=== PATIENT | male | born 1955 | race Caucasian/White ===

== ENCOUNTER 2016-11-22 14:22 | Inpatient (IN) | payer OTHER ==
[~2016-11-22] VITALS: Ht 172.7 cm; Wt 77.3 kg
[~2016-11-22 14:22] MED LIST: ACET325T33 PO; ALBU2.5V3 NEB; AMLO5TAB4 PO; ASC500 PO; BEN25 PO; BISA10SU58 PR; CRAN3875 PO; CRAN425C2 PO; DOCU-144 PO; GLUC1VIA7 IM; GUAI-637 PO; HYDR-3670 PO; LACTINEX PO; LEVE-5 PO; LEVEM SC; LEVO500T72 PO; LISI-525 PO; MAGN400O4 PO; MULTI PO; NA P118E PR; ONDA4TAB8 PO; RTATR IH; SENN-8 PO; TYL500 PO; ZINC220T PO
[2016-11-22 15:01] VITALS: Ht 172.7 cm; Wt 77.3 kg
[2016-11-22] MEDS ORDERED: SODIUM CHLORIDE 0.9% 1L BAG IV* STA (15:25)
[2016-11-22] MEDS ORDERED: VANCOMYCIN 1 GM (PMX) 250 ML IVPB ONE (15:30)
[2016-11-22] MEDS ORDERED: ONDANSETRON 4 MG INJ ONE ×2 (15:45→15:46)
[2016-11-22] MEDS ORDERED: GABA300C16 PO (15:45)
[2016-11-22] MEDS ORDERED: HYDR-3010 PO (15:46)
[2016-11-22] MEDS ORDERED: SIME80TA53 PO (15:46)
[2016-11-22] MEDS ORDERED: morphine 10 MG INJ ONE ×2 (15:46→15:48)
[2016-11-22] MEDS ORDERED: ATOR20TA38 PO (15:47)
[2016-11-22] MEDS ORDERED: HYDR-3672 PO (15:48)
[2016-11-22] MEDS ORDERED: LEVE500T8 PO (15:48)
[2016-11-22] MEDS ORDERED: SILV20CR13 TOP (15:50)
[2016-11-22] MEDS ORDERED: morphine 10 MG INJ IV ONE (16:00)
--- NOTE | 2016-11-22 16:07 | RADRPT ---
PROCEDURE: XR Chest. CLINICAL INDICATION: chest pain TECHNIQUE: Single frontal view of the chest was obtained COMPARISON: 05/11/2014 FINDINGS: The heart and mediastinum are within normal limits. The lungs are clear. There is no pleural effusion or pneumothorax. RPTAT: AA IMPRESSION: No acute disease. .Henrique Velazquez MD, MD Date Time Electronically viewed and signed by .Henrique Velazquez MD, on 11/22/2016 16:06 .S/
[2016-11-22 16:31] LABS: BASOPHIL # 0.1 10^3/ul (0.0-0.1); BASOPHILS % 0.5 % (0.0-2.0); EOSINOPHILS # 0.1 10^3/ul (0.0-0.5); EOSINOPHILS % 0.7 % (0.0-7.0); HEMATOCRIT 32.5 % (42.0-52.0); HEMOGLOBIN 10.2 g/dl (14.0-18.0); LYMPHOCYTES # 1.9 10^3/ul (0.8-2.9); MEAN CORPUSCULAR HEMOGLOBIN 19.6 pg (29.0-33.0); MEAN CORPUSCULAR HGB CONC 31.4 g/dl (32.0-37.0); MEAN CORPUSCULAR VOLUME 62.5 fl (82.0-101.0); MEAN PLATELET VOLUME 9.2 fl (7.4-10.4); MONOCYTE # 0.8 10^3/ul (0.3-0.9); MONOCYTES % 5.9 % (0.0-11.0); NEUTROPHIL # 9.8 10^3/ul (1.6-7.5); NEUTROPHILS % 77.5 % (39.0-77.0); PLATELET COUNT 206 10^3/UL (140-415); RED CELL DISTRIBUTION WIDTH 17.4 % (11.5-14.5); WHITE BLOOD COUNT 12.7 10^3/ul (4.8-10.8)
[2016-11-22 16:47] LABS: INR 1.22; PROTIME 15.5 Sec (12.2-14.2); PT RATIO 1.2
[2016-11-22 16:48] LABS: PARTIAL THROMBOPLASTIN TIME 41.1 Sec (25.0-35.0)
[2016-11-22 16:49] LABS: ALANINE AMINOTRANSFERASE 31 IU/L (13-69); ALBUMIN 3.3 g/dl (3.3-4.9); ALBUMIN/GLOBULIN RATIO 0.75; ALKALINE PHOSPHATASE 174 IU/L (42-121); ANION GAP 9 (8-16); ASPARTATE AMINO TRANSFERASE 22 IU/L (15-46); BILIRUBIN,INDIRECT 0.9 mg/dl (0-1.1); BILIRUBIN,TOTAL 0.9 mg/dl (0.2-1.3); BLOOD UREA NITROGEN 21 mg/dl (7-20); CALCIUM 8.7 mg/dl (8.4-10.2); CARBON DIOXIDE 31 mmol/L (21-31); CHLORIDE 105 mmol/L (97-110); CREATININE 0.97 mg/dl (0.61-1.24); GLUCOSE 95 mg/dl (70-220); POTASSIUM 3.7 mmol/L (3.5-5.1); SODIUM 141 mmol/L (135-144); TOTAL PROTEIN 7.7 g/dl (6.1-8.1)
[2016-11-22 17:01] LABS: TROPONIN-I < 0.012 ng/ml (0.00-0.12)
[2016-11-22] MEDS ORDERED: SOD CHLORIDE 0.9% 100 ML ONE (17:13)
[2016-11-22] MEDS ORDERED: IOHEXOL 300MG/ML 150 ML BTL ONE (17:13)
[2016-11-22 17:22] LABS: ADD UMIC YES; UR ASCORBIC ACID NEGATIVE (NEGATIVE); UR BACTERIA MANY /HPF (NONE SEEN); UR BILIRUBIN (Dip) NEGATIVE (NEGATIVE); UR BLOOD (Dip) 1+ mg/dL (NEGATIVE); UR CLARITY TURBID (CLEAR); UR COLOR AMBER (YELLOW); UR GLUCOSE (Dip) NEGATIVE (NEGATIVE); UR KETONES (Dip) NEGATIVE (NEGATIVE); UR LEUKOCYTE ESTERASE (Dip) 3+ Leu/ul (NEGATIVE); UR NITRITE (Dip) POSITIVE (NEGATIVE); UR NONSQUAMOUS EPITHELIAL CELL 1 /HPF (NONE SEEN); UR RBC 61 /HPF (0-5); UR SPECIFIC GRAVITY (Dip) 1.015 (1.003-1.030); UR TOTAL PROTEIN (Dip) 2+ mg/dl (NEGATIVE); UR UROBILINOGEN (Dip) NEGATIVE (NEGATIVE)
--- NOTE | 2016-11-22 17:54 | RADRPT ---
PROCEDURE: CT of the abdomen and pelvis CLINICAL INDICATION: Abdominal pain. Scrotal swelling. TECHNIQUE: The study was performed utilizing a GE lightspeed 64-slice multidetector CT scanner. Dir ect spiral axial sections were obtained through the abdomen and pelvis with intravenous contrast. Af ter administration of 100cc of Omnipaque-300, postcontrast images were obtained. Coronal and sagitt al reformatted images were performed. The CTDI vol is 14.75 mGy and the DLP is 951.65 mGy-cm. The i mages were reviewed on a PACS workstation. One or more of the following dose reduction techniques were used: Automated exposure control. Adjustment of the mA and/or kV according to patient size. Use of iterative reconstruction technique. COMPARISON: 05/27/2013 FINDINGS: CT abdomen: Dependent atelectatic changes in the lung bases is seen. The remaining lung bases are c lear. The heart is not enlarged. No pericardial effusion is seen. The liver morphology is again noted to be cirrhotic. No focal liver lesions or intrahepatic biliary dilatation is seen. The gallbladder is normal. No common bile duct dilatation is seen. The spleen is mildly enlarged measuring approximately 13.1 cm in size. The spleen, pancreas, and adrenal glands are otherwise unremarkable in appearance. The kidneys are normal in size and contour enhance normal ly. Non-obstructing bilateral renal calculi are seen which have increased in size and number. The la rgest stone is seen in the right renal pelvis measuring 1.2 cm in size. No evidence of hydronephrosi s or ureterolithiasis is seen. The bilateral ureters are thickened with soft tissue stranding. The stomach is unremarkable. The large bowel is stool-filled. The small and large bowel are otherwi se unremarkable in course and caliber. No inflammatory changes in the periappendiceal region is see n. No enlarged lymph nodes or fluid collections are seen. The aorta is normal in caliber. Aortic ridge cifications are seen. An infrarenal IVC filter is once again seen. CT pelvis: No pelvic mass, adenopathy, or focal fluid collection is seen. There is no free fluid. Increased soft tissue density in the presacral space is once again noted. Scrotal soft tissue swelli ng is also seen. The bilateral common iliac arteries are atherosclerotic in the cavity which is once again seen. The urinary bladder is decompressed by a suprapubic catheter. Diffuse urinary bladder w all thickening is seen. Degenerative spondylosis of the lumbar spine is seen. No osseous lesions are seen. IMPRESSION: 1. Findings which may represent pyelitis and cystitis as described above. 2. Bilateral non-obstructing renal calculi which have increased in size and number. 3. Suprapubic catheter again seen. 4. Cirrhotic liver morphology with mild splenomegaly again noted. 5. Nonspecific increased soft tissue density with scrotal wall thickening which may represent cellu litis. Consider further evaluation with scrotal ultrasound as well. RPTAT: HPNM Physician Karla Date Time Electronically viewed and signed by Physician Karla on 11/22/2016 17:54 /
[2016-11-22] MEDS ORDERED: PIPER-TAZO 3.375 GM IV (PMX) 100 ML IVPB ONE (19:00)
[2016-11-22] MEDS ORDERED: HYDROCODONE/APAP (5/325) TAB ONE (19:35)
[2016-11-22] MEDS ORDERED: IBUPROFEN 600 MG TAB ONE (19:35)
--- NOTE | 2016-11-22 19:48 | ERA ---
ER Documentation Chief Complaint Date/Time DATE: 11/22/16 TIME: 19:41 Chief Complaint from home called for red and swollen scrotum x 1 day, hx of infection HPI This 61-year-old male is brought in by family for painful and swollen scrotum for 1 day. 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 Slight weakness and some chills. Has a suprapubic catheter has been draining appropriately. Denies any bleeding. ROS All systems reviewed and are negative except as per history of present illness. Medications Home Meds Reported Medications Silver Sulfadiazine* (SSD*) 1% - 20 Gm Cream.gm., 1 APPLIC TOP BID, #1 TUB 11/22/16 Levetiracetam* (Levetiracetam*) 500 Mg Tablet, 1000 MG PO BID, TAB 11/22/16 Hydralazine Hcl* (Hydralazine Hcl*) 50 Mg Tab, 50 MG PO TID, #90 TAB 11/22/16 Atorvastatin Calcium* (Atorvastatin Calcium*) 20 Mg Tablet, 20 MG PO QHS, #30 TAB 11/22/16 Hydroxyzine Hcl* (Hydroxyzine Hcl*) 10 Mg Tablet, 10 MG PO QHS Y for ITCHING, # 30 TAB 11/22/16 Simethicone (GAS RELIEF) 80 Mg Tab.chew, 80 MG PO TID, TAB.CHEW 11/22/16 Gabapentin* (Gabapentin*) 300 Mg Capsule, 300 MG PO TID, #90 CAP 11/22/16 Discontinued Reported Medications Insulin Detemir* (Levemir*) 100 U/Ml Vial, 10 UNIT SC HS, VIAL 05/11/14 Hydralazine Hcl* (Hydralazine Hcl*) 10 Mg Tablet, 20 MG PO Q6 Y for ELEVATED BLOOD PRESSURE, TAB HOLD IF SBP ABOVE 160 05/11/14 Glucagon* (Glucagen*) 1 Mg Soln, 1 MG IM PRN, VIAL 05/11/14 Cranberry Extract (Cranberry) 425 Mg Capsule, 425 MG PO TID 05/11/14 Albuterol Sulfate* (Albuterol Sulfate* Neb) 0.083%-3 Ml Neb, 2.5 MG NEB Q4H Y for WHEEZING AND SOB, EA 05/11/14 Ondansetron Hcl* (Zofran*) 4 Mg Tablet, 4 MG PO Q4 Y for NAUSEA AND OR VOMITING , TAB 02/08/14 Zinc Sulfate* (Zinc Sulfate*) 220 Mg Tablet, 220 MG PO DAILY, TAB 02/08/14 Cran/Vitc/Mannose/Inulin/Brom (Uti-Stat Liquid) 3,875 Mg/30 Ml Liquid, 30 ML PO BID 02/08/14 Guaifenesin* (Robitussin*) 100 Mg/5 Ml Syrup, 100 MG PO Q4H Y for COUGH, ML 02/08/14 Magnesium Hydroxide* (Milk Of Magnesia*) 400 Mg/5 Ml Oral.susp, 30 ML PO QHS, ML 02/08/14 Na Phos,M-B/Na Phos,Di-Ba* (Fleet* Enema) 118 Ml Enema, 118 ML TX DAILY Y for CONSTIPATION, ENEMA 02/08/14 Lisinopril* (Zestril*) 20 Mg Tablet, 20 MG PO QHS, TAB HOLD IF SBP BELOW 110 OR HR BELOW 60 11/02/13 Ascorbic Acid (Vitamin C) 500 Mg Tab, 500 MG PO DAILY, TAB 11/02/13 Acetaminophen* (Tylenol*) 500 Mg Tab, 1000 MG PO Q4H for PAIN LEVEL 4-6, TAB 11/02/13 Acetaminophen* (Tylenol*) 325 Mg Tablet, 650 MG PO Q4H Y for PAIN LEVEL 1-3, TAB 11/02/13 Sennosides/Docusate Sodium* (Senna-S*) 1 Tab Tablet, 2 TAB PO QHS, TAB 11/02/13 Amlodipine Besylate* (Norvasc*) 5 Mg Tablet, 5 MG PO BID, TAB HOLD IF SBP BELOW 110, HR BELOW 60 11/02/13 Multivitamins* (Theragran*) 1 Tab Tab, 1 TAB PO DAILY, TAB WITH MINERAL 11/02/13 Lactobacillus Acidophilus* (Lactinex*) 1 Tab Chew, 1 TAB PO BID, TAB 11/02/13 Levetiracetam* (Keppra*) 500 Mg Tablet, 500 MG PO BID, TAB 11/02/13 Bisacodyl* (Dulcolax*) 10 Mg/Supp.rect Supp.rect, 10 MG TX Q48 HOURS Y for CONSTIPATION, SUPP.RECT 11/02/13 Docusate Sodium* (Colace*) 100 Mg Capsule, 200 MG PO HS, CAP HOOLD FOR LOOSE BM 11/02/13 Diphenhydramine Hcl* (Benadryl*) 25 Mg Cap, 25 MG PO Q6H Y for ITCHING, CAP 11/02/13 Ipratropium [place]* (Atrovent*) 2.5 Ml Nebu, 2.5 ML IH Q4 Y for WHEEZING AND SOB 05/28/13 Discontinued Scripts Levofloxacin* (Levaquin*) 500 Mg Tablet, 500 MG PO DAILY, #7 TAB Prov:KENIA BROOKS MD 05/12/14 Allergies Allergies: Coded Allergies: No Known Allergy (Unverified , 11/22/16) PMhx/Soc History of Surgery: Yes (suprapubic catheter , ventriculostomy 2013, trach, scrotum and penis surger) Anesthesia Reaction: No Hx Neurological Disorder: Yes (CVA) Hx Respiratory Disorders: Yes (COPD) Hx Cardiac Disorders: Yes (HTN) Hx Psychiatric Problems: No Hx Miscellaneous Medical Probl: Yes (HYPERLIPIDEMIA) Hx Alcohol Use: No Hx Substance Use: No (UNKNOWN) Hx Tobacco Use: No Smoking Status: Former smoker Physical Exam Vitals Vital Signs Date Time Temp Pulse Resp B/P Pulse Ox O2 Delivery O2 Flow Rate FiO2 11/22/16 17:58 68 16 182/89 96 Room Air 11/22/16 16:13 58 21 169/88 97 Room Air 11/22/16 15:01 98.0 67 25 170/89 97 Physical Exam Const: [] Distress Head: Atraumatic Eyes: Normal Conjunctiva ENT: Normal External Ears, Nose and Mouth. Neck: Full range of motion..~ No meningismus. Resp: Clear to auscultation bilaterally Cardio: Regular rate and rhythm, no murmurs Abd: Soft, suprapubic tenderness and fullness, penis within normal limits, scrotum has mild swelling and erythema and is somewhat tender to touch,, non distended. Normal bowel sounds Skin: No petechiae or rashes Back: No midline or flank tenderness Ext: No cyanosis, or edema Neur: Awake and alert and oriented 3, no focal deficits Psych: Normal Mood and Affect Result Diagram: 11/22/16 1605 11/22/16 1605 Results 24 hrs Laboratory Tests Test 11/22/16 16:05 11/22/16 18:50 White Blood Count 12.710^3/ul Red Blood Count 5.2010^6/ul Hemoglobin 10.2g/dl Hematocrit 32.5% Mean Corpuscular Volume 62.5fl Mean Corpuscular Hemoglobin 19.6pg Mean Corpuscular Hemoglobin Concent 31.4g/dl Red Cell Distribution Width 17.4% Platelet Count 99137^3/UL Mean Platelet Volume 9.2fl Neutrophils % 77.5% Lymphocytes % 15.0% Monocytes % 5.9% Eosinophils % 0.7% Basophils % 0.5% Nucleated Red Blood Cells % 0.0/100WBC Neutrophils # 9.810^3/ul Lymphocytes # 1.910^3/ul Monocytes # 0.810^3/ul Eosinophils # 0.110^3/ul Basophils # 0.110^3/ul Nucleated Red Blood Cells # 0.010^3/ul Prothrombin Time 15.5Sec Prothrombin Time Ratio 1.2 INR International Normalized Ratio 1.22 Activated Partial Thromboplast Time 41.1Sec Urine Color ANI Urine Clarity TURBID Urine pH 7.0 Urine Specific [place] 1.015 Urine Ketones NEGATIVEmg/dL Urine Nitrite POSITIVEmg/dL Urine Bilirubin NEGATIVEmg/dL Urine Urobilinogen NEGATIVEmg/dL Urine Leukocyte Esterase 3+Faisal/ul Urine Microscopic RBC 61/HPF Urine Microscopic WBC > 182/HPF Urine Bacteria MANY/HPF Urine Hemoglobin 1+mg/dL Urine Glucose NEGATIVEmg/dL Urine Total Protein 2+mg/dl Sodium Level 141mmol/L Potassium Level 3.7mmol/L Chloride Level 105mmol/L Carbon Dioxide Level 31mmol/L Anion Gap 9 Blood Urea Nitrogen 21mg/dl Creatinine 0.97mg/dl Glucose Level 95mg/dl Lactic Acid Level 1.4mmol/L 0.9mmol/L Calcium Level 8.7mg/dl Total Bilirubin 0.9mg/dl Direct Bilirubin 0.00mg/dl Indirect Bilirubin 0.9mg/dl Aspartate Amino Transf (AST/SGOT) 22IU/L Alanine Aminotransferase (ALT/SGPT) 31IU/L Alkaline Phosphatase 174IU/L Troponin I < 0.012ng/ml Total Protein 7.7g/dl Albumin 3.3g/dl Globulin 4.40g/dl Albumin/Globulin Ratio 0.75 Current Medications Medications (Trade) Dose Ordered Sig/Johnny Route PRN Reason Start Time Stop Time Status Last Admin Dose Admin Sodium Chloride 2400 ml 2,400 ml BOLUS OVER 2 HOURS STAT IV* 11/22/16 15:25 11/22/16 15:27 DC 11/22/16 16:00 Vancomycin HCl (Vancocin) 250 ml @ 125 mls/hr ONCE ONCE IVPB 11/22/16 15:30 11/22/16 17:29 DC 11/22/16 16:24 Ondansetron HCl (Zofran Inj) 4 mg STK-MED ONCE .ROUTE 11/22/16 15:45 11/22/16 15:46 DC Morphine Sulfate (morphine) 10 mg STK-MED ONCE .ROUTE 11/22/16 15:46 11/22/16 15:47 DC Ondansetron HCl (Zofran Inj) 4 mg STK-MED ONCE .ROUTE 11/22/16 15:46 11/22/16 15:47 DC Morphine Sulfate (morphine) 6 mg ONCE ONCE IV 11/22/16 16:00 11/22/16 16:01 DC 11/22/16 15:59 Morphine Sulfate (morphine) 10 mg STK-MED ONCE .ROUTE 11/22/16 15:48 11/22/16 15:49 DC IV Flush 10 ml 10 ml STK-MED ONCE .ROUTE 11/22/16 17:13 11/22/16 17:14 DC 11/22/16 17:34 Sodium Chloride (NS) 100 ml @ ud STK-MED ONCE .ROUTE 11/22/16 17:13 11/22/16 17:14 DC 11/22/16 17:35 Iohexol 150 ml 150 ml STK-MED ONCE .ROUTE 11/22/16 17:13 11/22/16 17:14 DC 11/22/16 17:35 Piperacillin Sod/ Tazobactam Sod (Zosyn 3.375gm/ 100 ml (Pmx)) 100 ml @ 200 mls/hr ONCE ONCE IVPB 11/22/16 19:00 11/22/16 19:29 DC 11/22/16 19:13 Procedures/MDM Scrotal cellulitis and cystitis with leukocytosis. No signs of sepsis. I do not believe the patient has Jami's gangrene at this point it seems to be early in the course of scrotal cellulitis. Because this is a genital threatening condition patient was started on vancomycin and Zosyn given IV fluid. Spoke with his urologist who will be able to see the patient in the morning which would be appropriate. Was treated with morphine and fentanyl for pain. Is being admitted to the panel hospitalist. CT abdomen pelvis interpretation: Mild scrotal edema, mild cystitis, no bowel obstruction, constipation, no perforation or free air, no fractures acutely. EKG interpretation: Normal sinus rhythm at 65, normal axis, normal intervals, no ST or T-wave changes concerning for acute ischemia, nonspecific ST and T- wave changes. Back monitor interpretation: Normal sinus rhythm without arrhythmia Chest x-ray interpretation: See no acute process, I see no widened mediastinum, pneumothorax, no infiltrates, no fracture Departure Diagnosis: Primary Impression: Cellulitis of scrotum Additional Impressions: Anemia Cystitis Condition: Serious RHONDA GONZALEZ DO Nov 22, 2016 19:48
[2016-11-22] MEDS ORDERED: ACETAMINOPHEN 325 MG TAB PO PRN ×2 (20:00→20:30)
[2016-11-22] MEDS ORDERED: ONDANSETRON 4 MG INJ IV PRN ×2 (20:00→20:30)
[2016-11-22] MEDS ORDERED: SENNA TAB PO ONE (20:00)
--- NOTE | 2016-11-22 20:07 | RADRPT ---
PROCEDURE: Scrotal ultrasound CLINICAL INDICATION: Scrotal swelling TECHNIQUE: Multiple stein scale, color Doppler, and spectral Doppler images of the scrotum were obt ained. Images were reviewed on a high-resolution PACS workstation. COMPARISON: None FINDINGS: The right testes measures 4.2 x 2.1 x 3.1 cm and the left testes measures 4.3 x 1.6 x 2.[address] stes are normal in size and echogenicity with increased color flow. The right epididymis measures a 0.9 x 5.2 mm and the left epididymis measures 12 x 3.2 mm. The epididymis bilaterally are normal i n size and echogenicity. No hydrocele or varicocele is identified. Diffuse scrotal wall swelling is seen. No focal fluid collection is seen. IMPRESSION: 1. Increased color flow in the bilateral testes which may represent orchitis. Consider a short inte rval follow-up as clinically warranted. 2. Diffuse scrotal wall thickening. RPTAT: HPNM Physician Karla Date Time Electronically viewed and signed by Physician Karla on 11/22/2016 19:42 /
[2016-11-22] MEDS ORDERED: NACL 0.9% 3 ML SYG IV SCH (20:30)
[2016-11-22] MEDS ORDERED: hydrOXYzine HCL 10 MG TAB PO PRN (20:30)
[2016-11-22] MEDS ORDERED: BISACODYL (EC) 5 MG TAB PO PRN (20:30)
[2016-11-22] MEDS ORDERED: morphine 2 MG INJ IV PRN (20:30)
[2016-11-22] MEDS ORDERED: DOCUSATE SODIUM 100 MG CAP PO PRN (20:30)
[2016-11-22 21:05] VITALS: BP 160/80; RESP 19
[2016-11-22] MEDS: LEVETIRACETAM 500 MG TAB PO SCH (22:01)
[2016-11-22] MEDS: ATORVASTATIN 20 MG TAB PO SCH (22:01)
[2016-11-22] MEDS: FAMOTIDINE 20 MG TAB PO SCH (22:01)
[2016-11-22] MEDS: GABAPENTIN 300 MG CAP PO SCH (22:01)
[2016-11-22] MEDS ORDERED: VANCOMYCIN IV PER PHARMACY XX SCH (22:30)
[2016-11-23 02:08] VITALS: BP 137/76; RESP 18
[2016-11-23] MEDS: VANCOMYCIN 1 GM in NS 250 ML IVPB SCH ×2 (03:45→16:45)
[2016-11-23] MEDS: PIPER-TAZO 3.375 GM IV (PMX) 100 ML IVPB SCH ×3 (06:01→21:18)
--- NOTE | 2016-11-23 06:16 | HP ---
Date/Time of Note Date/Time of Note DATE: 11/23/16 TIME: 06:10 Assessment/Plan VTE Prophylaxis VTE Prophylaxis Intervention: SCD's Lines/Catheters IV Catheter Type (from [facility]): Saline Lock Urinary Cath still in place: Yes Reason Cath still needed: other (indicate) (geniturinary infection) Assessment/Plan Chief Complaint/Hosp Course This is a 61-year-old male being admitted to the [facility] floor for: #1 scrotal cellulitis #2 suspected orchitis #3 Catheter related urinary tract infection #4 hypertension #5 history of hemorrhagic CVA #6 COPD, #7 history of liver cirrhosis and colitis. 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 #9 history of diabetes mellitus. Plan: Based on the imaging studies it appears that patient is dealing with scrotal cellulitis and possible underlying orchitis. There does not appear to be any signs of any Jami's gangrene at this time. At the current time he was started on vancomycin and Zosyn the ED will continue this for now though patient does have previous urine specimens from 2015 that were resistant to multiple organisms. Will again await urine culture results and sensitivities. Will consult ID if indicated. Urology was consulted, regarding cellulitis, and will defer further management regarding catheter management to them as well. Will await urine and blood cultures. Continue patient's home meds, insulin sliding scale. Hemoglobin A1c. Will attempt to contact family in the a.m. to obtain a better history and assess his baseline mentation. SCDs, acid jovanna Further treatment strategy will be implemented as per the clinical course Problems: HPI/ROS Admit Date/Time Admit Date/Time Nov 22, 2016 at 19:54 Hx of Present Illness Chief complaint scrotal swelling 1 day This is a 61-year-old male with a past medical history of cerebrovascular accident, hemorrhagic with left hemiparesis, hypertension, diabetes mellitus, history of previous scrotal swelling and has been having intermittent chronic indwelling Brown catheter who presents today with scrotal swelling 1. Patient was unable to provide a history information was obtained from the previous medical records. His daughter was called however was not able to reach her.. He also has a history of Jami gangrene of the scrotum. He has undergone surgery and insertion of a suprapubic catheter. Follows with Dr. Diaz. Today patient was noted to have scrotal swelling. Allergies: NKDA Medications: See MAR ROS Subjective hx not possible: other (Patient is somewhat confused I am unsure of his baseline) PMH/Family/Social Past Medical History 1. 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 Now the PEG tube is removed, gastroesophageal reflux disease. 2. History of liver cirrhosis and colitis. 3. History of Jami gangrene and suprapubic catheter placement. 4. History of diabetes mellitus. Past Surgical History History of heart surgery, history of scrotal surgery multiple times for the Jami gangrene. Family History Significant Family History: no pertinent family hx Social History Smoking Status: Former smoker Exam/Review of Systems Vital Signs Vitals Vital Signs Date Time Temp Pulse Resp B/P Pulse Ox O2 Delivery O2 Flow Rate FiO2 11/23/16 02:08 97.4 57 18 137/76 99 11/22/16 20:52 Room Air Intake and Output 11/22/16 11/22/16 11/23/16 15:00 23:00 07:00 Intake Total 250 ml 250 ml Balance 250 ml 250 ml Exam Exam General: Patient is awake and does not appear in any acute distress. He does appear somewhat confused I am unsure of his baseline HEENT: Atraumatic, normocephalic. The pupils are equal, round and reactive. Extraocular motor are intact Neck: Supple with full range of motion. No rigidity or meningismus Chest: Nontender Lungs: Clear to auscultation bilaterally no crackles rales or wheezing Heart: Normal S1-S2, Regular rhythm and rate. Abdomen: Soft , nontender, nondistended , bowel sounds are present. No guarding no rebound tenderness , No masses or organomegaly. No costovertebral temporal angle mass Genitourinary: Suprapubic catheter in place draining cloudy sediment in the urine, marked scrotal swelling and erythema noted Extremities: Normal to inspection, no edema no cyanosis Neurologic: Left-sided hemiparesis secondary to previous stroke: Patient does appear somewhat confused and unable able to give a proper history. Additional Comments EKG interpretation: Normal sinus rhythm at 65, normal axis, normal intervals, no ST or T-wave changes concerning for acute ischemia, nonspecific ST and T- wave changes. PROCEDURE: XR Chest. CLINICAL INDICATION: chest pain TECHNIQUE: Single frontal view of the chest was obtained COMPARISON: 05/11/2014 FINDINGS: The heart and mediastinum are within normal limits. The lungs are clear. There is no pleural effusion or pneumothorax. RPTAT: AA IMPRESSION: No acute disease. .Henrique Velazquez MD, MD Date Time Electronically viewed and signed by .Henrique Velazquez MD, MD on 11/22/2016 16: 06 .S/ CC: RHONDA GONZALEZ DO PROCEDURE: CT of the abdomen and pelvis CLINICAL INDICATION: Abdominal pain. Scrotal swelling. TECHNIQUE: The study was performed utilizing a [employer] 64-slice multidetector CT scanner. Direct spiral axial sections were obtained through the abdomen and pelvis with intravenous contrast. After administration of 100cc of Omnipaque-300, postcontrast images were obtained. Coronal and sagittal reformatted images were performed. The CTDI vol is 14.75 mGy and the DLP is 951.65 mGy-cm. The images were reviewed on a PACS workstation. One or more of the following dose reduction techniques were used: Automated exposure control. Adjustment of the mA and/or kV according to patient size. Use of iterative reconstruction technique. COMPARISON: 05/27/2013 FINDINGS: CT abdomen: Dependent atelectatic changes in the lung bases is seen. The remaining lung bases are clear. The heart is not enlarged. No pericardial effusion is seen. The liver morphology is again noted to be cirrhotic. No focal liver lesions or intrahepatic biliary dilatation is seen. The gallbladder is normal. No common bile duct dilatation is seen. The spleen is mildly enlarged measuring approximately 13.1 cm in size. The spleen, pancreas, and adrenal glands are otherwise unremarkable in appearance. The kidneys are normal in size and contour enhance normally. Non-obstructing bilateral renal calculi are seen which have increased in size and number. The largest stone is seen in the right renal pelvis measuring 1.2 cm in size. No evidence of hydronephrosis or ureterolithiasis is seen. The bilateral ureters are thickened with soft tissue stranding. The stomach is unremarkable. The large bowel is stool-filled. The small and large bowel are otherwise unremarkable in course and caliber. No inflammatory changes in the periappendiceal region is seen. No enlarged lymph nodes or fluid collections are seen. The aorta is normal in caliber. Aortic calcifications are seen. An infrarenal IVC filter is once again seen. CT pelvis: No pelvic mass, adenopathy, or focal fluid collection is seen. There is no free fluid. Increased soft tissue density in the presacral space is once again noted. Scrotal soft tissue swelling is also seen. The bilateral common iliac arteries are atherosclerotic in the cavity which is once again seen. The urinary bladder is decompressed by a suprapubic catheter. Diffuse urinary bladder wall thickening is seen. Degenerative spondylosis of the lumbar spine is seen. No osseous lesions are seen. IMPRESSION: 1. Findings which may represent pyelitis and cystitis as described above. 2. Bilateral non-obstructing renal calculi which have increased in size and number. 3. Suprapubic catheter again seen. 4. Cirrhotic liver morphology with mild splenomegaly again noted. 5. Nonspecific increased soft tissue density with scrotal wall thickening which may represent cellulitis. Consider further evaluation with scrotal ultrasound as well. RPTAT: HPNM Physician Karla Date Time Electronically viewed and signed by Physician Karla on 11/22/2016 17 :54 / CC: RHONDA GONZALEZ DO PROCEDURE: Scrotal ultrasound CLINICAL INDICATION: Scrotal swelling TECHNIQUE: Multiple stein scale, color Doppler, and spectral Doppler images of the scrotum were obtained. Images were reviewed on a high-resolution PACS workstation. COMPARISON: None FINDINGS: The right testes measures 4.2 x 2.1 x 3.1 cm and the left testes measures 4.3 x 1.6 x 2.7 cm. The testes are normal in size and echogenicity with increased color flow. The right epididymis measures a 0.9 x 5.2 mm and the left epididymis measures 12 x 3.2 mm. The epididymis bilaterally are normal in size and echogenicity. No hydrocele or varicocele is identified. Diffuse scrotal wall swelling is seen. No focal fluid collection is seen. IMPRESSION: 1. Increased color flow in the bilateral testes which may represent orchitis. Consider a short interval follow-up as clinically warranted. 2. Diffuse scrotal wall thickening. RPTAT: HPNM Physician Karla Date Time Electronically viewed and signed by Vinicio Reina Physician on 11/22/2016 19 :42 / CC: RHONDA GONZALEZ DO Labs Result Diagram: 11/22/16 1605 11/22/16 1605 Medications Medications Current Medications Atorvastatin Calcium (Lipitor) 20 mg QHS PO Last administered on 11/22/16 22: 01; Admin Dose 20 MG; Start 11/22/16 at 21:00 Gabapentin (Neurontin) 300 mg TID PO Last administered on 11/22/16 22:01; Admin Dose 300 MG; Start 11/22/16 at 21:00 Hydralazine HCl (Apresoline) 50 mg TID PO Last administered on 11/22/16 22:04 ; Admin Dose 50 MG; Start 11/22/16 at 21:00 Hydroxyzine HCl (Atarax) 10 mg QHS PRN PO ITCHING; Start 11/22/16 at 20:30 Levetiracetam (Keppra) 1,000 mg BID PO Last administered on 11/22/16 22:01; Admin Dose 1,000 MG; Start 11/22/16 at 21:00 Simethicone (Mylicon) 80 mg TID PO Last administered on 11/22/16 22:01; Admin Dose 80 MG; Start 11/22/16 at 21:00 Ondansetron HCl (Zofran Inj) 4 mg Q6H PRN IV NAUSEA AND/OR VOMITING; Start 11/22/16 at 20:30 Acetaminophen (Tylenol Tab) 650 mg Q6H PRN PO PAIN LEVEL 1-3 OR FEVER; Start 11/22/16 at 20:30 Morphine Sulfate (morphine) 2 mg Q4H PRN IV SEVERE PAIN LEVEL 7-10; Start 11/22 at 20:30 Docusate Sodium (Colace) 100 mg Q12H PRN PO CONSTIPATION; Start 11/22/16 at 20: 30 Bisacodyl (Dulcolax) 5 mg DAILY PRN PO CONSTIPATION; Start 11/22/16 at 20:30 Famotidine 20 mg 20 mg Q12 PO Last administered on 11/22/16 22:01; Admin Dose 20 MG; Start 11/22/16 at 21:00 Piperacillin Sod/ Tazobactam Sod 100 ml @ 200 mls/hr Q8 IVPB Last administered on 11/23/16 06:01; Admin Dose 200 MLS/HR; Start 11/23/16 at 06:00 Vancomycin HCl (Vancocin) 250 ml @ 125 mls/hr Q12H IVPB Last administered on 11/23/16 03:45; Admin Dose 125 MLS/HR; Start 11/23/16 at 04:00 GEORGES PTAEL Nov 23, 2016 06:16
[2016-11-23 07:23] LABS: ABNORMAL IP MESSAGE 1; BASOPHIL # 0.1 10^3/ul (0.0-0.1); BASOPHILS % 0.9 % (0.0-2.0); EOSINOPHILS # 0.2 10^3/ul (0.0-0.5); HEMATOCRIT 33.6 % (42.0-52.0); HEMOGLOBIN 9.9 g/dl (14.0-18.0); LYMPHOCYTES # 1.8 10^3/ul (0.8-2.9); LYMPHOCYTES % 20.8 % (15.0-51.0); MEAN CORPUSCULAR HEMOGLOBIN 18.4 pg (29.0-33.0); MEAN CORPUSCULAR HGB CONC 29.5 g/dl (32.0-37.0); MEAN CORPUSCULAR VOLUME 62.6 fl (82.0-101.0); MONOCYTE # 0.5 10^3/ul (0.3-0.9); MONOCYTES % 6.4 % (0.0-11.0); NEUTROPHIL # 5.9 10^3/ul (1.6-7.5); NEUTROPHILS % 69.5 % (39.0-77.0); PLATELET COUNT 190 10^3/UL (140-415); POSITIVE DIFF @See below; RED BLOOD COUNT 5.37 10^6/ul (4.70-6.10); RED CELL DISTRIBUTION WIDTH 19.1 % (11.5-14.5); WHITE BLOOD COUNT 8.5 10^3/ul (4.8-10.8)
[2016-11-23 07:45] VITALS: BP 145/79; RESP 20
[2016-11-23 07:52] LABS: ALBUMIN 3.3 g/dl (3.3-4.9); ALBUMIN/GLOBULIN RATIO 0.76; BILIRUBIN,INDIRECT 1.1 mg/dl (0-1.1); BILIRUBIN,TOTAL 1.1 mg/dl (0.2-1.3); CALCIUM 8.4 mg/dl (8.4-10.2); CHOL/HDL RATIO 3.5 RATIO; CREATININE 0.64 mg/dl (0.61-1.24); POTASSIUM 3.2 mmol/L (3.5-5.1); TOTAL PROTEIN 7.6 g/dl (6.1-8.1)
[2016-11-23 08:21] LABS: THYROID STIMULATING HORMONE 3.17 MIU/L (0.465-4.680)
[2016-11-23] MEDS: GABAPENTIN 300 MG CAP PO SCH ×3 (09:23→21:18)
[2016-11-23] MEDS: FAMOTIDINE 20 MG TAB PO SCH ×2 (09:24→21:18)
[2016-11-23] MEDS: LEVETIRACETAM 500 MG TAB PO SCH ×2 (09:24→21:18)
[2016-11-23] MEDS ORDERED: POTASSIUM CHLORIDE (SR) 20 MEQ TAB PO STA (11:11)
--- NOTE | 2016-11-23 13:25 | HP ---
DATE OF ADMISSION: 11/22/2016 REQUESTING PHYSICIAN: Dr. Hilario Santillan. 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 Now, he presented to the hospital yesterday with pain in t he scrotal area and therefore was admitted. The patient's other significant history includes a his tory of hypertension and cerebrovascular accident that resulted in a left hemiparesis and the patien t has COPD, history of dysphagia and the patient also has a history of liver cirrhosis and colitis a nd diabetes mellitus. PAST SURGICAL HISTORY: Includes a history of heart surgery and the Jami gangrene surgeries for which he underwent multiple procedures and insertion of suprapubic tube. At the present the patient used to be a smoker but certainly no longer since he has had stroke. No alcohol abuse and no drug abuse. PHYSICAL EXAMINATION: GENERAL: Reveals an elderly male who is not communicating. VITAL SIGNS: He weighs about 77 kg and he is 68 inches tall. His temperature is 97.4, pulse is 57, respirations 18, blood pressure 137/76. ABDOMEN: Soft. There is no abdominal mass palpable. He used to have a G-tube, but no longer. He does have the suprapubic tube and that is draining clear urine. It has a little sediment in it. SCROTUM: He does have and he has had that before, an area of small drainage from the penoscrotal ar ea. The scrotum itself is okay, does not show any abscess or fluid collection. LABORATORY DATA: CBC shows a white count of 8.5, hemoglobin 9.9, hematocrit 33.6. The BUN is 15, c reatinine 0.64. Sodium 140, potassium 3.2, chloride 106, CO2 27. Urine culture is pending and the urinalysis showed many bacteria in the urine. IMPRESSION: Urinary tract infection, I do not see any evidence of Jami gangrene at the present or cellulitis or even epididymitis. RECOMMENDATION: To continue his IV antibiotic. He is already on Zosyn and continue the antibiotic and exchange the suprapubic tube and he will get better. Dictated By: CHERYLE DE LA CRUZ/YAMILETH Conf#: [id number] DID#: [id number]
[2016-11-23 14:20] VITALS: BP 173/83; RESP 18
[2016-11-23 14:49] LABS: IRON 45 ug/dl (35-150)
[2016-11-23 15:35] LABS: TOTAL IRON BINDING CAPACITY 183 ug/dl (241-421)
[2016-11-23 19:55] VITALS: BP 173/78; RESP 20
[2016-11-23] MEDS: ATORVASTATIN 20 MG TAB PO SCH (21:18)
[2016-11-24] VITALS (7 sets, daily range): BP systolic 139–190; BP diastolic 74–88; PULSE 66–76; RESP 18–20
[2016-11-24] MEDS: VANCOMYCIN 1 GM in NS 250 ML IVPB SCH ×2 (04:18→16:00)
[2016-11-24] MEDS: hydrALAzine 20 MG INJ IV PRN ×2 (04:43→21:26)
[2016-11-24] MEDS: PIPER-TAZO 3.375 GM IV (PMX) 100 ML IVPB SCH ×3 (06:14→20:28)
[2016-11-24 07:16] LABS: BASOPHIL # 0.1 10^3/ul (0.0-0.1); BASOPHILS % 1.2 % (0.0-2.0); EOSINOPHILS # 0.2 10^3/ul (0.0-0.5); EOSINOPHILS % 3.5 % (0.0-7.0); HEMATOCRIT 33.5 % (42.0-52.0); HEMOGLOBIN 10.1 g/dl (14.0-18.0); LYMPHOCYTES # 1.9 10^3/ul (0.8-2.9); LYMPHOCYTES % 31.8 % (15.0-51.0); MEAN CORPUSCULAR HEMOGLOBIN 18.7 pg (29.0-33.0); MEAN CORPUSCULAR HGB CONC 30.1 g/dl (32.0-37.0); MEAN PLATELET VOLUME 9.4 fl (7.4-10.4); MONOCYTE # 0.5 10^3/ul (0.3-0.9); MONOCYTES % 7.6 % (0.0-11.0); NEUTROPHIL # 3.3 10^3/ul (1.6-7.5); NEUTROPHILS % 55.6 % (39.0-77.0); PLATELET COUNT 226 10^3/UL (140-415); RED CELL DISTRIBUTION WIDTH 17.5 % (11.5-14.5); WHITE BLOOD COUNT 5.9 10^3/ul (4.8-10.8)
[2016-11-24 07:40] LABS: CALCIUM 8.8 mg/dl (8.4-10.2); CREATININE 0.7 mg/dl (0.61-1.24); POTASSIUM 3.5 mmol/L (3.5-5.1)
[2016-11-24] MEDS: GABAPENTIN 300 MG CAP PO SCH ×3 (08:17→20:26)
[2016-11-24] MEDS: LEVETIRACETAM 500 MG TAB PO SCH ×2 (08:18→20:25)
[2016-11-24] MEDS: FAMOTIDINE 20 MG TAB PO SCH ×2 (08:18→20:26)
--- NOTE | 2016-11-24 08:44 | PN ---
Date/Time of Note Date/Time of Note DATE: 11/24/16 TIME: 08:38 Assessment/Plan VTE Prophylaxis VTE Prophylaxis Intervention: LMWH Lines/Catheters IV [facility] Type (from [facility] Saline Lock Urinary Cath still in place: Yes Reason Cath still needed: urinary retention Assessment/Plan Chief Complaint/Hosp Course 61-year-old male who is known to have a history of Peyronie's disease. Has undergone multiple surgeries on his scrotum and insertion of suprapubic tube about 3 years earlier. His urethra is closed. He was admitted because of possible epididymitis and urinary tract infection. Presently he is doing better the scrotum still a little hard and tender but no evidence of any abscess formation or collection of any fluid. Recommend continue the intravenous antibiotics and before his discharge we will change his suprapubic tube Problems: Subjective 24 Hr Interval Summary Subjective hx not possible: pt non-verbal, other (Patient is being fed for breakfast) Eyes: no complaints Respiratory: no complaints Cardiovascular: no complaints Gastrointestinal: no complaints Genitourinary: other (Patient has a suprapubic tube that is draining clear urine), No bleeding, No hematuria Musculoskeletal: no complaints, other (Left hemiparesis) Neurologic: other (Left hemiparesis) Exam/Review of Systems Vital Signs Vitals Vital Signs Date Time Temp Pulse Resp B/P Pulse Ox O2 Delivery O2 Flow Rate FiO2 11/24/16 08:27 98.6 59 18 158/74 97 11/24/16 04:32 Room Air Intake and Output 11/23/16 11/23/16 11/24/16 15:00 23:00 07:00 Intake Total 100 ml 650 ml 590 ml Output Total 900 ml 950 ml Balance 100 ml -250 ml -360 ml Exam Constitutional: alert Psych: no complaints Head: normocephalic Eyes: nl conjunctiva ENMT: nl external ears & nose Neck: supple Respiratory: normal air movement Cardiovascular: No edema Gastrointestinal: soft Genitourinary - Male: other (Suprapubic tube draining clear urine, scrotum shows no edema, no erythema and no collection of fluid. No sign of abscess. Possible epididymitis) Musculoskeletal: other (Left hemiparesis) Extremities: other (Left hemiparesis) Results Result Diagram: 11/24/16 0623 11/24/16 0623 Results 24 hrs Laboratory Tests Test 11/23/16 13:57 11/24/16 06:23 Iron Level 45 Total Iron Binding Capacity 183 L Percent Iron Saturation 21 L Ferritin 252.0 White Blood Count 5.9 # Red Blood Count 5.40 Hemoglobin 10.1 L Hematocrit 33.5 L Mean Corpuscular Volume 62.0 L Mean Corpuscular Hemoglobin 18.7 L Mean Corpuscular Hemoglobin Concent 30.1 L Red Cell Distribution Width 17.5 H Platelet Count 226 Mean Platelet Volume 9.4 Neutrophils % 55.6 Lymphocytes % 31.8 Monocytes % 7.6 Eosinophils % 3.5 Basophils % 1.2 Nucleated Red Blood Cells % 0.0 Neutrophils # 3.3 Lymphocytes # 1.9 Monocytes # 0.5 Eosinophils # 0.2 Basophils # 0.1 Nucleated Red Blood Cells # 0.0 Sodium Level 142 Potassium Level 3.5 Chloride Level 106 Carbon Dioxide Level 30 Anion Gap 10 Blood Urea Nitrogen 11 Creatinine 0.70 Glucose Level 73 Calcium Level 8.8 Medications Medications Current Medications Atorvastatin Calcium (Lipitor) 20 mg QHS PO Last administered on 11/23/16 21: 18; Admin Dose 20 MG; Start 11/22/16 at 21:00 Gabapentin (Neurontin) 300 mg TID PO Last administered on 11/24/16 08:17; Admin Dose 300 MG; Start 11/22/16 at 21:00 Hydralazine HCl (Apresoline) 50 mg TID PO Last administered on 11/24/16 08:18 ; Admin Dose 50 MG; Start 11/22/16 at 21:00 Hydroxyzine HCl (Atarax) 10 mg QHS PRN PO ITCHING; Start 11/22/16 at 20:30 Levetiracetam (Keppra) 1,000 mg BID PO Last administered on 11/24/16 08:18; Admin Dose 1,000 MG; Start 11/22/16 at 21:00 Simethicone (Mylicon) 80 mg TID PO Last administered on 11/24/16 08:18; Admin Dose 80 MG; Start 11/22/16 at 21:00 Ondansetron HCl (Zofran Inj) 4 mg Q6H PRN IV NAUSEA AND/OR VOMITING; Start 11/22/16 at 20:30 Acetaminophen (Tylenol Tab) 650 mg Q6H PRN PO PAIN LEVEL 1-3 OR FEVER; Start 11/22/16 at 20:30 Morphine Sulfate (morphine) 2 mg Q4H PRN IV SEVERE PAIN LEVEL 7-10; Start 11/22 at 20:30 Docusate Sodium (Colace) 100 mg Q12H PRN PO CONSTIPATION; Start 11/22/16 at 20: 30 Bisacodyl (Dulcolax) 5 mg DAILY PRN PO CONSTIPATION; Start 11/22/16 at 20:30 Famotidine 20 mg 20 mg Q12 PO Last administered on 11/24/16 08:18; Admin Dose 20 MG; Start 11/22/16 at 21:00 Piperacillin Sod/ Tazobactam Sod 100 ml @ 200 mls/hr Q8 IVPB Last administered on 11/24/16 06:14; Admin Dose 200 MLS/HR; Start 11/23/16 at 06:00 Vancomycin HCl (Vancocin) 250 ml @ 125 mls/hr Q12H IVPB Last administered on 11/24/16 04:18; Admin Dose 125 MLS/HR; Start 11/23/16 at 04:00 Influenza Virus Vaccine (Fluzone) 0.5 ml ONCE ONCE IM* ; Start 11/24/16 at 20:30 ; Stop 11/24/16 at 20:31 Hydralazine HCl (Apresoline) 10 mg Q4H PRN IV ELEVATED SYSTOLIC BP Last administered on 11/24/16 04:43; Admin Dose 10 MG; Start 11/24/16 at 05:00 CHERYEL BOYD MD Nov 24, 2016 08:44
[2016-11-24 09:03] LABS: MAGNESIUM 2.1 mg/dl (1.7-2.5); PHOSPHORUS 3.2 mg/dl (2.5-4.9)
--- NOTE | 2016-11-24 09:30 | PN ---
Date/Time of Note Date/Time of Note DATE: 11/24/16 TIME: 09:28 Assessment/Plan VTE Prophylaxis VTE Prophylaxis Intervention: SCD's Lines/Catheters IV [facility]ter Type (from [facility] Saline Lock Urinary Cath still in place: Yes Reason Cath still needed: other (indicate) Assessment/Plan Chief Complaint/Hosp Course 1. Complicated urinary tract infection. Urine culture positive for gram- negative rods. Final cultures pending. Continue antimicrobials. 2. History of Peyronie's disease. Status post multiple surgeries on his scrotum and insertion of a suprapubic catheter. The patient being followed by urology. 3. Essential hypertension. Continue antihypertensives. Adjust antihypertensives to obtain optimal blood pressure control. 4. 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 Continue supportive care. Continue prophylactic Keppra. 5. History of diabetes mellitus. Was previously on insulin at home. Currently off antidiabetic medications. Hemoglobin A1c within normal limits. 6. Microcytic, hypochromic anemia. Iron panel showing no significant iron deficiency. Continue to monitor H&H. 7. Fluids, electrolytes, and nutrition. Mechanical soft diet. 8. D VT prophylaxis. Bilateral sequential compression devices. 9. Plan. Continue antimicrobials. Await final cultures. Case discussed with Dr. Richardson. Problems: Subjective 24 Hr Interval Summary Free Text/Dictation Patient remains afebrile. Exam/Review of Systems Vital Signs Vitals Vital Signs Date Time Temp Pulse Resp B/P Pulse Ox O2 Delivery O2 Flow Rate FiO2 11/24/16 08:27 98.6 59 18 158/74 97 11/24/16 04:32 Room Air Intake and Output 11/23/16 11/23/16 11/24/16 15:00 23:00 07:00 Intake Total 100 ml 650 ml 590 ml Output Total 900 ml 950 ml Balance 100 ml -250 ml -360 ml Exam General: Adequately build 61 year-old male lying in bed in no apparent distress. HEENT: Normocephalic, atraumatic. Eyes: Anicteric sclerae, conjunctivae clear. ENT: Nasal septum midline, oral mucosa moist. Neck supple, no JVD noticed. Respiratory: Bilaterally diminished breath sounds. No use of accessory muscles of respiration. No adventitious breath sounds. Cardiovascular: S1, S2 heard. Regular rate and rhythm. Abdomen: Soft, nontender, and nondistended. Bowel sounds positive in all 4 quadrants. Genitourinary: Scrotal edema. Suprapubic catheter in place. Extremities: No cyanosis, no clubbing, no edema. Peripheral pulses palpable. Neurologic: The patient is awake and alert. Left sylvain-plegia. Results Result Diagram: 11/24/16 0623 11/24/16 0623 Results 24 hrs Laboratory Tests Test 11/23/16 13:57 11/24/16 06:23 Iron Level 45 Total Iron Binding Capacity 183 L Percent Iron Saturation 21 L Ferritin 252.0 White Blood Count 5.9 # Red Blood Count 5.40 Hemoglobin 10.1 L Hematocrit 33.5 L Mean Corpuscular Volume 62.0 L Mean Corpuscular Hemoglobin 18.7 L Mean Corpuscular Hemoglobin Concent 30.1 L Red Cell Distribution Width 17.5 H Platelet Count 226 Mean Platelet Volume 9.4 Neutrophils % 55.6 Lymphocytes % 31.8 Monocytes % 7.6 Eosinophils % 3.5 Basophils % 1.2 Nucleated Red Blood Cells % 0.0 Neutrophils # 3.3 Lymphocytes # 1.9 Monocytes # 0.5 Eosinophils # 0.2 Basophils # 0.1 Nucleated Red Blood Cells # 0.0 Sodium Level 142 Potassium Level 3.5 Chloride Level 106 Carbon Dioxide Level 30 Anion Gap 10 Blood Urea Nitrogen 11 Creatinine 0.70 Glucose Level 73 Calcium Level 8.8 Phosphorus Level 3.2 Magnesium Level 2.1 Medications Medications Current Medications Atorvastatin Calcium (Lipitor) 20 mg QHS PO Last administered on 11/23/16 21: 18; Admin Dose 20 MG; Start 11/22/16 at 21:00 Gabapentin (Neurontin) 300 mg TID PO Last administered on 11/24/16 08:17; Admin Dose 300 MG; Start 11/22/16 at 21:00 Hydralazine HCl (Apresoline) 50 mg TID PO Last administered on 11/24/16 08:18 ; Admin Dose 50 MG; Start 11/22/16 at 21:00 Hydroxyzine HCl (Atarax) 10 mg QHS PRN PO ITCHING; Start 11/22/16 at 20:30 Levetiracetam (Keppra) 1,000 mg BID PO Last administered on 11/24/16 08:18; Admin Dose 1,000 MG; Start 11/22/16 at 21:00 Simethicone (Mylicon) 80 mg TID PO Last administered on 11/24/16 08:18; Admin Dose 80 MG; Start 11/22/16 at 21:00 Ondansetron HCl (Zofran Inj) 4 mg Q6H PRN IV NAUSEA AND/OR VOMITING; Start 11/22/16 at 20:30 Acetaminophen (Tylenol Tab) 650 mg Q6H PRN PO PAIN LEVEL 1-3 OR FEVER; Start 11/22/16 at 20:30 Morphine Sulfate (morphine) 2 mg Q4H PRN IV SEVERE PAIN LEVEL 7-10; Start 11/22 at 20:30 Docusate Sodium (Colace) 100 mg Q12H PRN PO CONSTIPATION; Start 11/22/16 at 20: 30 Bisacodyl (Dulcolax) 5 mg DAILY PRN PO CONSTIPATION; Start 11/22/16 at 20:30 Famotidine 20 mg 20 mg Q12 PO Last administered on 11/24/16 08:18; Admin Dose 20 MG; Start 11/22/16 at 21:00 Piperacillin Sod/ Tazobactam Sod 100 ml @ 200 mls/hr Q8 IVPB Last administered on 11/24/16 06:14; Admin Dose 200 MLS/HR; Start 11/23/16 at 06:00 Vancomycin HCl (Vancocin) 250 ml @ 125 mls/hr Q12H IVPB Last administered on 11/24/16 04:18; Admin Dose 125 MLS/HR; Start 11/23/16 at 04:00 Influenza Virus Vaccine (Fluzone) 0.5 ml ONCE ONCE IM* ; Start 11/24/16 at 20:30 ; Stop 11/24/16 at 20:31 Hydralazine HCl (Apresoline) 10 mg Q4H PRN IV ELEVATED SYSTOLIC BP Last administered on 11/24/16 04:43; Admin Dose 10 MG; Start 11/24/16 at 05:00 ADELAIDA GRIMALDO NP Nov 24, 2016 09:30
[2016-11-24] MEDS: ATORVASTATIN 20 MG TAB PO SCH (20:25)
[2016-11-24] MEDS ORDERED: INFLUENZA VIRUS VACCINE 0.5 ML SYG IM* ONE (20:30)
[2016-11-25] MEDS: VANCOMYCIN 750 MG in SOD CHLORIDE 0.9% 150 ML IVPB SCH ×2 (01:30→13:57)
[2016-11-25 02:00] VITALS: BP 173/83; RESP 20
[2016-11-25] MEDS: PIPER-TAZO 3.375 GM IV (PMX) 100 ML IVPB SCH ×3 (05:15→22:57)
[2016-11-25] MEDS: hydrALAzine 20 MG INJ IV PRN (05:16)
[2016-11-25 06:31] LABS: BASOPHIL # 0.1 10^3/ul (0.0-0.1); BASOPHILS % 1.2 % (0.0-2.0); EOSINOPHILS # 0.2 10^3/ul (0.0-0.5); EOSINOPHILS % 2.9 % (0.0-7.0); HEMATOCRIT 32.7 % (42.0-52.0); HEMOGLOBIN 9.9 g/dl (14.0-18.0); LYMPHOCYTES # 2.2 10^3/ul (0.8-2.9); LYMPHOCYTES % 33.6 % (15.0-51.0); MEAN CORPUSCULAR HEMOGLOBIN 18.4 pg (29.0-33.0); MEAN CORPUSCULAR HGB CONC 30.3 g/dl (32.0-37.0); MEAN CORPUSCULAR VOLUME 60.9 fl (82.0-101.0); MEAN PLATELET VOLUME 9.2 fl (7.4-10.4); MONOCYTE # 0.6 10^3/ul (0.3-0.9); MONOCYTES % 9.2 % (0.0-11.0); NEUTROPHIL # 3.5 10^3/ul (1.6-7.5); NEUTROPHILS % 52.9 % (39.0-77.0); PLATELET COUNT 228 10^3/UL (140-415); RED BLOOD COUNT 5.37 10^6/ul (4.70-6.10); RED CELL DISTRIBUTION WIDTH 18.1 % (11.5-14.5); WHITE BLOOD COUNT 6.5 10^3/ul (4.8-10.8)
[2016-11-25 06:55] LABS: PHOSPHORUS 3.1 mg/dl (2.5-4.9)
[2016-11-25 07:16] LABS: CALCIUM 8.3 mg/dl (8.4-10.2); CREATININE 0.81 mg/dl (0.61-1.24); POTASSIUM 3.2 mmol/L (3.5-5.1)
[2016-11-25 08:00] VITALS: BP 130/81; RESP 17
[2016-11-25] MEDS: FAMOTIDINE 20 MG TAB PO SCH ×2 (09:16→20:24)
[2016-11-25] MEDS: GABAPENTIN 300 MG CAP PO SCH ×3 (09:16→20:23)
[2016-11-25] MEDS: LEVETIRACETAM 500 MG TAB PO SCH ×2 (09:16→20:21)
[2016-11-25] MEDS ORDERED: POTASSIUM CHLORIDE (SR) 20 MEQ TAB PO STA (13:10)
--- NOTE | 2016-11-25 13:13 | PN ---
Date/Time of Note Date/Time of Note DATE: 11/25/16 TIME: 13:09 Assessment/Plan VTE Prophylaxis VTE Prophylaxis Intervention: SCD's Lines/Catheters IV Catheter Type (from [facility]): Saline Lock Urinary Cath still in place: Yes Reason Cath still needed: other (indicate) Assessment/Plan Chief Complaint/Hosp Course 1. Complicated urinary tract infection. Urine culture positive for gram- negative rods. Final cultures pending. Continue antimicrobials. 2. History of Peyronie's disease. Status post multiple surgeries on his scrotum and insertion of a suprapubic catheter. The patient being followed by urology. 3. Essential hypertension. Continue antihypertensives. Adjust antihypertensives to obtain optimal blood pressure control. 4. 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 Continue supportive care. Continue prophylactic Keppra. 5. History of diabetes mellitus. Was previously on insulin at home. Currently off antidiabetic medications. Hemoglobin A1c within normal limits. 6. Microcytic, hypochromic anemia. Iron panel showing no significant iron deficiency. Continue to monitor H&H. 7. Fluids, electrolytes, and nutrition. Mechanical soft diet. 8. D VT prophylaxis. Bilateral sequential compression devices. 9. Plan. Continue antimicrobials. Await final cultures. Case discussed with Dr. Richardson. Problems: Subjective 24 Hr Interval Summary Free Text/Dictation Remains afebrile. Complains of scrotal pain. Exam/Review of Systems Vital Signs Vitals Vital Signs Date Time Temp Pulse Resp B/P Pulse Ox O2 Delivery O2 Flow Rate FiO2 11/25/16 08:00 98.0 59 17 130/81 97 11/24/16 04:32 Room Air Intake and Output 11/24/16 11/24/16 11/25/16 14:59 22:59 06:59 Intake Total 400 ml 510 ml Output Total 575 ml 1300 ml Balance -175 ml -790 ml Exam General: Adequately build 61 year-old male lying in bed in no apparent distress. HEENT: Normocephalic, atraumatic. Eyes: Anicteric sclerae, conjunctivae clear. ENT: Nasal septum midline, oral mucosa moist. Neck supple, no JVD noticed. Respiratory: Bilaterally diminished breath sounds. No use of accessory muscles of respiration. No adventitious breath sounds. Cardiovascular: S1, S2 heard. Regular rate and rhythm. Abdomen: Soft, nontender, and nondistended. Bowel sounds positive in all 4 quadrants. Genitourinary: Scrotal edema. Suprapubic catheter in place. Extremities: No cyanosis, no clubbing, no edema. Peripheral pulses palpable. Neurologic: The patient is awake and alert. Left sylvain-plegia. Results Result Diagram: 11/25/16 0443 11/25/16 0442 Results 24 hrs Laboratory Tests Test 11/24/16 15:01 11/25/16 04:42 11/25/16 04:43 Vancomycin Level Trough 19.8 Sodium Level 141 Potassium Level 3.2 L Chloride Level 106 Carbon Dioxide Level 28 Anion Gap 10 Blood Urea Nitrogen 12 Creatinine 0.81 Glucose Level 84 Calcium Level 8.3 L Phosphorus Level 3.1 Magnesium Level 2.0 White Blood Count 6.5 Red Blood Count 5.37 Hemoglobin 9.9 L Hematocrit 32.7 L Mean Corpuscular Volume 60.9 L Mean Corpuscular Hemoglobin 18.4 L Mean Corpuscular Hemoglobin Concent 30.3 L Red Cell Distribution Width 18.1 H Platelet Count 228 Mean Platelet Volume 9.2 Neutrophils % 52.9 Lymphocytes % 33.6 Monocytes % 9.2 Eosinophils % 2.9 Basophils % 1.2 Nucleated Red Blood Cells % 0.0 Neutrophils # 3.5 Lymphocytes # 2.2 Monocytes # 0.6 Eosinophils # 0.2 Basophils # 0.1 Nucleated Red Blood Cells # 0.0 Medications Medications Current Medications Atorvastatin Calcium (Lipitor) 20 mg QHS PO Last administered on 11/24/16 20: 25; Admin Dose 20 MG; Start 11/22/16 at 21:00 Gabapentin (Neurontin) 300 mg TID PO Last administered on 11/25/16 09:16; Admin Dose 300 MG; Start 11/22/16 at 21:00 Hydralazine HCl (Apresoline) 50 mg TID PO Last administered on 11/25/16 09:16 ; Admin Dose 50 MG; Start 11/22/16 at 21:00 Hydroxyzine HCl (Atarax) 10 mg QHS PRN PO ITCHING; Start 11/22/16 at 20:30 Levetiracetam (Keppra) 1,000 mg BID PO Last administered on 11/25/16 09:16; Admin Dose 1,000 MG; Start 11/22/16 at 21:00 Simethicone (Mylicon) 80 mg TID PO Last administered on 11/25/16 09:16; Admin Dose 80 MG; Start 11/22/16 at 21:00 Ondansetron HCl (Zofran Inj) 4 mg Q6H PRN IV NAUSEA AND/OR VOMITING; Start 11/22/16 at 20:30 Acetaminophen (Tylenol Tab) 650 mg Q6H PRN PO PAIN LEVEL 1-3 OR FEVER; Start 11/22/16 at 20:30 Morphine Sulfate (morphine) 2 mg Q4H PRN IV SEVERE PAIN LEVEL 7-10; Start 11/22 at 20:30 Docusate Sodium (Colace) 100 mg Q12H PRN PO CONSTIPATION; Start 11/22/16 at 20: 30 Bisacodyl (Dulcolax) 5 mg DAILY PRN PO CONSTIPATION; Start 11/22/16 at 20:30 Famotidine 20 mg 20 mg Q12 PO Last administered on 11/25/16 09:16; Admin Dose 20 MG; Start 11/22/16 at 21:00 Piperacillin Sod/ Tazobactam Sod (Zosyn 3.375gm/ 100 ml (Pmx)) 100 ml @ 200 mls /hr Q8 IVPB Last administered on 11/25/16 05:15; Admin Dose 200 MLS/HR; Start 11/23/16 at 06:00 Hydralazine HCl 10 mg 10 mg Q4H PRN IV ELEVATED SYSTOLIC BP Last administered on 11/25/16 05:16; Admin Dose 10 MG; Start 11/24/16 at 05:00 Vancomycin HCl/ Sodium Chloride (Vancocin/NS) 150 ml @ 75 mls/hr Q12H IVPB Last administered on 11/25/16 01:30; Admin Dose 75 MLS/HR; Start 11/25/16 at 01 :00 Miscellaneous Information (*Rx Drug Level Order Reminder*) VANCOMYCIN TROUGH AT 1200 ONCE ONCE XX ; Start 11/26/16 at 12:00; Stop 11/26/16 at 12:01 ADELAIDA GRIMALDO NP Nov 25, 2016 13:13
[2016-11-25 14:00] VITALS: BP 185/90; RESP 20
[2016-11-25 20:00] VITALS: BP 155/75; RESP 17
[2016-11-25] MEDS: ATORVASTATIN 20 MG TAB PO SCH (20:26)
[2016-11-26] MEDS: VANCOMYCIN 750 MG in SOD CHLORIDE 0.9% 150 ML IVPB SCH (01:36)
[2016-11-26 02:00] VITALS: BP 157/77; RESP 18
[2016-11-26] MEDS: PIPER-TAZO 3.375 GM IV (PMX) 100 ML IVPB SCH (05:15)
[2016-11-26 07:00] LABS: BASOPHIL # 0.1 10^3/ul (0.0-0.1); BASOPHILS % 0.8 % (0.0-2.0); EOSINOPHILS # 0.1 10^3/ul (0.0-0.5); HEMATOCRIT 31.7 % (42.0-52.0); HEMOGLOBIN 9.7 g/dl (14.0-18.0); LYMPHOCYTES # 1.6 10^3/ul (0.8-2.9); LYMPHOCYTES % 27.2 % (15.0-51.0); MEAN CORPUSCULAR HEMOGLOBIN 18.7 pg (29.0-33.0); MEAN CORPUSCULAR HGB CONC 30.6 g/dl (32.0-37.0); MEAN CORPUSCULAR VOLUME 61.2 fl (82.0-101.0); MEAN PLATELET VOLUME 9.2 fl (7.4-10.4); MONOCYTE # 0.5 10^3/ul (0.3-0.9); NEUTROPHIL # 3.6 10^3/ul (1.6-7.5); NEUTROPHILS % 60.8 % (39.0-77.0); PLATELET COUNT 198 10^3/UL (140-415); RED BLOOD COUNT 5.18 10^6/ul (4.70-6.10); RED CELL DISTRIBUTION WIDTH 17.2 % (11.5-14.5); WHITE BLOOD COUNT 5.9 10^3/ul (4.8-10.8)
[2016-11-26 07:24] LABS: CALCIUM 8.2 mg/dl (8.4-10.2); CREATININE 0.71 mg/dl (0.61-1.24)
[2016-11-26 08:00] VITALS: BP 143/80; RESP 19
[2016-11-26] MEDS: FAMOTIDINE 20 MG TAB PO SCH ×2 (08:52→20:07)
[2016-11-26] MEDS: GABAPENTIN 300 MG CAP PO SCH ×3 (08:52→20:08)
[2016-11-26] MEDS: LEVETIRACETAM 500 MG TAB PO SCH ×2 (08:52→20:08)
--- NOTE | 2016-11-26 10:14 | PN ---
Date/Time of Note Date/Time of Note DATE: 11/26/16 TIME: 10:10 Assessment/Plan VTE Prophylaxis VTE Prophylaxis Intervention: SCD's Lines/Catheters IV [facility]from [facility] Saline Lock Urinary Cath still in place: Yes Reason Cath still needed: other (indicate) Assessment/Plan Chief Complaint/Hosp Course 1. Complicated urinary tract infection. Urine culture positive for Morganella morganii and Pseudomonas aeruginosa. Continue antimicrobials. Will involve infectious diseases on the case for antibiotic management. 2. History of Peyronie's disease. Status post multiple surgeries on his scrotum and insertion of a suprapubic catheter. The patient being followed by urology. 3. Essential hypertension. Continue antihypertensives. Adjust antihypertensives to obtain optimal blood pressure control. 4. 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 Continue supportive care. Continue prophylactic Keppra. 5. History of diabetes mellitus. Was previously on insulin at home. Currently off antidiabetic medications. Hemoglobin A1c within normal limits. 6. Microcytic, hypochromic anemia. Iron panel showing no significant iron deficiency. Continue to monitor H&H. 7. Fluids, electrolytes, and nutrition. Mechanical soft diet. 8. DVT prophylaxis. Bilateral sequential compression devices. 9. Plan. Continue antimicrobials. Antibiotics to be finalized by infectious diseases. Replete potassium. Case discussed with Dr. Richardson. Problems: Subjective 24 Hr Interval Summary Free Text/Dictation The patient remains afebrile. Exam/Review of Systems Vital Signs Vitals Vital Signs Date Time Temp Pulse Resp B/P Pulse Ox O2 Delivery O2 Flow Rate FiO2 11/26/16 08:00 97.3 55 19 143/80 98 11/24/16 04:32 Room Air Intake and Output 11/25/16 11/25/16 11/26/16 15:00 23:00 07:00 Intake Total 100 ml 510 ml 670 ml Output Total 400 ml 1400 ml Balance 100 ml 110 ml -730 ml Exam General: Adequately build 61 year-old male lying in bed in no apparent distress. HEENT: Normocephalic, atraumatic. Eyes: Anicteric sclerae, conjunctivae clear. ENT: Nasal septum midline, oral mucosa moist. Neck supple, no JVD noticed. Respiratory: Bilaterally diminished breath sounds. No use of accessory muscles of respiration. No adventitious breath sounds. Cardiovascular: S1, S2 heard. Regular rate and rhythm. Abdomen: Soft, nontender, and nondistended. Bowel sounds positive in all 4 quadrants. Genitourinary: Scrotal edema. Suprapubic catheter in place. Extremities: No cyanosis, no clubbing, no edema. Peripheral pulses palpable. Neurologic: The patient is awake and alert. Left sylvain-plegia. Results Result Diagram: 11/26/16 0540 11/26/16 0539 Results 24 hrs Laboratory Tests Test 11/26/16 05:39 11/26/16 05:40 Sodium Level 141 Potassium Level 3.0 L Chloride Level 107 Carbon Dioxide Level 28 Anion Gap 9 Blood Urea Nitrogen 11 Creatinine 0.71 Glucose Level 93 Calcium Level 8.2 L White Blood Count 5.9 Red Blood Count 5.18 Hemoglobin 9.7 L Hematocrit 31.7 L Mean Corpuscular Volume 61.2 L Mean Corpuscular Hemoglobin 18.7 L Mean Corpuscular Hemoglobin Concent 30.6 L Red Cell Distribution Width 17.2 H Platelet Count 198 Mean Platelet Volume 9.2 Neutrophils % 60.8 Lymphocytes % 27.2 Monocytes % 9.0 Eosinophils % 2.0 Basophils % 0.8 Nucleated Red Blood Cells % 0.0 Neutrophils # 3.6 Lymphocytes # 1.6 Monocytes # 0.5 Eosinophils # 0.1 Basophils # 0.1 Nucleated Red Blood Cells # 0.0 Magnesium Level 1.9 Medications Medications Current Medications Atorvastatin Calcium (Lipitor) 20 mg QHS PO Last administered on 11/25/16 20: 26; Admin Dose 20 MG; Start 11/22/16 at 21:00 Gabapentin (Neurontin) 300 mg TID PO Last administered on 11/26/16 08:52; Admin Dose 300 MG; Start 11/22/16 at 21:00 Hydroxyzine HCl (Atarax) 10 mg QHS PRN PO ITCHING; Start 11/22/16 at 20:30 Levetiracetam (Keppra) 1,000 mg BID PO Last administered on 11/26/16 08:52; Admin Dose 1,000 MG; Start 11/22/16 at 21:00 Simethicone (Mylicon) 80 mg TID PO Last administered on 11/26/16 08:52; Admin Dose 80 MG; Start 11/22/16 at 21:00 Ondansetron HCl (Zofran Inj) 4 mg Q6H PRN IV NAUSEA AND/OR VOMITING; Start 11/22/16 at 20:30 Acetaminophen (Tylenol Tab) 650 mg Q6H PRN PO PAIN LEVEL 1-3 OR FEVER Last administered on 11/25/16 20:24; Admin Dose 650 MG; Start 11/22/16 at 20:30 Morphine Sulfate (morphine) 2 mg Q4H PRN IV SEVERE PAIN LEVEL 7-10; Start 11/22 at 20:30 Docusate Sodium (Colace) 100 mg Q12H PRN PO CONSTIPATION; Start 11/22/16 at 20: 30 Bisacodyl (Dulcolax) 5 mg DAILY PRN PO CONSTIPATION; Start 11/22/16 at 20:30 Famotidine 20 mg 20 mg Q12 PO Last administered on 11/26/16 08:52; Admin Dose 20 MG; Start 11/22/16 at 21:00 Piperacillin Sod/ Tazobactam Sod (Zosyn 3.375gm/ 100 ml (Pmx)) 100 ml @ 200 mls /hr Q8 IVPB Last administered on 11/26/16 05:15; Admin Dose 200 MLS/HR; Start 11/23/16 at 06:00 Hydralazine HCl 10 mg 10 mg Q4H PRN IV ELEVATED SYSTOLIC BP Last administered on 11/25/16 05:16; Admin Dose 10 MG; Start 11/24/16 at 05:00 Vancomycin HCl/ Sodium Chloride (Vancocin/NS) 150 ml @ 75 mls/hr Q12H IVPB Last administered on 11/26/16 01:36; Admin Dose 75 MLS/HR; Start 11/25/16 at 01 :00 Miscellaneous Information (*Rx Drug Level Order Reminder*) VANCOMYCIN TROUGH AT 1200 ONCE ONCE XX ; Start 11/26/16 at 12:00; Stop 11/26/16 at 12:01 Hydralazine HCl (Apresoline) 75 mg TID PO Last administered on 11/26/16 08:52 ; Admin Dose 75 MG; Start 11/25/16 at 21:00 Procedures Procedures Name: LOGAN CARO Age/Sex: 61/M Attend Dr: ALTA POTTS MD Acct: [id number] MR# : [id number] : [id number] Location: [facility] Admit: 11/22/16 Specimen: [id number] Status: Resulted Brett: 11/22/16 Rcvd: 11/22 Source: CATHETER U Sp Descrip: Procedure Result Microbiology URINE CULTURE Preliminary Organism 1 MORGANELLA MORGANII SSP MORG. COLONY COUNT >100,000 CFU/ml Organism 2 PSEUDOMONAS AERUGINOSA COLONY COUNT >100,000 CFU/ml P.AERUG M.I.C. RX --------- --- AMIKACIN <=2 S AZTREONAM I CEFEPIME 8 S CEFTAZIDIME 4 S CIPROFLOXACIN >=4 R GENTAMICIN <=1 S IMIPENEM 1 S LEVOFLOXACIN >=8 R TOBRAMYCIN <=1 S PIPERACILLIN/TAZOBACTAM 32 S MORMOSP Zone Size RX --------- --- * CEFOTAXIME R * CEFTAZIDIME R * CIPROFLOXACIN R * GENTAMICIN R * TOBRAMYCIN S * TRIMETHOPRIM/SULFAMETHOXAZOLE R ................................................................................ ............ Flags: Critical Hi = *H Critical Lo = *L Microbiology Abnormal = * Abnormal Hi = H Abnormal Lo = L Blood Bank Abnormal = * Susceptability Flags: S = Sensitive R = Resistant I = Intermediate END OF REPORT ADELAIDA GRIMALDO NP Nov 26, 2016 10:14
[2016-11-26] MEDS ORDERED: POTASSIUM CHLORIDE (SR) 20 MEQ TAB PO STA (10:15)
--- NOTE | 2016-11-26 12:43 | PN ---
Date/Time of Note Date/Time of Note DATE: 11/26/16 TIME: 12:39 Assessment/Plan VTE Prophylaxis VTE Prophylaxis Intervention: SCD's Lines/Catheters Urinary Cath still in place: Yes Reason Cath still needed: urinary retention Assessment/Plan Chief Complaint/Hosp Course 61-year-old male who is known to have a history of Jami disease. Has undergone multiple surgeries on his scrotum and insertion of suprapubic tube about 3 years earlier. His urethra is closed. He was admitted because of possible epididymitis and urinary tract infection. Presently he is doing better the scrotum is not hard and tender and no evidence of any abscess formation or collection of any fluid. Recommend continue the intravenous antibiotics and before his discharge we will change his suprapubic tube Problems: Subjective 24 Hr Interval Summary Subjective hx not possible: pt non-verbal Constitutional: no complaints Eyes: no complaints Respiratory: no complaints Gastrointestinal: no complaints Genitourinary: other (Suprapubic tube, no scrotal swelling) Skin: no complaints Exam/Review of Systems Vital Signs Vitals Vital Signs Date Time Temp Pulse Resp B/P Pulse Ox O2 Delivery O2 Flow Rate FiO2 11/26/16 08:00 97.3 55 19 143/80 98 11/24/16 04:32 Room Air Intake and Output 11/25/16 11/25/16 11/26/16 15:00 23:00 07:00 Intake Total 100 ml 510 ml 670 ml Output Total 400 ml 1400 ml Balance 100 ml 110 ml -730 ml Exam Psych: no complaints Head: normocephalic Neck: supple Respiratory: normal air movement Gastrointestinal: soft Extremities: other (Left hemiparesis) Results Result Diagram: 11/26/16 0540 11/26/16 0539 Results 24 hrs Laboratory Tests Test 11/26/16 05:39 11/26/16 05:40 Sodium Level 141 Potassium Level 3.0 L Chloride Level 107 Carbon Dioxide Level 28 Anion Gap 9 Blood Urea Nitrogen 11 Creatinine 0.71 Glucose Level 93 Calcium Level 8.2 L White Blood Count 5.9 Red Blood Count 5.18 Hemoglobin 9.7 L Hematocrit 31.7 L Mean Corpuscular Volume 61.2 L Mean Corpuscular Hemoglobin 18.7 L Mean Corpuscular Hemoglobin Concent 30.6 L Red Cell Distribution Width 17.2 H Platelet Count 198 Mean Platelet Volume 9.2 Neutrophils % 60.8 Lymphocytes % 27.2 Monocytes % 9.0 Eosinophils % 2.0 Basophils % 0.8 Nucleated Red Blood Cells % 0.0 Neutrophils # 3.6 Lymphocytes # 1.6 Monocytes # 0.5 Eosinophils # 0.1 Basophils # 0.1 Nucleated Red Blood Cells # 0.0 Magnesium Level 1.9 Medications Medications Current Medications Atorvastatin Calcium (Lipitor) 20 mg QHS PO Last administered on 11/25/16 20: 26; Admin Dose 20 MG; Start 11/22/16 at 21:00 Gabapentin (Neurontin) 300 mg TID PO Last administered on 11/26/16 08:52; Admin Dose 300 MG; Start 11/22/16 at 21:00 Hydroxyzine HCl (Atarax) 10 mg QHS PRN PO ITCHING; Start 11/22/16 at 20:30 Levetiracetam (Keppra) 1,000 mg BID PO Last administered on 11/26/16 08:52; Admin Dose 1,000 MG; Start 11/22/16 at 21:00 Simethicone (Mylicon) 80 mg TID PO Last administered on 11/26/16 08:52; Admin Dose 80 MG; Start 11/22/16 at 21:00 Ondansetron HCl (Zofran Inj) 4 mg Q6H PRN IV NAUSEA AND/OR VOMITING; Start 11/22/16 at 20:30 Acetaminophen (Tylenol Tab) 650 mg Q6H PRN PO PAIN LEVEL 1-3 OR FEVER Last administered on 11/25/16 20:24; Admin Dose 650 MG; Start 11/22/16 at 20:30 Morphine Sulfate (morphine) 2 mg Q4H PRN IV SEVERE PAIN LEVEL 7-10; Start 11/22 at 20:30 Docusate Sodium (Colace) 100 mg Q12H PRN PO CONSTIPATION; Start 11/22/16 at 20: 30 Bisacodyl (Dulcolax) 5 mg DAILY PRN PO CONSTIPATION; Start 11/22/16 at 20:30 Famotidine 20 mg 20 mg Q12 PO Last administered on 11/26/16 08:52; Admin Dose 20 MG; Start 11/22/16 at 21:00 Piperacillin Sod/ Tazobactam Sod (Zosyn 3.375gm/ 100 ml (Pmx)) 100 ml @ 200 mls /hr Q8 IVPB Last administered on 11/26/16 05:15; Admin Dose 200 MLS/HR; Start 11/23/16 at 06:00 Hydralazine HCl 10 mg 10 mg Q4H PRN IV ELEVATED SYSTOLIC BP Last administered on 11/25/16 05:16; Admin Dose 10 MG; Start 11/24/16 at 05:00 Vancomycin HCl/ Sodium Chloride (Vancocin/NS) 150 ml @ 75 mls/hr Q12H IVPB Last administered on 11/26/16 01:36; Admin Dose 75 MLS/HR; Start 11/25/16 at 01 :00 Hydralazine HCl (Apresoline) 75 mg TID PO Last administered on 11/26/16 08:52 ; Admin Dose 75 MG; Start 11/25/16 at 21:00 CHERYLE BOYD MD Nov 26, 2016 12:43
[2016-11-26] MEDS ORDERED: TOBRAMYCIN IV PER PHARMACY XX SCH (13:30)
[2016-11-26 14:00] VITALS: BP 184/97; RESP 21
[2016-11-26] MEDS ORDERED: TOBRAMYCIN IVPB SCH (15:00)
[2016-11-26] MEDS ORDERED: SOD CHLORIDE 0.9% IVPB SCH (15:00)
[2016-11-26] MEDS: hydrALAzine 20 MG INJ IV PRN ×2 (15:58→21:47)
[2016-11-26 16:51] VITALS: BP 146/87; PULSE 80
[2016-11-26 20:00] VITALS: BP 180/87; RESP 18
[2016-11-26] MEDS: ATORVASTATIN 20 MG TAB PO SCH (20:08)
[2016-11-26 22:56] VITALS: BP 158/77; PULSE 79
[2016-11-27] VITALS (7 sets, daily range): BP systolic 142–186; BP diastolic 77–95; PULSE 60–77; RESP 17–19
[2016-11-27] MEDS: hydrALAzine 20 MG INJ IV PRN ×2 (02:29→13:52)
[2016-11-27 06:00] LABS: BASOPHIL # 0.1 10^3/ul (0.0-0.1); BASOPHILS % 0.9 % (0.0-2.0); EOSINOPHILS # 0.2 10^3/ul (0.0-0.5); EOSINOPHILS % 2.8 % (0.0-7.0); HEMATOCRIT 32.4 % (42.0-52.0); LYMPHOCYTES # 1.6 10^3/ul (0.8-2.9); LYMPHOCYTES % 28.4 % (15.0-51.0); MEAN CORPUSCULAR HEMOGLOBIN 18.7 pg (29.0-33.0); MEAN CORPUSCULAR HGB CONC 30.9 g/dl (32.0-37.0); MEAN CORPUSCULAR VOLUME 60.6 fl (82.0-101.0); MEAN PLATELET VOLUME 8.9 fl (7.4-10.4); MONOCYTE # 0.6 10^3/ul (0.3-0.9); MONOCYTES % 9.9 % (0.0-11.0); NEUTROPHIL # 3.3 10^3/ul (1.6-7.5); NEUTROPHILS % 57.7 % (39.0-77.0); PLATELET COUNT 218 10^3/UL (140-415); RED BLOOD COUNT 5.35 10^6/ul (4.70-6.10); RED CELL DISTRIBUTION WIDTH 18.5 % (11.5-14.5); WHITE BLOOD COUNT 5.8 10^3/ul (4.8-10.8)
[2016-11-27 06:28] LABS: CALCIUM 8.4 mg/dl (8.4-10.2); CREATININE 0.66 mg/dl (0.61-1.24)
[2016-11-27] MEDS: LEVETIRACETAM 500 MG TAB PO SCH ×2 (08:53→21:17)
[2016-11-27] MEDS: FAMOTIDINE 20 MG TAB PO SCH ×2 (08:54→21:18)
[2016-11-27] MEDS: GABAPENTIN 300 MG CAP PO SCH ×4 (08:54→21:17)
--- NOTE | 2016-11-27 09:43 | CONS ---
DATE OF ADMISSION: 11/22/2016 DATE OF CONSULTATION: 11/26/2016 TYPE OF CONSULTATION: Infectious consult. REASON FOR CONSULTATION: Antibiotic management. HISTORY OF PRESENT ILLNESS: Ulisses Celeste is a 61-year-old male who is admitted with scrotal cellulitis and orchitis and is being seen for antibiotic management. His past problems include 1. History of cerebrovascular accident. 2. The stroke was hemorrhagic with left hemiparesis. 3. Hypertension. 4. Diabetes mellitus. 5. Previous scrotal swelling, with intermittent Brown catheter placement. 6. 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 Diaz. HOSPITAL COURSE: The patient was admitted with scrotal swelling. He had imaging studies that showe d scrotal cellulitis and possible underlying orchitis. He was started on vancomycin and Zosyn. Uro logy was consulted. His other problems include COPD, history of liver cirrhosis and colitis, and hi story of diabetes mellitus. In addition, he had a PEG placed, which was removed. He has gastroesop hageal reflux disease. 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 On admission, his white count was 12.7, H and H of 10.2 and 32.5, platelet count 205,000. On 2016, his white count was 5.9. BUN and creatinine were 11/0.71. Urine was positive for nitrites, 3 + leukocyte esterase, and greater than 182 white cells per high-power field, 61 RBCs per high-power field, consistent with a urinary tract infection. The patient is growing Morganella morganii and Pseudomonas aeruginosa from the urine. The Morganell a is sensitive to tobramycin, resistant to ceftazidime, and resistant to trimethoprim sulfa. The ps eudomonas is relatively sensitive to imipenem and to others. The patient is currently on vancomycin and Zosyn. Blood cultures are negative. A testicular ultrasound showed diffuse scrotal wall thick ening, a suprapubic catheter, cirrhotic liver, nonspecific increased soft tissue density, and a ches t x-ray shows no acute disease. The patient was seen by Dr. Diaz. Urinary tract infection. He did not see any evidence of Fourn ier's gangrene or cellulitis or even epididymitis. Dr. Diaz notes that he has possible epididymi tis, as well as urinary tract infection. He plans to change the suprapubic tube prior to discharge. Today, the white count is 5.9. PAST MEDICAL HISTORY: Operations, as outlined. FAMILY HISTORY: Noncontributory. SOCIAL HISTORY: He does not smoke, drink, or abuse drugs. ALLERGIES: NONE TO PENICILLIN, SULFA, OR FOODS. MEDICATIONS: Per chart. REVIEW OF SYSTEMS: As per HPI. PHYSICAL EXAMINATION GENERAL: The patient is awake, responsive, in no acute distress. VITAL SIGNS: Stable. He is afebrile. SKIN: Without generalized rash. HEAD, EARS, EYES, NOSE, AND THROAT: Within normal limits. NECK: Supple. LYMPH NODES: None palpable. CHEST: Decreased breath sounds at the bases. HEART: Without murmur or gallop. ABDOMEN: Soft, nontender, without organosplenomegaly or masses. EXTREMITIES: Without cyanosis, clubbing, or edema. RECTAL/GENITAL: He has a suprapubic catheter. He has cellulitis with marked scrotal swelling and e rythema, which now has improved markedly. NEUROLOGICAL: The patient has left-sided hemiparesis, secondary to previous stroke. IMPRESSION AND PLAN: In view of the organisms that were growing, Morganella morganii and Pseudomona s aeruginosa, we should start him on tobramycin, which I will do. I am going to discontinue the van comycin and consider stopping the Zosyn as well. Will dictate my findings to the hospitalists and Nereida Diaz. Dictated By: CSASANDRA SPAULDING MD, JD/YAMILETH Conf#: [id number] DID#: [id number] CC: ALTA POTTS MD;*EndCC*
[2016-11-27] MEDS ORDERED: POTASSIUM CHLORIDE 20 MEQ POWDER FOR ORAL SOLN PO ONE (10:00)
[2016-11-27] MEDS ORDERED: POTASSIUM CHLORIDE 250 ML IVPB ONE (11:00)
--- NOTE | 2016-11-27 14:04 | PN ---
DATE: 11/27/2016 INFECTIOUS DISEASE PROGRESS NOTE SUBJECTIVE: No acute changes. The patient is awake, looks comfortable, no fevers. WBC today 5.8. No shift, no bands. BUN 8, creatinine 0.66. MICROBIOLOGY: Urine culture on admission grew multidrug resistant Pseudomonas aeruginosa and Evans mitch morganii. ANTIMICROBIALS: The patient is on IV tobramycin, status post vanco and Zosyn. INDWELLINGS: He has Brown catheter. PHYSICAL EXAMINATION: GENERAL: This is a fragile, elderly man who is awake, in no distress. HEENT: Head atraumatic, normocephalic. Sclerae anicteric. Buccal mucosa dry. NECK: Supple. CHEST: Rise symmetrical. Breath sounds diminished to bases. HEART: S1, S2. ABDOMEN: Soft, bowel tones present. EXTREMITIES: Without cyanosis. ASSESSMENT: 1. Multidrug resistant urinary tract infection. 2. Possible epididymitis, no evidence of any abscess per Urology. 3. Chronic suprapubic catheter. 4. History of Peyronie's disease. 5. History of cerebrovascular accident 6. Diabetes. PLAN: The patient remains stable. Urology on case. Continue present care, antibiotics. Dictated By: RAMA THAYER COMMISSIONER [employer] for CASSANDRA MORALES/YAMILETH Conf#: [id number] DID#: [id number]
--- NOTE | 2016-11-27 14:49 | PN ---
Date/Time of Note Date/Time of Note DATE: 11/27/16 TIME: 14:45 Assessment/Plan VTE Prophylaxis VTE Prophylaxis Intervention: SCD's Lines/Catheters IV Catheter Type (from [facility]): Saline Lock Urinary Cath still in place: Yes Reason Cath still needed: other (indicate) (monitor I&O) Assessment/Plan Chief Complaint/Hosp Course Assessment and plan 1. Polymicrobial UTI. ID consult is following. Continue antibiotic regimen. Monitor for clinical improvement. 2. History of Peyronie's disease. Patient does have history of multiple surgeries for his scrotal area as well as insertion of suprapubic catheter. Urology is following this time. Continue the conditions. 3. Essential hypertension. Will continue antihypertensives and adjust any 4. 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 Continue with skin care. On prophylactic Keppra. 5. History of diabetes. A1c noted to be normal. Monitor blood glucose. Stable at present. 6. Anemia likely of chronic disease. H&H remained stable at present. Monitor for now. Disposition plan: Continue with antibiotics. Follow-up with urologist. DC when cleared by consultants Discussed plan of care with Dr. Costello Problems: Subjective 24 Hr Interval Summary Free Text/Dictation responds to noxious stimulus. nonverbal during visit Exam/Review of Systems Vital Signs Vitals Vital Signs Date Time Temp Pulse Resp B/P Pulse Ox O2 Delivery O2 Flow Rate FiO2 11/27/16 14:20 98.2 74 19 150/77 97 11/26/16 22:56 Room Air Intake and Output 11/26/16 11/26/16 11/27/16 15:00 23:00 07:00 Intake Total 384 ml 120 ml Output Total 625 ml 1400 ml Balance -241 ml -1280 ml Exam Constitutional: non-verbal (during visit ) Head: normocephalic Neck: No jvd Respiratory: clear to auscultation, normal air movement Cardiovascular: other (regular rate ) Gastrointestinal: non-tender, soft Genitourinary - Male: other (suprapubic catheter in place ), No nl scrotum ( little swellng ) Neurological: No RE DYE HAND II-XII intact, No nl mental status Results Result Diagram: 11/27/16 0524 11/27/1624 Results 24 hrs Laboratory Tests Test 11/27/16 00:57 11/27/16 05:24 Random Tobramycin Level 8.3 White Blood Count 5.8 Red Blood Count 5.35 Hemoglobin 10.0 L Hematocrit 32.4 L Mean Corpuscular Volume 60.6 L Mean Corpuscular Hemoglobin 18.7 L Mean Corpuscular Hemoglobin Concent 30.9 L Red Cell Distribution Width 18.5 H Platelet Count 218 Mean Platelet Volume 8.9 Neutrophils % 57.7 Lymphocytes % 28.4 Monocytes % 9.9 Eosinophils % 2.8 Basophils % 0.9 Nucleated Red Blood Cells % 0.0 Neutrophils # 3.3 Lymphocytes # 1.6 Monocytes # 0.6 Eosinophils # 0.2 Basophils # 0.1 Nucleated Red Blood Cells # 0.0 Sodium Level 140 Potassium Level 3.0 L Chloride Level 105 Carbon Dioxide Level 30 Anion Gap 8 Blood Urea Nitrogen 8 Creatinine 0.66 Glucose Level 83 Calcium Level 8.4 Magnesium Level 1.9 Medications Medications Current Medications Atorvastatin Calcium (Lipitor) 20 mg QHS PO Last administered on 11/26/16 20: 08; Admin Dose 20 MG; Start 11/22/16 at 21:00 Gabapentin (Neurontin) 300 mg TID PO Last administered on 11/27/16 08:54; Admin Dose 300 MG; Start 11/22/16 at 21:00 Hydroxyzine HCl (Atarax) 10 mg QHS PRN PO ITCHING; Start 11/22/16 at 20:30 Levetiracetam (Keppra) 1,000 mg BID PO Last administered on 11/27/16 08:53; Admin Dose 1,000 MG; Start 11/22/16 at 21:00 Simethicone (Mylicon) 80 mg TID PO Last administered on 11/27/16 08:54; Admin Dose 80 MG; Start 11/22/16 at 21:00 Ondansetron HCl (Zofran Inj) 4 mg Q6H PRN IV NAUSEA AND/OR VOMITING; Start 11/22/16 at 20:30 Acetaminophen (Tylenol Tab) 650 mg Q6H PRN PO PAIN LEVEL 1-3 OR FEVER Last administered on 11/25/16 20:24; Admin Dose 650 MG; Start 11/22/16 at 20:30 Morphine Sulfate (morphine) 2 mg Q4H PRN IV SEVERE PAIN LEVEL 7-10; Start 11/22 at 20:30 Docusate Sodium (Colace) 100 mg Q12H PRN PO CONSTIPATION; Start 11/22/16 at 20: 30 Bisacodyl (Dulcolax) 5 mg DAILY PRN PO CONSTIPATION; Start 11/22/16 at 20:30 Famotidine (Pepcid) 20 mg Q12 PO Last administered on 11/27/16 08:54; Admin Dose 20 MG; Start 11/22/16 at 21:00 Hydralazine HCl (Apresoline) 10 mg Q4H PRN IV ELEVATED SYSTOLIC BP Last administered on 11/27/16 13:52; Admin Dose 10 MG; Start 11/24/16 at 05:00 Hydralazine HCl (Apresoline) 75 mg TID PO Last administered on 11/27/16 08:54 ; Admin Dose 75 MG; Start 11/25/16 at 21:00 Tobramycin TOBRAMYCIN PER PHARMACY NOTE XX ; Start 11/26/16 at 13:30 Potassium Chloride 250 ml @ 62.5 mls/hr ONCE ONCE IVPB Last administered on 11/27/16 12:28; Admin Dose 62.5 MLS/HR; Start 11/27/16 at 11:00; Stop 11/27/16 at 14:59 Tobramycin/Sodium Chloride (Tobramycin/NS) 108.75 ml @ 108.75 mls/hr Q48H IVPB ; Start 11/28/16 at 16:00 GLORIA LESTER Nov 27, 2016 14:49
--- NOTE | 2016-11-27 19:47 | PN ---
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 Has undergone multiple surgeries on his scrotum and insertion of suprapubic tube about 3 years earlier. His urethra is closed. He was admitted because of possible epididymitis and urinary tract infection. Presently he is doing better the scrotum is not hard and tender and no evidence of any abscess formation or collection of any fluid. Recommend continue the intravenous antibiotics as per infectious disease and before his discharge change his suprapubic tube Problems: Subjective 24 Hr Interval Summary Subjective hx not possible: pt non-verbal Constitutional: no complaints Eyes: no complaints ENT: no complaints Respiratory: no complaints Cardiovascular: No edema Gastrointestinal: no complaints Genitourinary: other (Suprapubic tube), No bleeding, No hematuria Skin: no complaints Neurologic: other (Left hemiparesis) Exam/Review of Systems Vital Signs Vitals Vital Signs Date Time Temp Pulse Resp B/P Pulse Ox O2 Delivery O2 Flow Rate FiO2 11/27/16 14:20 98.2 74 19 150/77 97 11/26/16 22:56 Room Air Intake and Output 11/26/16 11/26/16 11/27/16 15:00 23:00 07:00 Intake Total 384 ml 120 ml Output Total 625 ml 1400 ml Balance -241 ml -1280 ml Exam Constitutional: alert Psych: no complaints Head: normocephalic Eyes: nl conjunctiva Neck: supple Respiratory: normal air movement Cardiovascular: No edema, No jugular venous distention (JVD) Gastrointestinal: non-tender, soft Genitourinary - Male: other (Suprapubic tube in place, scrotum and penis show no sign of infection presently) Results Result Diagram: 11/27/1652311/27/16 0524 Results 24 hrs Laboratory Tests Test 11/27/16 00:57 11/27/16 05:24 Random Tobramycin Level 8.3 White Blood Count 5.8 Red Blood Count 5.35 Hemoglobin 10.0 L Hematocrit 32.4 L Mean Corpuscular Volume 60.6 L Mean Corpuscular Hemoglobin 18.7 L Mean Corpuscular Hemoglobin Concent 30.9 L Red Cell Distribution Width 18.5 H Platelet Count 218 Mean Platelet Volume 8.9 Neutrophils % 57.7 Lymphocytes % 28.4 Monocytes % 9.9 Eosinophils % 2.8 Basophils % 0.9 Nucleated Red Blood Cells % 0.0 Neutrophils # 3.3 Lymphocytes # 1.6 Monocytes # 0.6 Eosinophils # 0.2 Basophils # 0.1 Nucleated Red Blood Cells # 0.0 Sodium Level 140 Potassium Level 3.0 L Chloride Level 105 Carbon Dioxide Level 30 Anion Gap 8 Blood Urea Nitrogen 8 Creatinine 0.66 Glucose Level 83 Calcium Level 8.4 Magnesium Level 1.9 Medications Medications Current Medications Atorvastatin Calcium (Lipitor) 20 mg QHS PO Last administered on 11/26/16 20: 08; Admin Dose 20 MG; Start 11/22/16 at 21:00 Gabapentin (Neurontin) 300 mg TID PO Last administered on 11/27/16 08:54; Admin Dose 300 MG; Start 11/22/16 at 21:00 Hydroxyzine HCl (Atarax) 10 mg QHS PRN PO ITCHING; Start 11/22/16 at 20:30 Levetiracetam (Keppra) 1,000 mg BID PO Last administered on 11/27/16 08:53; Admin Dose 1,000 MG; Start 11/22/16 at 21:00 Simethicone (Mylicon) 80 mg TID PO Last administered on 11/27/16 08:54; Admin Dose 80 MG; Start 11/22/16 at 21:00 Ondansetron HCl (Zofran Inj) 4 mg Q6H PRN IV NAUSEA AND/OR VOMITING; Start 11/22/16 at 20:30 Acetaminophen (Tylenol Tab) 650 mg Q6H PRN PO PAIN LEVEL 1-3 OR FEVER Last administered on 11/25/16 20:24; Admin Dose 650 MG; Start 11/22/16 at 20:30 Morphine Sulfate (morphine) 2 mg Q4H PRN IV SEVERE PAIN LEVEL 7-10; Start 11/22 at 20:30 Docusate Sodium (Colace) 100 mg Q12H PRN PO CONSTIPATION; Start 11/22/16 at 20: 30 Bisacodyl (Dulcolax) 5 mg DAILY PRN PO CONSTIPATION; Start 11/22/16 at 20:30 Famotidine (Pepcid) 20 mg Q12 PO Last administered on 11/27/16 08:54; Admin Dose 20 MG; Start 11/22/16 at 21:00 Hydralazine HCl (Apresoline) 10 mg Q4H PRN IV ELEVATED SYSTOLIC BP Last administered on 11/27/16 13:52; Admin Dose 10 MG; Start 11/24/16 at 05:00 Hydralazine HCl (Apresoline) 75 mg TID PO Last administered on 11/27/16 08:54 ; Admin Dose 75 MG; Start 11/25/16 at 21:00 Tobramycin TOBRAMYCIN PER PHARMACY NOTE XX ; Start 11/26/16 at 13:30 Tobramycin/Sodium Chloride (Tobramycin/NS) 108.75 ml @ 108.75 mls/hr Q48H IVPB ; Start 11/28/16 at 16:00 CHERYLE BOYD MD Nov 27, 2016 19:47
[2016-11-27] MEDS: ATORVASTATIN 20 MG TAB PO SCH (21:17)
[2016-11-28 03:01] VITALS: BP 154/78; RESP 18
[2016-11-28 06:29] LABS: BASOPHIL # 0.1 10^3/ul (0.0-0.1); BASOPHILS % 0.6 % (0.0-2.0); EOSINOPHILS # 0.2 10^3/ul (0.0-0.5); EOSINOPHILS % 1.7 % (0.0-7.0); HEMATOCRIT 31.3 % (42.0-52.0); HEMOGLOBIN 9.7 g/dl (14.0-18.0); LYMPHOCYTES # 2.4 10^3/ul (0.8-2.9); LYMPHOCYTES % 27.5 % (15.0-51.0); MEAN CORPUSCULAR HEMOGLOBIN 19.1 pg (29.0-33.0); MEAN CORPUSCULAR VOLUME 61.6 fl (82.0-101.0); MEAN PLATELET VOLUME 9.4 fl (7.4-10.4); MONOCYTE # 1.1 10^3/ul (0.3-0.9); MONOCYTES % 12.7 % (0.0-11.0); PLATELET COUNT 200 10^3/UL (140-415); RED BLOOD COUNT 5.08 10^6/ul (4.70-6.10); RED CELL DISTRIBUTION WIDTH 17.5 % (11.5-14.5); WHITE BLOOD COUNT 8.8 10^3/ul (4.8-10.8)
[2016-11-28 06:51] LABS: CALCIUM 8.4 mg/dl (8.4-10.2); CREATININE 0.85 mg/dl (0.61-1.24); POTASSIUM 3.8 mmol/L (3.5-5.1)
[2016-11-28 08:00] VITALS: BP 158/82; RESP 20
[2016-11-28] MEDS: LEVETIRACETAM 500 MG TAB PO SCH ×2 (09:31→20:59)
[2016-11-28] MEDS: GABAPENTIN 300 MG CAP PO SCH ×3 (09:32→20:58)
[2016-11-28] MEDS: FAMOTIDINE 20 MG TAB PO SCH ×2 (09:33→20:59)
--- NOTE | 2016-11-28 11:50 | PN ---
Date/Time of Note Date/Time of Note DATE: 11/28/16 TIME: 11:46 Assessment/Plan VTE Prophylaxis VTE Prophylaxis Intervention: SCD's Lines/Catheters IV Catheter Type (from [facility]): Saline Lock Urinary Cath still in place: Yes Reason Cath still needed: other (indicate) (monitor I&O) Assessment/Plan Chief Complaint/Hosp Course Assessment and plan 1. Polymicrobial UTI. ID consult is following. Continue antibiotic regimen. Monitor for clinical improvement. 2. History of Peyronie's disease. Patient does have history of multiple surgeries for his scrotal area as well as insertion of suprapubic catheter. Urology is following this time. Continue recommendations 3. Essential hypertension. Will continue antihypertensives and adjust any 4. 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 Continue with skin care. On prophylactic Keppra. 5. History of diabetes. A1c noted to be normal. Monitor blood glucose. Stable at present. 6. Anemia likely of chronic disease. H&H remained stable at present. Monitor for now. Disposition plan: Continue with antibiotics.continue with urologist recs. 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 d/c planning Discussed plan of care with Dr. Costello Problems: Subjective 24 Hr Interval Summary Free Text/Dictation Appears present. Less swelling around scrotal area Exam/Review of Systems Vital Signs Vitals Vital Signs Date Time Temp Pulse Resp B/P Pulse Ox O2 Delivery O2 Flow Rate FiO2 11/28/16 08:00 98.2 80 20 158/82 96 11/26/16 22:56 Room Air Intake and Output 11/27/16 11/27/16 11/28/16 15:00 23:00 07:00 Intake Total 930 ml 260 ml Output Total 550 ml 600 ml Balance 380 ml -340 ml Exam Constitutional: resting. no s/s of distress Head: normocephalic Neck: No jvd Respiratory: clear to auscultation, normal air movement Cardiovascular: other (regular rate ) Gastrointestinal: non-tender, soft Genitourinary - Male: other (suprapubic catheter in place ), less swelling scrotal area Neurological: No [employer]AM MEMBER II-XII intact, No nl mental status Results Result Diagram: 11/28/1659 11/28/1659 Results 24 hrs Laboratory Tests Test 11/28/16 05:59 White Blood Count 8.8 # Red Blood Count 5.08 Hemoglobin 9.7 L Hematocrit 31.3 L Mean Corpuscular Volume 61.6 L Mean Corpuscular Hemoglobin 19.1 L Mean Corpuscular Hemoglobin Concent 31.0 L Red Cell Distribution Width 17.5 H Platelet Count 200 Mean Platelet Volume 9.4 Neutrophils % 57.0 Lymphocytes % 27.5 Monocytes % 12.7 H Eosinophils % 1.7 Basophils % 0.6 Nucleated Red Blood Cells % 0.0 Neutrophils # 5.0 Lymphocytes # 2.4 Monocytes # 1.1 H Eosinophils # 0.2 Basophils # 0.1 Nucleated Red Blood Cells # 0.0 Sodium Level 138 Potassium Level 3.8 Chloride Level 104 Carbon Dioxide Level 29 Anion Gap 9 Blood Urea Nitrogen 12 Creatinine 0.85 Glucose Level 97 Calcium Level 8.4 Medications Medications Current Medications Atorvastatin Calcium (Lipitor) 20 mg QHS PO Last administered on 11/27/16 21: 17; Admin Dose 20 MG; Start 11/22/16 at 21:00 Gabapentin (Neurontin) 300 mg TID PO Last administered on 11/28/16 09:32; Admin Dose 300 MG; Start 11/22/16 at 21:00 Hydroxyzine HCl (Atarax) 10 mg QHS PRN PO ITCHING; Start 11/22/16 at 20:30 Levetiracetam (Keppra) 1,000 mg BID PO Last administered on 11/28/16 09:31; Admin Dose 1,000 MG; Start 11/22/16 at 21:00 Simethicone (Mylicon) 80 mg TID PO Last administered on 11/28/16 09:32; Admin Dose 80 MG; Start 11/22/16 at 21:00 Ondansetron HCl (Zofran Inj) 4 mg Q6H PRN IV NAUSEA AND/OR VOMITING; Start 11/22/16 at 20:30 Acetaminophen (Tylenol Tab) 650 mg Q6H PRN PO PAIN LEVEL 1-3 OR FEVER Last administered on 11/25/16 20:24; Admin Dose 650 MG; Start 11/22/16 at 20:30 Morphine Sulfate (morphine) 2 mg Q4H PRN IV SEVERE PAIN LEVEL 7-10; Start 11/22 at 20:30 Docusate Sodium (Colace) 100 mg Q12H PRN PO CONSTIPATION; Start 11/22/16 at 20: 30 Bisacodyl (Dulcolax) 5 mg DAILY PRN PO CONSTIPATION; Start 11/22/16 at 20:30 Famotidine (Pepcid) 20 mg Q12 PO Last administered on 11/28/16 09:33; Admin Dose 20 MG; Start 11/22/16 at 21:00 Hydralazine HCl (Apresoline) 10 mg Q4H PRN IV ELEVATED SYSTOLIC BP Last administered on 11/27/16 13:52; Admin Dose 10 MG; Start 11/24/16 at 05:00 Hydralazine HCl (Apresoline) 75 mg TID PO Last administered on 11/28/16 09:31 ; Admin Dose 75 MG; Start 11/25/16 at 21:00 Tobramycin TOBRAMYCIN PER PHARMACY NOTE XX ; Start 11/26/16 at 13:30 Tobramycin/Sodium Chloride (Tobramycin/NS) 108.75 ml @ 108.75 mls/hr Q48H IVPB ; Start 11/28/16 at 16:00 GLORIA LESTER Nov 28, 2016 11:50
[2016-11-28 14:00] VITALS: BP 146/80; RESP 18
--- NOTE | 2016-11-28 14:52 | CONS ---
Date/Time of Note Date/Time of Note DATE: 11/28/16 TIME: 14:51 Assessment/Plan Assessment/Plan Chief Complaint/Hosp Course SUBJECTIVE: No acute changes. The patient is awake, looks comfortable, no fevers. MICROBIOLOGY: Urine culture on admission grew multidrug resistant Pseudomonas aeruginosa and Morganella morganii. ANTIMICROBIALS: The patient is on IV tobramycin, status post vanco and Zosyn. INDWELLINGS: He has Brown catheter. PHYSICAL EXAMINATION: GENERAL: This is a fragile, elderly man who is awake, in no distress. HEENT: Head atraumatic, normocephalic. Sclerae anicteric. Buccal mucosa dry. NECK: Supple. CHEST: Rise symmetrical. Breath sounds diminished to bases. HEART: S1, S2. ABDOMEN: Soft, bowel tones present. EXTREMITIES: Without cyanosis. ASSESSMENT: 1. Multidrug resistant urinary tract infection. 2. Possible epididymitis, no evidence of any abscess per Urology. 3. Chronic suprapubic catheter. 4. History of Peyronie's disease. 5. History of cerebrovascular accident 6. Diabetes. PLAN: The patient remains stable. Continue present care, complete antibiotics for 7 more days, f/u urology rec-s Problems: Consultation Date/Type/Reason Admit Date/Time Nov 22, 2016 at 19:54 Initial Consult Date Type of Consultation: ID Exam/Review of Systems Vital Signs Vitals Vital Signs Date Time Temp Pulse Resp B/P Pulse Ox O2 Delivery O2 Flow Rate FiO2 11/28/16 08:00 98.2 80 20 158/82 96 11/26/16 22:56 Room Air Intake and Output 11/27/16 11/27/16 11/28/16 15:00 23:00 07:00 Intake Total 930 ml 260 ml Output Total 550 ml 600 ml Balance 380 ml -340 ml Results Result Diagram: 11/28/16 0559 11/28/16 0559 Results 24 hrs Laboratory Tests Test 11/28/16 05:59 White Blood Count 8.8 # Red Blood Count 5.08 Hemoglobin 9.7 L Hematocrit 31.3 L Mean Corpuscular Volume 61.6 L Mean Corpuscular Hemoglobin 19.1 L Mean Corpuscular Hemoglobin Concent 31.0 L Red Cell Distribution Width 17.5 H Platelet Count 200 Mean Platelet Volume 9.4 Neutrophils % 57.0 Lymphocytes % 27.5 Monocytes % 12.7 H Eosinophils % 1.7 Basophils % 0.6 Nucleated Red Blood Cells % 0.0 Neutrophils # 5.0 Lymphocytes # 2.4 Monocytes # 1.1 H Eosinophils # 0.2 Basophils # 0.1 Nucleated Red Blood Cells # 0.0 Sodium Level 138 Potassium Level 3.8 Chloride Level 104 Carbon Dioxide Level 29 Anion Gap 9 Blood Urea Nitrogen 12 Creatinine 0.85 Glucose Level 97 Calcium Level 8.4 Medications Medications Current Medications Atorvastatin Calcium (Lipitor) 20 mg QHS PO Last administered on 11/27/16 21: 17; Admin Dose 20 MG; Start 11/22/16 at 21:00 Gabapentin (Neurontin) 300 mg TID PO Last administered on 11/28/16 09:32; Admin Dose 300 MG; Start 11/22/16 at 21:00 Hydroxyzine HCl (Atarax) 10 mg QHS PRN PO ITCHING; Start 11/22/16 at 20:30 Levetiracetam (Keppra) 1,000 mg BID PO Last administered on 11/28/16 09:31; Admin Dose 1,000 MG; Start 11/22/16 at 21:00 Simethicone (Mylicon) 80 mg TID PO Last administered on 11/28/16 09:32; Admin Dose 80 MG; Start 11/22/16 at 21:00 Ondansetron HCl (Zofran Inj) 4 mg Q6H PRN IV NAUSEA AND/OR VOMITING; Start 11/22/16 at 20:30 Acetaminophen (Tylenol Tab) 650 mg Q6H PRN PO PAIN LEVEL 1-3 OR FEVER Last administered on 11/25/16 20:24; Admin Dose 650 MG; Start 11/22/16 at 20:30 Morphine Sulfate (morphine) 2 mg Q4H PRN IV SEVERE PAIN LEVEL 7-10; Start 11/22 at 20:30 Docusate Sodium (Colace) 100 mg Q12H PRN PO CONSTIPATION; Start 11/22/16 at 20: 30 Bisacodyl (Dulcolax) 5 mg DAILY PRN PO CONSTIPATION; Start 11/22/16 at 20:30 Famotidine (Pepcid) 20 mg Q12 PO Last administered on 11/28/16 09:33; Admin Dose 20 MG; Start 11/22/16 at 21:00 Hydralazine HCl (Apresoline) 10 mg Q4H PRN IV ELEVATED SYSTOLIC BP Last administered on 11/27/16 13:52; Admin Dose 10 MG; Start 11/24/16 at 05:00 Hydralazine HCl (Apresoline) 75 mg TID PO Last administered on 11/28/16 09:31 ; Admin Dose 75 MG; Start 11/25/16 at 21:00 Tobramycin TOBRAMYCIN PER PHARMACY NOTE XX ; Start 11/26/16 at 13:30 Tobramycin/Sodium Chloride (Tobramycin/NS) 108.75 ml @ 108.75 mls/hr Q48H IVPB ; Start 11/28/16 at 16:00 RAMA THAYER NP Nov 28, 2016 14:52
[2016-11-28] MEDS: SOD CHLORIDE 0.9% IVPB SCH (16:16)
[2016-11-28] MEDS: TOBRAMYCIN IVPB SCH (16:16)
--- NOTE | 2016-11-28 19:13 | PN ---
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 Has undergone multiple surgeries on his scrotum and insertion of suprapubic tube about 3 years earlier. His urethra is closed. He was admitted because of possible epididymitis and urinary tract infection. Presently he is doing better the scrotum is not hard and tender and no evidence of any abscess formation or collection of any fluid. Recommend continue the intravenous antibiotics as per infectious disease and before his discharge change his suprapubic tube Problems: Subjective 24 Hr Interval Summary Subjective hx not possible: pt non-verbal Eyes: no complaints ENT: no complaints Respiratory: no complaints Cardiovascular: no complaints Gastrointestinal: passing stool Genitourinary: other (Suprapubic tube) Exam/Review of Systems Vital Signs Vitals Vital Signs Date Time Temp Pulse Resp B/P Pulse Ox O2 Delivery O2 Flow Rate FiO2 11/28/16 14:00 98.8 86 18 146/80 96 11/26/16 22:56 Room Air Intake and Output 11/27/16 11/27/16 11/28/16 15:00 23:00 07:00 Intake Total 930 ml 260 ml Output Total 550 ml 600 ml Balance 380 ml -340 ml Exam Constitutional: non-verbal Psych: no complaints Head: normocephalic Eyes: nl conjunctiva ENMT: nl external ears & nose Neck: supple Respiratory: normal air movement Gastrointestinal: soft Genitourinary - Male: other (No sign of orchitis or epididymitis) Results Result Diagram: 11/28/16 0559 11/28/16 0559 Results 24 hrs Laboratory Tests Test 11/28/16 05:59 White Blood Count 8.8 # Red Blood Count 5.08 Hemoglobin 9.7 L Hematocrit 31.3 L Mean Corpuscular Volume 61.6 L Mean Corpuscular Hemoglobin 19.1 L Mean Corpuscular Hemoglobin Concent 31.0 L Red Cell Distribution Width 17.5 H Platelet Count 200 Mean Platelet Volume 9.4 Neutrophils % 57.0 Lymphocytes % 27.5 Monocytes % 12.7 H Eosinophils % 1.7 Basophils % 0.6 Nucleated Red Blood Cells % 0.0 Neutrophils # 5.0 Lymphocytes # 2.4 Monocytes # 1.1 H Eosinophils # 0.2 Basophils # 0.1 Nucleated Red Blood Cells # 0.0 Sodium Level 138 Potassium Level 3.8 Chloride Level 104 Carbon Dioxide Level 29 Anion Gap 9 Blood Urea Nitrogen 12 Creatinine 0.85 Glucose Level 97 Calcium Level 8.4 Medications Medications Current Medications Atorvastatin Calcium (Lipitor) 20 mg QHS PO Last administered on 11/27/16 21: 17; Admin Dose 20 MG; Start 11/22/16 at 21:00 Gabapentin (Neurontin) 300 mg TID PO Last administered on 11/28/16 09:32; Admin Dose 300 MG; Start 11/22/16 at 21:00 Hydroxyzine HCl (Atarax) 10 mg QHS PRN PO ITCHING; Start 11/22/16 at 20:30 Levetiracetam (Keppra) 1,000 mg BID PO Last administered on 11/28/16 09:31; Admin Dose 1,000 MG; Start 11/22/16 at 21:00 Simethicone (Mylicon) 80 mg TID PO Last administered on 11/28/16 09:32; Admin Dose 80 MG; Start 11/22/16 at 21:00 Ondansetron HCl (Zofran Inj) 4 mg Q6H PRN IV NAUSEA AND/OR VOMITING; Start 11/22/16 at 20:30 Acetaminophen (Tylenol Tab) 650 mg Q6H PRN PO PAIN LEVEL 1-3 OR FEVER Last administered on 11/25/16 20:24; Admin Dose 650 MG; Start 11/22/16 at 20:30 Morphine Sulfate (morphine) 2 mg Q4H PRN IV SEVERE PAIN LEVEL 7-10; Start 11/22 at 20:30 Docusate Sodium (Colace) 100 mg Q12H PRN PO CONSTIPATION; Start 11/22/16 at 20: 30 Bisacodyl (Dulcolax) 5 mg DAILY PRN PO CONSTIPATION; Start 11/22/16 at 20:30 Famotidine (Pepcid) 20 mg Q12 PO Last administered on 11/28/16 09:33; Admin Dose 20 MG; Start 11/22/16 at 21:00 Hydralazine HCl (Apresoline) 10 mg Q4H PRN IV ELEVATED SYSTOLIC BP Last administered on 11/27/16 13:52; Admin Dose 10 MG; Start 11/24/16 at 05:00 Hydralazine HCl (Apresoline) 75 mg TID PO Last administered on 11/28/16 09:31 ; Admin Dose 75 MG; Start 11/25/16 at 21:00 Tobramycin TOBRAMYCIN PER PHARMACY NOTE XX ; Start 11/26/16 at 13:30 Tobramycin/Sodium Chloride (Tobramycin/NS) 108.75 ml @ 108.75 mls/hr Q48H IVPB Last administered on 11/28/16 16:16; Admin Dose 108.75 MLS/HR; Start at 16:00 CHERYLE BOYD MD Nov 28, 2016 19:13
[2016-11-28 20:35] VITALS: BP 132/77; RESP 18
[2016-11-28] MEDS: ATORVASTATIN 20 MG TAB PO SCH (20:59)
[2016-11-29] VITALS (8 sets, daily range): BP systolic 133–180; BP diastolic 77–95; PULSE 57–83; RESP 16–20
[2016-11-29 06:24] LABS: BASOPHILS % 0.6 % (0.0-2.0); EOSINOPHILS # 0.3 10^3/ul (0.0-0.5); EOSINOPHILS % 3.7 % (0.0-7.0); HEMATOCRIT 31.3 % (42.0-52.0); HEMOGLOBIN 9.5 g/dl (14.0-18.0); LYMPHOCYTES # 2.7 10^3/ul (0.8-2.9); LYMPHOCYTES % 39.6 % (15.0-51.0); MEAN CORPUSCULAR HEMOGLOBIN 18.6 pg (29.0-33.0); MEAN CORPUSCULAR HGB CONC 30.4 g/dl (32.0-37.0); MEAN CORPUSCULAR VOLUME 61.4 fl (82.0-101.0); MEAN PLATELET VOLUME 9.1 fl (7.4-10.4); MONOCYTE # 0.7 10^3/ul (0.3-0.9); MONOCYTES % 10.8 % (0.0-11.0); NEUTROPHILS % 44.9 % (39.0-77.0); PLATELET COUNT 192 10^3/UL (140-415); RED CELL DISTRIBUTION WIDTH 18.4 % (11.5-14.5); WHITE BLOOD COUNT 6.8 10^3/ul (4.8-10.8)
[2016-11-29 07:11] LABS: CALCIUM 8.5 mg/dl (8.4-10.2); CREATININE 0.79 mg/dl (0.61-1.24); POTASSIUM 3.5 mmol/L (3.5-5.1)
[2016-11-29] MEDS: LEVETIRACETAM 500 MG TAB PO SCH ×3 (08:19→21:21)
[2016-11-29] MEDS: GABAPENTIN 300 MG CAP PO SCH ×4 (08:19→21:21)
[2016-11-29] MEDS: FAMOTIDINE 20 MG TAB PO SCH ×3 (08:19→21:21)
[2016-11-29] MEDS: hydrALAzine 20 MG INJ IV PRN ×2 (08:33→14:31)
--- NOTE | 2016-11-29 12:53 | PN ---
Date/Time of Note Date/Time of Note DATE: 11/29/16 TIME: 12:45 Assessment/Plan VTE Prophylaxis VTE Prophylaxis Intervention: SCD's Lines/Catheters IV [facility] Saline Lock Urinary Cath still in place: No Assessment/Plan Chief Complaint/Hosp Course Assessment and plan 1. Polymicrobial UTI. ID consult is following. Continue antibiotic regimen. appears to be improving 2. History of Peyronie's disease. Patient does have history of multiple surgeries for his scrotal area as well as insertion of suprapubic catheter. Urology is following this time. Continue recommendations 3. Essential hypertension. Will continue antihypertensives and adjust as needed 4. 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 Continue with skin care. On prophylactic Keppra. 5. History of diabetes. A1c noted to be normal. Monitor blood glucose. Stable at present. 6. Anemia likely of chronic disease. H&H remained stable at present. Monitor for now. Disposition plan: Continue with antibiotics. follow up with urologist for suprapubic catheter change. plan for outpatient abx . will d/c once set up. plan for snf d/c Discussed plan of care with Dr. Costello Problems: Subjective 24 Hr Interval Summary Free Text/Dictation no s/s of distress. Exam/Review of Systems Vital Signs Vitals Vital Signs Date Time Temp Pulse Resp B/P Pulse Ox O2 Delivery O2 Flow Rate FiO2 11/29/16 09:00 57 133/77 11/29/16 08:08 98.2 20 95 11/26/16 22:56 Room Air Intake and Output 11/28/16 11/28/16 11/29/16 15:00 23:00 07:00 Intake Total 608.75 ml 120 ml Output Total 700 ml 550 ml Balance -91.25 ml -430 ml Exam Constitutional: resting. no s/s of distress Head: normocephalic Neck: No jvd Respiratory: clear to auscultation, normal air movement Cardiovascular: other (regular rate ) Gastrointestinal: non-tender, soft Genitourinary - Male: other (suprapubic catheter in place ), less swelling scrotal area Neurological: No BUFFER INFLATED PAD II-XII intact, No nl mental status Results Result Diagram: 11/29/16 0547 11/29/16 0547 Results 24 hrs Laboratory Tests Test 11/29/16 05:47 White Blood Count 6.8 # Red Blood Count 5.10 Hemoglobin 9.5 L Hematocrit 31.3 L Mean Corpuscular Volume 61.4 L Mean Corpuscular Hemoglobin 18.6 L Mean Corpuscular Hemoglobin Concent 30.4 L Red Cell Distribution Width 18.4 H Platelet Count 192 Mean Platelet Volume 9.1 Neutrophils % 44.9 Lymphocytes % 39.6 Monocytes % 10.8 Eosinophils % 3.7 Basophils % 0.6 Nucleated Red Blood Cells % 0.0 Neutrophils # 3.0 Lymphocytes # 2.7 Monocytes # 0.7 Eosinophils # 0.3 Basophils # 0.0 Nucleated Red Blood Cells # 0.0 Sodium Level 141 Potassium Level 3.5 Chloride Level 105 Carbon Dioxide Level 30 Anion Gap 10 Blood Urea Nitrogen 13 Creatinine 0.79 Glucose Level 88 Calcium Level 8.5 Medications Medications Current Medications Atorvastatin Calcium (Lipitor) 20 mg QHS PO Last administered on 11/28/16 20: 59; Admin Dose 20 MG; Start 11/22/16 at 21:00 Gabapentin (Neurontin) 300 mg TID PO Last administered on 11/28/16 20:58; Admin Dose 300 MG; Start 11/22/16 at 21:00 Hydroxyzine HCl (Atarax) 10 mg QHS PRN PO ITCHING; Start 11/22/16 at 20:30 Levetiracetam (Keppra) 1,000 mg BID PO Last administered on 11/28/16 20:59; Admin Dose 1,000 MG; Start 11/22/16 at 21:00 Simethicone (Mylicon) 80 mg TID PO Last administered on 11/28/16 20:59; Admin Dose 80 MG; Start 11/22/16 at 21:00 Ondansetron HCl (Zofran Inj) 4 mg Q6H PRN IV NAUSEA AND/OR VOMITING; Start 11/22/16 at 20:30 Acetaminophen (Tylenol Tab) 650 mg Q6H PRN PO PAIN LEVEL 1-3 OR FEVER Last administered on 11/25/16 20:24; Admin Dose 650 MG; Start 11/22/16 at 20:30 Morphine Sulfate (morphine) 2 mg Q4H PRN IV SEVERE PAIN LEVEL 7-10; Start 11/22 at 20:30 Docusate Sodium (Colace) 100 mg Q12H PRN PO CONSTIPATION; Start 11/22/16 at 20: 30 Bisacodyl (Dulcolax) 5 mg DAILY PRN PO CONSTIPATION; Start 11/22/16 at 20:30 Famotidine (Pepcid) 20 mg Q12 PO Last administered on 11/28/16 20:59; Admin Dose 20 MG; Start 11/22/16 at 21:00 Hydralazine HCl (Apresoline) 10 mg Q4H PRN IV ELEVATED SYSTOLIC BP Last administered on 11/29/16 08:33; Admin Dose 10 MG; Start 11/24/16 at 05:00 Hydralazine HCl (Apresoline) 75 mg TID PO Last administered on 11/28/16 20:59 ; Admin Dose 75 MG; Start 11/25/16 at 21:00 Tobramycin TOBRAMYCIN PER PHARMACY NOTE XX ; Start 11/26/16 at 13:30 Tobramycin/Sodium Chloride (Tobramycin/NS) 108.75 ml @ 108.75 mls/hr Q48H IVPB Last administered on 11/28/16 16:16; Admin Dose 108.75 MLS/HR; Start at 16:00 GLORIA LESTER Nov 29, 2016 12:53
[2016-11-29] MEDS ORDERED: hydrALAzine 20 MG INJ IV STA (17:44)
[2016-11-29] MEDS: ATORVASTATIN 20 MG TAB PO SCH (21:21)
--- NOTE | 2016-11-29 22:41 | CONS ---
Date/Time of Note Date/Time of Note DATE: 11/29/16 TIME: 22:40 Consult Date/Type/Reason Admit Date/Time Nov 22, 2016 at 19:54 Type of Consultation: ID Objective Vital Signs Date Time Temp Pulse Resp B/P Pulse Ox O2 Delivery O2 Flow Rate FiO2 11/29/16 20:51 97.3 63 18 180/85 98 11/26/16 22:56 Room Air Intake and Output 11/28/16 11/28/16 11/29/16 15:00 23:00 07:00 Intake Total 608.75 ml 120 ml Output Total 700 ml 550 ml Balance -91.25 ml -430 ml Results/Medications Result Diagram: 11/29/16 0547 11/29/16 0547 Results 24 hrs Laboratory Tests Test 11/29/16 05:47 White Blood Count 6.8 # Red Blood Count 5.10 Hemoglobin 9.5 L Hematocrit 31.3 L Mean Corpuscular Volume 61.4 L Mean Corpuscular Hemoglobin 18.6 L Mean Corpuscular Hemoglobin Concent 30.4 L Red Cell Distribution Width 18.4 H Platelet Count 192 Mean Platelet Volume 9.1 Neutrophils % 44.9 Lymphocytes % 39.6 Monocytes % 10.8 Eosinophils % 3.7 Basophils % 0.6 Nucleated Red Blood Cells % 0.0 Neutrophils # 3.0 Lymphocytes # 2.7 Monocytes # 0.7 Eosinophils # 0.3 Basophils # 0.0 Nucleated Red Blood Cells # 0.0 Sodium Level 141 Potassium Level 3.5 Chloride Level 105 Carbon Dioxide Level 30 Anion Gap 10 Blood Urea Nitrogen 13 Creatinine 0.79 Glucose Level 88 Calcium Level 8.5 Medications Current Medications Atorvastatin Calcium (Lipitor) 20 mg QHS PO Last administered on 11/29/16 21: 21; Admin Dose 20 MG; Start 11/22/16 at 21:00 Gabapentin (Neurontin) 300 mg TID PO Last administered on 11/29/16 21:21; Admin Dose 300 MG; Start 11/22/16 at 21:00 Hydroxyzine HCl (Atarax) 10 mg QHS PRN PO ITCHING; Start 11/22/16 at 20:30 Levetiracetam (Keppra) 1,000 mg BID PO Last administered on 11/29/16 21:21; Admin Dose 1,000 MG; Start 11/22/16 at 21:00 Simethicone (Mylicon) 80 mg TID PO Last administered on 11/29/16 21:21; Admin Dose 80 MG; Start 11/22/16 at 21:00 Ondansetron HCl (Zofran Inj) 4 mg Q6H PRN IV NAUSEA AND/OR VOMITING; Start 11/22/16 at 20:30 Acetaminophen (Tylenol Tab) 650 mg Q6H PRN PO PAIN LEVEL 1-3 OR FEVER Last administered on 11/25/16 20:24; Admin Dose 650 MG; Start 11/22/16 at 20:30 Morphine Sulfate (morphine) 2 mg Q4H PRN IV SEVERE PAIN LEVEL 7-10; Start 11/22 at 20:30 Docusate Sodium (Colace) 100 mg Q12H PRN PO CONSTIPATION; Start 11/22/16 at 20: 30 Bisacodyl (Dulcolax) 5 mg DAILY PRN PO CONSTIPATION; Start 11/22/16 at 20:30 Famotidine (Pepcid) 20 mg Q12 PO Last administered on 11/29/16 21:21; Admin Dose 20 MG; Start 11/22/16 at 21:00 Hydralazine HCl (Apresoline) 10 mg Q4H PRN IV ELEVATED SYSTOLIC BP Last administered on 11/29/16 14:31; Admin Dose 10 MG; Start 11/24/16 at 05:00 Hydralazine HCl (Apresoline) 75 mg TID PO Last administered on 11/29/16 21:22 ; Admin Dose 75 MG; Start 11/25/16 at 21:00 Tobramycin TOBRAMYCIN PER PHARMACY NOTE XX ; Start 11/26/16 at 13:30 Tobramycin/Sodium Chloride (Tobramycin/NS) 108.75 ml @ 108.75 mls/hr Q48H IVPB Last administered on 11/28/16 16:16; Admin Dose 108.75 MLS/HR; Start at 16:00 Miscellaneous Information (*Rx Drug Level Order Reminder*) TOBRA TROUGH @ 1, 500 ON ... ONCE ONCE XX ; Start 11/30/16 at 15:00; Stop 11/30/16 at 15:01 Assessment/Plan Chief Complaint/Hosp Course SUBJECTIVE: No acute changes. Looks comfortable, no fevers. MICROBIOLOGY: Urine culture on admission grew multidrug resistant Pseudomonas aeruginosa and Morganella morganii. ANTIMICROBIALS: IV tobramycin, status post vanco and Zosyn. INDWELLINGS: He has Brown catheter. PHYSICAL EXAMINATION: GENERAL: This is a fragile, elderly man who is awake, in no distress. HEENT: Head atraumatic, normocephalic. Sclerae anicteric. Buccal mucosa dry. NECK: Supple. CHEST: Rise symmetrical. Breath sounds diminished to bases. HEART: S1, S2. ABDOMEN: Soft, bowel tones present. EXTREMITIES: Without cyanosis. ASSESSMENT: 1. Multidrug resistant urinary tract infection. 2. Possible epididymitis, no evidence of any abscess per Urology. 3. Chronic suprapubic catheter. 4. History of Peyronie's disease. 5. History of cerebrovascular accident 6. Diabetes. PLAN: The patient remains stable. Continue present care, complete antibiotics for 6 more days Problems: RAMA THAYER NP Nov 29, 2016 22:41
[2016-11-30] VITALS: BP 150/80
[2016-11-30 02:38] VITALS: BP 175/88; RESP 16
[2016-11-30] MEDS: hydrALAzine 20 MG INJ IV PRN (03:06)
[2016-11-30 04:00] VITALS: BP 135/75
[2016-11-30 05:18] LABS: ABNORMAL IP MESSAGE 1; BASOPHIL # 0.1 10^3/ul (0.0-0.1); BASOPHILS % 1.1 % (0.0-2.0); EOSINOPHILS # 0.3 10^3/ul (0.0-0.5); EOSINOPHILS % 4.9 % (0.0-7.0); HEMATOCRIT 31.9 % (42.0-52.0); HEMOGLOBIN 9.8 g/dl (14.0-18.0); LYMPHOCYTES # 2.1 10^3/ul (0.8-2.9); LYMPHOCYTES % 38.4 % (15.0-51.0); MEAN CORPUSCULAR HEMOGLOBIN 18.8 pg (29.0-33.0); MEAN CORPUSCULAR HGB CONC 30.7 g/dl (32.0-37.0); MEAN CORPUSCULAR VOLUME 61.1 fl (82.0-101.0); MONOCYTE # 0.5 10^3/ul (0.3-0.9); MONOCYTES % 9.8 % (0.0-11.0); NEUTROPHIL # 2.5 10^3/ul (1.6-7.5); NEUTROPHILS % 45.3 % (39.0-77.0); PLATELET COUNT 181 10^3/UL (140-415); POSITIVE DIFF @See below; RED BLOOD COUNT 5.22 10^6/ul (4.70-6.10); RED CELL DISTRIBUTION WIDTH 17.6 % (11.5-14.5); WHITE BLOOD COUNT 5.5 10^3/ul (4.8-10.8)
[2016-11-30 05:46] LABS: CALCIUM 8.4 mg/dl (8.4-10.2); CREATININE 0.65 mg/dl (0.61-1.24); POTASSIUM 4.3 mmol/L (3.5-5.1)
[2016-11-30 08:12] VITALS: BP 145/78; RESP 18
--- NOTE | 2016-11-30 08:31 | PN ---
DATE: 11/29/2016 IMPRESSION: The patient has a suprapubic tube that needs to be changed, and he has had a urinary tr act infection. He was admitted initially with possible cellulitis of the scrotum and epididymitis. He has been covered with antibiotic and his urine culture did show Morganella morganii and Pseudomon as aeruginosa. The patient has been on tobramycin. The plan [facility], but before he goes back to the jail we needed to change his suprapubic tube. OBJECTIVE FINDINGS: VITAL SIGNS: His temperature is 98.0, pulse is 60, respiration 18, blood pressure 165/84. ABDOMEN: Soft and the external genitalia are normal looking and the suprapubic tube that he had was removed. The area around the suprapubic tract was prepped and draped in the usual sterile manner. The tract was lubricated with lubricant and then #18 Portuguese catheter was inserted into the bladder. The balloon inflated was 10 mL of sterile water and the catheter connected to a drainage bag. Dictated By: CHERYLE DE LA CRUZ/YAMILETH Conf#: [id number] DID#: [id number]
[2016-11-30] MEDS: LEVETIRACETAM 500 MG TAB PO SCH ×2 (09:46→21:07)
[2016-11-30] MEDS: FAMOTIDINE 20 MG TAB PO SCH ×2 (09:46→21:07)
[2016-11-30] MEDS: GABAPENTIN 300 MG CAP PO SCH ×3 (09:46→21:07)
--- NOTE | 2016-11-30 10:05 | PDOCDIS ---
Discharge Instructions DIAGNOSIS Discharge Diagnosis 1. Polymicrobial UTI. 2. History of Peyronie's disease. 3. Essential hypertension. 4. 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 5. History of diabetes. 6. Anemia likely of chronic disease. CONDITION Patient Condition: Stable HOME CARE INSTRUCTIONS: Special Diet: MECHANICAL SOFT FOLLOW UP/APPOINTMENTS Follow-up Plan 1. Follow up with Dr. Héctor Diaz in one week OTHER ORDERS: Other Orders: Further care and management per [facility] GLORIA LESTER Nov 30, 2016 10:05
[2016-11-30] MEDS ORDERED: HYDR-3671 PO (10:07)
[2016-11-30 14:29] VITALS: BP 156/86; PULSE 63; RESP 18
[2016-11-30] MEDS: TOBRAMYCIN IVPB SCH (17:52)
[2016-11-30] MEDS: SOD CHLORIDE 0.9% IVPB SCH (17:52)
[2016-11-30 20:00] VITALS: BP 119/63; RESP 20
[2016-11-30] MEDS: ATORVASTATIN 20 MG TAB PO SCH (21:07)
--- NOTE | 2016-11-30 21:17 | PN ---
DATE: 11/30/2016 SUBJECTIVE: Patient is not verbal or communicative, he does have left hemiparesis. 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 The patient also does have a urinary tract inf ection that is being treated. OBJECTIVE: VITAL SIGNS: His temperature is 98.1, pulse is 63, respiration 18, blood pressure 156/86. ABDOMEN: The suprapubic tube is in place and draining clear urine. The scrotum is normal. There i s no cellulitis or epididymitis at the present. LABORATORY DATA: His CBC shows a white count of 5.5, hemoglobin 9.8, hematocrit 31.9. BUN 13, crea tinine 0.65. Electrolytes are normal. The urine culture as reported earlier showed Morganella morg anii and Pseudomonas aeruginosa. Arrangements being made for the patient to go home and receive intravenous antibiotic at home. From a urological standpoint, I just changed his suprapubic tube yesterday and it is draining well. Con tinue the antibiotic as recommended by infectious disease. Dictated By: CHERYLE DE LA CRUZ/YAMILETH Conf#: [id number] DID#: [id number]
[2016-12-01 02:00] VITALS: BP 145/83; RESP 19
[2016-12-01 06:11] LABS: BASOPHIL # 0.1 10^3/ul (0.0-0.1); BASOPHILS % 1.2 % (0.0-2.0); EOSINOPHILS # 0.2 10^3/ul (0.0-0.5); EOSINOPHILS % 3.9 % (0.0-7.0); HEMATOCRIT 30.5 % (42.0-52.0); HEMOGLOBIN 9.2 g/dl (14.0-18.0); LYMPHOCYTES # 2.4 10^3/ul (0.8-2.9); LYMPHOCYTES % 47.1 % (15.0-51.0); MEAN CORPUSCULAR HEMOGLOBIN 18.4 pg (29.0-33.0); MEAN CORPUSCULAR HGB CONC 30.2 g/dl (32.0-37.0); MEAN CORPUSCULAR VOLUME 61.1 fl (82.0-101.0); MEAN PLATELET VOLUME 9.1 fl (7.4-10.4); MONOCYTE # 0.4 10^3/ul (0.3-0.9); MONOCYTES % 8.1 % (0.0-11.0); NEUTROPHILS % 39.3 % (39.0-77.0); PLATELET COUNT 227 10^3/UL (140-415); RED BLOOD COUNT 4.99 10^6/ul (4.70-6.10); WHITE BLOOD COUNT 5.2 10^3/ul (4.8-10.8)
[2016-12-01 06:49] LABS: CALCIUM 8.5 mg/dl (8.4-10.2); CREATININE 0.8 mg/dl (0.61-1.24)
[2016-12-01 07:07] LABS: POTASSIUM 2.8 mmol/L (3.5-5.1)
[2016-12-01 07:15] VITALS: BP 146/74; RESP 18
[2016-12-01] MEDS: LEVETIRACETAM 500 MG TAB PO SCH ×2 (08:35→21:42)
[2016-12-01] MEDS: GABAPENTIN 300 MG CAP PO SCH ×3 (08:35→21:42)
[2016-12-01] MEDS: FAMOTIDINE 20 MG TAB PO SCH ×2 (08:35→21:42)
--- NOTE | 2016-12-01 09:15 | PN ---
DATE: 12/01/2016 SUBJECTIVE: Patient is stable and has had no overnight events. He does have a suprapubic tube and also he has eft hemiparesis and the patient also on admission had a question of orchitis and epididy mitis and he has a urinary tract infection and is being treated for that with IV antibiotic and that is tobramycin. The patient is waiting for the home health arrangements to continue the antibiotic at home. OBJECTIVE: VITAL SIGNS: Temperature is 98.6, pulse 59, respirations 19, blood pressure 145/83. The patient at the present is being fed by the staff. ABDOMEN: Soft. Suprapubic tube is draining clear urine. LABORATORY DATA: CBC shows a white count 5.2, hemoglobin 9.2, hematocrit 30.5. The BUN is 11, crea tinine 0.8. His potassium is low and he is getting potassium chloride. IMPRESSION: Urinary tract infection. PLAN: To continue the tobramycin and keep the suprapubic tube in place. Dictated By: CHERYLE DE LA CRUZ/YAMILETH Conf#: [id number] DID#: [id number]
[2016-12-01] MEDS ORDERED: POTASSIUM CHLORIDE 20 MEQ in SOD CHLORIDE 0.9% 100 ML IVPB ONE (11:30)
[2016-12-01 14:00] VITALS: BP 149/78; RESP 18
--- NOTE | 2016-12-01 16:14 | PN ---
Date/Time of Note Date/Time of Note DATE: 12/01/16 TIME: 16:10 Assessment/Plan VTE Prophylaxis VTE Prophylaxis Intervention: SCD's Lines/Catheters [facility] Saline Lock Urinary Cath still in place: Yes (Suprapubic catheter) Reason Cath still needed: urinary retention Assessment/Plan Assessment/Plan 1. Polymicrobial UTI. ID consult is following. Continue antibiotic regimen. appears to be improving 2. History of Peyronie's disease. Patient does have history of multiple surgeries for his scrotal area as well as insertion of suprapubic catheter. Urology is following this time. Continue recommendations 3. Essential hypertension. Will continue antihypertensives and adjust as needed 4. 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 Continue with skin care. On prophylactic Keppra. 5. History of diabetes. A1c noted to be normal. Monitor blood glucose. Stable at present. 6. Anemia likely of chronic disease. H&H remained stable at present. Monitor for now. Disposition plan: Continue IV abx for UTI, BP stable, S/p urology follow up , pt will need martin catheter on discharge- pt K dropped to 2.8- will give KCL 20mEQ IV x 1 dose now watch for Tobramycin toxicity Subjective 24 Hr Interval Summary Free Text/Dictation s/p wound care nurse evaluattion, BP stable, WBC normal Exam/Review of Systems Vital Signs Vitals Vital Signs Date Time Temp Pulse Resp B/P Pulse Ox O2 Delivery O2 Flow Rate FiO2 12/01/16 14:00 97.9 59 18 149/78 95 11/30/16 14:29 Room Air Intake and Output 11/30/16 11/30/16 12/01/16 15:00 23:00 07:00 Intake Total 1608.75 ml 140 ml Output Total 1000 ml 1500 ml Balance 608.75 ml -1360 ml Exam Constitutional: resting. no s/s of distress Head: normocephalic Neck: No jvd Respiratory: clear to auscultation, normal air movement Cardiovascular: other (regular rate ) Gastrointestinal: non-tender, soft Genitourinary - Male: other (suprapubic catheter in place ), less swelling scrotal area Neurological: No LOCKSTITCH FRONT EDGE TAPE SEWER II-XII intact, No nl mental status Results Result Diagram: 12/01/16 0513 12/01/16 0513 Results 24 hrs Laboratory Tests Test 11/30/16 16:18 12/01/16 05:13 Tobramycin Level Trough < 0.6 L White Blood Count 5.2 Red Blood Count 4.99 Hemoglobin 9.2 L Hematocrit 30.5 L Mean Corpuscular Volume 61.1 L Mean Corpuscular Hemoglobin 18.4 L Mean Corpuscular Hemoglobin Concent 30.2 L Red Cell Distribution Width 18.0 H Platelet Count 227 # Mean Platelet Volume 9.1 Neutrophils % 39.3 Lymphocytes % 47.1 Monocytes % 8.1 Eosinophils % 3.9 Basophils % 1.2 Nucleated Red Blood Cells % 0.0 Neutrophils # 2.0 Lymphocytes # 2.4 Monocytes # 0.4 Eosinophils # 0.2 Basophils # 0.1 Nucleated Red Blood Cells # 0.0 Sodium Level 142 Potassium Level 2.8 *L Chloride Level 105 Carbon Dioxide Level 29 Anion Gap 11 Blood Urea Nitrogen 11 Creatinine 0.80 Glucose Level 82 Calcium Level 8.5 Medications Medications Current Medications Atorvastatin Calcium (Lipitor) 20 mg QHS PO Last administered on 11/30/16 21: 07; Admin Dose 20 MG; Start 11/22/16 at 21:00 Gabapentin (Neurontin) 300 mg TID PO Last administered on 12/01/16 15:48; Admin Dose 300 MG; Start 11/22/16 at 21:00 Hydroxyzine HCl (Atarax) 10 mg QHS PRN PO ITCHING; Start 11/22/16 at 20:30 Levetiracetam (Keppra) 1,000 mg BID PO Last administered on 12/01/16 08:35; Admin Dose 1,000 MG; Start 11/22/16 at 21:00 Simethicone (Mylicon) 80 mg TID PO Last administered on 12/01/16 15:48; Admin Dose 80 MG; Start 11/22/16 at 21:00 Ondansetron HCl (Zofran Inj) 4 mg Q6H PRN IV NAUSEA AND/OR VOMITING; Start 11/22/16 at 20:30 Acetaminophen (Tylenol Tab) 650 mg Q6H PRN PO PAIN LEVEL 1-3 OR FEVER Last administered on 11/25/16 20:24; Admin Dose 650 MG; Start 11/22/16 at 20:30 Morphine Sulfate (morphine) 2 mg Q4H PRN IV SEVERE PAIN LEVEL 7-10; Start 11/22 at 20:30 Docusate Sodium (Colace) 100 mg Q12H PRN PO CONSTIPATION; Start 11/22/16 at 20: 30 Bisacodyl (Dulcolax) 5 mg DAILY PRN PO CONSTIPATION; Start 11/22/16 at 20:30 Famotidine (Pepcid) 20 mg Q12 PO Last administered on 12/01/16 08:35; Admin Dose 20 MG; Start 11/22/16 at 21:00 Hydralazine HCl (Apresoline) 10 mg Q4H PRN IV ELEVATED SYSTOLIC BP Last administered on 11/30/16 03:06; Admin Dose 10 MG; Start 11/24/16 at 05:00 Hydralazine HCl (Apresoline) 75 mg TID PO Last administered on 12/01/16 15:49 ; Admin Dose 75 MG; Start 11/25/16 at 21:00 Tobramycin TOBRAMYCIN PER PHARMACY NOTE XX ; Start 11/26/16 at 13:30 Tobramycin/Sodium Chloride (Tobramycin/NS) 108.75 ml @ 108.75 mls/hr Q48H IVPB Last administered on 11/30/16 17:52; Admin Dose 108.75 MLS/HR; Start at 16:00 CROW WARNER MD Dec 01, 2016 16:14
[2016-12-01 20:00] VITALS: BP 167/84; RESP 18
[2016-12-01] MEDS: ATORVASTATIN 20 MG TAB PO SCH (21:42)
[2016-12-02] VITALS (7 sets, daily range): BP systolic 138–179; BP diastolic 70–90; PULSE 77–88; RESP 18
[2016-12-02 06:28] LABS: BASOPHIL # 0.1 10^3/ul (0.0-0.1); EOSINOPHILS # 0.2 10^3/ul (0.0-0.5); EOSINOPHILS % 2.7 % (0.0-7.0); HEMATOCRIT 31.9 % (42.0-52.0); HEMOGLOBIN 9.8 g/dl (14.0-18.0); LYMPHOCYTES # 2.5 10^3/ul (0.8-2.9); LYMPHOCYTES % 41.6 % (15.0-51.0); MEAN CORPUSCULAR HEMOGLOBIN 18.8 pg (29.0-33.0); MEAN CORPUSCULAR HGB CONC 30.7 g/dl (32.0-37.0); MEAN CORPUSCULAR VOLUME 61.3 fl (82.0-101.0); MEAN PLATELET VOLUME 9.1 fl (7.4-10.4); MONOCYTE # 0.4 10^3/ul (0.3-0.9); MONOCYTES % 6.9 % (0.0-11.0); NEUTROPHIL # 2.8 10^3/ul (1.6-7.5); NEUTROPHILS % 47.5 % (39.0-77.0); PLATELET COUNT 230 10^3/UL (140-415); RED CELL DISTRIBUTION WIDTH 17.2 % (11.5-14.5); WHITE BLOOD COUNT 5.9 10^3/ul (4.8-10.8)
[2016-12-02 06:57] LABS: CALCIUM 8.8 mg/dl (8.4-10.2); CREATININE 0.8 mg/dl (0.61-1.24); POTASSIUM 3.1 mmol/L (3.5-5.1)
[2016-12-02] MEDS: LEVETIRACETAM 500 MG TAB PO SCH ×2 (08:35→21:32)
[2016-12-02] MEDS: FAMOTIDINE 20 MG TAB PO SCH ×2 (08:35→21:31)
[2016-12-02] MEDS: GABAPENTIN 300 MG CAP PO SCH ×3 (08:35→21:32)
[2016-12-02] MEDS ORDERED: POTASSIUM CHLORIDE 250 ML IVPB ONE (11:00)
--- NOTE | 2016-12-02 13:50 | PN ---
Date/Time of Note Date/Time of Note LATE ENTRY DATE: 11/30/16 Assessment/Plan VTE Prophylaxis VTE Prophylaxis Intervention: SCD's Lines/Catheters IV [facility]ter Type (from [facility]): Peripheral IV Urinary Cath still in place: No (suprapubic cath) Assessment/Plan Chief Complaint/Hosp Course Assessment and plan 1. Polymicrobial UTI. ID consult is following. Continue antibiotic regimen. Monitor for clinical improvement. 2. History of Peyronie's disease. Patient does have history of multiple surgeries for his scrotal area as well as insertion of suprapubic catheter. Urology is following this time. Continue recommendations 3. Essential hypertension. Will continue antihypertensives and adjust any 4. 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 Continue with skin care. On prophylactic Keppra. 5. History of diabetes. A1c noted to be normal. Monitor blood glucose. Stable at present. 6. Anemia likely of chronic disease. H&H remained stable at present. Monitor for now. Disposition plan: Continue with antibiotics.continue with urologist recs. continue abx. monitor electrolytes and replete as needed. d/c planning Discussed plan of care with Dr. Costello Problems: Subjective 24 Hr Interval Summary Free Text/Dictation no s/s of distress. Exam/Review of Systems Vital Signs Vitals Vital Signs Date Time Temp Pulse Resp B/P Pulse Ox O2 Delivery O2 Flow Rate FiO2 12/02/16 10:02 77 147/86 12/02/16 08:10 97.8 18 96 11/30/16 14:29 Room Air Intake and Output 12/01/16 12/01/16 12/02/16 15:00 23:00 07:00 Intake Total 110 ml 590 ml 220 ml Output Total 1000 ml 600 ml Balance 110 ml -410 ml -380 ml Exam Constitutional: resting. no s/s of distress Head: normocephalic Neck: No jvd Respiratory: clear to auscultation, normal air movement Cardiovascular: other (regular rate ) Gastrointestinal: non-tender, soft Genitourinary - Male: other (suprapubic catheter in place ), less swelling scrotal area Neurological: No PHYSICIAN SURGEON II-XII intact, No nl mental status Results Result Diagram: 12/02/16 0552 12/02/16 0552 Results 24 hrs Laboratory Tests Test 12/02/16 05:52 White Blood Count 5.9 Red Blood Count 5.20 Hemoglobin 9.8 L Hematocrit 31.9 L Mean Corpuscular Volume 61.3 L Mean Corpuscular Hemoglobin 18.8 L Mean Corpuscular Hemoglobin Concent 30.7 L Red Cell Distribution Width 17.2 H Platelet Count 230 Mean Platelet Volume 9.1 Neutrophils % 47.5 Lymphocytes % 41.6 Monocytes % 6.9 Eosinophils % 2.7 Basophils % 1.0 Nucleated Red Blood Cells % 0.0 Neutrophils # 2.8 Lymphocytes # 2.5 Monocytes # 0.4 Eosinophils # 0.2 Basophils # 0.1 Nucleated Red Blood Cells # 0.0 Sodium Level 134 L Potassium Level 3.1 L Chloride Level 104 Carbon Dioxide Level 31 Anion Gap 2 #L Blood Urea Nitrogen 13 Creatinine 0.80 Glucose Level 88 Calcium Level 8.8 Magnesium Level 2.0 Medications Medications Current Medications Atorvastatin Calcium (Lipitor) 20 mg QHS PO Last administered on 12/01/16 21: 42; Admin Dose 20 MG; Start 11/22/16 at 21:00 Gabapentin (Neurontin) 300 mg TID PO Last administered on 12/02/16 13:45; Admin Dose 300 MG; Start 11/22/16 at 21:00 Hydroxyzine HCl (Atarax) 10 mg QHS PRN PO ITCHING; Start 11/22/16 at 20:30 Levetiracetam (Keppra) 1,000 mg BID PO Last administered on 12/02/16 08:35; Admin Dose 1,000 MG; Start 11/22/16 at 21:00 Simethicone (Mylicon) 80 mg TID PO Last administered on 12/02/16 13:45; Admin Dose 80 MG; Start 11/22/16 at 21:00 Ondansetron HCl (Zofran Inj) 4 mg Q6H PRN IV NAUSEA AND/OR VOMITING; Start 11/22/16 at 20:30 Acetaminophen (Tylenol Tab) 650 mg Q6H PRN PO PAIN LEVEL 1-3 OR FEVER Last administered on 11/25/16 20:24; Admin Dose 650 MG; Start 11/22/16 at 20:30 Morphine Sulfate (morphine) 2 mg Q4H PRN IV SEVERE PAIN LEVEL 7-10; Start 11/22 at 20:30 Docusate Sodium (Colace) 100 mg Q12H PRN PO CONSTIPATION; Start 11/22/16 at 20: 30 Bisacodyl (Dulcolax) 5 mg DAILY PRN PO CONSTIPATION; Start 11/22/16 at 20:30 Famotidine (Pepcid) 20 mg Q12 PO Last administered on 12/02/16 08:35; Admin Dose 20 MG; Start 11/22/16 at 21:00 Hydralazine HCl (Apresoline) 10 mg Q4H PRN IV ELEVATED SYSTOLIC BP Last administered on 11/30/16 03:06; Admin Dose 10 MG; Start 11/24/16 at 05:00 Hydralazine HCl (Apresoline) 75 mg TID PO Last administered on 12/02/16 13:45 ; Admin Dose 75 MG; Start 11/25/16 at 21:00 Tobramycin TOBRAMYCIN PER PHARMACY NOTE XX ; Start 11/26/16 at 13:30 Tobramycin 350 mg/ Sodium Chloride 108.75 ml @ 108.75 mls/hr Q48H IVPB Last administered on 11/30/16 17:52; Admin Dose 108.75 MLS/HR; Start 11/28/16 at 16:00 Potassium Chloride (KCl 40 MEQ/250 ML NS) 250 ml @ 62.5 mls/hr ONCE ONCE IVPB Last administered on 12/02/16 11:41; Admin Dose 62.5 MLS/HR; Start at 11:00; Stop 12/02/16 at 14:59 GLORIA LESTER Dec 02, 2016 13:50
--- NOTE | 2016-12-02 13:55 | PN ---
Date/Time of Note Date/Time of Note DATE: 12/02/16 TIME: 13:51 Assessment/Plan VTE Prophylaxis VTE Prophylaxis Intervention: SCD's Lines/Catheters IV Catheter Type (from [facility]): Peripheral IV Urinary Cath still in place: No (suprapubic cath) Assessment/Plan Chief Complaint/Hosp Course Assessment and plan 1. Polymicrobial UTI. ID consult is following. Continue antibiotic regimen. Monitor for clinical improvement. 2. History of Peyronie's disease. Patient does have history of multiple surgeries for his scrotal area as well as insertion of suprapubic catheter. Urology is following this time. Continue recommendations 3. Essential hypertension. Will continue antihypertensives and adjust any 4. 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 Continue with skin care. On prophylactic Keppra. 5. History of diabetes. A1c noted to be normal. Monitor blood glucose. Stable at present. 6. Anemia likely of chronic disease. H&H remained stable at present. Monitor for now. Disposition plan: with low potassium. to be repleted. d/c planning Discussed plan of care with Dr. Costello Problems: Subjective 24 Hr Interval Summary Free Text/Dictation sleeping during visit. arousable but nonverbal Exam/Review of Systems Vital Signs Vitals Vital Signs Date Time Temp Pulse Resp B/P Pulse Ox O2 Delivery O2 Flow Rate FiO2 12/02/16 10:02 77 147/86 12/02/16 08:10 97.8 18 96 11/30/16 14:29 Room Air Intake and Output 12/01/16 12/01/16 12/02/16 15:00 23:00 07:00 Intake Total 110 ml 590 ml 220 ml Output Total 1000 ml 600 ml Balance 110 ml -410 ml -380 ml Exam Constitutional: resting. no s/s of distress. unchanged Head: normocephalic Neck: No jvd Respiratory: clear to auscultation, normal air movement Cardiovascular: other (regular rate ) Gastrointestinal: non-tender, soft Genitourinary - Male: other (suprapubic catheter in place ), Neurological: No MECHANICAL PLANNER II-XII intact, No nl mental status Results Result Diagram: 12/02/16 0552 12/02/16 0552 Results 24 hrs Laboratory Tests Test 12/02/16 05:52 White Blood Count 5.9 Red Blood Count 5.20 Hemoglobin 9.8 L Hematocrit 31.9 L Mean Corpuscular Volume 61.3 L Mean Corpuscular Hemoglobin 18.8 L Mean Corpuscular Hemoglobin Concent 30.7 L Red Cell Distribution Width 17.2 H Platelet Count 230 Mean Platelet Volume 9.1 Neutrophils % 47.5 Lymphocytes % 41.6 Monocytes % 6.9 Eosinophils % 2.7 Basophils % 1.0 Nucleated Red Blood Cells % 0.0 Neutrophils # 2.8 Lymphocytes # 2.5 Monocytes # 0.4 Eosinophils # 0.2 Basophils # 0.1 Nucleated Red Blood Cells # 0.0 Sodium Level 134 L Potassium Level 3.1 L Chloride Level 104 Carbon Dioxide Level 31 Anion Gap 2 #L Blood Urea Nitrogen 13 Creatinine 0.80 Glucose Level 88 Calcium Level 8.8 Magnesium Level 2.0 Medications Medications Current Medications Atorvastatin Calcium (Lipitor) 20 mg QHS PO Last administered on 12/01/16 21: 42; Admin Dose 20 MG; Start 11/22/16 at 21:00 Gabapentin (Neurontin) 300 mg TID PO Last administered on 12/02/16 13:45; Admin Dose 300 MG; Start 11/22/16 at 21:00 Hydroxyzine HCl (Atarax) 10 mg QHS PRN PO ITCHING; Start 11/22/16 at 20:30 Levetiracetam (Keppra) 1,000 mg BID PO Last administered on 12/02/16 08:35; Admin Dose 1,000 MG; Start 11/22/16 at 21:00 Simethicone (Mylicon) 80 mg TID PO Last administered on 12/02/16 13:45; Admin Dose 80 MG; Start 11/22/16 at 21:00 Ondansetron HCl (Zofran Inj) 4 mg Q6H PRN IV NAUSEA AND/OR VOMITING; Start 11/22/16 at 20:30 Acetaminophen (Tylenol Tab) 650 mg Q6H PRN PO PAIN LEVEL 1-3 OR FEVER Last administered on 11/25/16 20:24; Admin Dose 650 MG; Start 11/22/16 at 20:30 Morphine Sulfate (morphine) 2 mg Q4H PRN IV SEVERE PAIN LEVEL 7-10; Start 11/22 at 20:30 Docusate Sodium (Colace) 100 mg Q12H PRN PO CONSTIPATION; Start 11/22/16 at 20: 30 Bisacodyl (Dulcolax) 5 mg DAILY PRN PO CONSTIPATION; Start 11/22/16 at 20:30 Famotidine (Pepcid) 20 mg Q12 PO Last administered on 12/02/16 08:35; Admin Dose 20 MG; Start 11/22/16 at 21:00 Hydralazine HCl (Apresoline) 10 mg Q4H PRN IV ELEVATED SYSTOLIC BP Last administered on 11/30/16 03:06; Admin Dose 10 MG; Start 11/24/16 at 05:00 Hydralazine HCl (Apresoline) 75 mg TID PO Last administered on 12/02/16 13:45 ; Admin Dose 75 MG; Start 11/25/16 at 21:00 Tobramycin TOBRAMYCIN PER PHARMACY NOTE XX ; Start 11/26/16 at 13:30 Tobramycin 350 mg/ Sodium Chloride 108.75 ml @ 108.75 mls/hr Q48H IVPB Last administered on 11/30/16 17:52; Admin Dose 108.75 MLS/HR; Start 11/28/16 at 16:00 Potassium Chloride (KCl 40 MEQ/250 ML NS) 250 ml @ 62.5 mls/hr ONCE ONCE IVPB Last administered on 12/02/16 11:41; Admin Dose 62.5 MLS/HR; Start at 11:00; Stop 12/02/16 at 14:59 GLORIA LESTER Dec 02, 2016 13:55
--- NOTE | 2016-12-02 14:16 | PN ---
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 Has undergone multiple surgeries on his scrotum and insertion of suprapubic tube about 3 years earlier. His urethra is closed. He was admitted because of possible epididymitis and urinary tract infection. Presently he is doing better the scrotum is not hard and tender and no evidence of any abscess formation or collection of any fluid. Recommend continue the intravenous antibiotics as per infectious disease and before his discharge I changed the suprapubic tube Problems: Subjective 24 Hr Interval Summary Subjective hx not possible: pt non-verbal Eyes: no complaints ENT: no complaints Respiratory: no complaints Cardiovascular: no complaints Gastrointestinal: no complaints, No blood, No diarrhea, No nausea Genitourinary: No bleeding, No hematuria Musculoskeletal: no complaints Skin: no complaints Neurologic: other (Left hemiparesis) Endocrine: no complaints Lymphatic: no complaints Psychological: no complaints Exam/Review of Systems Vital Signs Vitals Vital Signs Date Time Temp Pulse Resp B/P Pulse Ox O2 Delivery O2 Flow Rate FiO2 12/02/16 10:02 77 147/86 12/02/16 08:10 97.8 18 96 11/30/16 14:29 Room Air Intake and Output 12/01/16 12/01/16 12/02/16 15:00 23:00 07:00 Intake Total 110 ml 590 ml 220 ml Output Total 1000 ml 600 ml Balance 110 ml -410 ml -380 ml Exam Constitutional: alert Psych: no complaints Head: normocephalic Eyes: nl conjunctiva ENMT: nl external ears & nose Neck: non-tender Respiratory: normal air movement Cardiovascular: No edema Gastrointestinal: soft, No mass Genitourinary - Male: other (Suprapubic tube draining clear urine) Musculoskeletal: nl extremities to inspection Extremities: No calf tenderness Neurological: other (Left w hemiparesis) Skin: nl turgor Results Result Diagram: 12/02/16 0552 12/02/16 0552 Results 24 hrs Laboratory Tests Test 12/02/16 05:52 White Blood Count 5.9 Red Blood Count 5.20 Hemoglobin 9.8 L Hematocrit 31.9 L Mean Corpuscular Volume 61.3 L Mean Corpuscular Hemoglobin 18.8 L Mean Corpuscular Hemoglobin Concent 30.7 L Red Cell Distribution Width 17.2 H Platelet Count 230 Mean Platelet Volume 9.1 Neutrophils % 47.5 Lymphocytes % 41.6 Monocytes % 6.9 Eosinophils % 2.7 Basophils % 1.0 Nucleated Red Blood Cells % 0.0 Neutrophils # 2.8 Lymphocytes # 2.5 Monocytes # 0.4 Eosinophils # 0.2 Basophils # 0.1 Nucleated Red Blood Cells # 0.0 Sodium Level 134 L Potassium Level 3.1 L Chloride Level 104 Carbon Dioxide Level 31 Anion Gap 2 #L Blood Urea Nitrogen 13 Creatinine 0.80 Glucose Level 88 Calcium Level 8.8 Magnesium Level 2.0 Medications Medications Current Medications Atorvastatin Calcium (Lipitor) 20 mg QHS PO Last administered on 12/01/16 21: 42; Admin Dose 20 MG; Start 11/22/16 at 21:00 Gabapentin (Neurontin) 300 mg TID PO Last administered on 12/02/16 13:45; Admin Dose 300 MG; Start 11/22/16 at 21:00 Hydroxyzine HCl (Atarax) 10 mg QHS PRN PO ITCHING; Start 11/22/16 at 20:30 Levetiracetam (Keppra) 1,000 mg BID PO Last administered on 12/02/16 08:35; Admin Dose 1,000 MG; Start 11/22/16 at 21:00 Simethicone (Mylicon) 80 mg TID PO Last administered on 12/02/16 13:45; Admin Dose 80 MG; Start 11/22/16 at 21:00 Ondansetron HCl (Zofran Inj) 4 mg Q6H PRN IV NAUSEA AND/OR VOMITING; Start 11/22/16 at 20:30 Acetaminophen (Tylenol Tab) 650 mg Q6H PRN PO PAIN LEVEL 1-3 OR FEVER Last administered on 11/25/16 20:24; Admin Dose 650 MG; Start 11/22/16 at 20:30 Morphine Sulfate (morphine) 2 mg Q4H PRN IV SEVERE PAIN LEVEL 7-10; Start 11/22 at 20:30 Docusate Sodium (Colace) 100 mg Q12H PRN PO CONSTIPATION; Start 11/22/16 at 20: 30 Bisacodyl (Dulcolax) 5 mg DAILY PRN PO CONSTIPATION; Start 11/22/16 at 20:30 Famotidine (Pepcid) 20 mg Q12 PO Last administered on 12/02/16 08:35; Admin Dose 20 MG; Start 11/22/16 at 21:00 Hydralazine HCl (Apresoline) 10 mg Q4H PRN IV ELEVATED SYSTOLIC BP Last administered on 11/30/16 03:06; Admin Dose 10 MG; Start 11/24/16 at 05:00 Hydralazine HCl (Apresoline) 75 mg TID PO Last administered on 12/02/16 13:45 ; Admin Dose 75 MG; Start 11/25/16 at 21:00 Tobramycin TOBRAMYCIN PER PHARMACY NOTE XX ; Start 11/26/16 at 13:30 Tobramycin 350 mg/ Sodium Chloride 108.75 ml @ 108.75 mls/hr Q48H IVPB Last administered on 11/30/16 17:52; Admin Dose 108.75 MLS/HR; Start 11/28/16 at 16:00 Potassium Chloride (KCl 40 MEQ/250 ML NS) 250 ml @ 62.5 mls/hr ONCE ONCE IVPB Last administered on 12/02/16 11:41; Admin Dose 62.5 MLS/HR; Start at 11:00; Stop 12/02/16 at 14:59 CHERYLE BOYD MD Dec 02, 2016 14:16
[2016-12-02] MEDS: SOD CHLORIDE 0.9% IVPB SCH (15:33)
[2016-12-02] MEDS: TOBRAMYCIN IVPB SCH (15:33)
[2016-12-02] MEDS: ATORVASTATIN 20 MG TAB PO SCH (21:32)
[2016-12-02] MEDS: hydrALAzine 20 MG INJ IV PRN (21:37)
[2016-12-03] VITALS (7 sets, daily range): BP systolic 110–162; BP diastolic 59–86; PULSE 68–80; RESP 18–20
[2016-12-03 06:43] LABS: BASOPHIL # 0.1 10^3/ul (0.0-0.1); BASOPHILS % 0.4 % (0.0-2.0); EOSINOPHILS % 0.1 % (0.0-7.0); HEMATOCRIT 34.4 % (42.0-52.0); HEMOGLOBIN 10.7 g/dl (14.0-18.0); LYMPHOCYTES # 1.6 10^3/ul (0.8-2.9); MEAN CORPUSCULAR HGB CONC 31.1 g/dl (32.0-37.0); MEAN CORPUSCULAR VOLUME 61.2 fl (82.0-101.0); MEAN PLATELET VOLUME 9.3 fl (7.4-10.4); MONOCYTE # 0.7 10^3/ul (0.3-0.9); MONOCYTES % 4.6 % (0.0-11.0); NEUTROPHIL # 11.8 10^3/ul (1.6-7.5); NEUTROPHILS % 83.3 % (39.0-77.0); PLATELET COUNT 232 10^3/UL (140-415); RED BLOOD COUNT 5.62 10^6/ul (4.70-6.10); RED CELL DISTRIBUTION WIDTH 17.3 % (11.5-14.5); WHITE BLOOD COUNT 14.1 10^3/ul (4.8-10.8)
--- NOTE | 2016-12-03 08:34 | PN ---
Date/Time of Note Date/Time of Note DATE: 12/03/16 TIME: 08:31 Assessment/Plan VTE Prophylaxis VTE Prophylaxis Intervention: SCD's Lines/Catheters IV [facility] Type (from [facility] [place] Urinary Cath still in place: Yes (supra pubis cath) Reason Cath still needed: other (indicate) (monitor I&O) Assessment/Plan Chief Complaint/Hosp Course Assessment and plan 1. Polymicrobial UTI. ID consult is following. Continue antibiotic regimen. Monitor for clinical improvement. 2. History of Peyronie's disease. Patient does have history of multiple surgeries for his scrotal area as well as insertion of suprapubic catheter (was replaced). Urology is following this time. Continue recommendations 3. Essential hypertension. Will continue antihypertensives and adjust any 4. 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 Continue with skin care. On prophylactic Keppra. 5. History of diabetes. A1c noted to be normal. Monitor blood glucose. Stable at present. 6. Anemia likely of chronic disease. H&H remained stable at present. Monitor for now. Disposition plan: Elevation in white count today. Etiology unknown. Follow-up on culture. Monitor for fevers. Continue the antibiotics. Follow-up with ID. Discharge when cleared by consultants. Discussed plan of care with Dr. Costello Problems: Subjective 24 Hr Interval Summary Free Text/Dictation Resting at this time. No specific complaints. Exam/Review of Systems Vital Signs Vitals Vital Signs Date Time Temp Pulse Resp B/P Pulse Ox O2 Delivery O2 Flow Rate FiO2 12/03/16 07:58 98.7 70 18 160/80 98 11/30/16 14:29 Room Air Intake and Output 12/02/16 12/02/16 12/03/16 15:00 23:00 07:00 Intake Total 250 ml 1068 ml 120 ml Output Total 425 ml 850 ml Balance 250 ml 643 ml -730 ml Exam Constitutional: resting. no s/s of distress. unchanged Head: normocephalic Neck: No jvd Respiratory: clear to auscultation, normal air movement Cardiovascular: other (regular rate ) Gastrointestinal: non-tender, soft Genitourinary - Male: other (suprapubic catheter in place ), Neurological: No NIGHT PATROL INSPECTOR II-XII intact, No nl mental status, able to say single words. no complete sentences Results Result Diagram: 12/03/16 0445 12/02/16 0552 Results 24 hrs Laboratory Tests Test 12/03/16 04:45 White Blood Count 14.1 #H Red Blood Count 5.62 Hemoglobin 10.7 L Hematocrit 34.4 L Mean Corpuscular Volume 61.2 L Mean Corpuscular Hemoglobin 19.0 L Mean Corpuscular Hemoglobin Concent 31.1 L Red Cell Distribution Width 17.3 H Platelet Count 232 Mean Platelet Volume 9.3 Neutrophils % 83.3 H Lymphocytes % 11.0 L Monocytes % 4.6 Eosinophils % 0.1 Basophils % 0.4 Nucleated Red Blood Cells % 0.0 Neutrophils # 11.8 H Lymphocytes # 1.6 Monocytes # 0.7 Eosinophils # 0.0 Basophils # 0.1 Nucleated Red Blood Cells # 0.0 Medications Medications Current Medications Atorvastatin Calcium (Lipitor) 20 mg QHS PO Last administered on 12/02/16 21: 32; Admin Dose 20 MG; Start 11/22/16 at 21:00 Gabapentin (Neurontin) 300 mg TID PO Last administered on 12/02/16 21:32; Admin Dose 300 MG; Start 11/22/16 at 21:00 Hydroxyzine HCl (Atarax) 10 mg QHS PRN PO ITCHING; Start 11/22/16 at 20:30 Levetiracetam (Keppra) 1,000 mg BID PO Last administered on 12/02/16 21:32; Admin Dose 1,000 MG; Start 11/22/16 at 21:00 Simethicone (Mylicon) 80 mg TID PO Last administered on 12/02/16 21:32; Admin Dose 80 MG; Start 11/22/16 at 21:00 Ondansetron HCl (Zofran Inj) 4 mg Q6H PRN IV NAUSEA AND/OR VOMITING; Start 11/22/16 at 20:30 Acetaminophen (Tylenol Tab) 650 mg Q6H PRN PO PAIN LEVEL 1-3 OR FEVER Last administered on 11/25/16 20:24; Admin Dose 650 MG; Start 11/22/16 at 20:30 Morphine Sulfate (morphine) 2 mg Q4H PRN IV SEVERE PAIN LEVEL 7-10; Start 11/22 at 20:30 Docusate Sodium (Colace) 100 mg Q12H PRN PO CONSTIPATION; Start 11/22/16 at 20: 30 Bisacodyl (Dulcolax) 5 mg DAILY PRN PO CONSTIPATION; Start 11/22/16 at 20:30 Famotidine (Pepcid) 20 mg Q12 PO Last administered on 12/02/16 21:31; Admin Dose 20 MG; Start 11/22/16 at 21:00 Hydralazine HCl (Apresoline) 10 mg Q4H PRN IV ELEVATED SYSTOLIC BP Last administered on 12/02/16 21:37; Admin Dose 10 MG; Start 11/24/16 at 05:00 Hydralazine HCl (Apresoline) 75 mg TID PO Last administered on 12/02/16 21:32 ; Admin Dose 75 MG; Start 11/25/16 at 21:00 Tobramycin TOBRAMYCIN PER PHARMACY NOTE XX ; Start 11/26/16 at 13:30 Tobramycin/Sodium Chloride (Tobramycin/NS) 108.75 ml @ 108.75 mls/hr Q48H IVPB Last administered on 12/02/16 15:33; Admin Dose 108.75 MLS/HR; Start at 16:00 GLORIA LESTER Dec 03, 2016 08:34
[2016-12-03 08:41] LABS: CALCIUM 8.7 mg/dl (8.4-10.2); CREATININE 0.73 mg/dl (0.61-1.24); MAGNESIUM 1.9 mg/dl (1.7-2.5); POTASSIUM 3.7 mmol/L (3.5-5.1)
[2016-12-03] MEDS: GABAPENTIN 300 MG CAP PO SCH ×3 (08:53→20:04)
[2016-12-03] MEDS: FAMOTIDINE 20 MG TAB PO SCH ×2 (08:53→20:05)
[2016-12-03] MEDS: LEVETIRACETAM 500 MG TAB PO SCH ×2 (08:54→20:08)
--- NOTE | 2016-12-03 15:15 | CONS ---
Date/Time of Note Date/Time of Note DATE: 12/03/16 TIME: 15:00 Assessment/Plan Assessment/Plan Chief Complaint/Hosp Course ID PROGRESS NOTE CURRENT ABX: DAY # 11=> Tobra IV #8 11/26 -> 12/03 s/p Vanco IV + Zosyn 11/22 - 11/26 24H INTERVAL SUMMARY * Chart reviewed: Admitted for complicated polymicrobial UTI, possible epididymitis with hx of prior surgeries for closed urethra + history of Jami gangrene. Has undergone multiple surgeries on his scrotum and insertion of suprapubic tube about 3 years earlier. His urethra is closed. He has suprapubic catheter changed by this admission. * WBC had normalized on ABX -- today is elevated to 14.1 w/low grade temps @ 99.4+ * Wound photos reviewed w/RN -- scrotal wound is small/clean, LLEST skin tear, ingrown toenail == wound do not look infected * 11/22/16 Urine Cx: URINE CULTURE Final Organism 1 MORGANELLA MORGANII SSP MORG. COLONY COUNT >100,000 CFU/ml Organism 2 PSEUDOMONAS AERUGINOSA COLONY COUNT >100,000 CFU/ml Physical Exam Physical Exam Constitutional: VSS, NAD HEENT: Unremarkable Neck: Supple, full ROM Respiratory: Equal chest rise bilaterally, without dyspnea on observation Cardiovascular: nl pulse Gastrointestinal: Soft, NT, DSG in place Extremities: Warm, left hemiparesis SKIN: No rash, no diaphoresis, see photos perineal wound ID ASSESSMENT 61 yo M PMHx of CVA w/chronic left sided hemeparesis, seizure disorder, bed- bound admit with: 1. Recurrent SIRS w/low grade temps + leukocytosis 12/02/16 elevated to 14.1 * Had several BMs listed in I/Os, cannot confirm diarrhea w/nursing staff * Will repeat UA C&S ?Opportunistic yeast ? 2. s/p Multidrug resistant urinary tract infection, Possible epididymitis, no evidence of any abscess per Urology. 3. Chronic suprapubic catheter. 4. History of Peyronie's disease, hx of surgery w/closed urethra 5. History of Jami's gangrene, hx of surgical debridement remote 6. Diabetes. 7. Ingrown toenail ?infected? 8. Bilateral toes deep tissue injury; LLEXT skin tear wound ABX ALLERGIES: NKDA CURRENT ABX: DAY # 11=> Tobra IV #8 11/26 -> 12/03 s/p Vanco IV + Zosyn 11/22 - 11/26 ID RECOMMENDATIONS 1. Repeat UA C&S 2. Wound photos reviewed w/RN -- scrotal wound is small/clean, LLEST skin tear, do not look infected -- ingrown toenail ??? infected??? . . Problems: Consultation Date/Type/Reason Admit Date/Time Nov 22, 2016 at 19:54 Initial Consult Date Type of Consultation: ID Exam/Review of Systems Vital Signs Vitals Vital Signs Date Time Temp Pulse Resp B/P Pulse Ox O2 Delivery O2 Flow Rate FiO2 12/03/16 14:00 99.4 67 19 160/85 98 11/30/16 14:29 Room Air Intake and Output 12/02/16 12/02/16 12/03/16 15:00 23:00 07:00 Intake Total 250 ml 1068 ml 120 ml Output Total 425 ml 850 ml Balance 250 ml 643 ml -730 ml Results Result Diagram: 12/03/16 0445 12/03/16 0445 Results 24 hrs Laboratory Tests Test 12/03/16 04:45 White Blood Count 14.1 #H Red Blood Count 5.62 Hemoglobin 10.7 L Hematocrit 34.4 L Mean Corpuscular Volume 61.2 L Mean Corpuscular Hemoglobin 19.0 L Mean Corpuscular Hemoglobin Concent 31.1 L Red Cell Distribution Width 17.3 H Platelet Count 232 Mean Platelet Volume 9.3 Neutrophils % 83.3 H Lymphocytes % 11.0 L Monocytes % 4.6 Eosinophils % 0.1 Basophils % 0.4 Nucleated Red Blood Cells % 0.0 Neutrophils # 11.8 H Lymphocytes # 1.6 Monocytes # 0.7 Eosinophils # 0.0 Basophils # 0.1 Nucleated Red Blood Cells # 0.0 Sodium Level 141 Potassium Level 3.7 Chloride Level 104 Carbon Dioxide Level 28 Anion Gap 13 Blood Urea Nitrogen 18 Creatinine 0.73 Glucose Level 100 Calcium Level 8.7 Magnesium Level 1.9 Medications Medications Current Medications Atorvastatin Calcium (Lipitor) 20 mg QHS PO Last administered on 12/02/16t 21: 32; Admin Dose 20 MG; Start 11/22/16 at 21:00 Gabapentin (Neurontin) 300 mg TID PO Last administered on 12/03/16 12:28; Admin Dose 300 MG; Start 11/22/16 at 21:00 Hydroxyzine HCl (Atarax) 10 mg QHS PRN PO ITCHING; Start 11/22/16 at 20:30 Levetiracetam (Keppra) 1,000 mg BID PO Last administered on 12/03/16 08:54; Admin Dose 1,000 MG; Start 11/22/16 at 21:00 Simethicone (Mylicon) 80 mg TID PO Last administered on 12/03/16 12:28; Admin Dose 80 MG; Start 11/22/16 at 21:00 Ondansetron HCl (Zofran Inj) 4 mg Q6H PRN IV NAUSEA AND/OR VOMITING; Start 11/22/16 at 20:30 Acetaminophen (Tylenol Tab) 650 mg Q6H PRN PO PAIN LEVEL 1-3 OR FEVER Last administered on 11/25/16 20:24; Admin Dose 650 MG; Start 11/22/16 at 20:30 Morphine Sulfate (morphine) 2 mg Q4H PRN IV SEVERE PAIN LEVEL 7-10; Start 11/22 at 20:30 Docusate Sodium (Colace) 100 mg Q12H PRN PO CONSTIPATION; Start 11/22/16 at 20: 30 Bisacodyl (Dulcolax) 5 mg DAILY PRN PO CONSTIPATION; Start 11/22/16 at 20:30 Famotidine (Pepcid) 20 mg Q12 PO Last administered on 12/03/16 08:53; Admin Dose 20 MG; Start 11/22/16 at 21:00 Hydralazine HCl (Apresoline) 10 mg Q4H PRN IV ELEVATED SYSTOLIC BP Last administered on 12/02/16 21:37; Admin Dose 10 MG; Start 11/24/16 at 05:00 Hydralazine HCl (Apresoline) 75 mg TID PO Last administered on 12/03/16 12:28 ; Admin Dose 75 MG; Start 11/25/16 at 21:00 Tobramycin TOBRAMYCIN PER PHARMACY NOTE XX ; Start 11/26/16 at 13:30 Tobramycin/Sodium Chloride (Tobramycin/NS) 108.75 ml @ 108.75 mls/hr Q48H IVPB Last administered on 12/02/16t 15:33; Admin Dose 108.75 MLS/HR; Start at 16:00 NEIL GRIFFITH NP Dec 03, 2016 15:10
[2016-12-03 17:02] LABS: ADD UMIC YES; UR ASCORBIC ACID NEGATIVE (NEGATIVE); UR BACTERIA FEW /HPF (NONE SEEN); UR BILIRUBIN (Dip) NEGATIVE (NEGATIVE); UR BLOOD (Dip) 1+ mg/dL (NEGATIVE); UR CLARITY CLOUDY (CLEAR); UR COLOR YELLOW (YELLOW); UR GLUCOSE (Dip) NEGATIVE (NEGATIVE); UR KETONES (Dip) NEGATIVE (NEGATIVE); UR LEUKOCYTE ESTERASE (Dip) 3+ Leu/ul (NEGATIVE); UR MUCUS FEW /HPF (NONE SEEN); UR NITRITE (Dip) NEGATIVE (NEGATIVE); UR RBC 139 /HPF (0-5); UR SPECIFIC GRAVITY (Dip) 1.016 (1.003-1.030); UR TOTAL PROTEIN (Dip) 2+ mg/dl (NEGATIVE); UR UROBILINOGEN (Dip) NEGATIVE (NEGATIVE)
[2016-12-03] MEDS: ATORVASTATIN 20 MG TAB PO SCH (20:04)
[2016-12-04 02:00] VITALS: BP 141/78; RESP 19
[2016-12-04 05:39] LABS: BASOPHIL # 0.1 10^3/ul (0.0-0.1); BASOPHILS % 0.9 % (0.0-2.0); EOSINOPHILS # 0.2 10^3/ul (0.0-0.5); EOSINOPHILS % 2.7 % (0.0-7.0); HEMATOCRIT 31.4 % (42.0-52.0); HEMOGLOBIN 9.4 g/dl (14.0-18.0); LYMPHOCYTES # 3.1 10^3/ul (0.8-2.9); LYMPHOCYTES % 48.6 % (15.0-51.0); MEAN CORPUSCULAR HEMOGLOBIN 18.6 pg (29.0-33.0); MEAN CORPUSCULAR HGB CONC 29.9 g/dl (32.0-37.0); MEAN CORPUSCULAR VOLUME 62.1 fl (82.0-101.0); MEAN PLATELET VOLUME 8.9 fl (7.4-10.4); MONOCYTE # 0.5 10^3/ul (0.3-0.9); NEUTROPHIL # 2.5 10^3/ul (1.6-7.5); NEUTROPHILS % 39.5 % (39.0-77.0); PLATELET COUNT 200 10^3/UL (140-415); RED BLOOD COUNT 5.06 10^6/ul (4.70-6.10); RED CELL DISTRIBUTION WIDTH 18.3 % (11.5-14.5); WHITE BLOOD COUNT 6.3 10^3/ul (4.8-10.8)
[2016-12-04 06:02] LABS: CALCIUM 8.9 mg/dl (8.4-10.2); CREATININE 0.83 mg/dl (0.61-1.24); POTASSIUM 3.9 mmol/L (3.5-5.1)
[2016-12-04 08:20] VITALS: BP 148/75; RESP 18
[2016-12-04] MEDS: FAMOTIDINE 20 MG TAB PO SCH ×2 (09:00→09:39)
[2016-12-04] MEDS: LEVETIRACETAM 500 MG TAB PO SCH ×2 (09:00→20:29)
[2016-12-04] MEDS: GABAPENTIN 300 MG CAP PO SCH ×3 (09:00→20:29)
[2016-12-04 12:39] VITALS: BP 136/73; PULSE 57; RESP 18
--- NOTE | 2016-12-04 14:04 | PN ---
Date/Time of Note Date/Time of Note DATE: 12/04/16 TIME: 14:02 Assessment/Plan VTE Prophylaxis VTE Prophylaxis Intervention: SCD's Lines/Catheters IV Catheter Type (from [facility] Saline Lock Urinary Cath still in place: Yes (suprapubic catheter) Reason Cath still needed: other (indicate) Assessment/Plan Chief Complaint/Hosp Course 1. Complicated urinary tract infection. Urine culture positive for Morganella morganii and Pseudomonas aeruginosa. Continue antimicrobials. Repeat urine culture showing gram-negative rods. 2. History of Peyronie's disease. Status post multiple surgeries on his scrotum and insertion of a suprapubic catheter. The patient being followed by urology. 3. Essential hypertension. Continue antihypertensives. Adjust antihypertensives to obtain optimal blood pressure control. 4. 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 Continue supportive care. Continue prophylactic Keppra. 5. History of diabetes mellitus. Was previously on insulin at home. Currently off antidiabetic medications. Hemoglobin A1c within normal limits. 6. Microcytic, hypochromic anemia. Iron panel showing no significant iron deficiency. Continue to monitor H&H. 7. Fluids, electrolytes, and nutrition. Mechanical soft diet. 8. DVT prophylaxis. Bilateral sequential compression devices. 9. Plan. Continue antimicrobials. Antibiotics to be finalized by infectious diseases. Case discussed with Dr. Richardson. Problems: Subjective 24 Hr Interval Summary Free Text/Dictation Patient remains afebrile. Exam/Review of Systems Vital Signs Vitals Vital Signs Date Time Temp Pulse Resp B/P Pulse Ox O2 Delivery O2 Flow Rate FiO2 12/04/16 12:39 57 18 136/73 97 Room Air 12/04/16 08:20 98.1 Intake and Output 12/03/16 12/03/16 12/04/16 15:00 23:00 07:00 Intake Total 1200 ml 120 ml Output Total 400 ml 400 ml Balance 800 ml -280 ml Exam General: Adequately build 61 year-old male lying in bed in no apparent distress. HEENT: Normocephalic, atraumatic. Eyes: Anicteric sclerae, conjunctivae clear. ENT: Nasal septum midline, oral mucosa moist. Neck supple, no JVD noticed. Respiratory: Bilaterally diminished breath sounds. No use of accessory muscles of respiration. No adventitious breath sounds. Cardiovascular: S1, S2 heard. Regular rate and rhythm. Abdomen: Soft, nontender, and nondistended. Bowel sounds positive in all 4 quadrants. Genitourinary: Scrotal edema. Suprapubic catheter in place. Extremities: No cyanosis, no clubbing, no edema. Peripheral pulses palpable. Neurologic: The patient is awake and alert. Left sylvain-plegia. Results Result Diagram: 12/04/16 0456 12/04/16 0456 Results 24 hrs Laboratory Tests Test 12/03/16 16:26 12/04/16 04:56 Urine Color YELLOW Urine Clarity CLOUDY A Urine pH 5.0 Urine Specific [place] 1.016 Urine Ketones NEGATIVE Urine Nitrite NEGATIVE Urine Bilirubin NEGATIVE Urine Urobilinogen NEGATIVE Urine Leukocyte Esterase 3+ H Urine Microscopic RBC 139 H Urine Microscopic WBC > 182 H Urine Bacteria FEW A Urine Mucus FEW A Urine Hemoglobin 1+ H Urine Glucose NEGATIVE Urine Total Protein 2+ H White Blood Count 6.3 # Red Blood Count 5.06 Hemoglobin 9.4 L Hematocrit 31.4 L Mean Corpuscular Volume 62.1 L Mean Corpuscular Hemoglobin 18.6 L Mean Corpuscular Hemoglobin Concent 29.9 L Red Cell Distribution Width 18.3 H Platelet Count 200 Mean Platelet Volume 8.9 Neutrophils % 39.5 Lymphocytes % 48.6 Monocytes % 8.0 Eosinophils % 2.7 Basophils % 0.9 Nucleated Red Blood Cells % 0.0 Neutrophils # 2.5 Lymphocytes # 3.1 H Monocytes # 0.5 Eosinophils # 0.2 Basophils # 0.1 Nucleated Red Blood Cells # 0.0 Sodium Level 142 Potassium Level 3.9 Chloride Level 103 Carbon Dioxide Level 33 H Anion Gap 10 Blood Urea Nitrogen 16 Creatinine 0.83 Glucose Level 80 Calcium Level 8.9 Medications Medications Current Medications Atorvastatin Calcium (Lipitor) 20 mg QHS PO Last administered on 12/03/16 20: 04; Admin Dose 20 MG; Start 11/22/16 at 21:00 Gabapentin (Neurontin) 300 mg TID PO Last administered on 12/04/16 12:48; Admin Dose 300 MG; Start 11/22/16 at 21:00 Hydroxyzine HCl (Atarax) 10 mg QHS PRN PO ITCHING; Start 11/22/16 at 20:30 Levetiracetam (Keppra) 1,000 mg BID PO Last administered on 10/15/17at 20:08; Admin Dose 1,000 MG; Start 11/22/16 at 21:00 Simethicone (Mylicon) 80 mg TID PO Last administered on 12/04/16 12:47; Admin Dose 80 MG; Start 11/22/16 at 21:00 Ondansetron HCl (Zofran Inj) 4 mg Q6H PRN IV NAUSEA AND/OR VOMITING; Start 11/22/16 at 20:30 Acetaminophen (Tylenol Tab) 650 mg Q6H PRN PO PAIN LEVEL 1-3 OR FEVER Last administered on 11/25/16 20:24; Admin Dose 650 MG; Start 11/22/16 at 20:30 Morphine Sulfate (morphine) 2 mg Q4H PRN IV SEVERE PAIN LEVEL 7-10; Start 11/22 at 20:30 Docusate Sodium (Colace) 100 mg Q12H PRN PO CONSTIPATION; Start 11/22/16 at 20: 30 Bisacodyl (Dulcolax) 5 mg DAILY PRN PO CONSTIPATION; Start 11/22/16 at 20:30 Famotidine (Pepcid) 20 mg Q12 PO Last administered on 12/04/16 09:39; Admin Dose 20 MG; Start 11/22/16 at 21:00 Hydralazine HCl (Apresoline) 10 mg Q4H PRN IV ELEVATED SYSTOLIC BP Last administered on 12/02/16 21:37; Admin Dose 10 MG; Start 11/24/16 at 05:00 Hydralazine HCl (Apresoline) 75 mg TID PO Last administered on 12/04/16 12:48 ; Admin Dose 75 MG; Start 11/25/16 at 21:00 Tobramycin TOBRAMYCIN PER PHARMACY NOTE XX ; Start 11/26/16 at 13:30 Tobramycin/Sodium Chloride (Tobramycin/NS) 108.75 ml @ 108.75 mls/hr Q48H IVPB Last administered on 12/02/16 15:33; Admin Dose 108.75 MLS/HR; Start at 16:00 ADELAIDA GRIMALDO NP Dec 04, 2016 14:04
[2016-12-04 14:10] VITALS: BP 148/80; RESP 18
--- NOTE | 2016-12-04 15:22 | PN ---
DATE: 12/04/2016 SUBJECTIVE: Patient has a neurogenic bladder and urinary retention that he has a suprapubic tube. The patient did have orchitis and UTI when he came in. OBJECTIVE: VITAL SIGNS: His temperature now is 98.1, the pulse is 57, respiration 18, blood pressure 136/73. ABDOMEN: Soft. The suprapubic tube is draining well. LABORATORY DATA: Urine culture from yesterday is showing 100,000 gram-negative rods. The CBC shows a white count of 6.3, hemoglobin 9.4, hematocrit 31.4. BUN is 16, creatinine 0.83. Electrolytes: Sodium 142, potassium 3.9, chloride 103, CO2 33. The patient is already on tobramycin. RECOMMENDATION: To continue the antibiotic, await the result of the urine culture from yesterday an d that still need a sensitivity and keep the suprapubic tube in place. Dictated By: CHERYLE DE LA CRUZ/YAMILETH Conf#: [id number] DID#: [id number]
--- NOTE | 2016-12-04 16:18 | CONS ---
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 Has undergone multiple surgeries on his scrotum and insertion of suprapubic tube about 3 years earlier. His urethra is closed. He has suprapubic catheter changed by this admission. * WBC had normalized on ABX -- today is 6.3 H&H stable. * Wound photos reviewed -- scrotal wound is small/clean, LLEST skin tear, ingrown toenail == wound do not look infected * 11/22/16 Urine Cx: URINE CULTURE Final Organism 1 MORGANELLA MORGANII SSP MORG. COLONY COUNT >100,000 CFU/ml Organism 2 PSEUDOMONAS AERUGINOSA COLONY COUNT >100,000 CFU/ml Repeat Us Culture 12/03/16 URINE CULTURE Preliminary Organism 1 GRAM NEGATIVE ALEJANDRINA COLONY COUNT >100,000 CFU/ml Physical Exam Physical Exam Constitutional: VSS, NAD HEENT: Unremarkable Neck: Supple, full ROM Respiratory: Equal chest rise bilaterally, without dyspnea on observation Cardiovascular: nl pulse Gastrointestinal: Soft, NT, DSG in place Extremities: Warm, left hemiparesis SKIN: No rash, no diaphoresis, see photos perineal wound. Scrotal wound is small/clean, LLEST skin tear. ID ASSESSMENT 61 yo M PMHx of CVA w/chronic left sided hemeparesis, seizure disorder, bed- bound admit with: 1. Recurrent SIRS w/low grade temps + leukocytosis improving with IV antbx. * Had several BMs listed in I/Os, cannot confirm diarrhea w/nursing staff 2. s/p Multidrug resistant urinary tract infection, Possible epididymitis, no evidence of any abscess per Urology. 3. Chronic suprapubic catheter. 4. History of Peyronie's disease, hx of surgery w/closed urethra 5. History of Jami's gangrene, hx of surgical debridement remote 6. Diabetes. 7. Ingrown toenail ?infected? 8. Bilateral toes deep tissue injury; LLEXT skin tear wound ABX ALLERGIES: NKDA CURRENT ABX: Tobra IV #8 s/p Vanco IV + Zosyn 11/22 - 11/26 ID RECOMMENDATIONS 1. Pt is stable.Continue with Current antbx. Pain management. Awaiting UA Sensitivity. Podiatry eval. Type of Consultation: ID Exam/Review of Systems Vital Signs Vitals Vital Signs Date Time Temp Pulse Resp B/P Pulse Ox O2 Delivery O2 Flow Rate FiO2 12/04/16 14:10 98.1 54 18 148/80 98 12/04/16 12:39 Room Air Intake and Output 12/03/16 12/03/16 12/04/16 15:00 23:00 07:00 Intake Total 1200 ml 120 ml Output Total 400 ml 400 ml Balance 800 ml -280 ml Results Result Diagram: 12/04/16 0456 12/04/16 0456 Results 24 hrs Laboratory Tests Test 12/03/16 16:26 12/04/16 04:56 Urine Color YELLOW Urine Clarity CLOUDY A Urine pH 5.0 Urine Specific [place] 1.016 Urine Ketones NEGATIVE Urine Nitrite NEGATIVE Urine Bilirubin NEGATIVE Urine Urobilinogen NEGATIVE Urine Leukocyte Esterase 3+ H Urine Microscopic RBC 139 H Urine Microscopic WBC > 182 H Urine Bacteria FEW A Urine Mucus FEW A Urine Hemoglobin 1+ H Urine Glucose NEGATIVE Urine Total Protein 2+ H White Blood Count 6.3 # Red Blood Count 5.06 Hemoglobin 9.4 L Hematocrit 31.4 L Mean Corpuscular Volume 62.1 L Mean Corpuscular Hemoglobin 18.6 L Mean Corpuscular Hemoglobin Concent 29.9 L Red Cell Distribution Width 18.3 H Platelet Count 200 Mean Platelet Volume 8.9 Neutrophils % 39.5 Lymphocytes % 48.6 Monocytes % 8.0 Eosinophils % 2.7 Basophils % 0.9 Nucleated Red Blood Cells % 0.0 Neutrophils # 2.5 Lymphocytes # 3.1 H Monocytes # 0.5 Eosinophils # 0.2 Basophils # 0.1 Nucleated Red Blood Cells # 0.0 Sodium Level 142 Potassium Level 3.9 Chloride Level 103 Carbon Dioxide Level 33 H Anion Gap 10 Blood Urea Nitrogen 16 Creatinine 0.83 Glucose Level 80 Calcium Level 8.9 Medications Medications Current Medications Atorvastatin Calcium (Lipitor) 20 mg QHS PO Last administered on 12/03/16 20: 04; Admin Dose 20 MG; Start 11/22/16 at 21:00 Gabapentin (Neurontin) 300 mg TID PO Last administered on 12/04/16 12:48; Admin Dose 300 MG; Start 11/22/16 at 21:00 Hydroxyzine HCl (Atarax) 10 mg QHS PRN PO ITCHING; Start 11/22/16 at 20:30 Levetiracetam (Keppra) 1,000 mg BID PO Last administered on 12/03/16 20:08; Admin Dose 1,000 MG; Start 11/22/16 at 21:00 Simethicone (Mylicon) 80 mg TID PO Last administered on 12/04/16 12:47; Admin Dose 80 MG; Start 11/22/16 at 21:00 Ondansetron HCl (Zofran Inj) 4 mg Q6H PRN IV NAUSEA AND/OR VOMITING; Start 11/22/16 at 20:30 Acetaminophen (Tylenol Tab) 650 mg Q6H PRN PO PAIN LEVEL 1-3 OR FEVER Last administered on 11/25/16 20:24; Admin Dose 650 MG; Start 11/22/16 at 20:30 Morphine Sulfate (morphine) 2 mg Q4H PRN IV SEVERE PAIN LEVEL 7-10; Start 11/22 at 20:30 Docusate Sodium (Colace) 100 mg Q12H PRN PO CONSTIPATION; Start 11/22/16 at 20: 30 Bisacodyl (Dulcolax) 5 mg DAILY PRN PO CONSTIPATION; Start 11/22/16 at 20:30 Famotidine (Pepcid) 20 mg Q12 PO Last administered on 12/04/16 09:39; Admin Dose 20 MG; Start 11/22/16 at 21:00 Hydralazine HCl (Apresoline) 10 mg Q4H PRN IV ELEVATED SYSTOLIC BP Last administered on 12/02/16 21:37; Admin Dose 10 MG; Start 11/24/16 at 05:00 Hydralazine HCl (Apresoline) 75 mg TID PO Last administered on 12/04/16 12:48 ; Admin Dose 75 MG; Start 11/25/16 at 21:00 Tobramycin TOBRAMYCIN PER PHARMACY NOTE XX ; Start 11/26/16 at 13:30 Tobramycin/Sodium Chloride (Tobramycin/NS) 108.75 ml @ 108.75 mls/hr Q48H IVPB Last administered on 12/02/16t 15:33; Admin Dose 108.75 MLS/HR; Start at 16:00 SANYA NEWTON Dec 04, 2016 16:16
[2016-12-04] MEDS: TOBRAMYCIN IVPB SCH (16:22)
[2016-12-04] MEDS: SOD CHLORIDE 0.9% IVPB SCH (16:22)
[2016-12-04 19:57] VITALS: BP 137/72; RESP 18
[2016-12-04] MEDS: ATORVASTATIN 20 MG TAB PO SCH (20:29)
[2016-12-05 02:15] VITALS: BP 137/68; RESP 20
[2016-12-05 06:39] LABS: BASOPHIL # 0.1 10^3/ul (0.0-0.1); BASOPHILS % 1.1 % (0.0-2.0); EOSINOPHILS # 0.2 10^3/ul (0.0-0.5); EOSINOPHILS % 2.9 % (0.0-7.0); HEMATOCRIT 30.8 % (42.0-52.0); HEMOGLOBIN 9.2 g/dl (14.0-18.0); LYMPHOCYTES # 2.6 10^3/ul (0.8-2.9); LYMPHOCYTES % 39.7 % (15.0-51.0); MEAN CORPUSCULAR HEMOGLOBIN 18.6 pg (29.0-33.0); MEAN CORPUSCULAR HGB CONC 29.9 g/dl (32.0-37.0); MEAN CORPUSCULAR VOLUME 62.2 fl (82.0-101.0); MEAN PLATELET VOLUME 9.2 fl (7.4-10.4); MONOCYTE # 0.6 10^3/ul (0.3-0.9); MONOCYTES % 8.5 % (0.0-11.0); NEUTROPHIL # 3.1 10^3/ul (1.6-7.5); NEUTROPHILS % 47.5 % (39.0-77.0); PLATELET COUNT 195 10^3/UL (140-415); RED BLOOD COUNT 4.95 10^6/ul (4.70-6.10); RED CELL DISTRIBUTION WIDTH 17.8 % (11.5-14.5); WHITE BLOOD COUNT 6.5 10^3/ul (4.8-10.8)
[2016-12-05 07:00] LABS: MAGNESIUM 2.1 mg/dl (1.7-2.5)
[2016-12-05 07:15] LABS: CALCIUM 8.7 mg/dl (8.4-10.2); CREATININE 0.79 mg/dl (0.61-1.24); POTASSIUM 3.5 mmol/L (3.5-5.1)
--- NOTE | 2016-12-05 07:28 | PN ---
Date/Time of Note Date/Time of Note DATE: 12/05/16 TIME: 07:28 Assessment/Plan VTE Prophylaxis VTE Prophylaxis Intervention: SCD's Lines/Catheters IV C[facility]ter Type (from [facility] Saline Lock Urinary Cath still in place: Yes (SUPRAPUBIC CATHETER) Reason Cath still needed: other (indicate) Assessment/Plan Chief Complaint/Hosp Course 1. Complicated urinary tract infection. Urine culture positive for Morganella morganii and Pseudomonas aeruginosa. Continue antimicrobials. Repeat urine culture showing gram-negative rods. 2. History of Peyronie's disease. Status post multiple surgeries on his scrotum and insertion of a suprapubic catheter. The patient being followed by urology. 3. Essential hypertension. Continue antihypertensives. Adjust antihypertensives to obtain optimal blood pressure control. 4. 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 Continue supportive care. Continue prophylactic Keppra. 5. History of diabetes mellitus. Was previously on insulin at home. Currently off antidiabetic medications. Hemoglobin A1c within normal limits. 6. Microcytic, hypochromic anemia. Iron panel showing no significant iron deficiency. Continue to monitor H&H. 7. Fluids, electrolytes, and nutrition. Mechanical soft diet. 8. DVT prophylaxis. Bilateral sequential compression devices. 9. Plan. Continue antimicrobials. Antibiotics to be finalized by infectious diseases. Case discussed with Dr. Richardson. Problems: Subjective 24 Hr Interval Summary Free Text/Dictation The patient remains afebrile. Exam/Review of Systems Vital Signs Vitals Vital Signs Date Time Temp Pulse Resp B/P Pulse Ox O2 Delivery O2 Flow Rate FiO2 12/05/16 02:15 97.7 52 20 137/68 96 12/04/16 12:39 Room Air Intake and Output 12/04/16 12/04/16 12/05/16 15:00 23:00 07:00 Intake Total 108.75 ml 370 ml Output Total 200 ml Balance 108.75 ml 170 ml Exam General: Adequately build 61 year-old male lying in bed in no apparent distress. HEENT: Normocephalic, atraumatic. Eyes: Anicteric sclerae, conjunctivae clear. ENT: Nasal septum midline, oral mucosa moist. Neck supple, no JVD noticed. Respiratory: Bilaterally diminished breath sounds. No use of accessory muscles of respiration. No adventitious breath sounds. Cardiovascular: S1, S2 heard. Regular rate and rhythm. Abdomen: Soft, nontender, and nondistended. Bowel sounds positive in all 4 quadrants. Genitourinary: Scrotal edema. Suprapubic catheter in place. Extremities: No cyanosis, no clubbing, no edema. Peripheral pulses palpable. Neurologic: The patient is awake and alert. Left sylvain-plegia. Results Result Diagram: 12/05/16 0544 12/05/16 0544 Results 24 hrs Laboratory Tests Test 12/05/16 05:44 White Blood Count 6.5 Red Blood Count 4.95 Hemoglobin 9.2 L Hematocrit 30.8 L Mean Corpuscular Volume 62.2 L Mean Corpuscular Hemoglobin 18.6 L Mean Corpuscular Hemoglobin Concent 29.9 L Red Cell Distribution Width 17.8 H Platelet Count 195 Mean Platelet Volume 9.2 Neutrophils % 47.5 Lymphocytes % 39.7 Monocytes % 8.5 Eosinophils % 2.9 Basophils % 1.1 Nucleated Red Blood Cells % 0.0 Neutrophils # 3.1 Lymphocytes # 2.6 Monocytes # 0.6 Eosinophils # 0.2 Basophils # 0.1 Nucleated Red Blood Cells # 0.0 Sodium Level 143 Potassium Level 3.5 Chloride Level 101 Carbon Dioxide Level 33 H Anion Gap 13 Blood Urea Nitrogen 17 Creatinine 0.79 Glucose Level 81 Calcium Level 8.7 Medications Medications Current Medications Atorvastatin Calcium (Lipitor) 20 mg QHS PO Last administered on 12/04/16 20: 29; Admin Dose 20 MG; Start 11/22/16 at 21:00 Gabapentin (Neurontin) 300 mg TID PO Last administered on 12/04/16 20:29; Admin Dose 300 MG; Start 11/22/16 at 21:00 Hydroxyzine HCl (Atarax) 10 mg QHS PRN PO ITCHING; Start 11/22/16 at 20:30 Levetiracetam (Keppra) 1,000 mg BID PO Last administered on 12/04/16 20:29; Admin Dose 1,000 MG; Start 11/22/16 at 21:00 Simethicone (Mylicon) 80 mg TID PO Last administered on 12/04/16 12:47; Admin Dose 80 MG; Start 11/22/16 at 21:00 Ondansetron HCl (Zofran Inj) 4 mg Q6H PRN IV NAUSEA AND/OR VOMITING; Start 11/22/16 at 20:30 Acetaminophen (Tylenol Tab) 650 mg Q6H PRN PO PAIN LEVEL 1-3 OR FEVER Last administered on 11/25/16 20:24; Admin Dose 650 MG; Start 11/22/16 at 20:30 Morphine Sulfate (morphine) 2 mg Q4H PRN IV SEVERE PAIN LEVEL 7-10; Start 11/22 at 20:30 Docusate Sodium (Colace) 100 mg Q12H PRN PO CONSTIPATION; Start 11/22/16 at 20: 30 Bisacodyl (Dulcolax) 5 mg DAILY PRN PO CONSTIPATION; Start 11/22/16 at 20:30 Famotidine (Pepcid) 20 mg Q12 PO Last administered on 12/04/16 09:39; Admin Dose 20 MG; Start 11/22/16 at 21:00 Hydralazine HCl (Apresoline) 10 mg Q4H PRN IV ELEVATED SYSTOLIC BP Last administered on 12/02/16 21:37; Admin Dose 10 MG; Start 11/24/16 at 05:00 Hydralazine HCl (Apresoline) 75 mg TID PO Last administered on 12/04/16 12:48 ; Admin Dose 75 MG; Start 11/25/16 at 21:00 Tobramycin TOBRAMYCIN PER PHARMACY NOTE XX ; Start 11/26/16 at 13:30 Tobramycin/Sodium Chloride (Tobramycin/NS) 108.75 ml @ 108.75 mls/hr Q48H IVPB Last administered on 12/04/16 16:22; Admin Dose 108.75 MLS/HR; Start at 16:00 ADELAIDA GRIMALDO NP Dec 05, 2016 07:28
[2016-12-05 07:56] VITALS: BP 151/75; RESP 18
[2016-12-05 09:00] VITALS: PULSE 55
[2016-12-05] MEDS: GABAPENTIN 300 MG CAP PO SCH ×3 (09:18→21:12)
[2016-12-05] MEDS: FAMOTIDINE 20 MG TAB PO SCH ×2 (09:18→21:13)
[2016-12-05] MEDS: LEVETIRACETAM 500 MG TAB PO SCH ×2 (09:19→21:13)
[2016-12-05 13:43] VITALS: BP 148/76; RESP 18
--- NOTE | 2016-12-05 15:09 | PN ---
DATE: 12/05/2016 SUBJECTIVE: No acute changes overnight, no fevers. The patient is lying comfortably in bed. LABORATORY DATA: WBC 6.5, platelets 195, no shift, no bands. BUN 17, creatinine 0.79. INDWELLINGS: Suprapubic catheter. ANTIMICROBIALS: The patient is completing, taking on tobramycin. MICROBIOLOGY: Repeat urine culture grew Providencia stuartii. PHYSICAL EXAMINATION: GENERAL: Chronically ill-appearing, elderly man in no distress. HEENT: Head atraumatic, normocephalic. Sclerae anicteric. Buccal mucosa dry. NECK: Supple. CHEST: Rise symmetrical. Breath sounds diminished at the bases. HEART: S1, S2. ABDOMEN: Soft, bowel tones present. EXTREMITIES: Without cyanosis. Patient has right great toe and left great toe ingrown toenails. ASSESSMENT: 1. Status post sepsis. 2. Urinary tract infection with epididymitis. 3. Bacteriuria likely secondary to chronic suprapubic catheter. 4. History of Peyronie's disease. 5. Diabetes. 6. Ingrown toenails. PLAN: The patient remains stable. We are going to discontinue antibiotics in a.m. and observe him. Again, he grew Providencia stuartii from his urine culture, but he is clinically stable and does n ot appear to be septic or toxic. We will observe him off antibiotics. We will follow urology recom mendations. Dictated By: RAMA THAYER [employer]PORATE STRATEGY ANALYST for CASSANDRA MORALES/YAMILETH Conf#: [id number] DID#: [id number]
[2016-12-05 20:38] VITALS: BP 140/74; RESP 18
[2016-12-05] MEDS: ATORVASTATIN 20 MG TAB PO SCH (21:13)
[2016-12-06] VITALS (8 sets, daily range): BP systolic 135–181; BP diastolic 72–93; PULSE 65–70; RESP 18–20
--- NOTE | 2016-12-06 03:12 | PN ---
DATE: 12/05/2016 SUBJECTIVE: Patient appears to be comfortable and he is having his dinner now, and the nurse is hel ping him to eat. The patient does have a suprapubic tube because of urinary retention, neurogenic b ladder and a history of Jami gangrene of the scrotum. OBJECTIVE: VITAL SIGNS: His temperature is 97.3, pulse 62, respirations 18, blood pressure 148/76. GENITOURINARY: The suprapubic tube is draining clear urine. LABORATORY DATA: His CBC shows a white count of 6.5, hemoglobin 9.2, hematocrit 30.8. BUN is 17, c reatinine 0.79, sodium 143, potassium 3.5, chloride 101, CO2 33. The urine culture showed Providenc ia stuartii, sensitive to Zosyn, cefepime and amikacin. RECOMMENDATIONS: The patient just finished a course of antibiotic treatment with tobramycin. Since he is afebrile and the urine is clear, most likely this bacteria is colonizing bacteria, therefore, I would recommend just to observe him and hydrate him well; however, to keep flushing the bladder. Dictated By: CHERYLE BOYD MD BB/YAMILETH Conf#: [id number] DID#: [id number] CC: ALTA POTTS MD;*End*
[2016-12-06 06:00] LABS: BASOPHIL # 0.1 10^3/ul (0.0-0.1); EOSINOPHILS # 0.1 10^3/ul (0.0-0.5); EOSINOPHILS % 2.3 % (0.0-7.0); HEMOGLOBIN 9.3 g/dl (14.0-18.0); LYMPHOCYTES # 2.2 10^3/ul (0.8-2.9); LYMPHOCYTES % 36.1 % (15.0-51.0); MEAN CORPUSCULAR HEMOGLOBIN 18.7 pg (29.0-33.0); MEAN CORPUSCULAR VOLUME 62.4 fl (82.0-101.0); MEAN PLATELET VOLUME 9.6 fl (7.4-10.4); MONOCYTE # 0.6 10^3/ul (0.3-0.9); MONOCYTES % 9.2 % (0.0-11.0); NEUTROPHIL # 3.1 10^3/ul (1.6-7.5); NEUTROPHILS % 51.2 % (39.0-77.0); PLATELET COUNT 193 10^3/UL (140-415); RED BLOOD COUNT 4.97 10^6/ul (4.70-6.10)
[2016-12-06 06:24] LABS: CALCIUM 8.6 mg/dl (8.4-10.2); CREATININE 0.9 mg/dl (0.61-1.24); POTASSIUM 3.5 mmol/L (3.5-5.1)
[2016-12-06] MEDS: GABAPENTIN 300 MG CAP PO SCH ×4 (08:49→21:09)
[2016-12-06] MEDS: LEVETIRACETAM 500 MG TAB PO SCH ×2 (08:49→21:09)
[2016-12-06] MEDS: FAMOTIDINE 20 MG TAB PO SCH ×2 (08:49→21:09)
[2016-12-06] MEDS: hydrALAzine 20 MG INJ IV PRN ×2 (08:56→16:04)
--- NOTE | 2016-12-06 16:14 | PN ---
Date/Time of Note Date/Time of Note DATE: 12/06/16 TIME: 16:12 Assessment/Plan VTE Prophylaxis VTE Prophylaxis Intervention: SCD's Lines/Catheters IV [facility]ter Type (from [facility] Saline Lock Urinary Cath still in place: Yes (SUPRAPUBIC CATHETER) Reason Cath still needed: urinary retention, skin wounds contaminated by urine Assessment/Plan Assessment/Plan 1. Complicated urinary tract infection. Urine culture positive for Morganella morganii and Pseudomonas aeruginosa. Continue antimicrobials. Repeat urine culture grew Providencia Stuarti 2. History of Peyronie's disease. Status post multiple surgeries on his scrotum and insertion of a suprapubic catheter. The patient being followed by urology. 3. Essential hypertension. Continue antihypertensives. Adjust antihypertensives to obtain optimal blood pressure control. 4. 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 Continue supportive care. Continue prophylactic Keppra. 5. History of diabetes mellitus. Was previously on insulin at home. Currently off antidiabetic medications. Hemoglobin A1c within normal limits. 6. Microcytic, hypochromic anemia. Iron panel showing no significant iron deficiency. Continue to monitor H&H. 7. Fluids, electrolytes, and nutrition. Mechanical soft diet. 8. DVT prophylaxis. Bilateral sequential compression devices. 9. Plan. Continue antimicrobials. ID to decide for plan for Abx or not SCD for DVT prophylaxis SNF placement requested ,since family said they can no ttake care of pt Subjective 24 Hr Interval Summary Free Text/Dictation stable, pt is non verbal, BP stable Exam/Review of Systems Vital Signs Vitals Vital Signs Date Time Temp Pulse Resp B/P Pulse Ox O2 Delivery O2 Flow Rate FiO2 12/06/16 15:23 98.0 64 18 181/93 96 12/04/16 12:39 Room Air Intake and Output 12/05/16 12/05/16 12/06/16 15:00 23:00 07:00 Intake Total 1100 ml 750 ml Output Total 350 ml 650 ml Balance 750 ml 100 ml Exam Constitutional: VSS, NAD HEENT: Unremarkable Neck: Supple, full ROM Respiratory: Equal chest rise bilaterally, without dyspnea on observation Cardiovascular: nl pulse Gastrointestinal: Soft, NT, DSG in place Extremities: Warm, left hemiparesis SKIN: No rash, no diaphoresis, see photos perineal wound Results Result Diagram: 10/18/17 0524 10/18/17 0524 Results 24 hrs Laboratory Tests Test 12/06/16 05:24 White Blood Count 6.0 Red Blood Count 4.97 Hemoglobin 9.3 L Hematocrit 31.0 L Mean Corpuscular Volume 62.4 L Mean Corpuscular Hemoglobin 18.7 L Mean Corpuscular Hemoglobin Concent 30.0 L Red Cell Distribution Width 18.0 H Platelet Count 193 Mean Platelet Volume 9.6 Neutrophils % 51.2 Lymphocytes % 36.1 Monocytes % 9.2 Eosinophils % 2.3 Basophils % 1.0 Nucleated Red Blood Cells % 0.0 Neutrophils # 3.1 Lymphocytes # 2.2 Monocytes # 0.6 Eosinophils # 0.1 Basophils # 0.1 Nucleated Red Blood Cells # 0.0 Sodium Level 141 Potassium Level 3.5 Chloride Level 102 Carbon Dioxide Level 33 H Anion Gap 10 Blood Urea Nitrogen 17 Creatinine 0.90 Glucose Level 93 Calcium Level 8.6 Magnesium Level 2.0 Medications Medications Current Medications Atorvastatin Calcium (Lipitor) 20 mg QHS PO Last administered on 12/05/16 21: 13; Admin Dose 20 MG; Start 11/22/16 at 21:00 Gabapentin (Neurontin) 300 mg TID PO Last administered on 12/05/16 21:12; Admin Dose 300 MG; Start 11/22/16 at 21:00 Hydroxyzine HCl (Atarax) 10 mg QHS PRN PO ITCHING; Start 11/22/16 at 20:30 Levetiracetam (Keppra) 1,000 mg BID PO Last administered on 12/05/16 21:13; Admin Dose 1,000 MG; Start 11/22/16 at 21:00 Simethicone (Mylicon) 80 mg TID PO Last administered on 12/05/16 21:12; Admin Dose 80 MG; Start 11/22/16 at 21:00 Ondansetron HCl (Zofran Inj) 4 mg Q6H PRN IV NAUSEA AND/OR VOMITING; Start 11/22/16 at 20:30 Acetaminophen (Tylenol Tab) 650 mg Q6H PRN PO PAIN LEVEL 1-3 OR FEVER Last administered on 11/25/16 20:24; Admin Dose 650 MG; Start 11/22/16 at 20:30 Morphine Sulfate (morphine) 2 mg Q4H PRN IV SEVERE PAIN LEVEL 7-10; Start 11/22 at 20:30 Docusate Sodium (Colace) 100 mg Q12H PRN PO CONSTIPATION; Start 11/22/16 at 20: 30 Bisacodyl (Dulcolax) 5 mg DAILY PRN PO CONSTIPATION; Start 11/22/16 at 20:30 Famotidine (Pepcid) 20 mg Q12 PO Last administered on 12/05/16 21:13; Admin Dose 20 MG; Start 11/22/16 at 21:00 Hydralazine HCl (Apresoline) 10 mg Q4H PRN IV ELEVATED SYSTOLIC BP Last administered on 12/06/16 16:04; Admin Dose 10 MG; Start 11/24/16 at 05:00 Hydralazine HCl (Apresoline) 75 mg TID PO Last administered on 12/05/16 21:13 ; Admin Dose 75 MG; Start 11/25/16 at 21:00 CROW WARNER MD Dec 06, 2016 16:13
[2016-12-06] MEDS: ATORVASTATIN 20 MG TAB PO SCH (21:09)
--- NOTE | 2016-12-06 21:39 | CONS ---
Date/Time of Note Date/Time of Note DATE: 12/06/16 TIME: 21:37 Consult Date/Type/Reason Admit Date/Time Nov 22, 2016 at 19:54 Type of Consultation: ID Objective Vital Signs Date Time Temp Pulse Resp B/P Pulse Ox O2 Delivery O2 Flow Rate FiO2 12/06/16 21:12 65 168/87 12/06/16 20:00 98.2 18 95 12/04/16 12:39 Room Air Intake and Output 12/05/16 12/05/16 12/06/16 15:00 23:00 07:00 Intake Total 1100 ml 750 ml Output Total 350 ml 650 ml Balance 750 ml 100 ml Results/Medications Result Diagram: 12/06/1624 12/06/1624 Results 24 hrs Laboratory Tests Test 12/06/16 05:24 White Blood Count 6.0 Red Blood Count 4.97 Hemoglobin 9.3 L Hematocrit 31.0 L Mean Corpuscular Volume 62.4 L Mean Corpuscular Hemoglobin 18.7 L Mean Corpuscular Hemoglobin Concent 30.0 L Red Cell Distribution Width 18.0 H Platelet Count 193 Mean Platelet Volume 9.6 Neutrophils % 51.2 Lymphocytes % 36.1 Monocytes % 9.2 Eosinophils % 2.3 Basophils % 1.0 Nucleated Red Blood Cells % 0.0 Neutrophils # 3.1 Lymphocytes # 2.2 Monocytes # 0.6 Eosinophils # 0.1 Basophils # 0.1 Nucleated Red Blood Cells # 0.0 Sodium Level 141 Potassium Level 3.5 Chloride Level 102 Carbon Dioxide Level 33 H Anion Gap 10 Blood Urea Nitrogen 17 Creatinine 0.90 Glucose Level 93 Calcium Level 8.6 Magnesium Level 2.0 Medications Current Medications Atorvastatin Calcium (Lipitor) 20 mg QHS PO Last administered on 12/06/16 21: 09; Admin Dose 20 MG; Start 11/22/16 at 21:00 Gabapentin (Neurontin) 300 mg TID PO Last administered on 12/06/16 21:09; Admin Dose 300 MG; Start 11/22/16 at 21:00 Hydroxyzine HCl (Atarax) 10 mg QHS PRN PO ITCHING; Start 11/22/16 at 20:30 Levetiracetam (Keppra) 1,000 mg BID PO Last administered on 12/06/16 21:09; Admin Dose 1,000 MG; Start 11/22/16 at 21:00 Simethicone (Mylicon) 80 mg TID PO Last administered on 12/06/16 21:09; Admin Dose 80 MG; Start 11/22/16 at 21:00 Ondansetron HCl (Zofran Inj) 4 mg Q6H PRN IV NAUSEA AND/OR VOMITING; Start 11/22/16 at 20:30 Acetaminophen (Tylenol Tab) 650 mg Q6H PRN PO PAIN LEVEL 1-3 OR FEVER Last administered on 11/25/16 20:24; Admin Dose 650 MG; Start 11/22/16 at 20:30 Morphine Sulfate (morphine) 2 mg Q4H PRN IV SEVERE PAIN LEVEL 7-10; Start 11/22 at 20:30 Docusate Sodium (Colace) 100 mg Q12H PRN PO CONSTIPATION; Start 11/22/16 at 20: 30 Bisacodyl (Dulcolax) 5 mg DAILY PRN PO CONSTIPATION; Start 11/22/16 at 20:30 Famotidine (Pepcid) 20 mg Q12 PO Last administered on 12/06/16 21:09; Admin Dose 20 MG; Start 11/22/16 at 21:00 Hydralazine HCl (Apresoline) 10 mg Q4H PRN IV ELEVATED SYSTOLIC BP Last administered on 12/06/16 16:04; Admin Dose 10 MG; Start 11/24/16 at 05:00 Hydralazine HCl (Apresoline) 75 mg TID PO Last administered on 12/06/16 21:12 ; Admin Dose 75 MG; Start 11/25/16 at 21:00 Assessment/Plan Chief Complaint/Hosp Course SUBJECTIVE: No acute changes overnight, no fevers. The patient is lying comfortably in bed. INDWELLINGS: Suprapubic catheter. ANTIMICROBIALS: none MICROBIOLOGY: Repeat urine culture grew Providencia stuartii. PHYSICAL EXAMINATION: GENERAL: Chronically ill-appearing, elderly man in no distress. HEENT: Head atraumatic, normocephalic. Sclerae anicteric. Buccal mucosa dry. NECK: Supple. CHEST: Rise symmetrical. Breath sounds diminished at the bases. HEART: S1, S2. ABDOMEN: Soft, bowel tones present. EXTREMITIES: Without cyanosis. Patient has right great toe and left great toe ingrown toenails. ASSESSMENT: 1. Status post sepsis. 2. S/p urinary tract infection with epididymitis. 3. Bacteriuria ==> secondary to chronic suprapubic catheter. 4. History of Peyronie's disease. 5. Diabetes. 6. Ingrown toenails. PLAN: The patient remains stable. Completed abx for UTI, urology follows him, he does not appear to be septic or toxic. We will observe him off antibiotics. We will follow urology recommendations. Problems: RAMA THAYER NP Dec 06, 2016 21:39
[2016-12-07 02:00] VITALS: BP 164/83; RESP 18
[2016-12-07 02:30] VITALS: BP 156/75; PULSE 69
--- NOTE | 2016-12-07 02:39 | PN ---
DATE: 12/06/2016 SUBJCTIVE: Patient does have a neurogenic bladder and a suprapubic tube and urinary tract infection . The patient himself is not able to express any symptoms or concerns. OBJECTIVE: VITAL SIGNS: His temperature is 98.0, pulse is 64, respiration 18, blood pressure 181/93. ABDOMEN: The suprapubic tube is draining clear urine. GENTOURINARY: The scrotum shows no erythema, no collection of fluid and no drainage. LABORATORY DATA: His CBC shows a white count of 6.0, hemoglobin 9.3, hematocrit 31.0. BUN is 17, creatinine 0.9, sodium 141, potassium 3.5, chloride 102, CO2 33. Patient does have a urinary tract infection with Providencia stuartii and that presently most likely is a colonization, especially that his white count is normal and that he is afebrile. RECOMMENDATIONS: Keep the suprapubic tube in place. Dictated By: CHERYLE DE LA CRUZ/YAMILETH Conf#: [id number] DID#: [id number]
[2016-12-07 07:04] LABS: BASOPHIL # 0.1 10^3/ul (0.0-0.1); BASOPHILS % 1.1 % (0.0-2.0); EOSINOPHILS # 0.2 10^3/ul (0.0-0.5); EOSINOPHILS % 2.5 % (0.0-7.0); HEMATOCRIT 31.6 % (42.0-52.0); HEMOGLOBIN 9.6 g/dl (14.0-18.0); LYMPHOCYTES # 2.3 10^3/ul (0.8-2.9); LYMPHOCYTES % 35.8 % (15.0-51.0); MEAN CORPUSCULAR HEMOGLOBIN 18.8 pg (29.0-33.0); MEAN CORPUSCULAR HGB CONC 30.4 g/dl (32.0-37.0); MEAN CORPUSCULAR VOLUME 61.8 fl (82.0-101.0); MEAN PLATELET VOLUME 9.6 fl (7.4-10.4); MONOCYTE # 0.6 10^3/ul (0.3-0.9); NEUTROPHIL # 3.3 10^3/ul (1.6-7.5); NEUTROPHILS % 51.3 % (39.0-77.0); PLATELET COUNT 210 10^3/UL (140-415); RED BLOOD COUNT 5.11 10^6/ul (4.70-6.10); RED CELL DISTRIBUTION WIDTH 18.5 % (11.5-14.5); WHITE BLOOD COUNT 6.4 10^3/ul (4.8-10.8)
[2016-12-07 07:27] LABS: CALCIUM 8.5 mg/dl (8.4-10.2); CREATININE 0.74 mg/dl (0.61-1.24); POTASSIUM 3.5 mmol/L (3.5-5.1)
[2016-12-07 07:50] VITALS: BP 167/94; RESP 18
[2016-12-07 08:45] VITALS: BP 125/68; PULSE 55
[2016-12-07] MEDS: GABAPENTIN 300 MG CAP PO SCH ×3 (09:00→21:02)
[2016-12-07] MEDS: FAMOTIDINE 20 MG TAB PO SCH ×2 (09:00→21:02)
[2016-12-07] MEDS: LEVETIRACETAM 500 MG TAB PO SCH ×2 (09:00→21:03)
[2016-12-07 14:00] VITALS: BP 151/80; RESP 16
--- NOTE | 2016-12-07 17:58 | PN ---
Date/Time of Note Date/Time of Note DATE: 12/07/16 TIME: 17:57 Assessment/Plan VTE Prophylaxis VTE Prophylaxis Intervention: SCD's Lines/Catheters IV Catheter Type (from [facility]): Saline Lock Urinary Cath still in place: Yes (SUPRAPUBIC CATH) Reason Cath still needed: skin wounds contaminated by urine Assessment/Plan Assessment/Plan 1. Complicated urinary tract infection. Urine culture positive for Morganella morganii and Pseudomonas aeruginosa. Continue antimicrobials. Repeat urine culture grew Providencia Stuarti 2. History of Peyronie's disease. Status post multiple surgeries on his scrotum and insertion of a suprapubic catheter. The patient being followed by urology. 3. Essential hypertension. Continue antihypertensives. Adjust antihypertensives to obtain optimal blood pressure control. 4. 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 Continue supportive care. Continue prophylactic Keppra. 5. History of diabetes mellitus. Was previously on insulin at home. Currently off antidiabetic medications. Hemoglobin A1c within normal limits. 6. Microcytic, hypochromic anemia. Iron panel showing no significant iron deficiency. Continue to monitor H&H. 7. Fluids, electrolytes, and nutrition. Mechanical soft diet. 8. DVT prophylaxis. Bilateral sequential compression devices. 9. Plan. Continue antimicrobials. ID to decide for plan for Abx or not SCD for DVT prophylaxis SNF placement requested ,since family said they can no ttake care of pt Subjective 24 Hr Interval Summary Free Text/Dictation pt non verbal, scroal cellulitis improving Exam/Review of Systems Vital Signs Vitals Vital Signs Date Time Temp Pulse Resp B/P Pulse Ox O2 Delivery O2 Flow Rate FiO2 12/07/16 14:00 97.5 63 16 151/80 98 12/04/16 12:39 Room Air Intake and Output 12/06/16 12/06/16 12/07/16 15:00 23:00 07:00 Intake Total 200 ml 850 ml Output Total 550 ml 750 ml Balance -350 ml 100 ml Exam Constitutional: VSS, NAD HEENT: Unremarkable Neck: Supple, full ROM Respiratory: Equal chest rise bilaterally, without dyspnea on observation Cardiovascular: nl pulse Gastrointestinal: Soft, NT, DSG in place Extremities: Warm, left hemiparesis SKIN: No rash, no diaphoresis, see photos perineal wound Results Result Diagram: 10/19/17 0639 10/19/17 0639 Results 24 hrs Laboratory Tests Test 12/07/16 06:39 White Blood Count 6.4 Red Blood Count 5.11 Hemoglobin 9.6 L Hematocrit 31.6 L Mean Corpuscular Volume 61.8 L Mean Corpuscular Hemoglobin 18.8 L Mean Corpuscular Hemoglobin Concent 30.4 L Red Cell Distribution Width 18.5 H Platelet Count 210 Mean Platelet Volume 9.6 Neutrophils % 51.3 Lymphocytes % 35.8 Monocytes % 9.0 Eosinophils % 2.5 Basophils % 1.1 Nucleated Red Blood Cells % 0.0 Neutrophils # 3.3 Lymphocytes # 2.3 Monocytes # 0.6 Eosinophils # 0.2 Basophils # 0.1 Nucleated Red Blood Cells # 0.0 Sodium Level 142 Potassium Level 3.5 Chloride Level 102 Carbon Dioxide Level 33 H Anion Gap 11 Blood Urea Nitrogen 15 Creatinine 0.74 Glucose Level 79 Calcium Level 8.5 Medications Medications Current Medications Atorvastatin Calcium (Lipitor) 20 mg QHS PO Last administered on 12/06/16 21: 09; Admin Dose 20 MG; Start 11/22/16 at 21:00 Gabapentin (Neurontin) 300 mg TID PO Last administered on 12/06/16 21:09; Admin Dose 300 MG; Start 11/22/16 at 21:00 Hydroxyzine HCl (Atarax) 10 mg QHS PRN PO ITCHING; Start 11/22/16 at 20:30 Levetiracetam (Keppra) 1,000 mg BID PO Last administered on 12/06/16 21:09; Admin Dose 1,000 MG; Start 11/22/16 at 21:00 Simethicone (Mylicon) 80 mg TID PO Last administered on 12/06/16 21:09; Admin Dose 80 MG; Start 11/22/16 at 21:00 Ondansetron HCl (Zofran Inj) 4 mg Q6H PRN IV NAUSEA AND/OR VOMITING; Start 11/22/16 at 20:30 Acetaminophen (Tylenol Tab) 650 mg Q6H PRN PO PAIN LEVEL 1-3 OR FEVER Last administered on 11/25/16 20:24; Admin Dose 650 MG; Start 11/22/16 at 20:30 Morphine Sulfate (morphine) 2 mg Q4H PRN IV SEVERE PAIN LEVEL 7-10; Start 11/22 at 20:30 Docusate Sodium (Colace) 100 mg Q12H PRN PO CONSTIPATION; Start 11/22/16 at 20: 30 Bisacodyl (Dulcolax) 5 mg DAILY PRN PO CONSTIPATION; Start 11/22/16 at 20:30 Famotidine (Pepcid) 20 mg Q12 PO Last administered on 12/06/16 21:09; Admin Dose 20 MG; Start 11/22/16 at 21:00 Hydralazine HCl (Apresoline) 10 mg Q4H PRN IV ELEVATED SYSTOLIC BP Last administered on 12/06/16 16:04; Admin Dose 10 MG; Start 11/24/16 at 05:00 Hydralazine HCl (Apresoline) 75 mg TID PO Last administered on 12/06/16 21:12 ; Admin Dose 75 MG; Start 11/25/16 at 21:00 CROW WARNER MD Dec 07, 2016 17:58
[2016-12-07 20:02] VITALS: BP 146/73; RESP 18
[2016-12-07] MEDS: ATORVASTATIN 20 MG TAB PO SCH (21:02)
--- NOTE | 2016-12-07 21:53 | CONS ---
Date/Time of Note Date/Time of Note DATE: 12/07/16 TIME: 21:52 Consult Date/Type/Reason Admit Date/Time Nov 22, 2016 at 19:54 Type of Consultation: ID Objective Vital Signs Date Time Temp Pulse Resp B/P Pulse Ox O2 Delivery O2 Flow Rate FiO2 12/07/16 20:02 97.6 52 18 146/73 99 12/04/16 12:39 Room Air Intake and Output 12/06/16 12/06/16 12/07/16 15:00 23:00 07:00 Intake Total 200 ml 850 ml Output Total 550 ml 750 ml Balance -350 ml 100 ml Results/Medications Result Diagram: 12/07/16 0639 12/07/16 0639 Results 24 hrs Laboratory Tests Test 12/07/16 06:39 White Blood Count 6.4 Red Blood Count 5.11 Hemoglobin 9.6 L Hematocrit 31.6 L Mean Corpuscular Volume 61.8 L Mean Corpuscular Hemoglobin 18.8 L Mean Corpuscular Hemoglobin Concent 30.4 L Red Cell Distribution Width 18.5 H Platelet Count 210 Mean Platelet Volume 9.6 Neutrophils % 51.3 Lymphocytes % 35.8 Monocytes % 9.0 Eosinophils % 2.5 Basophils % 1.1 Nucleated Red Blood Cells % 0.0 Neutrophils # 3.3 Lymphocytes # 2.3 Monocytes # 0.6 Eosinophils # 0.2 Basophils # 0.1 Nucleated Red Blood Cells # 0.0 Sodium Level 142 Potassium Level 3.5 Chloride Level 102 Carbon Dioxide Level 33 H Anion Gap 11 Blood Urea Nitrogen 15 Creatinine 0.74 Glucose Level 79 Calcium Level 8.5 Medications Current Medications Atorvastatin Calcium (Lipitor) 20 mg QHS PO Last administered on 12/07/16 21: 02; Admin Dose 20 MG; Start 11/22/16 at 21:00 Gabapentin (Neurontin) 300 mg TID PO Last administered on 12/07/16 21:02; Admin Dose 300 MG; Start 11/22/16 at 21:00 Hydroxyzine HCl (Atarax) 10 mg QHS PRN PO ITCHING; Start 11/22/16 at 20:30 Levetiracetam (Keppra) 1,000 mg BID PO Last administered on 12/07/16 21:03; Admin Dose 1,000 MG; Start 11/22/16 at 21:00 Simethicone (Mylicon) 80 mg TID PO Last administered on 12/07/16 21:03; Admin Dose 80 MG; Start 11/22/16 at 21:00 Ondansetron HCl (Zofran Inj) 4 mg Q6H PRN IV NAUSEA AND/OR VOMITING; Start 11/22/16 at 20:30 Acetaminophen (Tylenol Tab) 650 mg Q6H PRN PO PAIN LEVEL 1-3 OR FEVER Last administered on 11/25/16 20:24; Admin Dose 650 MG; Start 11/22/16 at 20:30 Morphine Sulfate (morphine) 2 mg Q4H PRN IV SEVERE PAIN LEVEL 7-10; Start 11/22 at 20:30 Docusate Sodium (Colace) 100 mg Q12H PRN PO CONSTIPATION; Start 11/22/16 at 20: 30 Bisacodyl (Dulcolax) 5 mg DAILY PRN PO CONSTIPATION; Start 11/22/16 at 20:30 Famotidine (Pepcid) 20 mg Q12 PO Last administered on 12/07/16 21:02; Admin Dose 20 MG; Start 11/22/16 at 21:00 Hydralazine HCl (Apresoline) 10 mg Q4H PRN IV ELEVATED SYSTOLIC BP Last administered on 12/06/16 16:04; Admin Dose 10 MG; Start 11/24/16 at 05:00 Hydralazine HCl (Apresoline) 75 mg TID PO Last administered on 12/07/16 21:03 ; Admin Dose 75 MG; Start 11/25/16 at 21:00 Assessment/Plan Chief Complaint/Hosp Course SUBJECTIVE: No acute changes overnight, no fevers. The patient is lying comfortably in bed. INDWELLINGS: Suprapubic catheter. ANTIMICROBIALS: none MICROBIOLOGY: Repeat urine culture grew Providencia stuartii. PHYSICAL EXAMINATION: GENERAL: Chronically ill-appearing, elderly man in no distress. HEENT: Head atraumatic, normocephalic. Sclerae anicteric. Buccal mucosa dry. NECK: Supple. CHEST: Rise symmetrical. Breath sounds diminished at the bases. HEART: S1, S2. ABDOMEN: Soft, bowel tones present. EXTREMITIES: Without cyanosis. Patient has right great toe and left great toe ingrown toenails. ASSESSMENT: 1. Status post sepsis. 2. S/p urinary tract infection with epididymitis. 3. Bacteriuria ==> secondary to chronic suprapubic catheter. 4. History of Peyronie's disease. 5. Diabetes. 6. Ingrown toenails. PLAN: The patient remains stable. Completed abx for UTI, repeat urine cx with colonized bacteria, urology follows him, he does not appear to be septic or toxic. We will observe him off antibiotics. We will follow urology recommendations. Problems: RAMA THAYER NP Dec 07, 2016 21:53
[2016-12-08 02:20] VITALS: BP 184/89; RESP 20
[2016-12-08 02:30] VITALS: BP 155/80; PULSE 58
[2016-12-08 07:33] VITALS: BP 156/91; RESP 18
[2016-12-08] MEDS: GABAPENTIN 300 MG CAP PO SCH ×3 (09:22→20:32)
[2016-12-08] MEDS: LEVETIRACETAM 500 MG TAB PO SCH ×2 (09:22→20:30)
[2016-12-08] MEDS: FAMOTIDINE 20 MG TAB PO SCH ×2 (09:23→20:30)
--- NOTE | 2016-12-08 13:05 | CONS ---
Date/Time of Note Date/Time of Note DATE: 12/08/16 TIME: 13:05 Consult Date/Type/Reason Admit Date/Time Nov 22, 2016 at 19:54 Type of Consultation: ID Objective Vital Signs Date Time Temp Pulse Resp B/P Pulse Ox O2 Delivery O2 Flow Rate FiO2 12/08/16 07:33 98.1 60 18 156/91 98 12/04/16 12:39 Room Air Intake and Output 12/07/16 12/07/16 12/08/16 15:00 23:00 07:00 Intake Total 620 ml 1000 ml Output Total 500 ml 1250 ml Balance 120 ml -250 ml Results/Medications Result Diagram: 12/07/16 0639 12/07/16 0639 Medications Current Medications Atorvastatin Calcium (Lipitor) 20 mg QHS PO Last administered on 12/07/16 21: 02; Admin Dose 20 MG; Start 11/22/16 at 21:00 Gabapentin (Neurontin) 300 mg TID PO Last administered on 12/08/16 12:45; Admin Dose 300 MG; Start 11/22/16 at 21:00 Hydroxyzine HCl (Atarax) 10 mg QHS PRN PO ITCHING; Start 11/22/16 at 20:30 Levetiracetam (Keppra) 1,000 mg BID PO Last administered on 12/08/16 09:22; Admin Dose 1,000 MG; Start 11/22/16 at 21:00 Simethicone (Mylicon) 80 mg TID PO Last administered on 12/08/16 12:45; Admin Dose 80 MG; Start 11/22/16 at 21:00 Ondansetron HCl (Zofran Inj) 4 mg Q6H PRN IV NAUSEA AND/OR VOMITING; Start 11/22/16 at 20:30 Acetaminophen (Tylenol Tab) 650 mg Q6H PRN PO PAIN LEVEL 1-3 OR FEVER Last administered on 11/25/16 20:24; Admin Dose 650 MG; Start 11/22/16 at 20:30 Morphine Sulfate (morphine) 2 mg Q4H PRN IV SEVERE PAIN LEVEL 7-10; Start 11/22 at 20:30 Docusate Sodium (Colace) 100 mg Q12H PRN PO CONSTIPATION; Start 11/22/16 at 20: 30 Bisacodyl (Dulcolax) 5 mg DAILY PRN PO CONSTIPATION; Start 11/22/16 at 20:30 Famotidine (Pepcid) 20 mg Q12 PO Last administered on 12/08/16 09:23; Admin Dose 20 MG; Start 11/22/16 at 21:00 Hydralazine HCl (Apresoline) 10 mg Q4H PRN IV ELEVATED SYSTOLIC BP Last administered on 12/06/16 16:04; Admin Dose 10 MG; Start 11/24/16 at 05:00 Hydralazine HCl (Apresoline) 75 mg TID PO Last administered on 12/08/16 12:46 ; Admin Dose 75 MG; Start 11/25/16 at 21:00 Assessment/Plan Chief Complaint/Hosp Course SUBJECTIVE: No acute changes overnight, no fevers. The patient is awake, denies pain, looks comfortable, no fevers. INDWELLINGS: Suprapubic catheter. ANTIMICROBIALS: none MICROBIOLOGY: Repeat urine culture grew Providencia stuartii. PHYSICAL EXAMINATION: GENERAL: Chronically ill-appearing, elderly man in no distress. HEENT: Head atraumatic, normocephalic. Sclerae anicteric. Buccal mucosa dry. NECK: Supple. CHEST: Rise symmetrical. Breath sounds diminished at the bases. HEART: S1, S2. ABDOMEN: Soft, bowel tones present. EXTREMITIES: Without cyanosis. Patient has right great toe and left great toe ingrown toenails. ASSESSMENT: 1. Status post sepsis. 2. S/p urinary tract infection with epididymitis. 3. Bacteriuria ==> secondary to chronic suprapubic catheter. 4. History of Peyronie's disease. 5. Diabetes. 6. Ingrown toenails. PLAN: The patient remains stable. Completed abx for UTI, repeat urine cx with colonized bacteria, urology follows him, he does not appear to be septic or toxic. We will observe him off antibiotics. [facility] staff Problems: RAMA THAYER NP Dec 08, 2016 13:05
[2016-12-08 14:08] VITALS: BP 151/80; RESP 17
--- NOTE | 2016-12-08 18:36 | PN ---
Date/Time of Note Date/Time of Note DATE: 12/08/16 TIME: 18:35 Assessment/Plan VTE Prophylaxis VTE Prophylaxis Intervention: SCD's Lines/Catheters IV Catheter Type (from [facility]): Saline Lock Urinary Cath still in place: Yes (suprapubic catheter) Reason Cath still needed: skin wounds contaminated by urine Assessment/Plan Assessment/Plan 1. Complicated urinary tract infection. Urine culture positive for Morganella morganii and Pseudomonas aeruginosa. Continue antimicrobials. Repeat urine culture grew Providencia Stuarti 2. History of Peyronie's disease. Status post multiple surgeries on his scrotum and insertion of a suprapubic catheter. The patient being followed by urology. 3. Essential hypertension. Continue antihypertensives. Adjust antihypertensives to obtain optimal blood pressure control. 4. 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 Continue supportive care. Continue prophylactic Keppra. 5. History of diabetes mellitus. Was previously on insulin at home. Currently off antidiabetic medications. Hemoglobin A1c within normal limits. 6. Microcytic, hypochromic anemia. Iron panel showing no significant iron deficiency. Continue to monitor H&H. 7. Fluids, electrolytes, and nutrition. Mechanical soft diet. 8. DVT prophylaxis. Bilateral sequential compression devices. 9. Plan. Continue antimicrobials. ID to decide for plan for Abx or not SCD for DVT prophylaxis SNF placement requested ,since family said they can no ttake care of pt Subjective 24 Hr Interval Summary Free Text/Dictation pt non verbal Bp stable Exam/Review of Systems Vital Signs Vitals Vital Signs Date Time Temp Pulse Resp B/P Pulse Ox O2 Delivery O2 Flow Rate FiO2 12/08/16 14:08 97.5 60 17 151/80 98 12/04/16 12:39 Room Air Intake and Output 12/07/16 12/07/16 12/08/16 15:00 23:00 07:00 Intake Total 620 ml 1000 ml Output Total 500 ml 1250 ml Balance 120 ml -250 ml Exam Constitutional: VSS, NAD HEENT: Unremarkable Neck: Supple, full ROM Respiratory: Equal chest rise bilaterally, without dyspnea on observation Cardiovascular: nl pulse Gastrointestinal: Soft, NT, DSG in place Extremities: Warm, left hemiparesis SKIN: No rash, no diaphoresis, see photos perineal wound Results Result Diagram: 12/07/1639 12/07/16638 Medications Medications Current Medications Atorvastatin Calcium (Lipitor) 20 mg QHS PO Last administered on 12/07/16 21: 02; Admin Dose 20 MG; Start 11/22/16 at 21:00 Gabapentin (Neurontin) 300 mg TID PO Last administered on 12/08/16 12:45; Admin Dose 300 MG; Start 11/22/16 at 21:00 Hydroxyzine HCl (Atarax) 10 mg QHS PRN PO ITCHING; Start 11/22/16 at 20:30 Levetiracetam (Keppra) 1,000 mg BID PO Last administered on 12/08/16 09:22; Admin Dose 1,000 MG; Start 11/22/16 at 21:00 Simethicone (Mylicon) 80 mg TID PO Last administered on 12/08/16 12:45; Admin Dose 80 MG; Start 11/22/16 at 21:00 Ondansetron HCl (Zofran Inj) 4 mg Q6H PRN IV NAUSEA AND/OR VOMITING; Start 11/22/16 at 20:30 Acetaminophen (Tylenol Tab) 650 mg Q6H PRN PO PAIN LEVEL 1-3 OR FEVER Last administered on 11/25/16 20:24; Admin Dose 650 MG; Start 11/22/16 at 20:30 Morphine Sulfate (morphine) 2 mg Q4H PRN IV SEVERE PAIN LEVEL 7-10; Start 11/22 at 20:30 Docusate Sodium (Colace) 100 mg Q12H PRN PO CONSTIPATION; Start 11/22/16 at 20: 30 Bisacodyl (Dulcolax) 5 mg DAILY PRN PO CONSTIPATION; Start 11/22/16 at 20:30 Famotidine (Pepcid) 20 mg Q12 PO Last administered on 12/08/16 09:23; Admin Dose 20 MG; Start 11/22/16 at 21:00 Hydralazine HCl (Apresoline) 10 mg Q4H PRN IV ELEVATED SYSTOLIC BP Last administered on 12/06/16 16:04; Admin Dose 10 MG; Start 11/24/16 at 05:00 Hydralazine HCl (Apresoline) 75 mg TID PO Last administered on 12/08/16 12:46 ; Admin Dose 75 MG; Start 11/25/16 at 21:00 CROW WARNER MD Dec 08, 2016 18:36
[2016-12-08 20:05] VITALS: BP 138/76; RESP 18
[2016-12-08] MEDS: ATORVASTATIN 20 MG TAB PO SCH (20:31)
[2016-12-09 08:00] VITALS: BP 150/77; RESP 18
[2016-12-09] MEDS: FAMOTIDINE 20 MG TAB PO SCH ×2 (09:05→20:17)
[2016-12-09] MEDS: LEVETIRACETAM 500 MG TAB PO SCH ×2 (09:05→20:17)
[2016-12-09] MEDS: GABAPENTIN 300 MG CAP PO SCH ×3 (09:05→20:17)
[2016-12-09 14:00] VITALS: BP 146/73; RESP 17
--- NOTE | 2016-12-09 17:26 | PN ---
Date/Time of Note Date/Time of Note DATE: 12/09/16 TIME: 17:25 Assessment/Plan VTE Prophylaxis VTE Prophylaxis Intervention: SCD's Lines/Catheters IV Catheter Type (from [facility]): Saline Lock Urinary Cath still in place: Yes (suprapubic catheter) Reason Cath still needed: other (indicate) Assessment/Plan Chief Complaint/Hosp Course 1. Complicated urinary tract infection. Urine culture positive for Morganella morganii and Pseudomonas aeruginosa. S/P antibiotics. 2. History of Peyronie's disease. Status post multiple surgeries on his scrotum and insertion of a suprapubic catheter. The patient being followed by urology. 3. Essential hypertension. Continue antihypertensives. Adjust antihypertensives to obtain optimal blood pressure control. 4. 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 Continue supportive care. Continue prophylactic Keppra. 5. History of diabetes mellitus. Was previously on insulin at home. Currently off antidiabetic medications. Hemoglobin A1c within normal limits. 6. Microcytic, hypochromic anemia. Iron panel showing no significant iron deficiency. Continue to monitor H&H. 7. Fluids, electrolytes, and nutrition. Mechanical soft diet. 8. DVT prophylaxis. Bilateral sequential compression devices. 9. Plan. Continue antimicrobials. Needs placement. Problems: Subjective 24 Hr Interval Summary Free Text/Dictation No changes in status. Exam/Review of Systems Vital Signs Vitals Vital Signs Date Time Temp Pulse Resp B/P Pulse Ox O2 Delivery O2 Flow Rate FiO2 12/09/16 14:00 97.7 60 17 146/73 94 Intake and Output 12/08/16 12/08/16 12/09/16 15:00 23:00 07:00 Intake Total 1400 ml 380 ml Output Total 300 ml 450 ml Balance 1100 ml -70 ml Exam General: Adequately build 61 year-old male lying in bed in no apparent distress. HEENT: Normocephalic, atraumatic. Eyes: Anicteric sclerae, conjunctivae clear. ENT: Nasal septum midline, oral mucosa moist. Neck supple, no JVD noticed. Respiratory: Bilaterally diminished breath sounds. No use of accessory muscles of respiration. No adventitious breath sounds. Cardiovascular: S1, S2 heard. Regular rate and rhythm. Abdomen: Soft, nontender, and nondistended. Bowel sounds positive in all 4 quadrants. Genitourinary: Scrotal edema. Suprapubic catheter in place. Extremities: No cyanosis, no clubbing, no edema. Peripheral pulses palpable. Neurologic: The patient is awake and alert. Left sylvain-plegia. Results Result Diagram: 12/07/1663812/07/16638 Medications Medications Current Medications Atorvastatin Calcium (Lipitor) 20 mg QHS PO Last administered on 12/08/16 20: 31; Admin Dose 20 MG; Start 11/22/16 at 21:00 Gabapentin (Neurontin) 300 mg TID PO Last administered on 12/09/16 13:27; Admin Dose 300 MG; Start 11/22/16 at 21:00 Hydroxyzine HCl (Atarax) 10 mg QHS PRN PO ITCHING; Start 11/22/16 at 20:30 Levetiracetam (Keppra) 1,000 mg BID PO Last administered on 12/09/16 09:05; Admin Dose 1,000 MG; Start 11/22/16 at 21:00 Simethicone (Mylicon) 80 mg TID PO Last administered on 12/09/16 13:27; Admin Dose 80 MG; Start 11/22/16 at 21:00 Ondansetron HCl (Zofran Inj) 4 mg Q6H PRN IV NAUSEA AND/OR VOMITING; Start 11/22/16 at 20:30 Acetaminophen (Tylenol Tab) 650 mg Q6H PRN PO PAIN LEVEL 1-3 OR FEVER Last administered on 11/25/16 20:24; Admin Dose 650 MG; Start 11/22/16 at 20:30 Morphine Sulfate (morphine) 2 mg Q4H PRN IV SEVERE PAIN LEVEL 7-10; Start 11/22 at 20:30 Docusate Sodium (Colace) 100 mg Q12H PRN PO CONSTIPATION; Start 11/22/16 at 20: 30 Bisacodyl (Dulcolax) 5 mg DAILY PRN PO CONSTIPATION; Start 11/22/16 at 20:30 Famotidine (Pepcid) 20 mg Q12 PO Last administered on 12/09/16 09:05; Admin Dose 20 MG; Start 11/22/16 at 21:00 Hydralazine HCl (Apresoline) 10 mg Q4H PRN IV ELEVATED SYSTOLIC BP Last administered on 10/18/17at 16:04; Admin Dose 10 MG; Start 11/24/16 at 05:00 Hydralazine HCl (Apresoline) 75 mg TID PO Last administered on 12/09/16t 13:27 ; Admin Dose 75 MG; Start 11/25/16 at 21:00 ADELAIDA GRIMALDO NP Dec 09, 2016 17:26
[2016-12-09] MEDS: ATORVASTATIN 20 MG TAB PO SCH (20:17)
[2016-12-09 20:29] VITALS: BP 114/64; RESP 18
--- NOTE | 2016-12-09 21:40 | CONS ---
Date/Time of Note Date/Time of Note DATE: 12/09/16 TIME: 21:39 Consult Date/Type/Reason Admit Date/Time Nov 22, 2016 at 19:54 Type of Consultation: ID Objective Vital Signs Date Time Temp Pulse Resp B/P Pulse Ox O2 Delivery O2 Flow Rate FiO2 12/09/16 20:29 98.6 61 18 114/64 98 Intake and Output 12/08/16 12/08/16 12/09/16 15:00 23:00 07:00 Intake Total 1400 ml 380 ml Output Total 300 ml 450 ml Balance 1100 ml -70 ml Results/Medications Result Diagram: 12/07/16 0639 12/07/16 0639 Medications Current Medications Atorvastatin Calcium (Lipitor) 20 mg QHS PO Last administered on 12/09/16 20: 17; Admin Dose 20 MG; Start 11/22/16 at 21:00 Gabapentin (Neurontin) 300 mg TID PO Last administered on 12/09/16 20:17; Admin Dose 300 MG; Start 11/22/16 at 21:00 Hydroxyzine HCl (Atarax) 10 mg QHS PRN PO ITCHING; Start 11/22/16 at 20:30 Levetiracetam (Keppra) 1,000 mg BID PO Last administered on 12/09/16 20:17; Admin Dose 1,000 MG; Start 11/22/16 at 21:00 Simethicone (Mylicon) 80 mg TID PO Last administered on 12/09/16 20:17; Admin Dose 80 MG; Start 11/22/16 at 21:00 Ondansetron HCl (Zofran Inj) 4 mg Q6H PRN IV NAUSEA AND/OR VOMITING; Start 11/22/16 at 20:30 Acetaminophen (Tylenol Tab) 650 mg Q6H PRN PO PAIN LEVEL 1-3 OR FEVER Last administered on 11/25/16 20:24; Admin Dose 650 MG; Start 11/22/16 at 20:30 Morphine Sulfate (morphine) 2 mg Q4H PRN IV SEVERE PAIN LEVEL 7-10; Start 11/22 at 20:30 Docusate Sodium (Colace) 100 mg Q12H PRN PO CONSTIPATION; Start 11/22/16 at 20: 30 Bisacodyl (Dulcolax) 5 mg DAILY PRN PO CONSTIPATION; Start 11/22/16 at 20:30 Famotidine (Pepcid) 20 mg Q12 PO Last administered on 12/09/16 20:17; Admin Dose 20 MG; Start 11/22/16 at 21:00 Hydralazine HCl (Apresoline) 10 mg Q4H PRN IV ELEVATED SYSTOLIC BP Last administered on 12/06/16 16:04; Admin Dose 10 MG; Start 11/24/16 at 05:00 Hydralazine HCl (Apresoline) 75 mg TID PO Last administered on 12/09/16 20:17 ; Admin Dose 75 MG; Start 11/25/16 at 21:00 Assessment/Plan Chief Complaint/Hosp Course SUBJECTIVE: No acute changes overnight, no fevers INDWELLINGS: Suprapubic catheter. ANTIMICROBIALS: none MICROBIOLOGY: Repeat urine culture grew Providencia stuartii. PHYSICAL EXAMINATION: GENERAL: Chronically ill-appearing, elderly man in no distress. HEENT: Head atraumatic, normocephalic. Sclerae anicteric. Buccal mucosa dry. NECK: Supple. CHEST: Rise symmetrical. Breath sounds diminished at the bases. HEART: S1, S2. ABDOMEN: Soft, bowel tones present. EXTREMITIES: Without cyanosis. Patient has right great toe and left great toe ingrown toenails. ASSESSMENT: 1. Status post sepsis. 2. S/p urinary tract infection with epididymitis. 3. Bacteriuria ==> secondary to chronic suprapubic catheter. 4. History of Peyronie's disease. 5. Diabetes. 6. Ingrown toenails. PLAN: The patient remains stable, no fevers, completed abx for UTI, repeat urine cx with colonized bacteria, continue observing off antibiotics. DW staff Problems: RAMA THAYER NP Dec 09, 2016 21:40
[2016-12-10 02:10] VITALS: BP 101/63; RESP 18
[2016-12-10 07:49] VITALS: BP 148/81; RESP 17
[2016-12-10] MEDS: GABAPENTIN 300 MG CAP PO SCH ×3 (09:04→21:19)
[2016-12-10] MEDS: FAMOTIDINE 20 MG TAB PO SCH ×2 (09:04→21:20)
[2016-12-10] MEDS: LEVETIRACETAM 500 MG TAB PO SCH ×2 (09:04→21:20)
--- NOTE | 2016-12-10 11:09 | PN ---
Date/Time of Note Date/Time of Note DATE: 12/10/16 TIME: 11:07 Assessment/Plan VTE Prophylaxis VTE Prophylaxis Intervention: SCD's Lines/Catheters IV Catheter Type (from [facility]): Saline Lock Urinary Cath still in place: Yes (Suprapubic cath) Reason Cath still needed: other (indicate) Assessment/Plan Chief Complaint/Hosp Course 1. Complicated urinary tract infection. Urine culture positive for Morganella morganii and Pseudomonas aeruginosa. S/P antibiotics. 2. History of Peyronie's disease. Status post multiple surgeries on his scrotum and insertion of a suprapubic catheter. The patient being followed by urology. 3. Essential hypertension. Continue antihypertensives. Adjust antihypertensives to obtain optimal blood pressure control. 4. 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 Continue supportive care. Continue prophylactic Keppra. 5. History of diabetes mellitus. Was previously on insulin at home. Currently off antidiabetic medications. Hemoglobin A1c within normal limits. 6. Microcytic, hypochromic anemia. Iron panel showing low iron saturation and low TIBC. Iron supplements. 7. Fluids, electrolytes, and nutrition. Mechanical soft diet. 8. DVT prophylaxis. Bilateral sequential compression devices. 9. Plan. Continue antimicrobials. Needs placement. Problems: Subjective 24 Hr Interval Summary Free Text/Dictation The patient remains afebrile. Exam/Review of Systems Vital Signs Vitals Vital Signs Date Time Temp Pulse Resp B/P Pulse Ox O2 Delivery O2 Flow Rate FiO2 12/10/16 07:49 97.4 60 17 148/81 97 Intake and Output 12/09/16 12/09/16 12/10/16 15:00 23:00 07:00 Intake Total 1000 ml 800 ml Output Total 500 ml 700 ml Balance 500 ml 100 ml Exam General: Adequately build 61 year-old male lying in bed in no apparent distress. HEENT: Normocephalic, atraumatic. Eyes: Anicteric sclerae, conjunctivae clear. ENT: Nasal septum midline, oral mucosa moist. Neck supple, no JVD noticed. Respiratory: Bilaterally diminished breath sounds. No use of accessory muscles of respiration. No adventitious breath sounds. Cardiovascular: S1, S2 heard. Regular rate and rhythm. Abdomen: Soft, nontender, and nondistended. Bowel sounds positive in all 4 quadrants. Genitourinary: Scrotal edema. Suprapubic catheter in place. Extremities: No cyanosis, no clubbing, no edema. Peripheral pulses palpable. Neurologic: The patient is awake and alert. Left sylvain-plegia. Results Result Diagram: 12/07/1663812/07/16638 Medications Medications Current Medications Atorvastatin Calcium (Lipitor) 20 mg QHS PO Last administered on 12/09/16 20: 17; Admin Dose 20 MG; Start 11/22/16 at 21:00 Gabapentin (Neurontin) 300 mg TID PO Last administered on 12/10/16 09:04; Admin Dose 300 MG; Start 11/22/16 at 21:00 Hydroxyzine HCl (Atarax) 10 mg QHS PRN PO ITCHING; Start 11/22/16 at 20:30 Levetiracetam (Keppra) 1,000 mg BID PO Last administered on 12/10/16 09:04; Admin Dose 1,000 MG; Start 11/22/16 at 21:00 Simethicone (Mylicon) 80 mg TID PO Last administered on 12/10/16 09:04; Admin Dose 80 MG; Start 11/22/16 at 21:00 Ondansetron HCl (Zofran Inj) 4 mg Q6H PRN IV NAUSEA AND/OR VOMITING; Start 11/22/16 at 20:30 Acetaminophen (Tylenol Tab) 650 mg Q6H PRN PO PAIN LEVEL 1-3 OR FEVER Last administered on 11/25/16 20:24; Admin Dose 650 MG; Start 11/22/16 at 20:30 Morphine Sulfate (morphine) 2 mg Q4H PRN IV SEVERE PAIN LEVEL 7-10; Start 11/22 at 20:30 Docusate Sodium (Colace) 100 mg Q12H PRN PO CONSTIPATION; Start 11/22/16 at 20: 30 Bisacodyl (Dulcolax) 5 mg DAILY PRN PO CONSTIPATION; Start 11/22/16 at 20:30 Famotidine (Pepcid) 20 mg Q12 PO Last administered on 12/10/16 09:04; Admin Dose 20 MG; Start 11/22/16 at 21:00 Hydralazine HCl (Apresoline) 10 mg Q4H PRN IV ELEVATED SYSTOLIC BP Last administered on 12/06/16 16:04; Admin Dose 10 MG; Start 11/24/16 at 05:00 Hydralazine HCl (Apresoline) 75 mg TID PO Last administered on 12/10/16 09:03 ; Admin Dose 75 MG; Start 11/25/16 at 21:00 ADELAIDA GRIMALDO NP Dec 10, 2016 11:09
[2016-12-10 13:14] VITALS: BP 130/73; PULSE 63
[2016-12-10 14:22] VITALS: BP 107/61; RESP 18
--- NOTE | 2016-12-10 15:40 | CONS ---
Date/Time of Note Date/Time of Note DATE: 12/10/16 TIME: 15:32 Consultation Date/Type/Reason Admit Date/Time Assessment/Plan Chief Complaint/Hosp Course SUBJECTIVE: No Acute Events Overnight. Resting comfortably. No Acute Distress. Vital Signs: T-98.0 BP- 107/61 RR-18 O2Sat- 97% INDWELLINGS: Suprapubic catheter. ANTIMICROBIALS: none MICROBIOLOGY: Repeat urine culture grew Providencia stuartii. PHYSICAL EXAMINATION: GENERAL: Chronically ill-appearing, elderly man in no distress. HEENT: Head atraumatic, normocephalic. Sclerae anicteric. Buccal mucosa dry. NECK: Supple. CHEST: Rise symmetrical. Breath sounds diminished at the bases. HEART: S1, S2. ABDOMEN: Soft, bowel tones present. EXTREMITIES: Without cyanosis. Patient has right great toe and left great toe ingrown toenails. ASSESSMENT: 1. Status post sepsis. 2. S/p urinary tract infection with epididymitis. 3. Bacteriuria ==> secondary to chronic suprapubic catheter. 4. History of Peyronie's disease. 5. Diabetes. 6. Ingrown toenails. 7. Acute Hypotension. PLAN: The patient completed Antibiotics for UTI. Continue to observe. Monitor for Fevers. Monitor Labs. GI prophylaxis. DVT prophylaxis. Monitor Blood Pressure. Initial Consult Date Type of Consultation: ID Exam/Review of Systems Vital Signs Vitals Vital Signs Date Time Temp Pulse Resp B/P Pulse Ox O2 Delivery O2 Flow Rate FiO2 12/10/16 14:22 98.0 60 18 107/61 97 Intake and Output 12/09/16 12/09/16 12/10/16 15:00 23:00 07:00 Intake Total 1000 ml 800 ml Output Total 500 ml 700 ml Balance 500 ml 100 ml Results Result Diagram: 12/07/1639 12/07/16638 Medications Medications Current Medications Atorvastatin Calcium (Lipitor) 20 mg QHS PO Last administered on 12/09/16 20: 17; Admin Dose 20 MG; Start 11/22/16 at 21:00 Gabapentin (Neurontin) 300 mg TID PO Last administered on 12/10/16 13:16; Admin Dose 300 MG; Start 11/22/16 at 21:00 Hydroxyzine HCl (Atarax) 10 mg QHS PRN PO ITCHING; Start 11/22/16 at 20:30 Levetiracetam (Keppra) 1,000 mg BID PO Last administered on 12/10/16 09:04; Admin Dose 1,000 MG; Start 11/22/16 at 21:00 Simethicone (Mylicon) 80 mg TID PO Last administered on 12/10/16 13:16; Admin Dose 80 MG; Start 11/22/16 at 21:00 Ondansetron HCl (Zofran Inj) 4 mg Q6H PRN IV NAUSEA AND/OR VOMITING; Start 11/22/16 at 20:30 Acetaminophen (Tylenol Tab) 650 mg Q6H PRN PO PAIN LEVEL 1-3 OR FEVER Last administered on 11/25/16 20:24; Admin Dose 650 MG; Start 11/22/16 at 20:30 Morphine Sulfate (morphine) 2 mg Q4H PRN IV SEVERE PAIN LEVEL 7-10; Start 11/22 at 20:30 Docusate Sodium (Colace) 100 mg Q12H PRN PO CONSTIPATION; Start 11/22/16 at 20: 30 Bisacodyl (Dulcolax) 5 mg DAILY PRN PO CONSTIPATION; Start 11/22/16 at 20:30 Famotidine (Pepcid) 20 mg Q12 PO Last administered on 12/10/16 09:04; Admin Dose 20 MG; Start 11/22/16 at 21:00 Hydralazine HCl (Apresoline) 10 mg Q4H PRN IV ELEVATED SYSTOLIC BP Last administered on 12/06/16 16:04; Admin Dose 10 MG; Start 11/24/16 at 05:00 Hydralazine HCl (Apresoline) 75 mg TID PO Last administered on 12/10/16 13:16 ; Admin Dose 75 MG; Start 11/25/16 at 21:00 Ferrous Sulfate (Feosol Liquid Cup) 300 mg BID PO ; Start 12/10/16 at 21:00 MOOK BROWN NP Dec 10, 2016 15:40
[2016-12-10 20:37] VITALS: BP 136/75; RESP 16
[2016-12-10] MEDS: FERROUS SULFATE 60 MG/ML 5ML CUP PO SCH (21:19)
[2016-12-10] MEDS: ATORVASTATIN 20 MG TAB PO SCH (21:19)
[2016-12-11 02:38] VITALS: BP 155/83; RESP 18
[2016-12-11 08:01] VITALS: BP 139/77; RESP 16
[2016-12-11] MEDS: FAMOTIDINE 20 MG TAB PO SCH ×2 (08:51→20:21)
[2016-12-11] MEDS: LEVETIRACETAM 500 MG TAB PO SCH ×2 (08:51→20:21)
[2016-12-11] MEDS: GABAPENTIN 300 MG CAP PO SCH ×3 (08:51→20:21)
[2016-12-11] MEDS: FERROUS SULFATE 60 MG/ML 5ML CUP PO SCH ×2 (08:51→20:21)
--- NOTE | 2016-12-11 10:26 | PN ---
Date/Time of Note Date/Time of Note DATE: 12/11/16 TIME: 10:19 Assessment/Plan VTE Prophylaxis VTE Prophylaxis Intervention: SCD's Lines/Catheters IV Catheter Type (from [facility]): Saline Lock Urinary Cath still in place: Yes Reason Cath still needed: other (indicate) (monitor I&O) Assessment/Plan Chief Complaint/Hosp Course Assessment and plan 1. Urinary tract infection. Patient did have previous positive culture for Morganella morganii and Pseudomonas aeruginosa. Patient on antibiotics at this time. Improved at present. Will monitor. 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 Urologist following the patient. Monitor for now. 3. Essential hypertension. Continue antihypertensives. Adjust as needed. 4. History of hemorrhagic CVA with left-sided hemiparesis. Continue supportive care and prophylactic Keppra. 5. History of diabetes. Stable at present. A1c within normal limits. Monitor for now. 6. Iron deficiency anemia. Continue on iron supplement Disposition plan: Continue supportive care. Awaiting placement. Discussed plan of care with Dr. Costello Problems: Subjective 24 Hr Interval Summary Free Text/Dictation Sitting on chair. Appears comfortable at present. No signs of distress at this time. Reports less swelling and scrotal area and bilateral legs Exam/Review of Systems Vital Signs Vitals Vital Signs Date Time Temp Pulse Resp B/P Pulse Ox O2 Delivery O2 Flow Rate FiO2 12/11/16 08:01 98.0 56 16 139/77 97 Intake and Output 12/10/16 12/10/16 12/11/16 14:59 22:59 06:59 Intake Total 1070 ml 250 ml Output Total 650 ml 600 ml Balance 420 ml -350 ml Exam Constitutional: alert, oriented Psych: nl mood/affect Head: normocephalic Respiratory: clear to auscultation, normal air movement Cardiovascular: other (regular rate) Gastrointestinal: non-tender, soft Genitourinary - Male: No nl scrotum (swelling, but less noted ) Musculoskeletal: swelling (ble) Neurological: nl mental status, nl speech Results Result Diagram: 12/07/16 0639 12/07/16 0639 Medications Medications Current Medications Atorvastatin Calcium (Lipitor) 20 mg QHS PO Last administered on 12/10/16t 21: 19; Admin Dose 20 MG; Start 11/22/16 at 21:00 Gabapentin (Neurontin) 300 mg TID PO Last administered on 12/11/16 08:51; Admin Dose 300 MG; Start 11/22/16 at 21:00 Hydroxyzine HCl (Atarax) 10 mg QHS PRN PO ITCHING; Start 11/22/16 at 20:30 Levetiracetam (Keppra) 1,000 mg BID PO Last administered on 12/11/16 08:51; Admin Dose 1,000 MG; Start 11/22/16 at 21:00 Simethicone (Mylicon) 80 mg TID PO Last administered on 12/11/16 08:51; Admin Dose 80 MG; Start 11/22/16 at 21:00 Ondansetron HCl (Zofran Inj) 4 mg Q6H PRN IV NAUSEA AND/OR VOMITING; Start 11/22/16 at 20:30 Acetaminophen (Tylenol Tab) 650 mg Q6H PRN PO PAIN LEVEL 1-3 OR FEVER Last administered on 11/25/16 20:24; Admin Dose 650 MG; Start 11/22/16 at 20:30 Morphine Sulfate (morphine) 2 mg Q4H PRN IV SEVERE PAIN LEVEL 7-10; Start 11/22 at 20:30 Docusate Sodium (Colace) 100 mg Q12H PRN PO CONSTIPATION; Start 11/22/16 at 20: 30 Bisacodyl (Dulcolax) 5 mg DAILY PRN PO CONSTIPATION; Start 11/22/16 at 20:30 Famotidine (Pepcid) 20 mg Q12 PO Last administered on 12/11/16 08:51; Admin Dose 20 MG; Start 11/22/16 at 21:00 Hydralazine HCl (Apresoline) 10 mg Q4H PRN IV ELEVATED SYSTOLIC BP Last administered on 12/06/16 16:04; Admin Dose 10 MG; Start 11/24/16 at 05:00 Hydralazine HCl (Apresoline) 75 mg TID PO Last administered on 12/11/16 08:52 ; Admin Dose 75 MG; Start 11/25/16 at 21:00 Ferrous Sulfate (Feosol Liquid Cup) 300 mg BID PO Last administered on 08:51; Admin Dose 300 MG; Start 12/10/16 at 21:00 GLORIA LESTER Dec 11, 2016 10:26
[2016-12-11 14:00] VITALS: BP 177/82; RESP 18
[2016-12-11] MEDS: hydrALAzine 20 MG INJ IV PRN (14:35)
--- NOTE | 2016-12-11 14:45 | CONS ---
Date/Time of Note Date/Time of Note DATE: 12/11/16 TIME: 14:32 Consultation Date/Type/Reason Admit Date/Time Nov 22, 2016 at 19:54 Initial Consult Date Chief Complaint/Hosp Course ID PROGRESS NOTE CURRENT ABX: Completed Tobra IV . 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 Has undergone multiple surgeries on his scrotum and insertion of suprapubic tube about 3 years earlier. His urethra is closed. He has suprapubic catheter changed by this admission. Feeling ok. Denies fever, chills, pain. LABS: Reviewed. No Labs for today. * 11/22/16 Urine Cx: URINE CULTURE Final Organism 1 MORGANELLA MORGANII SSP MORG. COLONY COUNT >100,000 CFU/ml Organism 2 PSEUDOMONAS AERUGINOSA COLONY COUNT >100,000 CFU/ml 12/03/16 =URINE CULTURE Final Organism 1 PROVIDENCIA STUARTII COLONY COUNT >100,000 CFU/ml P STUARTII M.I.C. RX --------- --- AMIKACIN <=2 S CEFEPIME <=1 S CEFOTAXIME R CIPROFLOXACIN >=4 R GENTAMICIN >=16 R IMIPENEM 2 I LEVOFLOXACIN >=8 R NITROFURANTOIN 128 R TOBRAMYCIN R TRIMETHOPRIM/SULFAMETHOXAZOLE >=320 R PIPERACILLIN/TAZOBACTAM 8 S Physical Exam VS: 139/77 P:56 R:16 SO2:97% T:98.0 Constitutional: VSS, NAD Neck: Supple. Respiratory: Equal chest rise bilaterally, without dyspnea on observation Cardiovascular: nl pulse Gastrointestinal: Soft, NT, DSG in place Extremities: Warm, left hemiparesis SKIN: No rash, no diaphoresis, see photos perineal wound. Scrotal wound is small/clean, LLEST skin tear. ID ASSESSMENT 61 yo M PMHx of CVA w/chronic left sided hemeparesis, seizure disorder, bed- bound admit with: 1. Recurrent SIRS w/low grade temps + leukocytosis improving with IV antbx. * Had several BMs listed in I/Os, cannot confirm diarrhea w/nursing staff 2. s/p Multidrug resistant urinary tract infection, Possible epididymitis, no evidence of any abscess per Urology. 3. Chronic suprapubic catheter. 4. History of Peyronie's disease, hx of surgery w/closed urethra 5. History of Jami's gangrene, hx of surgical debridement remote 6. Diabetes. 7. Ingrown toenail ?infected? 8. Bilateral toes deep tissue injury; LLEXT skin tear wound ABX ALLERGIES: NKDA CURRENT ABX: Completed Tobra IV s/p Vanco IV + Zosyn 11/22 - 11/26 Plan: Pt is stable.Off of antbx. Asymptomatic. Will monitor. Type of Consultation: ID Exam/Review of Systems Vital Signs Vitals Vital Signs Date Time Temp Pulse Resp B/P Pulse Ox O2 Delivery O2 Flow Rate FiO2 12/11/16 08:01 98.0 56 16 139/77 97 Intake and Output 12/10/16 12/10/16 12/11/16 15:00 23:00 07:00 Intake Total 1070 ml 250 ml Output Total 650 ml 600 ml Balance 420 ml -350 ml Results Result Diagram: 12/07/1639 12/07/1639 Medications Medications Current Medications Atorvastatin Calcium (Lipitor) 20 mg QHS PO Last administered on 12/10/16 21: 19; Admin Dose 20 MG; Start 11/22/16 at 21:00 Gabapentin (Neurontin) 300 mg TID PO Last administered on 12/11/16 08:51; Admin Dose 300 MG; Start 11/22/16 at 21:00 Hydroxyzine HCl (Atarax) 10 mg QHS PRN PO ITCHING; Start 11/22/16 at 20:30 Levetiracetam (Keppra) 1,000 mg BID PO Last administered on 12/11/16 08:51; Admin Dose 1,000 MG; Start 11/22/16 at 21:00 Simethicone (Mylicon) 80 mg TID PO Last administered on 12/11/16 08:51; Admin Dose 80 MG; Start 11/22/16 at 21:00 Ondansetron HCl (Zofran Inj) 4 mg Q6H PRN IV NAUSEA AND/OR VOMITING; Start 11/22/16 at 20:30 Acetaminophen (Tylenol Tab) 650 mg Q6H PRN PO PAIN LEVEL 1-3 OR FEVER Last administered on 11/25/16 20:24; Admin Dose 650 MG; Start 11/22/16 at 20:30 Morphine Sulfate (morphine) 2 mg Q4H PRN IV SEVERE PAIN LEVEL 7-10; Start 11/22 at 20:30 Docusate Sodium (Colace) 100 mg Q12H PRN PO CONSTIPATION; Start 11/22/16 at 20: 30 Bisacodyl (Dulcolax) 5 mg DAILY PRN PO CONSTIPATION; Start 11/22/16 at 20:30 Famotidine (Pepcid) 20 mg Q12 PO Last administered on 12/11/16 08:51; Admin Dose 20 MG; Start 11/22/16 at 21:00 Hydralazine HCl (Apresoline) 10 mg Q4H PRN IV ELEVATED SYSTOLIC BP Last administered on 12/06/16 16:04; Admin Dose 10 MG; Start 11/24/16 at 05:00 Hydralazine HCl (Apresoline) 75 mg TID PO Last administered on 12/11/16 08:52 ; Admin Dose 75 MG; Start 11/25/16 at 21:00 Ferrous Sulfate (Feosol Liquid Cup) 300 mg BID PO Last administered on 08:51; Admin Dose 300 MG; Start 12/10/16 at 21:00 SANYA NEWTON Dec 11, 2016 14:44
[2016-12-11 19:50] VITALS: BP 164/83; RESP 17
[2016-12-11] MEDS: ATORVASTATIN 20 MG TAB PO SCH (20:21)
[2016-12-11 21:03] VITALS: BP 149/79
[2016-12-12 02:10] VITALS: BP 160/81; RESP 18
[2016-12-12 07:54] VITALS: BP 132/74; RESP 16
[2016-12-12] MEDS: FERROUS SULFATE 60 MG/ML 5ML CUP PO SCH ×2 (09:24→20:56)
[2016-12-12] MEDS: GABAPENTIN 300 MG CAP PO SCH ×3 (09:25→20:57)
[2016-12-12] MEDS: LEVETIRACETAM 500 MG TAB PO SCH ×2 (09:25→20:57)
[2016-12-12] MEDS: FAMOTIDINE 20 MG TAB PO SCH ×2 (09:25→20:57)
[2016-12-12 14:00] VITALS: BP 113/69; RESP 16
--- NOTE | 2016-12-12 14:02 | CONS ---
Date/Time of Note Date/Time of Note DATE: 12/12/16 TIME: 14:02 Consult Date/Type/Reason Admit Date/Time Nov 22, 2016 at 19:54 Type of Consultation: ID Objective Vital Signs Date Time Temp Pulse Resp B/P Pulse Ox O2 Delivery O2 Flow Rate FiO2 12/12/16 07:54 98.1 55 16 132/74 98 Intake and Output 12/11/16 12/11/16 12/12/16 15:00 23:00 07:00 Intake Total 840 ml 250 ml Output Total 800 ml 450 ml Balance 40 ml -200 ml Results/Medications Medications Current Medications Atorvastatin Calcium (Lipitor) 20 mg QHS PO Last administered on 12/11/16 20: 21; Admin Dose 20 MG; Start 11/22/16 at 21:00 Gabapentin (Neurontin) 300 mg TID PO Last administered on 12/12/16 13:35; Admin Dose 300 MG; Start 11/22/16 at 21:00 Hydroxyzine HCl (Atarax) 10 mg QHS PRN PO ITCHING; Start 11/22/16 at 20:30 Levetiracetam (Keppra) 1,000 mg BID PO Last administered on 12/12/16 09:25; Admin Dose 1,000 MG; Start 11/22/16 at 21:00 Simethicone (Mylicon) 80 mg TID PO Last administered on 12/12/16 13:35; Admin Dose 80 MG; Start 11/22/16 at 21:00 Ondansetron HCl (Zofran Inj) 4 mg Q6H PRN IV NAUSEA AND/OR VOMITING; Start 11/22/16 at 20:30 Acetaminophen (Tylenol Tab) 650 mg Q6H PRN PO PAIN LEVEL 1-3 OR FEVER Last administered on 11/25/16 20:24; Admin Dose 650 MG; Start 11/22/16 at 20:30 Morphine Sulfate (morphine) 2 mg Q4H PRN IV SEVERE PAIN LEVEL 7-10; Start 11/22 at 20:30 Docusate Sodium (Colace) 100 mg Q12H PRN PO CONSTIPATION; Start 11/22/16 at 20: 30 Bisacodyl (Dulcolax) 5 mg DAILY PRN PO CONSTIPATION; Start 11/22/16 at 20:30 Famotidine (Pepcid) 20 mg Q12 PO Last administered on 12/12/16 09:25; Admin Dose 20 MG; Start 11/22/16 at 21:00 Hydralazine HCl (Apresoline) 10 mg Q4H PRN IV ELEVATED SYSTOLIC BP Last administered on 12/11/16 14:35; Admin Dose 10 MG; Start 11/24/16 at 05:00 Hydralazine HCl (Apresoline) 75 mg TID PO Last administered on 12/12/16 13:36 ; Admin Dose 75 MG; Start 11/25/16 at 21:00 Ferrous Sulfate (Feosol Liquid Cup) 300 mg BID PO Last administered on 09:24; Admin Dose 300 MG; Start 12/10/16 at 21:00 Assessment/Plan Chief Complaint/Hosp Course SUBJECTIVE: No acute changes overnight, patient is sleeping, looks comfortable , no fevers INDWELLINGS: Suprapubic catheter. ANTIMICROBIALS: none MICROBIOLOGY: Repeat urine culture grew Providencia stuartii. PHYSICAL EXAMINATION: GENERAL: Chronically ill-appearing, elderly man in no distress. HEENT: Head atraumatic, normocephalic. Sclerae anicteric. Buccal mucosa dry. NECK: Supple. CHEST: Rise symmetrical. Breath sounds diminished at the bases. HEART: S1, S2. ABDOMEN: Soft, bowel tones present. EXTREMITIES: Without cyanosis. Patient has right great toe and left great toe ingrown toenails. ASSESSMENT: 1. Status post sepsis. 2. S/p urinary tract infection with epididymitis. 3. Bacteriuria ==> secondary to chronic suprapubic catheter. 4. History of Peyronie's disease. 5. Diabetes. 6. Ingrown toenails. PLAN: The patient remains stable, no fevers, completed abx for UTI, repeat urine cx with colonized bacteria, continue observing off antibiotics. DW staff Problems: RAMA THAYER NP Dec 12, 2016 14:02
--- NOTE | 2016-12-12 14:52 | PN ---
Date/Time of Note Date/Time of Note DATE: 12/12/16 TIME: 14:45 Assessment/Plan VTE Prophylaxis VTE Prophylaxis Intervention: SCD's Lines/Catheters IV Catheter Type (from Nrs): Saline Lock Urinary Cath still in place: Yes (suprapubic catheter) Reason Cath still needed: other (indicate) (monitor I&O) Assessment/Plan Chief Complaint/Hosp Course Assessment and plan 1. Urinary tract infection. Patient did have previous positive culture for Morganella morganii and Pseudomonas aeruginosa. Patient on antibiotics at this time. Improved at present. Will monitor. 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 Urologist following the patient. Monitor for now. 3. Essential hypertension. Continue antihypertensives. Adjust as needed. 4. History of hemorrhagic CVA with left-sided hemiparesis. Continue supportive care and prophylactic Keppra. 5. History of diabetes. Stable at present. A1c within normal limits. Monitor for now. 6. Iron deficiency anemia. Continue on iron supplement Disposition plan: continue aspiration precautions. Still awaiting placement. Discussed plan of care with Dr. Costello Problems: Subjective 24 Hr Interval Summary Free Text/Dictation no s/s of distress Exam/Review of Systems Vital Signs Vitals Vital Signs Date Time Temp Pulse Resp B/P Pulse Ox O2 Delivery O2 Flow Rate FiO2 12/12/16 07:54 98.1 55 16 132/74 98 Intake and Output 12/11/16 12/11/16 12/12/16 15:00 23:00 07:00 Intake Total 840 ml 250 ml Output Total 800 ml 450 ml Balance 40 ml -200 ml Exam Constitutional: alert, oriented Psych: nl mood/affect Head: normocephalic Respiratory: clear to auscultation, normal air movement Cardiovascular: other (regular rate) Gastrointestinal: non-tender, soft Musculoskeletal: swelling (ble) Neurological: nl mental status, nl speech Medications Medications Current Medications Atorvastatin Calcium (Lipitor) 20 mg QHS PO Last administered on 12/11/16 20: 21; Admin Dose 20 MG; Start 11/22/16 at 21:00 Gabapentin (Neurontin) 300 mg TID PO Last administered on 12/12/16 13:35; Admin Dose 300 MG; Start 11/22/16 at 21:00 Hydroxyzine HCl (Atarax) 10 mg QHS PRN PO ITCHING; Start 11/22/16 at 20:30 Levetiracetam (Keppra) 1,000 mg BID PO Last administered on 12/12/16 09:25; Admin Dose 1,000 MG; Start 11/22/16 at 21:00 Simethicone (Mylicon) 80 mg TID PO Last administered on 12/12/16 13:35; Admin Dose 80 MG; Start 11/22/16 at 21:00 Ondansetron HCl (Zofran Inj) 4 mg Q6H PRN IV NAUSEA AND/OR VOMITING; Start 11/22/16 at 20:30 Acetaminophen (Tylenol Tab) 650 mg Q6H PRN PO PAIN LEVEL 1-3 OR FEVER Last administered on 11/25/16 20:24; Admin Dose 650 MG; Start 11/22/16 at 20:30 Morphine Sulfate (morphine) 2 mg Q4H PRN IV SEVERE PAIN LEVEL 7-10; Start 11/22 at 20:30 Docusate Sodium (Colace) 100 mg Q12H PRN PO CONSTIPATION; Start 11/22/16 at 20: 30 Bisacodyl (Dulcolax) 5 mg DAILY PRN PO CONSTIPATION; Start 11/22/16 at 20:30 Famotidine (Pepcid) 20 mg Q12 PO Last administered on 12/12/16 09:25; Admin Dose 20 MG; Start 11/22/16 at 21:00 Hydralazine HCl (Apresoline) 10 mg Q4H PRN IV ELEVATED SYSTOLIC BP Last administered on 12/11/16 14:35; Admin Dose 10 MG; Start 11/24/16 at 05:00 Hydralazine HCl (Apresoline) 75 mg TID PO Last administered on 12/12/16 13:36 ; Admin Dose 75 MG; Start 11/25/16 at 21:00 Ferrous Sulfate (Feosol Liquid Cup) 300 mg BID PO Last administered on 09:24; Admin Dose 300 MG; Start 12/10/16 at 21:00 GLORIA LESTER Dec 12, 2016 14:52
[2016-12-12] MEDS: ATORVASTATIN 20 MG TAB PO SCH (20:57)
[2016-12-12 21:08] VITALS: BP 128/72; RESP 18
[2016-12-13 02:55] VITALS: BP 127/65; RESP 18
[2016-12-13 07:51] VITALS: BP 148/80; RESP 14
[2016-12-13] MEDS: LEVETIRACETAM 500 MG TAB PO SCH ×2 (09:17→20:52)
[2016-12-13] MEDS: GABAPENTIN 300 MG CAP PO SCH ×3 (09:17→20:53)
[2016-12-13] MEDS: FERROUS SULFATE 60 MG/ML 5ML CUP PO SCH ×2 (09:17→21:00)
[2016-12-13] MEDS: FAMOTIDINE 20 MG TAB PO SCH ×2 (09:17→21:00)
--- NOTE | 2016-12-13 14:01 | CONS ---
Date/Time of Note Date/Time of Note DATE: 12/13/16 TIME: 14:00 Consult Date/Type/Reason Admit Date/Time Nov 22, 2016 at 19:54 Type of Consultation: ID Objective Vital Signs Date Time Temp Pulse Resp B/P Pulse Ox O2 Delivery O2 Flow Rate FiO2 12/13/16 07:51 97.3 53 14 148/80 98 Intake and Output 12/12/16 12/12/16 12/13/16 15:00 23:00 07:00 Intake Total 320 ml 240 ml Output Total 1100 ml 400 ml Balance -780 ml -160 ml Results/Medications Medications Current Medications Atorvastatin Calcium (Lipitor) 20 mg QHS PO Last administered on 12/12/16 20: 57; Admin Dose 20 MG; Start 11/22/16 at 21:00 Gabapentin (Neurontin) 300 mg TID PO Last administered on 12/13/16 12:55; Admin Dose 300 MG; Start 11/22/16 at 21:00 Hydroxyzine HCl (Atarax) 10 mg QHS PRN PO ITCHING; Start 11/22/16 at 20:30 Levetiracetam (Keppra) 1,000 mg BID PO Last administered on 12/13/16 09:17; Admin Dose 1,000 MG; Start 11/22/16 at 21:00 Simethicone (Mylicon) 80 mg TID PO Last administered on 12/13/16 12:55; Admin Dose 80 MG; Start 11/22/16 at 21:00 Ondansetron HCl (Zofran Inj) 4 mg Q6H PRN IV NAUSEA AND/OR VOMITING; Start 11/22/16 at 20:30 Acetaminophen (Tylenol Tab) 650 mg Q6H PRN PO PAIN LEVEL 1-3 OR FEVER Last administered on 11/25/16 20:24; Admin Dose 650 MG; Start 11/22/16 at 20:30 Morphine Sulfate (morphine) 2 mg Q4H PRN IV SEVERE PAIN LEVEL 7-10; Start 11/22 at 20:30 Docusate Sodium (Colace) 100 mg Q12H PRN PO CONSTIPATION; Start 11/22/16 at 20: 30 Bisacodyl (Dulcolax) 5 mg DAILY PRN PO CONSTIPATION; Start 11/22/16 at 20:30 Famotidine (Pepcid) 20 mg Q12 PO Last administered on 12/13/16 09:17; Admin Dose 20 MG; Start 11/22/16 at 21:00 Hydralazine HCl (Apresoline) 10 mg Q4H PRN IV ELEVATED SYSTOLIC BP Last administered on 12/11/16 14:35; Admin Dose 10 MG; Start 11/24/16 at 05:00 Hydralazine HCl (Apresoline) 75 mg TID PO Last administered on 12/13/16 12:55 ; Admin Dose 75 MG; Start 11/25/16 at 21:00 Ferrous Sulfate (Feosol Liquid Cup) 300 mg BID PO Last administered on 09:17; Admin Dose 300 MG; Start 12/10/16 at 21:00 Assessment/Plan Chief Complaint/Hosp Course SUBJECTIVE: No acute changes overnight, looks comfortable, no fevers INDWELLINGS: Suprapubic catheter. ANTIMICROBIALS: none MICROBIOLOGY: Repeat urine culture grew Providencia stuartii. PHYSICAL EXAMINATION: GENERAL: Chronically ill-appearing, elderly man in no distress. HEENT: Head atraumatic, normocephalic. Sclerae anicteric. Buccal mucosa dry. NECK: Supple. CHEST: Rise symmetrical. Breath sounds diminished at the bases. HEART: S1, S2. ABDOMEN: Soft, bowel tones present. EXTREMITIES: Without cyanosis. Patient has right great toe and left great toe ingrown toenails. ASSESSMENT: 1. Status post sepsis. 2. S/p urinary tract infection with epididymitis. 3. Bacteriuria ==> secondary to chronic suprapubic catheter. 4. History of Peyronie's disease. 5. Diabetes. 6. Ingrown toenails. PLAN: The patient remains stable, no fevers, completed abx for UTI, repeat urine cx with colonized bacteria, continue observing off antibiotics. DW staff Problems: RAMA THAYER NP Dec 13, 2016 14:01
[2016-12-13 14:22] VITALS: BP 135/73; RESP 16
--- NOTE | 2016-12-13 15:00 | PN ---
Date/Time of Note Date/Time of Note DATE: 12/13/16 TIME: 14:56 Assessment/Plan VTE Prophylaxis VTE Prophylaxis Intervention: SCD's Lines/Catheters IV Catheter Type (from Nrs): Saline Lock Urinary Cath still in place: Yes (suprapubic catheter) Reason Cath still needed: other (indicate) Assessment/Plan Chief Complaint/Hosp Course Assessment and plan 1. Urinary tract infection. Patient did have previous positive culture for Morganella morganii and Pseudomonas aeruginosa. off abx. Improved at present. Will monitor. 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 Urologist following the patient. Monitor for now. 3. Essential hypertension. Continue antihypertensives. Adjust as needed. 4. History of hemorrhagic CVA with left-sided hemiparesis. Continue supportive care and prophylactic Keppra. 5. History of diabetes. Stable at present. A1c within normal limits. Monitor for now. 6. Iron deficiency anemia. Continue on iron supplement Disposition plan: continue aspiration precautions. Still awaiting placement. continue supportive care Discussed plan of care with Dr. Costello Problems: Subjective 24 Hr Interval Summary Free Text/Dictation no s/s of distress Exam/Review of Systems Vital Signs Vitals Vital Signs Date Time Temp Pulse Resp B/P Pulse Ox O2 Delivery O2 Flow Rate FiO2 12/13/16 14:22 97.9 60 16 135/73 98 Intake and Output 12/12/16 12/12/16 12/13/16 15:00 23:00 07:00 Intake Total 320 ml 240 ml Output Total 1100 ml 400 ml Balance -780 ml -160 ml Exam Constitutional: alert, oriented Psych: nl mood/affect Head: normocephalic Respiratory: clear to auscultation, normal air movement Cardiovascular: other (regular rate) Gastrointestinal: non-tender, soft Neurological: nl mental status, nl speech Medications Medications Current Medications Atorvastatin Calcium (Lipitor) 20 mg QHS PO Last administered on 12/12/16 20: 57; Admin Dose 20 MG; Start 11/22/16 at 21:00 Gabapentin (Neurontin) 300 mg TID PO Last administered on 12/13/16 12:55; Admin Dose 300 MG; Start 11/22/16 at 21:00 Hydroxyzine HCl (Atarax) 10 mg QHS PRN PO ITCHING; Start 11/22/16 at 20:30 Levetiracetam (Keppra) 1,000 mg BID PO Last administered on 12/13/16 09:17; Admin Dose 1,000 MG; Start 11/22/16 at 21:00 Simethicone (Mylicon) 80 mg TID PO Last administered on 12/13/16 12:55; Admin Dose 80 MG; Start 11/22/16 at 21:00 Ondansetron HCl (Zofran Inj) 4 mg Q6H PRN IV NAUSEA AND/OR VOMITING; Start 11/22/16 at 20:30 Acetaminophen (Tylenol Tab) 650 mg Q6H PRN PO PAIN LEVEL 1-3 OR FEVER Last administered on 11/25/16 20:24; Admin Dose 650 MG; Start 11/22/16 at 20:30 Morphine Sulfate (morphine) 2 mg Q4H PRN IV SEVERE PAIN LEVEL 7-10; Start 11/22 at 20:30 Docusate Sodium (Colace) 100 mg Q12H PRN PO CONSTIPATION; Start 11/22/16 at 20: 30 Bisacodyl (Dulcolax) 5 mg DAILY PRN PO CONSTIPATION; Start 11/22/16 at 20:30 Famotidine (Pepcid) 20 mg Q12 PO Last administered on 12/13/16 09:17; Admin Dose 20 MG; Start 11/22/16 at 21:00 Hydralazine HCl (Apresoline) 10 mg Q4H PRN IV ELEVATED SYSTOLIC BP Last administered on 12/11/16 14:35; Admin Dose 10 MG; Start 11/24/16 at 05:00 Hydralazine HCl (Apresoline) 75 mg TID PO Last administered on 12/13/16 12:55 ; Admin Dose 75 MG; Start 11/25/16 at 21:00 Ferrous Sulfate (Feosol Liquid Cup) 300 mg BID PO Last administered on 09:17; Admin Dose 300 MG; Start 12/10/16 at 21:00 GLORIA LESTER Dec 13, 2016 15:00
[2016-12-13 20:29] VITALS: BP 124/68; RESP 17
[2016-12-13] MEDS: ATORVASTATIN 20 MG TAB PO SCH (21:00)
[2016-12-13] MEDS: LEVETIRACETAM (100 MG/ML) 5ML CUP PO SCH (21:00)
[2016-12-14 02:05] VITALS: BP 141/79; RESP 18
[2016-12-14 02:30] VITALS: PULSE 58
[2016-12-14 08:00] VITALS: BP 160/80; RESP 20
--- NOTE | 2016-12-14 08:38 | PN ---
Date/Time of Note Date/Time of Note DATE: 12/14/16 TIME: 08:35 Assessment/Plan VTE Prophylaxis VTE Prophylaxis Intervention: SCD's Lines/Catheters IV Catheter Type (from Nrs): Saline Lock Urinary Cath still in place: Yes (suprapubic) Reason Cath still needed: urinary retention, other (indicate) Assessment/Plan Chief Complaint/Hosp Course 61-year-old male who is known to have a history of Jami gangrene. Has undergone multiple surgeries on his scrotum and insertion of suprapubic tube about 3 years earlier. His urethra is closed. He was admitted because of possible epididymitis and urinary tract infection. Presently he is doing better the scrotum is not hard and tender and no evidence of any abscess formation or collection of any fluid. Problems: Subjective 24 Hr Interval Summary Constitutional: no complaints Eyes: no complaints ENT: no complaints Cardiovascular: no complaints Gastrointestinal: no complaints Genitourinary: other (Suprapubic tube) Neurologic: focal-weakness (Left hemiparesis) Exam/Review of Systems Vital Signs Vitals Vital Signs Date Time Temp Pulse Resp B/P Pulse Ox O2 Delivery O2 Flow Rate FiO2 12/14/16 08:00 97.5 56 20 160/80 98 Intake and Output 12/13/16 12/13/16 12/14/16 15:00 23:00 07:00 Intake Total 60 ml 50 ml Output Total 375 ml 300 ml Balance -315 ml -250 ml Exam Constitutional: alert Psych: no complaints Eyes: nl conjunctiva Neck: supple Respiratory: normal air movement Cardiovascular: No edema Gastrointestinal: soft Genitourinary - Male: other (Suprapubic tube draining clear urine) Extremities: other (Left hemiparesis) Medications Medications Current Medications Atorvastatin Calcium (Lipitor) 20 mg QHS PO Last administered on 12/12/16 20: 57; Admin Dose 20 MG; Start 11/22/16 at 21:00 Gabapentin (Neurontin) 300 mg TID PO Last administered on 12/13/16 20:53; Admin Dose 300 MG; Start 11/22/16 at 21:00 Hydroxyzine HCl (Atarax) 10 mg QHS PRN PO ITCHING; Start 11/22/16 at 20:30 Simethicone (Mylicon) 80 mg TID PO Last administered on 10/25/17at 12:55; Admin Dose 80 MG; Start 11/22/16 at 21:00 Ondansetron HCl (Zofran Inj) 4 mg Q6H PRN IV NAUSEA AND/OR VOMITING; Start 11/22/16 at 20:30 Acetaminophen (Tylenol Tab) 650 mg Q6H PRN PO PAIN LEVEL 1-3 OR FEVER Last administered on 11/25/16 20:24; Admin Dose 650 MG; Start 11/22/16 at 20:30 Morphine Sulfate (morphine) 2 mg Q4H PRN IV SEVERE PAIN LEVEL 7-10; Start 11/22 at 20:30 Docusate Sodium (Colace) 100 mg Q12H PRN PO CONSTIPATION; Start 11/22/16 at 20: 30 Bisacodyl (Dulcolax) 5 mg DAILY PRN PO CONSTIPATION; Start 11/22/16 at 20:30 Famotidine (Pepcid) 20 mg Q12 PO Last administered on 12/13/16 09:17; Admin Dose 20 MG; Start 11/22/16 at 21:00 Hydralazine HCl (Apresoline) 10 mg Q4H PRN IV ELEVATED SYSTOLIC BP Last administered on 12/11/16 14:35; Admin Dose 10 MG; Start 11/24/16 at 05:00 Hydralazine HCl (Apresoline) 75 mg TID PO Last administered on 12/13/16 20:52 ; Admin Dose 75 MG; Start 11/25/16 at 21:00 Ferrous Sulfate (Feosol Liquid Cup) 300 mg BID PO Last administered on 09:17; Admin Dose 300 MG; Start 12/10/16 at 21:00 Levetiracetam (Keppra Liquid) 1,000 mg BID PO ; Start 12/13/16 at 21:00 CHERYLE BOYD MD Dec 14, 2016 08:38
[2016-12-14] MEDS ORDERED: UDFER PO (09:14)
[2016-12-14] MEDS: LEVETIRACETAM (100 MG/ML) 5ML CUP PO SCH ×2 (09:20→21:01)
[2016-12-14] MEDS: FERROUS SULFATE 60 MG/ML 5ML CUP PO SCH ×2 (09:20→20:59)
[2016-12-14] MEDS: GABAPENTIN 300 MG CAP PO SCH ×3 (09:20→21:01)
[2016-12-14] MEDS: FAMOTIDINE 20 MG TAB PO SCH ×2 (09:20→21:01)
--- NOTE | 2016-12-14 12:15 | PN ---
Date/Time of Note Date/Time of Note DATE: 12/14/16 TIME: 12:11 Assessment/Plan VTE Prophylaxis VTE Prophylaxis Intervention: SCD's Lines/Catheters IV Catheter Type (from Nrs): Saline Lock Urinary Cath still in place: Yes (SUPRAPUBIC CATHETER) Reason Cath still needed: other (indicate) (monitor I&O) Assessment/Plan Chief Complaint/Hosp Course Assessment and plan 1. Urinary tract infection. Patient did have previous positive culture for Morganella morganii and Pseudomonas aeruginosa. off abx. Improved at present. Will monitor. 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 Urologist following the patient. Monitor for now. 3. Essential hypertension. Continue antihypertensives. Adjust as needed. 4. History of hemorrhagic CVA with left-sided hemiparesis. Continue supportive care and prophylactic Keppra. 5. History of diabetes. Stable at present. A1c within normal limits. Monitor for now. 6. Iron deficiency anemia. Continue on iron supplement Disposition plan: Follow up with case management. STill awaiting placement. check AM labs Discussed plan of care with Dr. Costello Problems: Subjective 24 Hr Interval Summary Free Text/Dictation comfortable at present. resting in bed Exam/Review of Systems Vital Signs Vitals Vital Signs Date Time Temp Pulse Resp B/P Pulse Ox O2 Delivery O2 Flow Rate FiO2 12/14/16 08:00 97.5 56 20 160/80 98 Intake and Output 12/13/16 12/13/16 12/14/16 15:00 23:00 07:00 Intake Total 60 ml 50 ml Output Total 375 ml 300 ml Balance -315 ml -250 ml Exam Constitutional: alert, oriented Psych: nl mood/affect Head: normocephalic Respiratory: clear to auscultation, normal air movement Cardiovascular: other (regular rate) Gastrointestinal: non-tender, soft Neurological: nl mental status, nl speech Medications Medications Current Medications Atorvastatin Calcium (Lipitor) 20 mg QHS PO Last administered on 12/12/16 20: 57; Admin Dose 20 MG; Start 11/22/16 at 21:00 Gabapentin (Neurontin) 300 mg TID PO Last administered on 12/14/16 09:20; Admin Dose 300 MG; Start 11/22/16 at 21:00 Hydroxyzine HCl (Atarax) 10 mg QHS PRN PO ITCHING; Start 11/22/16 at 20:30 Simethicone (Mylicon) 80 mg TID PO Last administered on 12/14/16 09:20; Admin Dose 80 MG; Start 11/22/16 at 21:00 Ondansetron HCl (Zofran Inj) 4 mg Q6H PRN IV NAUSEA AND/OR VOMITING; Start 11/22/16 at 20:30 Acetaminophen (Tylenol Tab) 650 mg Q6H PRN PO PAIN LEVEL 1-3 OR FEVER Last administered on 11/25/16 20:24; Admin Dose 650 MG; Start 11/22/16 at 20:30 Morphine Sulfate (morphine) 2 mg Q4H PRN IV SEVERE PAIN LEVEL 7-10; Start 11/22 at 20:30 Docusate Sodium (Colace) 100 mg Q12H PRN PO CONSTIPATION; Start 11/22/16 at 20: 30 Bisacodyl (Dulcolax) 5 mg DAILY PRN PO CONSTIPATION; Start 11/22/16 at 20:30 Famotidine (Pepcid) 20 mg Q12 PO Last administered on 12/14/16 09:20; Admin Dose 20 MG; Start 11/22/16 at 21:00 Hydralazine HCl (Apresoline) 10 mg Q4H PRN IV ELEVATED SYSTOLIC BP Last administered on 12/11/16 14:35; Admin Dose 10 MG; Start 11/24/16 at 05:00 Hydralazine HCl (Apresoline) 75 mg TID PO Last administered on 12/14/16 09:21 ; Admin Dose 75 MG; Start 11/25/16 at 21:00 Ferrous Sulfate (Feosol Liquid Cup) 300 mg BID PO Last administered on 09:20; Admin Dose 300 MG; Start 12/10/16 at 21:00 Levetiracetam (Keppra Liquid) 1,000 mg BID PO Last administered on 12/14/16 09:20; Admin Dose 1,000 MG; Start 12/13/16 at 21:00 GLORIA LESTER Dec 14, 2016 12:15
[2016-12-14 14:16] VITALS: BP 151/84; RESP 18
[2016-12-14 19:50] VITALS: BP 144/75; RESP 16
[2016-12-14] MEDS: ATORVASTATIN 20 MG TAB PO SCH (21:01)
[2016-12-15 02:18] VITALS: BP 147/76; RESP 18
[2016-12-15 02:33] VITALS: PULSE 56
[2016-12-15 08:00] VITALS: BP 174/97; RESP 17
[2016-12-15] MEDS: LEVETIRACETAM (100 MG/ML) 5ML CUP PO SCH ×2 (08:50→21:06)
[2016-12-15] MEDS: FAMOTIDINE 20 MG TAB PO SCH ×2 (08:50→21:06)
[2016-12-15] MEDS: FERROUS SULFATE 60 MG/ML 5ML CUP PO SCH ×2 (08:50→21:06)
[2016-12-15] MEDS: GABAPENTIN 300 MG CAP PO SCH ×3 (08:50→21:07)
[2016-12-15 12:32] VITALS: BP 158/90; PULSE 56
--- NOTE | 2016-12-15 13:54 | PN ---
Date/Time of Note Date/Time of Note DATE: 12/15/16 TIME: 13:49 Assessment/Plan VTE Prophylaxis VTE Prophylaxis Intervention: SCD's Lines/Catheters [facility] (from [facility] Saline Lock Urinary Cath still in place: Yes Reason Cath still needed: urinary retention Assessment/Plan Chief Complaint/Hosp Course Assessment and plan: 61 M with: 1. Urinary tract infection. Patient did have previous positive culture for Morganella morganii and Pseudomonas aeruginosa. off abx. Improved at present. Will monitor. 2. History of Peyronie's disease. Patient does have history of multiple surgeries on his scrotal area and insertion of suprapubic catheter. Urologist following the patient. Monitor for now. 3. Essential hypertension. Continue antihypertensives. Adjust as needed. 4. History of hemorrhagic CVA with left-sided hemiparesis. Continue supportive care and prophylactic Keppra. 5. History of diabetes. Stable at present. A1c within normal limits. Monitor for now. 6. Iron deficiency anemia. Continue on iron supplement Disposition plan: Follow up with case management. Still awaiting placement. Problems: Subjective 24 Hr Interval Summary Free Text/Dictation No acute events overnight, attempted to be seen by speech therapy team this morning. Exam/Review of Systems Vital Signs Vitals Vital Signs Date Time Temp Pulse Resp B/P Pulse Ox O2 Delivery O2 Flow Rate FiO2 12/15/16 12:32 56 158/90 12/15/16 08:00 97.4 17 97 Intake and Output 12/14/16 12/14/16 12/15/16 15:00 23:00 07:00 Intake Total 590 ml Output Total 800 ml Balance -210 ml Exam Constitutional: alert, oriented Psych: nl mood/affect Head: normocephalic Respiratory: clear to auscultation, normal air movement Cardiovascular: other (regular rate) Gastrointestinal: non-tender, soft Neurological: nl mental status, nl speech Medications Medications Current Medications Atorvastatin Calcium (Lipitor) 20 mg QHS PO Last administered on 12/14/16 21: 01; Admin Dose 20 MG; Start 11/22/16 at 21:00 Gabapentin (Neurontin) 300 mg TID PO Last administered on 12/15/16 12:33; Admin Dose 300 MG; Start 11/22/16 at 21:00 Hydroxyzine HCl (Atarax) 10 mg QHS PRN PO ITCHING; Start 11/22/16 at 20:30 Simethicone (Mylicon) 80 mg TID PO Last administered on 12/15/16 12:33; Admin Dose 80 MG; Start 11/22/16 at 21:00 Ondansetron HCl (Zofran Inj) 4 mg Q6H PRN IV NAUSEA AND/OR VOMITING; Start 11/22/16 at 20:30 Acetaminophen (Tylenol Tab) 650 mg Q6H PRN PO PAIN LEVEL 1-3 OR FEVER Last administered on 11/25/16 20:24; Admin Dose 650 MG; Start 11/22/16 at 20:30 Morphine Sulfate (morphine) 2 mg Q4H PRN IV SEVERE PAIN LEVEL 7-10; Start 11/22 at 20:30 Docusate Sodium (Colace) 100 mg Q12H PRN PO CONSTIPATION; Start 11/22/16 at 20: 30 Bisacodyl (Dulcolax) 5 mg DAILY PRN PO CONSTIPATION; Start 11/22/16 at 20:30 Famotidine (Pepcid) 20 mg Q12 PO Last administered on 12/15/16 08:50; Admin Dose 20 MG; Start 11/22/16 at 21:00 Hydralazine HCl (Apresoline) 10 mg Q4H PRN IV ELEVATED SYSTOLIC BP Last administered on 12/11/16 14:35; Admin Dose 10 MG; Start 11/24/16 at 05:00 Hydralazine HCl (Apresoline) 75 mg TID PO Last administered on 12/15/16 12:33 ; Admin Dose 75 MG; Start 11/25/16 at 21:00 Ferrous Sulfate (Feosol Liquid Cup) 300 mg BID PO Last administered on 08:50; Admin Dose 300 MG; Start 12/10/16 at 21:00 Levetiracetam (Keppra Liquid) 1,000 mg BID PO Last administered on 12/15/16 08:50; Admin Dose 1,000 MG; Start 12/13/16 at 21:00 CHELLE SARAVIA Dec 15, 2016 13:54
[2016-12-15 14:00] VITALS: BP 148/74; RESP 17
[2016-12-15 20:00] VITALS: BP 167/84; RESP 19
[2016-12-15] MEDS: ATORVASTATIN 20 MG TAB PO SCH (21:07)
[2016-12-16 02:00] VITALS: BP 187/97; RESP 18
[2016-12-16] MEDS: hydrALAzine 20 MG INJ IV PRN (03:31)
[2016-12-16 04:53] VITALS: BP 136/80
[2016-12-16 08:00] VITALS: BP 167/86; RESP 18
[2016-12-16] MEDS: FERROUS SULFATE 60 MG/ML 5ML CUP PO SCH ×2 (10:23→21:21)
[2016-12-16] MEDS: LEVETIRACETAM (100 MG/ML) 5ML CUP PO SCH ×2 (10:24→21:21)
[2016-12-16] MEDS: FAMOTIDINE 20 MG TAB PO SCH ×2 (10:24→21:22)
[2016-12-16] MEDS: GABAPENTIN 300 MG CAP PO SCH ×3 (10:24→21:21)
--- NOTE | 2016-12-16 10:59 | PN ---
Date/Time of Note Date/Time of Note DATE: 12/16/16 TIME: 10:58 Assessment/Plan VTE Prophylaxis VTE Prophylaxis Intervention: SCD's Lines/Catheters IV C[facility] Type [facility]from [facility] Saline Lock Urinary Cath still in place: Yes (supra pubic) Reason Cath still needed: other (indicate) (monitor I&O) Assessment/Plan Chief Complaint/Hosp Course Assessment and plan 1. Urinary tract infection. Patient did have previous positive culture for Morganella morganii and Pseudomonas aeruginosa. off abx. Improved at present. Will monitor. 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 Urologist following the patient. Monitor for now. 3. Essential hypertension. Continue antihypertensives. Adjust as needed. 4. History of hemorrhagic CVA with left-sided hemiparesis. Continue supportive care and prophylactic Keppra. 5. History of diabetes. Stable at present. A1c within normal limits. Monitor for now. 6. Iron deficiency anemia. Continue on iron supplement Disposition plan: Awaiting placement. Case management following. Continue supportive care for now. Discussed plan of care with Dr. Costello Problems: Subjective 24 Hr Interval Summary Free Text/Dictation Comfortable at present. No signs of distress seen. Exam/Review of Systems Vital Signs Vitals Vital Signs Date Time Temp Pulse Resp B/P Pulse Ox O2 Delivery O2 Flow Rate FiO2 12/16/16 08:00 97.7 65 18 167/86 99 Intake and Output 12/15/16 12/15/16 12/16/16 15:00 23:00 07:00 Intake Total 820 ml 120 ml Output Total 900 ml 800 ml Balance -80 ml -680 ml Exam Constitutional: alert, oriented Psych: nl mood/affect Head: normocephalic Respiratory: clear to auscultation, normal air movement Cardiovascular: other (regular rate) Gastrointestinal: non-tender, soft Neurological: nl mental status, nl speech Medications Medications Current Medications Atorvastatin Calcium (Lipitor) 20 mg QHS PO Last administered on 12/15/16 21: 07; Admin Dose 20 MG; Start 11/22/16 at 21:00 Gabapentin (Neurontin) 300 mg TID PO Last administered on 12/16/16 10:24; Admin Dose 300 MG; Start 11/22/16 at 21:00 Hydroxyzine HCl (Atarax) 10 mg QHS PRN PO ITCHING; Start 11/22/16 at 20:30 Simethicone (Mylicon) 80 mg TID PO Last administered on 12/16/16 10:24; Admin Dose 80 MG; Start 11/22/16 at 21:00 Ondansetron HCl (Zofran Inj) 4 mg Q6H PRN IV NAUSEA AND/OR VOMITING; Start 11/22/16 at 20:30 Acetaminophen (Tylenol Tab) 650 mg Q6H PRN PO PAIN LEVEL 1-3 OR FEVER Last administered on 11/25/16 20:24; Admin Dose 650 MG; Start 11/22/16 at 20:30 Morphine Sulfate (morphine) 2 mg Q4H PRN IV SEVERE PAIN LEVEL 7-10; Start 11/22 at 20:30 Docusate Sodium (Colace) 100 mg Q12H PRN PO CONSTIPATION; Start 11/22/16 at 20: 30 Bisacodyl (Dulcolax) 5 mg DAILY PRN PO CONSTIPATION; Start 11/22/16 at 20:30 Famotidine (Pepcid) 20 mg Q12 PO Last administered on 12/16/16 10:24; Admin Dose 20 MG; Start 11/22/16 at 21:00 Hydralazine HCl (Apresoline) 10 mg Q4H PRN IV ELEVATED SYSTOLIC BP Last administered on 12/16/16 03:31; Admin Dose 10 MG; Start 11/24/16 at 05:00 Hydralazine HCl (Apresoline) 75 mg TID PO Last administered on 12/16/16 10:24 ; Admin Dose 75 MG; Start 11/25/16 at 21:00 Ferrous Sulfate (Feosol Liquid Cup) 300 mg BID PO Last administered on 10:23; Admin Dose 300 MG; Start 12/10/16 at 21:00 Levetiracetam (Keppra Liquid) 1,000 mg BID PO Last administered on 12/16/16 10:24; Admin Dose 1,000 MG; Start 12/13/16 at 21:00 GLORIA LESTER Dec 16, 2016 10:59
--- NOTE | 2016-12-16 13:14 | PN ---
Date/Time of Note Date/Time of Note DATE: 12/16/16 TIME: 13:10 Assessment/Plan VTE Prophylaxis VTE Prophylaxis Intervention: SCD's Lines/Catheters IV Catheter Type (from [facility]): Saline Lock Urinary Cath still in place: Yes (supra pubic) Reason Cath still needed: urinary retention Assessment/Plan Chief Complaint/Hosp Course 61-year-old male who is known to have a history of Jami gangrene. Has undergone multiple surgeries on his scrotum and insertion of suprapubic tube about 3 years earlier. His urethra is closed. He was admitted because of possible epididymitis and urinary tract infection. Presently he is doing better the scrotum is not hard and tender and no evidence of any abscess formation or collection of any fluid. Problems: Subjective 24 Hr Interval Summary Constitutional: no complaints Eyes: no complaints Respiratory: no complaints Cardiovascular: no complaints Gastrointestinal: no complaints Genitourinary: other (Suprapubic tube) Musculoskeletal: no complaints Skin: no complaints Neurologic: other (Left hemiparesis) Endocrine: no complaints Psychological: no complaints Exam/Review of Systems Vital Signs Vitals Vital Signs Date Time Temp Pulse Resp B/P Pulse Ox O2 Delivery O2 Flow Rate FiO2 12/16/16 08:00 97.7 65 18 167/86 99 Intake and Output 12/15/16 12/15/16 12/16/16 15:00 23:00 07:00 Intake Total 820 ml 120 ml Output Total 900 ml 800 ml Balance -80 ml -680 ml Exam Constitutional: alert Psych: no complaints Head: normocephalic Eyes: nl conjunctiva ENMT: nl external ears & nose Neck: non-tender Respiratory: normal air movement Cardiovascular: No edema Gastrointestinal: soft Genitourinary - Male: other (Suprapubic tube in place and draining clear urine. There is no more sign of epididymitis or orchitis) Extremities: No calf tenderness Medications Medications Current Medications Atorvastatin Calcium (Lipitor) 20 mg QHS PO Last administered on 12/15/16 21: 07; Admin Dose 20 MG; Start 11/22/16 at 21:00 Gabapentin (Neurontin) 300 mg TID PO Last administered on 12/16/16 10:24; Admin Dose 300 MG; Start 11/22/16 at 21:00 Hydroxyzine HCl (Atarax) 10 mg QHS PRN PO ITCHING; Start 11/22/16 at 20:30 Simethicone (Mylicon) 80 mg TID PO Last administered on 12/16/16 10:24; Admin Dose 80 MG; Start 11/22/16 at 21:00 Ondansetron HCl (Zofran Inj) 4 mg Q6H PRN IV NAUSEA AND/OR VOMITING; Start 11/22/16 at 20:30 Acetaminophen (Tylenol Tab) 650 mg Q6H PRN PO PAIN LEVEL 1-3 OR FEVER Last administered on 11/25/16 20:24; Admin Dose 650 MG; Start 11/22/16 at 20:30 Morphine Sulfate (morphine) 2 mg Q4H PRN IV SEVERE PAIN LEVEL 7-10; Start 11/22 at 20:30 Docusate Sodium (Colace) 100 mg Q12H PRN PO CONSTIPATION; Start 11/22/16 at 20: 30 Bisacodyl (Dulcolax) 5 mg DAILY PRN PO CONSTIPATION; Start 11/22/16 at 20:30 Famotidine (Pepcid) 20 mg Q12 PO Last administered on 12/16/16 10:24; Admin Dose 20 MG; Start 11/22/16 at 21:00 Hydralazine HCl (Apresoline) 10 mg Q4H PRN IV ELEVATED SYSTOLIC BP Last administered on 12/16/16 03:31; Admin Dose 10 MG; Start 11/24/16 at 05:00 Hydralazine HCl (Apresoline) 75 mg TID PO Last administered on 12/16/16 10:24 ; Admin Dose 75 MG; Start 11/25/16 at 21:00 Ferrous Sulfate (Feosol Liquid Cup) 300 mg BID PO Last administered on 10:23; Admin Dose 300 MG; Start 12/10/16 at 21:00 Levetiracetam (Keppra Liquid) 1,000 mg BID PO Last administered on 12/16/16 10:24; Admin Dose 1,000 MG; Start 12/13/16 at 21:00 CHERYLE BOYD MD Dec 16, 2016 13:14
[2016-12-16 13:40] VITALS: BP 181/88; PULSE 58
[2016-12-16 14:00] VITALS: BP 164/84; RESP 17
[2016-12-16 20:00] VITALS: BP 125/75; RESP 19
[2016-12-16] MEDS: ATORVASTATIN 20 MG TAB PO SCH (21:21)
[2016-12-17 02:00] VITALS: BP 109/66; RESP 19
[2016-12-17 08:00] VITALS: BP 135/73; RESP 17
[2016-12-17] MEDS: GABAPENTIN 300 MG CAP PO SCH ×4 (09:00→21:23)
[2016-12-17] MEDS: LEVETIRACETAM (100 MG/ML) 5ML CUP PO SCH ×3 (09:00→21:19)
[2016-12-17] MEDS: FAMOTIDINE 20 MG TAB PO SCH ×3 (09:00→21:23)
[2016-12-17] MEDS: FERROUS SULFATE 60 MG/ML 5ML CUP PO SCH ×3 (09:00→21:23)
--- NOTE | 2016-12-17 12:58 | PN ---
Date/Time of Note Date/Time of Note DATE: 12/17/16 TIME: 12:54 Assessment/Plan VTE Prophylaxis VTE Prophylaxis Intervention: LMWH Lines/Catheters IV Catheter Type (from [facility]): Saline Lock Urinary Cath still in place: Yes (suprapubic catheter ) Reason Cath still needed: urinary retention Assessment/Plan Chief Complaint/Hosp Course 61-year-old male who is known to have a history of Jami gangrene. Has undergone multiple surgeries on his scrotum and insertion of suprapubic tube about 3 years earlier. His urethra is closed. He was admitted because of possible epididymitis and urinary tract infection. Presently he is doing better the scrotum is not hard and tender and no evidence of any abscess formation or collection of any fluid. 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 That could happen and it is not a problem Problems: Subjective 24 Hr Interval Summary Constitutional: no complaints Eyes: no complaints ENT: no complaints Respiratory: no complaints Cardiovascular: no complaints Gastrointestinal: no complaints Genitourinary: other (Patient has a suprapubic tube that is draining well, his nurse tells me that also urine coming out of the urethra at the penoscrotal area.) Neurologic: other (Left hemiparesis) Exam/Review of Systems Vital Signs Vitals Vital Signs Date Time Temp Pulse Resp B/P Pulse Ox O2 Delivery O2 Flow Rate FiO2 12/17/16 08:00 97.4 51 17 135/73 97 Intake and Output 12/16/16 12/16/16 12/17/16 15:00 23:00 07:00 Intake Total 360 ml 240 ml Output Total 608 ml 200 ml Balance -248 ml 40 ml Exam Constitutional: alert Psych: no complaints Eyes: nl conjunctiva Neck: supple Respiratory: normal air movement Cardiovascular: No edema Gastrointestinal: soft Genitourinary - Male: other (Suprapubic tube, scrotum is normal. 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 from his Jami gangrene.) Extremities: other (Left hemiparesis) Medications Medications Current Medications Atorvastatin Calcium (Lipitor) 20 mg QHS PO Last administered on 12/16/16t 21: 21; Admin Dose 20 MG; Start 11/22/16 at 21:00 Gabapentin (Neurontin) 300 mg TID PO Last administered on 12/17/16 09:45; Admin Dose 300 MG; Start 11/22/16 at 21:00 Hydroxyzine HCl (Atarax) 10 mg QHS PRN PO ITCHING; Start 11/22/16 at 20:30 Simethicone (Mylicon) 80 mg TID PO Last administered on 12/17/16 09:45; Admin Dose 80 MG; Start 11/22/16 at 21:00 Ondansetron HCl (Zofran Inj) 4 mg Q6H PRN IV NAUSEA AND/OR VOMITING; Start 11/22/16 at 20:30 Acetaminophen (Tylenol Tab) 650 mg Q6H PRN PO PAIN LEVEL 1-3 OR FEVER Last administered on 11/25/16 20:24; Admin Dose 650 MG; Start 11/22/16 at 20:30 Morphine Sulfate (morphine) 2 mg Q4H PRN IV SEVERE PAIN LEVEL 7-10; Start 11/22 at 20:30 Docusate Sodium (Colace) 100 mg Q12H PRN PO CONSTIPATION; Start 11/22/16 at 20: 30 Bisacodyl (Dulcolax) 5 mg DAILY PRN PO CONSTIPATION; Start 11/22/16 at 20:30 Famotidine (Pepcid) 20 mg Q12 PO Last administered on 12/17/16 09:46; Admin Dose 20 MG; Start 11/22/16 at 21:00 Hydralazine HCl (Apresoline) 10 mg Q4H PRN IV ELEVATED SYSTOLIC BP Last administered on 12/16/16 03:31; Admin Dose 10 MG; Start 11/24/16 at 05:00 Hydralazine HCl (Apresoline) 75 mg TID PO Last administered on 12/17/16 09:46 ; Admin Dose 75 MG; Start 11/25/16 at 21:00 Ferrous Sulfate (Feosol Liquid Cup) 300 mg BID PO Last administered on 09:45; Admin Dose 300 MG; Start 12/10/16 at 21:00 Levetiracetam (Keppra Liquid) 1,000 mg BID PO Last administered on 12/17/16 09:45; Admin Dose 1,000 MG; Start 12/13/16 at 21:00 CHERYLE BOYD MD Dec 17, 2016 12:58
--- NOTE | 2016-12-17 13:33 | PN ---
Date/Time of Note Date/Time of Note DATE: 12/17/16 TIME: 13:32 Assessment/Plan VTE Prophylaxis VTE Prophylaxis Intervention: SCD's Lines/Catheters IV Catheter Type (from Nrs): Saline Lock Urinary Cath still in place: Yes (suprapubic catheter ) Reason Cath still needed: other (indicate) (monitor I&O) Assessment/Plan Chief Complaint/Hosp Course Assessment and plan 1. Urinary tract infection. Patient did have previous positive culture for Morganella morganii and Pseudomonas aeruginosa. off abx. Improved at present. Will monitor. 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 Urologist following the patient. Monitor for now. 3. Essential hypertension. Continue antihypertensives. Adjust as needed. 4. History of hemorrhagic CVA with left-sided hemiparesis. Continue supportive care and prophylactic Keppra. 5. History of diabetes. Stable at present. A1c within normal limits. Monitor for now. 6. Iron deficiency anemia. Continue on iron supplement Disposition plan: Awaiting placement. Case management following. Continue supportive care for now. check am labs Discussed plan of care with Dr. Costello Problems: Subjective 24 Hr Interval Summary Free Text/Dictation no s/s of distress. resting at this time. Exam/Review of Systems Vital Signs Vitals Vital Signs Date Time Temp Pulse Resp B/P Pulse Ox O2 Delivery O2 Flow Rate FiO2 12/17/16 08:00 97.4 51 17 135/73 97 Intake and Output 12/16/16 12/16/16 12/17/16 15:00 23:00 07:00 Intake Total 360 ml 240 ml Output Total 608 ml 200 ml Balance -248 ml 40 ml Exam Constitutional: alert, oriented Psych: nl mood/affect Head: normocephalic Respiratory: clear to auscultation, normal air movement Cardiovascular: other (regular rate) Gastrointestinal: non-tender, soft Neurological: nl mental status, nl speech Medications Medications Current Medications Atorvastatin Calcium (Lipitor) 20 mg QHS PO Last administered on 12/16/16 21: 21; Admin Dose 20 MG; Start 11/22/16 at 21:00 Gabapentin (Neurontin) 300 mg TID PO Last administered on 12/16/16 21:21; Admin Dose 300 MG; Start 11/22/16 at 21:00 Hydroxyzine HCl (Atarax) 10 mg QHS PRN PO ITCHING; Start 11/22/16 at 20:30 Simethicone (Mylicon) 80 mg TID PO Last administered on 12/16/16 21:21; Admin Dose 80 MG; Start 11/22/16 at 21:00 Ondansetron HCl (Zofran Inj) 4 mg Q6H PRN IV NAUSEA AND/OR VOMITING; Start 11/22/16 at 20:30 Acetaminophen (Tylenol Tab) 650 mg Q6H PRN PO PAIN LEVEL 1-3 OR FEVER Last administered on 11/25/16 20:24; Admin Dose 650 MG; Start 11/22/16 at 20:30 Morphine Sulfate (morphine) 2 mg Q4H PRN IV SEVERE PAIN LEVEL 7-10; Start 11/22 at 20:30 Docusate Sodium (Colace) 100 mg Q12H PRN PO CONSTIPATION; Start 11/22/16 at 20: 30 Bisacodyl (Dulcolax) 5 mg DAILY PRN PO CONSTIPATION; Start 11/22/16 at 20:30 Famotidine (Pepcid) 20 mg Q12 PO Last administered on 12/16/16 21:22; Admin Dose 20 MG; Start 11/22/16 at 21:00 Hydralazine HCl (Apresoline) 10 mg Q4H PRN IV ELEVATED SYSTOLIC BP Last administered on 12/16/16 03:31; Admin Dose 10 MG; Start 11/24/16 at 05:00 Hydralazine HCl (Apresoline) 75 mg TID PO Last administered on 12/16/16 21:21 ; Admin Dose 75 MG; Start 11/25/16 at 21:00 Ferrous Sulfate (Feosol Liquid Cup) 300 mg BID PO Last administered on 21:21; Admin Dose 300 MG; Start 12/10/16 at 21:00 Levetiracetam (Keppra Liquid) 1,000 mg BID PO Last administered on 12/16/16 21:21; Admin Dose 1,000 MG; Start 12/13/16 at 21:00 GLORIA LESTER Dec 17, 2016 13:33
[2016-12-17 13:44] VITALS: BP 167/83; PULSE 54; RESP 18
[2016-12-17] MEDS: hydrALAzine 20 MG INJ IV PRN ×2 (13:44→23:26)
[2016-12-17 14:00] VITALS: BP 125/67; RESP 17
[2016-12-17 21:12] VITALS: BP 161/88; RESP 16
[2016-12-17] MEDS: ATORVASTATIN 20 MG TAB PO SCH (21:23)
[2016-12-18] VITALS (7 sets, daily range): BP systolic 145–166; BP diastolic 72–90; PULSE 64–85; RESP 16–18
[2016-12-18 05:48] LABS: ABNORMAL IP MESSAGE 1; BASOPHIL # 0.1 10^3/ul (0.0-0.1); EOSINOPHILS # 0.2 10^3/ul (0.0-0.5); EOSINOPHILS % 2.8 % (0.0-7.0); HEMATOCRIT 37.3 % (42.0-52.0); HEMOGLOBIN 11.3 g/dl (14.0-18.0); LYMPHOCYTES # 2.2 10^3/ul (0.8-2.9); LYMPHOCYTES % 30.2 % (15.0-51.0); MEAN CORPUSCULAR HEMOGLOBIN 18.9 pg (29.0-33.0); MEAN CORPUSCULAR HGB CONC 30.3 g/dl (32.0-37.0); MEAN CORPUSCULAR VOLUME 62.3 fl (82.0-101.0); MONOCYTE # 0.6 10^3/ul (0.3-0.9); MONOCYTES % 8.6 % (0.0-11.0); NEUTROPHIL # 4.2 10^3/ul (1.6-7.5); NEUTROPHILS % 57.3 % (39.0-77.0); PLATELET COUNT 189 10^3/UL (140-415); POSITIVE DIFF @See below; RED BLOOD COUNT 5.99 10^6/ul (4.70-6.10); RED CELL DISTRIBUTION WIDTH 19.2 % (11.5-14.5); WHITE BLOOD COUNT 7.2 10^3/ul (4.8-10.8)
[2016-12-18 06:20] LABS: CALCIUM 9.1 mg/dl (8.4-10.2); CREATININE 0.74 mg/dl (0.61-1.24)
[2016-12-18 06:41] LABS: POTASSIUM 2.9 mmol/L (3.5-5.1)
[2016-12-18] MEDS ORDERED: DEXTROSE 5% IVPB ONE (07:30)
[2016-12-18] MEDS ORDERED: POTASSIUM CHLORIDE IVPB ONE (07:30)
[2016-12-18] MEDS: POTASSIUM CHLORIDE 30 MEQ in DEXTROSE 5% 250 ML IV SCH ×2 (08:22→11:37)
[2016-12-18] MEDS: FERROUS SULFATE 60 MG/ML 5ML CUP PO SCH (08:35)
[2016-12-18] MEDS: FAMOTIDINE 20 MG TAB PO SCH ×2 (08:35→21:09)
[2016-12-18] MEDS: GABAPENTIN 300 MG CAP PO SCH ×3 (08:35→21:09)
[2016-12-18] MEDS: LEVETIRACETAM (100 MG/ML) 5ML CUP PO SCH ×2 (08:36→21:09)
[2016-12-18] MEDS: hydrALAzine 20 MG INJ IV PRN (08:41)
--- NOTE | 2016-12-18 14:41 | PN ---
Date/Time of Note Date/Time of Note DATE: 12/18/16 TIME: 14:38 Assessment/Plan VTE Prophylaxis VTE Prophylaxis Intervention: SCD's Lines/Catheters IV Catheter Type (from [facility]): Saline Lock Urinary Cath still in place: Yes (suprapubic catheter) Reason Cath still needed: other (indicate) Assessment/Plan Chief Complaint/Hosp Course 1. Complicated urinary tract infection. Urine culture positive for Morganella morganii and Pseudomonas aeruginosa. S/P antibiotics. 2. History of Peyronie's disease. Status post multiple surgeries on his scrotum and insertion of a suprapubic catheter. S/P removal of suprapubic catheter. The patient being followed by urology. 3. Essential hypertension. Continue antihypertensives. Adjust antihypertensives to obtain optimal blood pressure control. 4. 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 Continue supportive care. Continue prophylactic Keppra. 5. History of diabetes mellitus. Was previously on insulin at home. Currently off antidiabetic medications. Hemoglobin A1c within normal limits. 6. Microcytic, hypochromic anemia. S/P iron supplements. 7. Fluids, electrolytes, and nutrition. Mechanical soft diet. 8. DVT prophylaxis. Bilateral sequential compression devices. 9. Plan. Patent remains stable. Needs placement. Recheck K+ in the morning. Case discussed with Dr. Richardson. Problems: Subjective 24 Hr Interval Summary Free Text/Dictation The patient remains afebrile. Exam/Review of Systems Vital Signs Vitals Vital Signs Date Time Temp Pulse Resp B/P Pulse Ox O2 Delivery O2 Flow Rate FiO2 12/18/16 10:15 64 145/77 12/18/16 08:13 98.0 16 97 Intake and Output 12/17/16 12/17/16 12/18/16 15:00 23:00 07:00 Intake Total 840 ml 480 ml Output Total 500 ml 950 ml Balance 340 ml -470 ml Exam General: Adequately build 61 year-old male lying in bed in no apparent distress. HEENT: Normocephalic, atraumatic. Eyes: Anicteric sclerae, conjunctivae clear. ENT: Nasal septum midline, oral mucosa moist. Neck supple, no JVD noticed. Respiratory: Bilaterally diminished breath sounds. No use of accessory muscles of respiration. No adventitious breath sounds. Cardiovascular: S1, S2 heard. Regular rate and rhythm. Abdomen: Soft, nontender, and nondistended. Bowel sounds positive in all 4 quadrants. Genitourinary: Scrotal edema. Suprapubic catheter in place. Extremities: No cyanosis, no clubbing, no edema. Peripheral pulses palpable. Neurologic: The patient is awake and alert. Left sylvain-plegia. Results Result Diagram: 12/18/16 0511 12/18/16 0511 Results 24 hrs Laboratory Tests Test 12/18/16 05:11 White Blood Count 7.2 Red Blood Count 5.99 Hemoglobin 11.3 L Hematocrit 37.3 L Mean Corpuscular Volume 62.3 L Mean Corpuscular Hemoglobin 18.9 L Mean Corpuscular Hemoglobin Concent 30.3 L Red Cell Distribution Width 19.2 H Platelet Count 189 Mean Platelet Volume 10.0 Neutrophils % 57.3 Lymphocytes % 30.2 Monocytes % 8.6 Eosinophils % 2.8 Basophils % 1.0 Nucleated Red Blood Cells % 0.0 Neutrophils # 4.2 Lymphocytes # 2.2 Monocytes # 0.6 Eosinophils # 0.2 Basophils # 0.1 Nucleated Red Blood Cells # 0.0 Sodium Level 144 Potassium Level 2.9 *L Chloride Level 103 Carbon Dioxide Level 28 Anion Gap 16 Blood Urea Nitrogen 20 Creatinine 0.74 Glucose Level 83 Calcium Level 9.1 Medications Medications Current Medications Atorvastatin Calcium (Lipitor) 20 mg QHS PO Last administered on 12/17/16 21: 23; Admin Dose 20 MG; Start 11/22/16 at 21:00 Gabapentin (Neurontin) 300 mg TID PO Last administered on 12/17/16 21:23; Admin Dose 300 MG; Start 11/22/16 at 21:00 Hydroxyzine HCl (Atarax) 10 mg QHS PRN PO ITCHING; Start 11/22/16 at 20:30 Simethicone (Mylicon) 80 mg TID PO Last administered on 12/17/16 21:23; Admin Dose 80 MG; Start 11/22/16 at 21:00 Ondansetron HCl (Zofran Inj) 4 mg Q6H PRN IV NAUSEA AND/OR VOMITING; Start 11/22/16 at 20:30 Acetaminophen (Tylenol Tab) 650 mg Q6H PRN PO PAIN LEVEL 1-3 OR FEVER Last administered on 11/25/16 20:24; Admin Dose 650 MG; Start 11/22/16 at 20:30 Morphine Sulfate (morphine) 2 mg Q4H PRN IV SEVERE PAIN LEVEL 7-10; Start 11/22 at 20:30 Docusate Sodium (Colace) 100 mg Q12H PRN PO CONSTIPATION; Start 11/22/16 at 20: 30 Bisacodyl (Dulcolax) 5 mg DAILY PRN PO CONSTIPATION; Start 11/22/16 at 20:30 Famotidine (Pepcid) 20 mg Q12 PO Last administered on 12/17/16 21:23; Admin Dose 20 MG; Start 11/22/16 at 21:00 Hydralazine HCl (Apresoline) 10 mg Q4H PRN IV ELEVATED SYSTOLIC BP Last administered on 12/18/16 08:41; Admin Dose 10 MG; Start 11/24/16 at 05:00 Hydralazine HCl (Apresoline) 75 mg TID PO Last administered on 12/17/16 21:20 ; Admin Dose 75 MG; Start 11/25/16 at 21:00 Ferrous Sulfate (Feosol Liquid Cup) 300 mg BID PO Last administered on 21:23; Admin Dose 300 MG; Start 12/10/16 at 21:00 Levetiracetam (Keppra Liquid) 1,000 mg BID PO Last administered on 12/17/16 21:19; Admin Dose 1,000 MG; Start 12/13/16 at 21:00 ADELAIDA GRIMALDO NP Dec 18, 2016 14:41 ADELAIDA GRIMALDO NP Dec 18, 2016 14:41
[2016-12-18] MEDS: ATORVASTATIN 20 MG TAB PO SCH (21:09)
[2016-12-19 02:58] VITALS: BP 145/77; RESP 20
[2016-12-19 06:47] LABS: CREATININE 0.78 mg/dl (0.61-1.24); POTASSIUM 3.3 mmol/L (3.5-5.1)
[2016-12-19] MEDS ORDERED: POTASSIUM CHLORIDE (SR) 20 MEQ TAB PO STA (07:35)
--- NOTE | 2016-12-19 07:37 | PN ---
Date/Time of Note Date/Time of Note DATE: 12/19/16 TIME: 07:36 Assessment/Plan VTE Prophylaxis VTE Prophylaxis Intervention: SCD's Lines/Catheters IV Catheter Type (from [facility] Saline Lock Urinary Cath still in place: Yes (suprapubic catheter) Reason Cath still needed: other (indicate) Assessment/Plan Chief Complaint/Hosp Course 1. Complicated urinary tract infection. Urine culture positive for Morganella morganii and Pseudomonas aeruginosa. S/P antibiotics. 2. History of Peyronie's disease. Status post multiple surgeries on his scrotum and insertion of a suprapubic catheter. S/P removal of suprapubic catheter. The patient being followed by urology. 3. Essential hypertension. Continue antihypertensives. Adjust antihypertensives to obtain optimal blood pressure control. 4. 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 Continue supportive care. Continue prophylactic Keppra. 5. History of diabetes mellitus. Was previously on insulin at home. Currently off antidiabetic medications. Hemoglobin A1c within normal limits. 6. Microcytic, hypochromic anemia. S/P iron supplements. 7. Fluids, electrolytes, and nutrition. Mechanical soft diet. 8. DVT prophylaxis. Bilateral sequential compression devices. 9. Plan. Patent remains stable. Needs placement. Replete K+. Case discussed with Dr. Richardson. Problems: Subjective 24 Hr Interval Summary Free Text/Dictation The patient remains afebrile. Exam/Review of Systems Vital Signs Vitals Vital Signs Date Time Temp Pulse Resp B/P Pulse Ox O2 Delivery O2 Flow Rate FiO2 12/19/16 02:58 96.0 58 20 145/77 96 Intake and Output 12/18/16 12/18/16 12/19/16 15:00 23:00 07:00 Intake Total 530 ml 665 ml 250 ml Output Total 450 ml 600 ml Balance 530 ml 215 ml -350 ml Exam General: Adequately build 61 year-old male lying in bed in no apparent distress. HEENT: Normocephalic, atraumatic. Eyes: Anicteric sclerae, conjunctivae clear. ENT: Nasal septum midline, oral mucosa moist. Neck supple, no JVD noticed. Respiratory: Bilaterally diminished breath sounds. No use of accessory muscles of respiration. No adventitious breath sounds. Cardiovascular: S1, S2 heard. Regular rate and rhythm. Abdomen: Soft, nontender, and nondistended. Bowel sounds positive in all 4 quadrants. Genitourinary: Scrotal edema. Suprapubic catheter in place. Extremities: No cyanosis, no clubbing, no edema. Peripheral pulses palpable. Neurologic: The patient is awake and alert. Left sylvain-plegia. Results Result Diagram: 12/18/16 0511 12/19/16 0513 Results 24 hrs Laboratory Tests Test 12/19/16 05:13 Sodium Level 145 H Potassium Level 3.3 L Chloride Level 107 Carbon Dioxide Level 30 Anion Gap 11 Blood Urea Nitrogen 20 Creatinine 0.78 Glucose Level 87 Calcium Level 9.0 Magnesium Level 2.1 Medications Medications Current Medications Atorvastatin Calcium (Lipitor) 20 mg QHS PO Last administered on 12/18/16 21: 09; Admin Dose 20 MG; Start 11/22/16 at 21:00 Gabapentin (Neurontin) 300 mg TID PO Last administered on 12/18/16 21:09; Admin Dose 300 MG; Start 11/22/16 at 21:00 Hydroxyzine HCl (Atarax) 10 mg QHS PRN PO ITCHING; Start 11/22/16 at 20:30 Simethicone (Mylicon) 80 mg TID PO Last administered on 12/18/16 21:09; Admin Dose 80 MG; Start 11/22/16 at 21:00 Ondansetron HCl (Zofran Inj) 4 mg Q6H PRN IV NAUSEA AND/OR VOMITING; Start 11/22/16 at 20:30 Acetaminophen (Tylenol Tab) 650 mg Q6H PRN PO PAIN LEVEL 1-3 OR FEVER Last administered on 11/25/16 20:24; Admin Dose 650 MG; Start 11/22/16 at 20:30 Morphine Sulfate (morphine) 2 mg Q4H PRN IV SEVERE PAIN LEVEL 7-10; Start 11/22 at 20:30 Docusate Sodium (Colace) 100 mg Q12H PRN PO CONSTIPATION; Start 11/22/16 at 20: 30 Bisacodyl (Dulcolax) 5 mg DAILY PRN PO CONSTIPATION; Start 11/22/16 at 20:30 Famotidine (Pepcid) 20 mg Q12 PO Last administered on 12/18/16 21:09; Admin Dose 20 MG; Start 11/22/16 at 21:00 Hydralazine HCl (Apresoline) 75 mg TID PO Last administered on 12/18/16 21:09 ; Admin Dose 75 MG; Start 11/25/16 at 21:00 Levetiracetam (Keppra Liquid) 1,000 mg BID PO Last administered on 12/18/16 21:09; Admin Dose 1,000 MG; Start 12/13/16 at 21:00 ADELAIDA GRIMALDO NP Dec 19, 2016 07:37
[2016-12-19 08:50] VITALS: BP 135/83; RESP 16
[2016-12-19] MEDS: GABAPENTIN 300 MG CAP PO SCH ×3 (09:00→21:53)
[2016-12-19] MEDS: FAMOTIDINE 20 MG TAB PO SCH ×3 (09:00→21:53)
[2016-12-19] MEDS: LEVETIRACETAM (100 MG/ML) 5ML CUP PO SCH ×2 (09:44→21:52)
[2016-12-19 14:00] VITALS: BP 140/65; RESP 18
[2016-12-19] MEDS: AMLODIPINE 2.5 MG TAB PO SCH (14:16)
[2016-12-19 20:21] VITALS: BP 133/76; RESP 18
[2016-12-19] MEDS: ATORVASTATIN 20 MG TAB PO SCH (21:52)
[2016-12-20 02:45] VITALS: BP 124/68; RESP 18
[2016-12-20 06:19] LABS: CALCIUM 8.6 mg/dl (8.4-10.2); CREATININE 0.82 mg/dl (0.61-1.24); POTASSIUM 3.6 mmol/L (3.5-5.1)
[2016-12-20 08:00] VITALS: BP 138/64; RESP 18
[2016-12-20] MEDS: FAMOTIDINE 20 MG TAB PO SCH ×2 (08:39→20:07)
[2016-12-20] MEDS: GABAPENTIN 300 MG CAP PO SCH ×6 (08:39→20:06)
[2016-12-20] MEDS: AMLODIPINE 2.5 MG TAB PO SCH (08:39)
--- NOTE | 2016-12-20 09:30 | PN ---
Date/Time of Note Date/Time of Note DATE: 12/20/16 TIME: 09:29 Assessment/Plan VTE Prophylaxis VTE Prophylaxis Intervention: SCD's Lines/Catheters IV Catheter Type (from [facility]): Saline Lock Urinary Cath still in place: Yes (suprapubic) Reason Cath still needed: other (indicate) Assessment/Plan Chief Complaint/Hosp Course 1. Complicated urinary tract infection. Urine culture positive for Morganella morganii and Pseudomonas aeruginosa. S/P antibiotics. 2. History of Peyronie's disease. Status post multiple surgeries on his scrotum and insertion of a suprapubic catheter. S/P removal of suprapubic catheter. The patient being followed by urology. 3. Essential hypertension. Continue antihypertensives. Adjust antihypertensives to obtain optimal blood pressure control. 4. 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 Continue supportive care. Continue prophylactic Keppra. 5. History of diabetes mellitus. Was previously on insulin at home. Currently off antidiabetic medications. Hemoglobin A1c within normal limits. 6. Microcytic, hypochromic anemia. S/P iron supplements. 7. Fluids, electrolytes, and nutrition. Mechanical soft diet. 8. DVT prophylaxis. Bilateral sequential compression devices. 9. Plan. Patent remains stable. Needs placement. Case discussed with Dr. Richardson. Problems: Subjective 24 Hr Interval Summary Free Text/Dictation The patient remains afebrile. Exam/Review of Systems Vital Signs Vitals Vital Signs Date Time Temp Pulse Resp B/P Pulse Ox O2 Delivery O2 Flow Rate FiO2 12/20/16 08:00 98.8 78 18 138/64 96 Intake and Output 12/19/16 12/19/16 12/20/16 15:00 23:00 07:00 Intake Total 600 ml 600 ml Output Total 400 ml 300 ml Balance 200 ml 300 ml Exam General: Adequately build 61 year-old male lying in bed in no apparent distress. HEENT: Normocephalic, atraumatic. Eyes: Anicteric sclerae, conjunctivae clear. ENT: Nasal septum midline, oral mucosa moist. Neck supple, no JVD noticed. Respiratory: Bilaterally diminished breath sounds. No use of accessory muscles of respiration. No adventitious breath sounds. Cardiovascular: S1, S2 heard. Regular rate and rhythm. Abdomen: Soft, nontender, and nondistended. Bowel sounds positive in all 4 quadrants. Genitourinary: Scrotal edema. Suprapubic catheter in place. Extremities: No cyanosis, no clubbing, no edema. Peripheral pulses palpable. Neurologic: The patient is awake and alert. Left sylvain-plegia. Results Result Diagram: 12/18/16 0511 12/20/16 0517 Results 24 hrs Laboratory Tests Test 12/20/16 05:17 Sodium Level 144 Potassium Level 3.6 Chloride Level 106 Carbon Dioxide Level 27 Anion Gap 15 Blood Urea Nitrogen 22 H Creatinine 0.82 Glucose Level 82 Calcium Level 8.6 Magnesium Level 2.3 Medications Medications Current Medications Atorvastatin Calcium (Lipitor) 20 mg QHS PO Last administered on 12/19/16 21: 52; Admin Dose 20 MG; Start 11/22/16 at 21:00 Gabapentin (Neurontin) 300 mg TID PO Last administered on 12/20/16 08:39; Admin Dose 300 MG; Start 11/22/16 at 21:00 Hydroxyzine HCl (Atarax) 10 mg QHS PRN PO ITCHING; Start 11/22/16 at 20:30 Simethicone (Mylicon) 80 mg TID PO Last administered on 12/19/16 21:52; Admin Dose 80 MG; Start 11/22/16 at 21:00 Ondansetron HCl (Zofran Inj) 4 mg Q6H PRN IV NAUSEA AND/OR VOMITING; Start 11/22/16 at 20:30 Acetaminophen (Tylenol Tab) 650 mg Q6H PRN PO PAIN LEVEL 1-3 OR FEVER Last administered on 11/25/16 20:24; Admin Dose 650 MG; Start 11/22/16 at 20:30 Morphine Sulfate (morphine) 2 mg Q4H PRN IV SEVERE PAIN LEVEL 7-10; Start 11/22 at 20:30 Docusate Sodium (Colace) 100 mg Q12H PRN PO CONSTIPATION; Start 11/22/16 at 20: 30 Bisacodyl (Dulcolax) 5 mg DAILY PRN PO CONSTIPATION; Start 11/22/16 at 20:30 Famotidine (Pepcid) 20 mg Q12 PO Last administered on 12/20/16 08:39; Admin Dose 20 MG; Start 11/22/16 at 21:00 Hydralazine HCl (Apresoline) 75 mg TID PO Last administered on 12/20/16 08:39 ; Admin Dose 75 MG; Start 11/25/16 at 21:00 Levetiracetam (Keppra Liquid) 1,000 mg BID PO Last administered on 12/19/16 21:52; Admin Dose 1,000 MG; Start 12/13/16 at 21:00 Amlodipine Besylate (Norvasc) 2.5 mg DAILY PO Last administered on 12/20/16 08 :39; Admin Dose 2.5 MG; Start 12/19/16 at 11:00 ADELAIDA GRIMALDO NP Dec 20, 2016 09:30
[2016-12-20] MEDS: LEVETIRACETAM (100 MG/ML) 5ML CUP PO SCH ×2 (10:19→20:06)
[2016-12-20 14:00] VITALS: BP 142/80; RESP 18
[2016-12-20 19:43] VITALS: BP 131/73; RESP 20
[2016-12-20] MEDS: ATORVASTATIN 20 MG TAB PO SCH (20:06)
[2016-12-21 02:06] VITALS: BP 131/72; RESP 16
[2016-12-21 06:50] LABS: CALCIUM 8.9 mg/dl (8.4-10.2); CREATININE 0.92 mg/dl (0.61-1.24); POTASSIUM 4.5 mmol/L (3.5-5.1)
[2016-12-21 07:02] LABS: MAGNESIUM 2.2 mg/dl (1.7-2.5); PHOSPHORUS 4.9 mg/dl (2.5-4.9)
[2016-12-21 08:00] VITALS: BP 150/76; RESP 18
[2016-12-21] MEDS: LEVETIRACETAM (100 MG/ML) 5ML CUP PO SCH ×2 (09:06→21:14)
[2016-12-21] MEDS: GABAPENTIN 300 MG CAP PO SCH ×3 (09:06→21:17)
[2016-12-21] MEDS: FAMOTIDINE 20 MG TAB PO SCH ×2 (09:07→21:14)
[2016-12-21] MEDS: AMLODIPINE 2.5 MG TAB PO SCH (09:07)
--- NOTE | 2016-12-21 13:56 | PN ---
Date/Time of Note Date/Time of Note DATE: 12/21/16 TIME: 13:50 Assessment/Plan VTE Prophylaxis VTE Prophylaxis Intervention: SCD's Lines/Catheters IV Catheter Type (from [facility]): Saline Lock Assessment/Plan Chief Complaint/Hosp Course 1. Complicated urinary tract infection. Urine culture positive for Morganella morganii and Pseudomonas aeruginosa. S/P antibiotics. 2. History of Peyronie's disease. Status post multiple surgeries on his scrotum and insertion of a suprapubic catheter. S/P removal of suprapubic catheter. The patient being followed by urology. 3. Essential hypertension. Continue antihypertensives. Adjust antihypertensives to obtain optimal blood pressure control. 4. 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 Continue supportive care. Continue prophylactic Keppra. 5. History of diabetes mellitus. Was previously on insulin at home. Currently off antidiabetic medications. Hemoglobin A1c within normal limits. 6. Microcytic, hypochromic anemia. S/P iron supplements. 7. Fluids, electrolytes, and nutrition. Mechanical soft diet. 8. DVT prophylaxis. Bilateral sequential compression devices. 9. Plan. Patent remains stable. Needs placement. Case discussed with Dr. Richardson. Problems: Subjective 24 Hr Interval Summary Free Text/Dictation No changes in status. Exam/Review of Systems Vital Signs Vitals Vital Signs Date Time Temp Pulse Resp B/P Pulse Ox O2 Delivery O2 Flow Rate FiO2 12/21/16 08:00 98.6 76 18 150/76 96 Intake and Output 12/20/16 12/20/16 12/21/16 15:00 23:00 07:00 Intake Total 230 ml Output Total 350 ml Balance -120 ml Exam General: Adequately build 61 year-old male lying in bed in no apparent distress. HEENT: Normocephalic, atraumatic. Eyes: Anicteric sclerae, conjunctivae clear. ENT: Nasal septum midline, oral mucosa moist. Neck supple, no JVD noticed. Respiratory: Bilaterally diminished breath sounds. No use of accessory muscles of respiration. No adventitious breath sounds. Cardiovascular: S1, S2 heard. Regular rate and rhythm. Abdomen: Soft, nontender, and nondistended. Bowel sounds positive in all 4 quadrants. Genitourinary: Scrotal edema. Suprapubic catheter in place. Extremities: No cyanosis, no clubbing, no edema. Peripheral pulses palpable. Neurologic: The patient is awake and alert. Left sylvain-plegia. Results Result Diagram: 12/18/16 0511 12/21/16 0540 Results 24 hrs Laboratory Tests Test 12/21/16 05:40 Sodium Level 144 Potassium Level 4.5 Chloride Level 109 Carbon Dioxide Level 25 Anion Gap 15 Blood Urea Nitrogen 26 H Creatinine 0.92 Glucose Level 87 Calcium Level 8.9 Phosphorus Level 4.9 Magnesium Level 2.2 Medications Medications Current Medications Atorvastatin Calcium (Lipitor) 20 mg QHS PO Last administered on 12/20/16 20: 06; Admin Dose 20 MG; Start 11/22/16 at 21:00 Gabapentin (Neurontin) 300 mg TID PO Last administered on 12/21/16 09:06; Admin Dose 300 MG; Start 11/22/16 at 21:00 Hydroxyzine HCl (Atarax) 10 mg QHS PRN PO ITCHING; Start 11/22/16 at 20:30 Simethicone (Mylicon) 80 mg TID PO Last administered on 12/21/16 09:07; Admin Dose 80 MG; Start 11/22/16 at 21:00 Ondansetron HCl (Zofran Inj) 4 mg Q6H PRN IV NAUSEA AND/OR VOMITING; Start 11/22/16 at 20:30 Acetaminophen (Tylenol Tab) 650 mg Q6H PRN PO PAIN LEVEL 1-3 OR FEVER Last administered on 11/25/16 20:24; Admin Dose 650 MG; Start 11/22/16 at 20:30 Morphine Sulfate (morphine) 2 mg Q4H PRN IV SEVERE PAIN LEVEL 7-10; Start 11/22 at 20:30 Docusate Sodium (Colace) 100 mg Q12H PRN PO CONSTIPATION; Start 11/22/16 at 20: 30 Bisacodyl (Dulcolax) 5 mg DAILY PRN PO CONSTIPATION; Start 11/22/16 at 20:30 Famotidine (Pepcid) 20 mg Q12 PO Last administered on 12/21/16 09:07; Admin Dose 20 MG; Start 11/22/16 at 21:00 Hydralazine HCl (Apresoline) 75 mg TID PO Last administered on 12/21/16 09:07 ; Admin Dose 75 MG; Start 11/25/16 at 21:00 Levetiracetam (Keppra Liquid) 1,000 mg BID PO Last administered on 12/21/16 09 :06; Admin Dose 1,000 MG; Start 12/13/16 at 21:00 Amlodipine Besylate (Norvasc) 2.5 mg DAILY PO Last administered on 12/21/16 09 :07; Admin Dose 2.5 MG; Start 12/19/16 at 11:00 ADELAIDA GRIMALDO NP Dec 21, 2016 13:56
[2016-12-21 14:00] VITALS: BP 156/80; RESP 20
[2016-12-21 21:05] VITALS: BP 125/71; RESP 18
[2016-12-21] MEDS: ATORVASTATIN 20 MG TAB PO SCH (21:17)
[2016-12-22 03:01] VITALS: BP 147/74; RESP 18
[2016-12-22 07:13] LABS: CALCIUM 8.8 mg/dl (8.4-10.2); CREATININE 0.8 mg/dl (0.61-1.24); POTASSIUM 3.9 mmol/L (3.5-5.1)
[2016-12-22 07:59] VITALS: BP 160/74; RESP 18
[2016-12-22] MEDS: GABAPENTIN 300 MG CAP PO SCH ×4 (09:44→21:30)
[2016-12-22] MEDS: LEVETIRACETAM (100 MG/ML) 5ML CUP PO SCH ×2 (09:44→20:39)
[2016-12-22] MEDS: AMLODIPINE 2.5 MG TAB PO SCH (09:44)
[2016-12-22] MEDS: FAMOTIDINE 20 MG TAB PO SCH ×3 (09:44→21:30)
--- NOTE | 2016-12-22 11:22 | PN ---
Date/Time of Note Date/Time of Note DATE: 12/22/16 TIME: 11:21 Assessment/Plan VTE Prophylaxis VTE Prophylaxis Intervention: SCD's Lines/Catheters IV Catheter Type (from [facility]): Saline Lock Assessment/Plan Chief Complaint/Hosp Course 1. Complicated urinary tract infection. Urine culture positive for Morganella morganii and Pseudomonas aeruginosa. S/P antibiotics. 2. History of Peyronie's disease. Status post multiple surgeries on his scrotum and insertion of a suprapubic catheter. S/P removal of suprapubic catheter. The patient being followed by urology. 3. Essential hypertension. Continue antihypertensives. Adjust antihypertensives to obtain optimal blood pressure control. 4. 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 Continue supportive care. Continue prophylactic Keppra. 5. History of diabetes mellitus. Was previously on insulin at home. Currently off antidiabetic medications. Hemoglobin A1c within normal limits. 6. Microcytic, hypochromic anemia. S/P iron supplements. 7. Fluids, electrolytes, and nutrition. Mechanical soft diet. 8. DVT prophylaxis. Bilateral sequential compression devices. 9. Plan. Patent remains stable. Needs placement. Case discussed with Dr. Richardson. Problems: Subjective 24 Hr Interval Summary Free Text/Dictation No changes in status. Exam/Review of Systems Vital Signs Vitals Vital Signs Date Time Temp Pulse Resp B/P Pulse Ox O2 Delivery O2 Flow Rate FiO2 12/22/16 07:59 98.7 54 18 160/74 99 Intake and Output 12/21/16 12/21/16 12/22/16 15:00 23:00 07:00 Intake Total 480 ml Output Total 400 ml Balance 80 ml Exam General: Adequately build 61 year-old male lying in bed in no apparent distress. HEENT: Normocephalic, atraumatic. Eyes: Anicteric sclerae, conjunctivae clear. ENT: Nasal septum midline, oral mucosa moist. Neck supple, no JVD noticed. Respiratory: Bilaterally diminished breath sounds. No use of accessory muscles of respiration. No adventitious breath sounds. Cardiovascular: S1, S2 heard. Regular rate and rhythm. Abdomen: Soft, nontender, and nondistended. Bowel sounds positive in all 4 quadrants. Genitourinary: Scrotal edema. Suprapubic catheter in place. Extremities: No cyanosis, no clubbing, no edema. Peripheral pulses palpable. Neurologic: The patient is awake and alert. Left sylvain-plegia. Results Result Diagram: 12/18/16 0511 12/22/16 0602 Results 24 hrs Laboratory Tests Test 12/22/16 06:02 Sodium Level 145 H Potassium Level 3.9 Chloride Level 107 Carbon Dioxide Level 27 Anion Gap 15 Blood Urea Nitrogen 26 H Creatinine 0.80 Glucose Level 81 Calcium Level 8.8 Medications Medications Current Medications Atorvastatin Calcium (Lipitor) 20 mg QHS PO Last administered on 12/21/16 21: 17; Admin Dose 20 MG; Start 11/22/16 at 21:00 Gabapentin (Neurontin) 300 mg TID PO Last administered on 12/22/16 09:44; Admin Dose 300 MG; Start 11/22/16 at 21:00 Hydroxyzine HCl (Atarax) 10 mg QHS PRN PO ITCHING; Start 11/22/16 at 20:30 Simethicone (Mylicon) 80 mg TID PO Last administered on 12/22/16 09:44; Admin Dose 80 MG; Start 11/22/16 at 21:00 Ondansetron HCl (Zofran Inj) 4 mg Q6H PRN IV NAUSEA AND/OR VOMITING; Start 11/22/16 at 20:30 Acetaminophen (Tylenol Tab) 650 mg Q6H PRN PO PAIN LEVEL 1-3 OR FEVER Last administered on 11/25/16 20:24; Admin Dose 650 MG; Start 11/22/16 at 20:30 Morphine Sulfate (morphine) 2 mg Q4H PRN IV SEVERE PAIN LEVEL 7-10; Start 11/22 at 20:30 Docusate Sodium (Colace) 100 mg Q12H PRN PO CONSTIPATION; Start 11/22/16 at 20: 30 Bisacodyl (Dulcolax) 5 mg DAILY PRN PO CONSTIPATION; Start 11/22/16 at 20:30 Famotidine (Pepcid) 20 mg Q12 PO Last administered on 12/22/16 09:44; Admin Dose 20 MG; Start 11/22/16 at 21:00 Hydralazine HCl (Apresoline) 75 mg TID PO Last administered on 12/22/16 09:44 ; Admin Dose 75 MG; Start 11/25/16 at 21:00 Levetiracetam (Keppra Liquid) 1,000 mg BID PO Last administered on 12/22/16 09 :44; Admin Dose 1,000 MG; Start 12/13/16 at 21:00 Amlodipine Besylate (Norvasc) 2.5 mg DAILY PO Last administered on 12/22/16 09 :44; Admin Dose 2.5 MG; Start 12/19/16 at 11:00 ADELAIDA GRIMALDO NP Dec 22, 2016 11:22
[2016-12-22 14:18] VITALS: BP 121/84; RESP 18
[2016-12-22 19:30] VITALS: BP 149/84; RESP 20
[2016-12-22] MEDS: ATORVASTATIN 20 MG TAB PO SCH ×2 (20:40→21:30)
[2016-12-22] MEDS: AMLODIPINE 5 MG TAB PO SCH ×2 (20:41→21:30)
[2016-12-22] MEDS: SOD CHLORIDE 0.45% 1,000 ML IV SCH (21:13)
[2016-12-23 01:43] LABS: CALCIUM 8.5 mg/dl (8.4-10.2); CREATININE 0.8 mg/dl (0.61-1.24); POTASSIUM 3.2 mmol/L (3.5-5.1)
[2016-12-23 02:00] VITALS: BP 158/78; PULSE 61; RESP 20
[2016-12-23] MEDS ORDERED: POTASSIUM CHLORIDE 250 ML IVPB ONE (02:00)
[2016-12-23 08:24] VITALS: BP 169/94; RESP 18
[2016-12-23] MEDS: AMLODIPINE 5 MG TAB PO SCH ×3 (08:51→20:51)
[2016-12-23] MEDS: FAMOTIDINE 20 MG TAB PO SCH ×2 (08:51→20:51)
[2016-12-23] MEDS: LEVETIRACETAM (100 MG/ML) 5ML CUP PO SCH ×2 (08:51→20:52)
[2016-12-23] MEDS: GABAPENTIN 300 MG CAP PO SCH ×3 (08:51→20:51)
--- NOTE | 2016-12-23 15:32 | PN ---
Date/Time of Note Date/Time of Note DATE: 12/23/16 TIME: 15:31 Assessment/Plan VTE Prophylaxis VTE Prophylaxis Intervention: heparin, SCD's Lines/Catheters IV Catheter Type (from [facility]): Peripheral IV Assessment/Plan Chief Complaint/Hosp Course 1. Complicated urinary tract infection. Urine culture positive for Morganella morganii and Pseudomonas aeruginosa. S/P antibiotics. 2. History of Peyronie's disease. Status post multiple surgeries on his scrotum and insertion of a suprapubic catheter. S/P removal of suprapubic catheter. The patient being followed by urology. 3. Essential hypertension. Continue antihypertensives. Adjust antihypertensives to obtain optimal blood pressure control. 4. 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 Continue supportive care. Continue prophylactic Keppra. 5. History of diabetes mellitus. Was previously on insulin at home. Currently off antidiabetic medications. Hemoglobin A1c within normal limits. 6. Microcytic, hypochromic anemia. S/P iron supplements. 7. Fluids, electrolytes, and nutrition. Mechanical soft diet. 8. DVT prophylaxis. Bilateral sequential compression devices. SQ heparin. 9. Plan. Patent remains stable. Needs placement. Case discussed with Dr. Richardson. Problems: Subjective 24 Hr Interval Summary Free Text/Dictation BP running high. The patient has been refusing some of his medications. Exam/Review of Systems Vital Signs Vitals Vital Signs Date Time Temp Pulse Resp B/P Pulse Ox O2 Delivery O2 Flow Rate FiO2 12/23/16 08:24 97.4 59 18 169/94 99 12/23/16 02:00 Room Air Intake and Output 12/22/16 12/22/16 12/23/16 15:00 23:00 07:00 Intake Total 440 ml 720 ml Output Total 350 ml 500 ml Balance 90 ml 220 ml Exam General: Adequately build 61 year-old male lying in bed in no apparent distress. HEENT: Normocephalic, atraumatic. Eyes: Anicteric sclerae, conjunctivae clear. ENT: Nasal septum midline, oral mucosa moist. Neck supple, no JVD noticed. Respiratory: Bilaterally diminished breath sounds. No use of accessory muscles of respiration. No adventitious breath sounds. Cardiovascular: S1, S2 heard. Regular rate and rhythm. Abdomen: Soft, nontender, and nondistended. Bowel sounds positive in all 4 quadrants. Genitourinary: Scrotal edema. Suprapubic catheter in place. Extremities: No cyanosis, no clubbing, no edema. Peripheral pulses palpable. Neurologic: The patient is awake and alert. Left sylvain-plegia. Results Result Diagram: 12/23/16 0101 Results 24 hrs Laboratory Tests Test 12/23/16 01:01 Sodium Level 145 H Potassium Level 3.2 L Chloride Level 108 Carbon Dioxide Level 27 Anion Gap 13 Blood Urea Nitrogen 25 H Creatinine 0.80 Glucose Level 84 Calcium Level 8.5 Medications Medications Current Medications Atorvastatin Calcium (Lipitor) 20 mg QHS PO Last administered on 12/21/16 21: 17; Admin Dose 20 MG; Start 11/22/16 at 21:00 Gabapentin (Neurontin) 300 mg TID PO Last administered on 12/22/16 09:44; Admin Dose 300 MG; Start 11/22/16 at 21:00 Hydroxyzine HCl (Atarax) 10 mg QHS PRN PO ITCHING; Start 11/22/16 at 20:30 Simethicone (Mylicon) 80 mg TID PO Last administered on 12/22/16 09:44; Admin Dose 80 MG; Start 11/22/16 at 21:00 Ondansetron HCl (Zofran Inj) 4 mg Q6H PRN IV NAUSEA AND/OR VOMITING; Start 11/22/16 at 20:30 Acetaminophen (Tylenol Tab) 650 mg Q6H PRN PO PAIN LEVEL 1-3 OR FEVER Last administered on 11/25/16 20:24; Admin Dose 650 MG; Start 11/22/16 at 20:30 Morphine Sulfate (morphine) 2 mg Q4H PRN IV SEVERE PAIN LEVEL 7-10; Start 11/22 at 20:30 Docusate Sodium (Colace) 100 mg Q12H PRN PO CONSTIPATION; Start 11/22/16 at 20: 30 Bisacodyl (Dulcolax) 5 mg DAILY PRN PO CONSTIPATION; Start 11/22/16 at 20:30 Famotidine (Pepcid) 20 mg Q12 PO Last administered on 12/22/16 09:44; Admin Dose 20 MG; Start 11/22/16 at 21:00 Levetiracetam (Keppra Liquid) 1,000 mg BID PO Last administered on 12/22/16 20 :39; Admin Dose 1,000 MG; Start 12/13/16 at 21:00 Hydralazine HCl (Apresoline) 50 mg TID PO Last administered on 12/23/16 12:50 ; Admin Dose 50 MG; Start 12/22/16 at 13:00 Amlodipine Besylate 5 mg 5 mg BID PO ; Start 12/22/16 at 21:00 Sodium Chloride (1/2 NS) 1,000 ml @ 70 mls/hr [id number] IV Last administered on 12/22/16 21:13; Admin Dose 70 MLS/HR; Start 12/22/16 at 21:00 ADELAIDA GRIMALDO NP Dec 23, 2016 15:32
[2016-12-23] MEDS: SOD CHLORIDE 0.45% 1,000 ML IV SCH (16:56)
[2016-12-23 20:03] VITALS: BP 129/75; RESP 18
[2016-12-23] MEDS: ATORVASTATIN 20 MG TAB PO SCH (20:51)
[2016-12-23] MEDS: HEPARIN 5,000 UNIT/0.5 ML VIAL SC SCH (21:01)
--- NOTE | 2016-12-24 01:04 | PN ---
DATE: 12/23/2016 The patient is a 61-year-old male who has a suprapubic tube because of a history of Jami gangren e and his urethra is closed and only opened at the penoscrotal area. The suprapubic tube that he wa s not draining very well. There was some leakage and at this time to change it since it has been ch anged about a month ago; therefore, I came in and deflated the balloon of the suprapubic catheter an d removed it, then inserted an 18-Maori catheter into the bladder, inflated the balloon with 10 mL of sterile water and connected to a drainage bag. Sterile dressing was applied around the suprapubi c tube. The patient tolerated the procedure well. Dictated By: CHERYLE DE LA CRUZ/YAMILETH Conf#: [id number] DID#: [id number]
[2016-12-24 01:25] VITALS: BP 118/68; RESP 18
[2016-12-24] MEDS: SOD CHLORIDE 0.45% 1,000 ML IV SCH ×4 (01:36→20:43)
[2016-12-24 08:00] VITALS: BP 140/72; RESP 19
[2016-12-24] MEDS: GABAPENTIN 300 MG CAP PO SCH ×3 (08:19→20:46)
[2016-12-24] MEDS: FAMOTIDINE 20 MG TAB PO SCH ×2 (08:20→20:46)
[2016-12-24] MEDS: AMLODIPINE 5 MG TAB PO SCH ×2 (08:20→20:44)
[2016-12-24] MEDS: LEVETIRACETAM (100 MG/ML) 5ML CUP PO SCH ×2 (08:29→20:44)
[2016-12-24] MEDS: HEPARIN 5,000 UNIT/0.5 ML VIAL SC SCH ×2 (08:29→20:48)
--- NOTE | 2016-12-24 12:31 | PN ---
Date/Time of Note Date/Time of Note DATE: 12/24/16 TIME: 12:29 Assessment/Plan VTE Prophylaxis VTE Prophylaxis Intervention: heparin Lines/Catheters IV [facility] Type (from [facility]): Peripheral IV Urinary Cath still in place: Yes (suprapubic catheter ) Reason Cath still needed: other (indicate) Assessment/Plan Chief Complaint/Hosp Course 1. Complicated urinary tract infection. Urine culture positive for Morganella morganii and Pseudomonas aeruginosa. S/P antibiotics. 2. History of Peyronie's disease. Status post multiple surgeries on his scrotum and insertion of a suprapubic catheter. S/P removal of suprapubic catheter. The patient being followed by urology. 3. Essential hypertension. Continue antihypertensives. Adjust antihypertensives to obtain optimal blood pressure control. 4. 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 Continue supportive care. Continue prophylactic Keppra. 5. History of diabetes mellitus. Was previously on insulin at home. Currently off antidiabetic medications. Hemoglobin A1c within normal limits. 6. Microcytic, hypochromic anemia. S/P iron supplements. 7. Fluids, electrolytes, and nutrition. Mechanical soft diet. 8. DVT prophylaxis. Bilateral sequential compression devices. SQ heparin. 9. Plan. Patent remains stable. Needs placement. Case discussed with Dr. Richardson. Problems: Subjective 24 Hr Interval Summary Free Text/Dictation BP is better. Exam/Review of Systems Vital Signs Vitals Vital Signs Date Time Temp Pulse Resp B/P Pulse Ox O2 Delivery O2 Flow Rate FiO2 12/24/16 08:00 98.3 49 19 140/72 99 12/23/16 02:00 Room Air Intake and Output 12/23/16 12/23/16 12/24/16 15:00 23:00 07:00 Intake Total 800 ml 1320 ml Output Total 1200 ml 1000 ml Balance -400 ml 320 ml Exam General: Adequately build 61 year-old male lying in bed in no apparent distress. HEENT: Normocephalic, atraumatic. Eyes: Anicteric sclerae, conjunctivae clear. ENT: Nasal septum midline, oral mucosa moist. Neck supple, no JVD noticed. Respiratory: Bilaterally diminished breath sounds. No use of accessory muscles of respiration. No adventitious breath sounds. Cardiovascular: S1, S2 heard. Regular rate and rhythm. Abdomen: Soft, nontender, and nondistended. Bowel sounds positive in all 4 quadrants. Genitourinary: Scrotal edema. Suprapubic catheter in place. Extremities: No cyanosis, no clubbing, no edema. Peripheral pulses palpable. Neurologic: The patient is awake and alert. Left sylvain-plegia. Results Result Diagram: 12/23/16 0101 Medications Medications Current Medications Atorvastatin Calcium (Lipitor) 20 mg QHS PO Last administered on 12/23/16 20: 51; Admin Dose 20 MG; Start 11/22/16 at 21:00 Gabapentin (Neurontin) 300 mg TID PO Last administered on 12/24/16 08:19; Admin Dose 300 MG; Start 11/22/16 at 21:00 Hydroxyzine HCl (Atarax) 10 mg QHS PRN PO ITCHING; Start 11/22/16 at 20:30 Simethicone (Mylicon) 80 mg TID PO Last administered on 12/24/16 08:20; Admin Dose 80 MG; Start 11/22/16 at 21:00 Ondansetron HCl (Zofran Inj) 4 mg Q6H PRN IV NAUSEA AND/OR VOMITING; Start 11/22/16 at 20:30 Acetaminophen (Tylenol Tab) 650 mg Q6H PRN PO PAIN LEVEL 1-3 OR FEVER Last administered on 11/25/16 20:24; Admin Dose 650 MG; Start 11/22/16 at 20:30 Morphine Sulfate (morphine) 2 mg Q4H PRN IV SEVERE PAIN LEVEL 7-10; Start 11/22 at 20:30 Docusate Sodium (Colace) 100 mg Q12H PRN PO CONSTIPATION; Start 11/22/16 at 20: 30 Bisacodyl (Dulcolax) 5 mg DAILY PRN PO CONSTIPATION; Start 11/22/16 at 20:30 Famotidine (Pepcid) 20 mg Q12 PO Last administered on 12/24/16 08:20; Admin Dose 20 MG; Start 11/22/16 at 21:00 Levetiracetam (Keppra Liquid) 1,000 mg BID PO Last administered on 12/24/16 08 :29; Admin Dose 1,000 MG; Start 12/13/16 at 21:00 Hydralazine HCl (Apresoline) 50 mg TID PO Last administered on 12/24/16 08:19 ; Admin Dose 50 MG; Start 12/22/16 at 13:00 Amlodipine Besylate 5 mg 5 mg BID PO Last administered on 12/24/16 08:20; Admin Dose 5 MG; Start 12/22/16 at 21:00 Sodium Chloride (1/2 NS) 1,000 ml @ 70 mls/hr [id number] IV Last administered on 12/24/16 07:23; Admin Dose 70 MLS/HR; Start 12/22/16 at 21:00 Heparin Sodium (Porcine) (Heparin (5000 Units/0.5 ml)) 5,000 unit BID SC Last administered on 12/24/16 08:29; Admin Dose 5,000 UNIT; Start 12/23/16 at 21:00 ADELAIDA GRIMALDO NP Dec 24, 2016 12:31
[2016-12-24 14:00] VITALS: BP 134/70; RESP 18
[2016-12-24 20:46] VITALS: BP 131/78; RESP 20
[2016-12-24] MEDS: ATORVASTATIN 20 MG TAB PO SCH (20:46)
[2016-12-25 02:13] VITALS: BP 149/76; RESP 19
[2016-12-25] MEDS: SOD CHLORIDE 0.45% 1,000 ML IV SCH ×2 (06:12→11:49)
[2016-12-25 07:57] VITALS: BP 140/77; RESP 18
[2016-12-25] MEDS: HEPARIN 5,000 UNIT/0.5 ML VIAL SC SCH ×2 (09:02→21:44)
[2016-12-25] MEDS: AMLODIPINE 5 MG TAB PO SCH ×2 (09:08→21:44)
[2016-12-25] MEDS: GABAPENTIN 300 MG CAP PO SCH ×3 (09:08→21:44)
[2016-12-25] MEDS: FAMOTIDINE 20 MG TAB PO SCH ×2 (09:08→21:44)
[2016-12-25] MEDS: LEVETIRACETAM (100 MG/ML) 5ML CUP PO SCH ×2 (09:08→21:44)
[2016-12-25 14:00] VITALS: BP 129/75; RESP 18
--- NOTE | 2016-12-25 16:23 | PN ---
Date/Time of Note Date/Time of Note DATE: 12/25/16 TIME: 16:20 Assessment/Plan VTE Prophylaxis VTE Prophylaxis Intervention: SCD's Lines/Catheters IV Catheter Type (from Nrs): Peripheral IV Urinary Cath still in place: Yes (suprapubic catheter) Assessment/Plan Chief Complaint/Hosp Course Assessment and plan 1. UTI with Morganella Morgagnii and pseudomonas aeruginosa. Off antibiotics at this time. Will monitor. 2. History of Peyronie's disease. urologist following. Status post removal of suprapubic catheter. continue recommendations. 3. Essential hypertension. Continue antihypertensives and adjust as needed. 4. History of hemorrhagic CVA. Noted with left-sided hemiparesis. Bedridden at this time. Continue supportive care. Continue on prophylactic Keppra. 5. History of diabetes. Stable at present. Monitor off diabetic medication. 6. Iron deficiency anemia. Continue iron supplement Disposition and plan: Still awaiting placement continue supportive care. Discussed plan of care with Dr. Costello Problems: Subjective 24 Hr Interval Summary Free Text/Dictation Awake and alert. No signs of distress. Comfortable at present. Exam/Review of Systems Vital Signs Vitals Vital Signs Date Time Temp Pulse Resp B/P Pulse Ox O2 Delivery O2 Flow Rate FiO2 12/25/16 14:00 98.5 67 18 129/75 99 12/23/16 02:00 Room Air Intake and Output 12/24/16 12/24/16 12/25/16 15:00 23:00 07:00 Intake Total 1795 ml 1160 ml Output Total 1000 ml 1800 ml Balance 795 ml -640 ml Exam Constitutional: alert, oriented Psych: nl mood/affect Head: normocephalic Respiratory: clear to auscultation, normal air movement Cardiovascular: other (regular rate) Gastrointestinal: non-tender, soft Neurological: nl mental status, nl speech Results Result Diagram: 12/23/16 0101 Medications Medications Current Medications Atorvastatin Calcium (Lipitor) 20 mg QHS PO Last administered on 12/24/16 20: 46; Admin Dose 20 MG; Start 11/22/16 at 21:00 Gabapentin (Neurontin) 300 mg TID PO Last administered on 12/25/16 14:04; Admin Dose 300 MG; Start 11/22/16 at 21:00 Hydroxyzine HCl (Atarax) 10 mg QHS PRN PO ITCHING; Start 11/22/16 at 20:30 Simethicone (Mylicon) 80 mg TID PO Last administered on 12/25/16 14:04; Admin Dose 80 MG; Start 11/22/16 at 21:00 Ondansetron HCl (Zofran Inj) 4 mg Q6H PRN IV NAUSEA AND/OR VOMITING; Start 11/22/16 at 20:30 Acetaminophen (Tylenol Tab) 650 mg Q6H PRN PO PAIN LEVEL 1-3 OR FEVER Last administered on 11/25/16 20:24; Admin Dose 650 MG; Start 11/22/16 at 20:30 Morphine Sulfate (morphine) 2 mg Q4H PRN IV SEVERE PAIN LEVEL 7-10; Start 11/22 at 20:30 Docusate Sodium (Colace) 100 mg Q12H PRN PO CONSTIPATION; Start 11/22/16 at 20: 30 Bisacodyl (Dulcolax) 5 mg DAILY PRN PO CONSTIPATION; Start 11/22/16 at 20:30 Famotidine (Pepcid) 20 mg Q12 PO Last administered on 12/25/16 09:08; Admin Dose 20 MG; Start 11/22/16 at 21:00 Levetiracetam (Keppra Liquid) 1,000 mg BID PO Last administered on 12/25/16 09 :08; Admin Dose 1,000 MG; Start 12/13/16 at 21:00 Hydralazine HCl (Apresoline) 50 mg TID PO Last administered on 12/25/16 14:04 ; Admin Dose 50 MG; Start 12/22/16 at 13:00 Amlodipine Besylate 5 mg 5 mg BID PO Last administered on 12/25/16 09:08; Admin Dose 5 MG; Start 12/22/16 at 21:00 Sodium Chloride (1/2 NS) 1,000 ml @ 70 mls/hr [id number] IV Last administered on 12/25/16 11:49; Admin Dose 70 MLS/HR; Start 12/22/16 at 21:00 Heparin Sodium (Porcine) (Heparin (5000 Units/0.5 ml)) 5,000 unit BID SC Last administered on 12/25/16 09:02; Admin Dose 5,000 UNIT; Start 12/23/16 at 21:00 GLORIA LESTER Dec 25, 2016 16:23
[2016-12-25 17:58] LABS: CALCIUM 8.6 mg/dl (8.4-10.2); CREATININE 0.74 mg/dl (0.61-1.24); POTASSIUM 3.3 mmol/L (3.5-5.1)
[2016-12-25 19:41] VITALS: BP 142/77; RESP 16
[2016-12-25] MEDS: ATORVASTATIN 20 MG TAB PO SCH (21:44)
[2016-12-25 23:14] LABS: ABNORMAL IP MESSAGE 1; BASOPHIL # 0.1 10^3/ul (0.0-0.1); BASOPHILS % 0.8 % (0.0-2.0); EOSINOPHILS # 0.1 10^3/ul (0.0-0.5); EOSINOPHILS % 1.7 % (0.0-7.0); HEMATOCRIT 33.3 % (42.0-52.0); HEMOGLOBIN 10.5 g/dl (14.0-18.0); LYMPHOCYTES # 2.1 10^3/ul (0.8-2.9); LYMPHOCYTES % 32.5 % (15.0-51.0); MEAN CORPUSCULAR HEMOGLOBIN 19.5 pg (29.0-33.0); MEAN CORPUSCULAR HGB CONC 31.5 g/dl (32.0-37.0); MEAN CORPUSCULAR VOLUME 61.9 fl (82.0-101.0); MEAN PLATELET VOLUME 10.1 fl (7.4-10.4); MONOCYTE # 0.5 10^3/ul (0.3-0.9); MONOCYTES % 8.2 % (0.0-11.0); NEUTROPHIL # 3.6 10^3/ul (1.6-7.5); NEUTROPHILS % 56.6 % (39.0-77.0); PLATELET COUNT 172 10^3/UL (140-415); POSITIVE DIFF @See below; RED BLOOD COUNT 5.38 10^6/ul (4.70-6.10); RED CELL DISTRIBUTION WIDTH 17.2 % (11.5-14.5); WHITE BLOOD COUNT 6.4 10^3/ul (4.8-10.8)
[2016-12-26] MEDS: SOD CHLORIDE 0.45% 1,000 ML IV SCH ×3 (00:35→15:51)
[2016-12-26 02:03] VITALS: BP 155/82; RESP 18
[2016-12-26 07:50] VITALS: BP 141/77; RESP 16
[2016-12-26] MEDS: FAMOTIDINE 20 MG TAB PO SCH ×2 (08:38→20:57)
[2016-12-26] MEDS: AMLODIPINE 5 MG TAB PO SCH ×2 (08:38→20:58)
[2016-12-26] MEDS: GABAPENTIN 300 MG CAP PO SCH ×3 (08:38→20:57)
[2016-12-26] MEDS: LEVETIRACETAM (100 MG/ML) 5ML CUP PO SCH ×2 (08:38→20:57)
[2016-12-26] MEDS: HEPARIN 5,000 UNIT/0.5 ML VIAL SC SCH ×2 (08:40→20:58)
--- NOTE | 2016-12-26 09:11 | PN ---
Date/Time of Note Date/Time of Note DATE: 12/26/16 TIME: 09:09 Assessment/Plan VTE Prophylaxis VTE Prophylaxis Intervention: SCD's Lines/Catheters IV Catheter Type (from [facility]rs[facility]): Peripheral IV Urinary Cath still in place: Yes ( suprapubic catheter) Reason Cath still needed: other (indicate) (monitor I&O) Assessment/Plan Chief Complaint/Hosp Course Assessment and plan 1. UTI with Morganella Morgagnii and pseudomonas aeruginosa. Off antibiotics at this time. Will monitor. 2. History of Peyronie's disease. urologist following. Status post removal of suprapubic catheter. continue with urology recommendations. 3. Essential hypertension. Continue antihypertensives and adjust as needed. 4. History of hemorrhagic CVA. Noted with left-sided hemiparesis. Bedridden at this time. Continue supportive care. Continue on prophylactic Keppra. 5. History of diabetes. Stable at present. Monitor off diabetic medication. 6. Iron deficiency anemia. Continue iron supplement Disposition and plan: follow up with employment evaluator/case manager for placement. check AM labs Discussed plan of care with Dr. Costello Problems: Subjective 24 Hr Interval Summary Free Text/Dictation alert to verbal stimulus. no s/s of distress Exam/Review of Systems Vital Signs Vitals Vital Signs Date Time Temp Pulse Resp B/P Pulse Ox O2 Delivery O2 Flow Rate FiO2 12/26/16 07:50 98.1 72 16 141/77 99 12/23/16 02:00 Room Air Intake and Output 12/25/16 12/25/16 12/26/16 15:00 23:00 07:00 Intake Total 440 ml 1900 ml Output Total 950 ml Balance 440 ml 950 ml Exam Constitutional: alert, oriented Psych: nl mood/affect Head: normocephalic Respiratory: clear to auscultation, normal air movement Cardiovascular: other (regular rate) Gastrointestinal: non-tender, soft Neurological: nl mental status, nl speech Results Result Diagram: 12/25/16 1703 12/25/16 1645 Results 24 hrs Laboratory Tests Test 12/25/16 16:45 12/25/16 17:03 Sodium Level 143 Potassium Level 3.3 L Chloride Level 106 Carbon Dioxide Level 27 Anion Gap 13 Blood Urea Nitrogen 17 Creatinine 0.74 Glucose Level 100 Calcium Level 8.6 White Blood Count 6.4 Red Blood Count 5.38 Hemoglobin 10.5 L Hematocrit 33.3 L Mean Corpuscular Volume 61.9 L Mean Corpuscular Hemoglobin 19.5 L Mean Corpuscular Hemoglobin Concent 31.5 L Red Cell Distribution Width 17.2 H Platelet Count 172 Mean Platelet Volume 10.1 Neutrophils % 56.6 Lymphocytes % 32.5 Monocytes % 8.2 Eosinophils % 1.7 Basophils % 0.8 Nucleated Red Blood Cells % 0.0 Neutrophils # 3.6 Lymphocytes # 2.1 Monocytes # 0.5 Eosinophils # 0.1 Basophils # 0.1 Nucleated Red Blood Cells # 0.0 Medications Medications Current Medications Atorvastatin Calcium (Lipitor) 20 mg QHS PO Last administered on 12/25/16 21: 44; Admin Dose 20 MG; Start 11/22/16 at 21:00 Gabapentin (Neurontin) 300 mg TID PO Last administered on 12/26/16 08:38; Admin Dose 300 MG; Start 11/22/16 at 21:00 Hydroxyzine HCl (Atarax) 10 mg QHS PRN PO ITCHING; Start 11/22/16 at 20:30 Simethicone (Mylicon) 80 mg TID PO Last administered on 12/26/16 08:40; Admin Dose 80 MG; Start 11/22/16 at 21:00 Ondansetron HCl (Zofran Inj) 4 mg Q6H PRN IV NAUSEA AND/OR VOMITING; Start 11/22/16 at 20:30 Acetaminophen (Tylenol Tab) 650 mg Q6H PRN PO PAIN LEVEL 1-3 OR FEVER Last administered on 11/25/16 20:24; Admin Dose 650 MG; Start 11/22/16 at 20:30 Morphine Sulfate (morphine) 2 mg Q4H PRN IV SEVERE PAIN LEVEL 7-10; Start 11/22 at 20:30 Docusate Sodium (Colace) 100 mg Q12H PRN PO CONSTIPATION; Start 11/22/16 at 20: 30 Bisacodyl (Dulcolax) 5 mg DAILY PRN PO CONSTIPATION; Start 11/22/16 at 20:30 Famotidine (Pepcid) 20 mg Q12 PO Last administered on 12/26/16 08:38; Admin Dose 20 MG; Start 11/22/16 at 21:00 Levetiracetam (Keppra Liquid) 1,000 mg BID PO Last administered on 12/26/16 08 :38; Admin Dose 1,000 MG; Start 12/13/16 at 21:00 Hydralazine HCl (Apresoline) 50 mg TID PO Last administered on 12/26/16 08:38 ; Admin Dose 50 MG; Start 12/22/16 at 13:00 Amlodipine Besylate 5 mg 5 mg BID PO Last administered on 12/26/16 08:38; Admin Dose 5 MG; Start 12/22/16 at 21:00 Sodium Chloride (1/2 NS) 1,000 ml @ 70 mls/hr [id number] IV Last administered on 12/26/16 00:35; Admin Dose 70 MLS/HR; Start 12/22/16 at 21:00 Heparin Sodium (Porcine) (Heparin (5000 Units/0.5 ml)) 5,000 unit BID SC Last administered on 12/26/16 08:40; Admin Dose 5,000 UNIT; Start 12/23/16 at 21:00 GLORIA LESTER Dec 26, 2016 09:11
[2016-12-26 12:36] VITALS: BP 149/75; PULSE 74
[2016-12-26] MEDS: ATORVASTATIN 20 MG TAB PO SCH (20:57)
[2016-12-26 21:08] VITALS: BP 127/75; RESP 21
[2016-12-27 02:42] VITALS: BP 136/76; RESP 20
[2016-12-27] MEDS: SOD CHLORIDE 0.45% 1,000 ML IV SCH ×2 (05:30→15:08)
[2016-12-27 08:30] VITALS: BP 155/77; PULSE 61; RESP 18
[2016-12-27] MEDS: LEVETIRACETAM (100 MG/ML) 5ML CUP PO SCH ×2 (08:41→21:18)
[2016-12-27] MEDS: GABAPENTIN 300 MG CAP PO SCH ×3 (08:41→21:18)
[2016-12-27] MEDS: AMLODIPINE 5 MG TAB PO SCH ×2 (08:41→21:19)
[2016-12-27] MEDS: FAMOTIDINE 20 MG TAB PO SCH ×2 (08:41→21:18)
[2016-12-27] MEDS: HEPARIN 5,000 UNIT/0.5 ML VIAL SC SCH ×2 (08:42→21:20)
--- NOTE | 2016-12-27 09:39 | PN ---
Date/Time of Note Date/Time of Note DATE: 12/27/16 TIME: 09:36 Assessment/Plan VTE Prophylaxis VTE Prophylaxis Intervention: SCD's Lines/Catheters IV Catheter Type (from [facility]): Peripheral IV Urinary Cath still in place: Yes ( suprapubic catheter) Assessment/Plan Chief Complaint/Hosp Course Assessment and plan 1. UTI with Morganella Morgagnii and pseudomonas aeruginosa. Off antibiotics at this time. Will monitor. 2. History of Peyronie's disease. urologist following. Status post removal of suprapubic catheter. continue with urology recommendations. 3. Essential hypertension. Continue antihypertensives and adjust as needed. 4. History of hemorrhagic CVA. Noted with left-sided hemiparesis. Bedridden at this time. Continue supportive care. Continue on prophylactic Keppra. 5. History of diabetes. Stable at present. Monitor off diabetic medication. 6. Iron deficiency anemia. Continue iron supplement Disposition and plan: follow up with case coordinator for placement.AM labs pending. replete electrolytes as needed Discussed plan of care with Dr. Costello Problems: Subjective 24 Hr Interval Summary Free Text/Dictation appears comfortable at present Exam/Review of Systems Vital Signs Vitals Vital Signs Date Time Temp Pulse Resp B/P Pulse Ox O2 Delivery O2 Flow Rate FiO2 12/27/16 02:42 97.5 61 20 136/76 98 Intake and Output 12/26/16 12/26/16 12/27/16 15:00 23:00 07:00 Intake Total 1360 ml 1780 ml Output Total 950 ml 950 ml Balance 410 ml 830 ml Exam Constitutional: alert, oriented Psych: nl mood/affect Head: normocephalic Respiratory: clear to auscultation, normal air movement Cardiovascular: other (regular rate) Gastrointestinal: non-tender, soft Neurological: nl mental status, nl speech Results Result Diagram: 12/25/16 1703 12/25/16 1645 Medications Medications Current Medications Atorvastatin Calcium (Lipitor) 20 mg QHS PO Last administered on 12/26/16 20: 57; Admin Dose 20 MG; Start 11/22/16 at 21:00 Gabapentin (Neurontin) 300 mg TID PO Last administered on 12/27/16 08:41; Admin Dose 300 MG; Start 11/22/16 at 21:00 Hydroxyzine HCl (Atarax) 10 mg QHS PRN PO ITCHING; Start 11/22/16 at 20:30 Simethicone (Mylicon) 80 mg TID PO Last administered on 12/27/16 08:41; Admin Dose 80 MG; Start 11/22/16 at 21:00 Ondansetron HCl (Zofran Inj) 4 mg Q6H PRN IV NAUSEA AND/OR VOMITING; Start 11/22/16 at 20:30 Acetaminophen (Tylenol Tab) 650 mg Q6H PRN PO PAIN LEVEL 1-3 OR FEVER Last administered on 11/25/16 20:24; Admin Dose 650 MG; Start 11/22/16 at 20:30 Morphine Sulfate (morphine) 2 mg Q4H PRN IV SEVERE PAIN LEVEL 7-10; Start 11/22 at 20:30 Docusate Sodium (Colace) 100 mg Q12H PRN PO CONSTIPATION; Start 11/22/16 at 20: 30 Bisacodyl (Dulcolax) 5 mg DAILY PRN PO CONSTIPATION; Start 11/22/16 at 20:30 Famotidine (Pepcid) 20 mg Q12 PO Last administered on 12/27/16 08:41; Admin Dose 20 MG; Start 11/22/16 at 21:00 Levetiracetam (Keppra Liquid) 1,000 mg BID PO Last administered on 12/27/16 08 :41; Admin Dose 1,000 MG; Start 12/13/16 at 21:00 Hydralazine HCl (Apresoline) 50 mg TID PO Last administered on 12/27/16 08:41 ; Admin Dose 50 MG; Start 12/22/16 at 13:00 Amlodipine Besylate 5 mg 5 mg BID PO Last administered on 12/27/16 08:41; Admin Dose 5 MG; Start 12/22/16 at 21:00 Sodium Chloride (1/2 NS) 1,000 ml @ 70 mls/hr [id number] IV Last administered on 12/27/16 05:30; Admin Dose 70 MLS/HR; Start 12/22/16 at 21:00 Heparin Sodium (Porcine) (Heparin (5000 Units/0.5 ml)) 5,000 unit BID SC Last administered on 12/27/16 08:42; Admin Dose 5,000 UNIT; Start 12/23/16 at 21:00 GLORIA LESTER Dec 27, 2016 09:39
[2016-12-27 11:38] LABS: CALCIUM 8.5 mg/dl (8.4-10.2); CREATININE 0.7 mg/dl (0.61-1.24)
[2016-12-27 12:53] VITALS: BP 118/74; PULSE 59
--- NOTE | 2016-12-27 13:50 | CONS ---
Date/Time of Note Date/Time of Note DATE: 12/27/16 TIME: 13:49 Consult Date/Type/Reason Admit Date/Time Nov 22, 2016 at 19:54 Type of Consultation: ID Objective Vital Signs Date Time Temp Pulse Resp B/P Pulse Ox O2 Delivery O2 Flow Rate FiO2 12/27/16 12:53 59 118/74 12/27/16 08:30 97.4 18 96 Room Air Intake and Output 12/26/16 12/26/16 12/27/16 15:00 23:00 07:00 Intake Total 1360 ml 1780 ml Output Total 950 ml 950 ml Balance 410 ml 830 ml Results/Medications Result Diagram: 12/25/16 1703 12/27/16 1051 Results 24 hrs Laboratory Tests Test 12/27/16 10:42 12/27/16 10:51 Magnesium Level 2.0 Sodium Level 145 H Potassium Level 3.0 L Chloride Level 109 Carbon Dioxide Level 27 Anion Gap 12 Blood Urea Nitrogen 16 Creatinine 0.70 Glucose Level 88 Calcium Level 8.5 Medications Current Medications Atorvastatin Calcium (Lipitor) 20 mg QHS PO Last administered on 12/26/16 20: 57; Admin Dose 20 MG; Start 11/22/16 at 21:00 Gabapentin (Neurontin) 300 mg TID PO Last administered on 12/27/16 12:56; Admin Dose 300 MG; Start 11/22/16 at 21:00 Hydroxyzine HCl (Atarax) 10 mg QHS PRN PO ITCHING; Start 11/22/16 at 20:30 Simethicone (Mylicon) 80 mg TID PO Last administered on 12/27/16 12:56; Admin Dose 80 MG; Start 11/22/16 at 21:00 Ondansetron HCl (Zofran Inj) 4 mg Q6H PRN IV NAUSEA AND/OR VOMITING; Start 11/22/16 at 20:30 Acetaminophen (Tylenol Tab) 650 mg Q6H PRN PO PAIN LEVEL 1-3 OR FEVER Last administered on 11/25/16 20:24; Admin Dose 650 MG; Start 11/22/16 at 20:30 Morphine Sulfate (morphine) 2 mg Q4H PRN IV SEVERE PAIN LEVEL 7-10; Start 11/22 at 20:30 Docusate Sodium (Colace) 100 mg Q12H PRN PO CONSTIPATION; Start 11/22/16 at 20: 30 Bisacodyl (Dulcolax) 5 mg DAILY PRN PO CONSTIPATION; Start 11/22/16 at 20:30 Famotidine (Pepcid) 20 mg Q12 PO Last administered on 12/27/16 08:41; Admin Dose 20 MG; Start 11/22/16 at 21:00 Levetiracetam (Keppra Liquid) 1,000 mg BID PO Last administered on 12/27/16 08 :41; Admin Dose 1,000 MG; Start 12/13/16 at 21:00 Hydralazine HCl (Apresoline) 50 mg TID PO Last administered on 12/27/16 12:57 ; Admin Dose 50 MG; Start 12/22/16 at 13:00 Amlodipine Besylate 5 mg 5 mg BID PO Last administered on 12/27/16 08:41; Admin Dose 5 MG; Start 12/22/16 at 21:00 Sodium Chloride (1/2 NS) 1,000 ml @ 70 mls/hr [id number] IV Last administered on 12/27/16 05:30; Admin Dose 70 MLS/HR; Start 12/22/16 at 21:00 Heparin Sodium (Porcine) 5000 unit 5,000 unit BID SC Last administered on 08:42; Admin Dose 5,000 UNIT; Start 12/23/16 at 21:00 Potassium Chloride (KCl 40 MEQ/250 ML NS) 250 ml @ 62.5 mls/hr ONCE IVPB ; Start 12/27/16 at 14:00; Stop 12/27/16 at 17:59 Assessment/Plan Chief Complaint/Hosp Course SUBJECTIVE: No acute changes overnight, looks comfortable, no fevers INDWELLINGS: Suprapubic catheter. ANTIMICROBIALS: none MICROBIOLOGY: Repeat urine culture 12/23 grew Providencia stuartii/Proteus. PHYSICAL EXAMINATION: GENERAL: Chronically ill-appearing, elderly man in no distress. HEENT: Head atraumatic, normocephalic. Sclerae anicteric. Buccal mucosa dry. NECK: Supple. CHEST: Rise symmetrical. Breath sounds diminished at the bases. HEART: S1, S2. ABDOMEN: Soft, bowel tones present. EXTREMITIES: Without cyanosis. Patient has right great toe and left great toe ingrown toenails. ASSESSMENT: 1. Status post sepsis. 2. S/p urinary tract infection with epididymitis. 3. Bacteriuria ==> secondary to chronic suprapubic catheter. 4. History of Peyronie's disease. 5. Diabetes. 6. Ingrown toenails. PLAN: The patient remains stable, no fevers, repeat urine cx with colonized bacteria, continue observing off antibiotics. DW staff Problems: RAMA THAYER NP Dec 27, 2016 13:50
[2016-12-27] MEDS ORDERED: POTASSIUM CHLORIDE 250 ML IVPB SCH (14:00)
[2016-12-27 20:22] VITALS: BP 126/73; RESP 16
[2016-12-27] MEDS: ATORVASTATIN 20 MG TAB PO SCH (21:18)
[2016-12-28] MEDS: SOD CHLORIDE 0.45% 1,000 ML IV SCH ×3 (00:28→20:00)
[2016-12-28 03:20] VITALS: BP 133/72; RESP 18
[2016-12-28 08:36] VITALS: BP 150/73; RESP 18
[2016-12-28] MEDS: GABAPENTIN 300 MG CAP PO SCH ×3 (08:54→20:45)
[2016-12-28] MEDS: LEVETIRACETAM (100 MG/ML) 5ML CUP PO SCH ×2 (08:54→20:44)
[2016-12-28] MEDS: AMLODIPINE 5 MG TAB PO SCH ×2 (08:54→20:45)
[2016-12-28] MEDS: FAMOTIDINE 20 MG TAB PO SCH ×2 (08:54→20:45)
[2016-12-28] MEDS: HEPARIN 5,000 UNIT/0.5 ML VIAL SC SCH ×2 (08:55→22:04)
--- NOTE | 2016-12-28 09:48 | PN ---
Date/Time of Note Date/Time of Note DATE: 12/28/16 TIME: 09:43 Assessment/Plan VTE Prophylaxis VTE Prophylaxis Intervention: SCD's Lines/Catheters IV Catheter Type (from [facility]): Peripheral IV Urinary Cath still in place: Yes (suprapubic catheter) Assessment/Plan Chief Complaint/Hosp Course Assessment and plan 1. UTI with Morganella Morgagnii and pseudomonas aeruginosa. Off antibiotics at this time. Will monitor. 2. History of Peyronie's disease. urologist following. Status post removal of suprapubic catheter. continue with urology recommendations. 3. Essential hypertension. Continue antihypertensives and adjust as needed. 4. History of hemorrhagic CVA. Noted with left-sided hemiparesis. Bedridden at this time. Continue supportive care. Continue on prophylactic Keppra. 5. History of diabetes. Stable at present. Monitor off diabetic medication. 6. Iron deficiency anemia. Continue iron supplement Disposition and plan: AM labs pending. will follow up. still awaiting placement Discussed plan of care with Dr. Costello Problems: Subjective 24 Hr Interval Summary Free Text/Dictation no s/s of distress, unchanged Exam/Review of Systems Vital Signs Vitals Vital Signs Date Time Temp Pulse Resp B/P Pulse Ox O2 Delivery O2 Flow Rate FiO2 12/28/16 08:36 98.0 61 18 150/73 98 12/27/16 08:30 Room Air Intake and Output 12/27/16 12/27/16 12/28/16 15:00 23:00 07:00 Intake Total 1360 ml 1000 ml Output Total 1350 ml 550 ml Balance 10 ml 450 ml Exam Constitutional: alert, oriented Psych: nl mood/affect Head: normocephalic Respiratory: clear to auscultation, normal air movement Cardiovascular: other (regular rate) Gastrointestinal: non-tender, soft Neurological: nl mental status, nl speech Results Result Diagram: 12/25/16 1703 12/27/16 1051 Results 24 hrs Laboratory Tests Test 12/27/16 10:42 12/27/16 10:51 Magnesium Level 2.0 Sodium Level 145 H Potassium Level 3.0 L Chloride Level 109 Carbon Dioxide Level 27 Anion Gap 12 Blood Urea Nitrogen 16 Creatinine 0.70 Glucose Level 88 Calcium Level 8.5 Medications Medications Current Medications Atorvastatin Calcium (Lipitor) 20 mg QHS PO Last administered on 12/27/16 21: 18; Admin Dose 20 MG; Start 11/22/16 at 21:00 Gabapentin (Neurontin) 300 mg TID PO Last administered on 12/28/16 08:54; Admin Dose 300 MG; Start 11/22/16 at 21:00 Hydroxyzine HCl (Atarax) 10 mg QHS PRN PO ITCHING; Start 11/22/16 at 20:30 Simethicone (Mylicon) 80 mg TID PO Last administered on 12/28/16 08:54; Admin Dose 80 MG; Start 11/22/16 at 21:00 Ondansetron HCl (Zofran Inj) 4 mg Q6H PRN IV NAUSEA AND/OR VOMITING; Start 11/22/16 at 20:30 Acetaminophen (Tylenol Tab) 650 mg Q6H PRN PO PAIN LEVEL 1-3 OR FEVER Last administered on 11/25/16 20:24; Admin Dose 650 MG; Start 11/22/16 at 20:30 Morphine Sulfate (morphine) 2 mg Q4H PRN IV SEVERE PAIN LEVEL 7-10; Start 11/22 at 20:30 Docusate Sodium (Colace) 100 mg Q12H PRN PO CONSTIPATION; Start 11/22/16 at 20: 30 Bisacodyl (Dulcolax) 5 mg DAILY PRN PO CONSTIPATION; Start 11/22/16 at 20:30 Famotidine (Pepcid) 20 mg Q12 PO Last administered on 12/28/16 08:54; Admin Dose 20 MG; Start 11/22/16 at 21:00 Levetiracetam (Keppra Liquid) 1,000 mg BID PO Last administered on 12/28/16 08 :54; Admin Dose 1,000 MG; Start 12/13/16 at 21:00 Hydralazine HCl (Apresoline) 50 mg TID PO Last administered on 12/28/16 08:54 ; Admin Dose 50 MG; Start 12/22/16 at 13:00 Amlodipine Besylate 5 mg 5 mg BID PO Last administered on 12/28/16 08:54; Admin Dose 5 MG; Start 12/22/16 at 21:00 Sodium Chloride (1/2 NS) 1,000 ml @ 70 mls/hr [id number] IV Last administered on 12/28/16 00:28; Admin Dose 70 MLS/HR; Start 12/22/16 at 21:00 Heparin Sodium (Porcine) (Heparin (5000 Units/0.5 ml)) 5,000 unit BID SC Last administered on 12/28/16 08:55; Admin Dose 5,000 UNIT; Start 12/23/16 at 21:00 GLORIA LESTER Dec 28, 2016 09:48
[2016-12-28 12:18] LABS: CALCIUM 8.5 mg/dl (8.4-10.2); CREATININE 0.74 mg/dl (0.61-1.24); POTASSIUM 3.1 mmol/L (3.5-5.1)
[2016-12-28 13:44] VITALS: BP 147/75; RESP 18
--- NOTE | 2016-12-28 14:00 | CONS ---
Date/Time of Note Date/Time of Note DATE: 12/28/16 TIME: 14:00 Assessment/Plan Assessment/Plan Chief Complaint/Hosp Course SUBJECTIVE: No acute changes overnight, looks comfortable, no fevers INDWELLINGS: Suprapubic catheter. ANTIMICROBIALS: none MICROBIOLOGY: Repeat urine culture 12/23 grew Providencia stuartii/Proteus. PHYSICAL EXAMINATION: GENERAL: Chronically ill-appearing, elderly man in no distress. HEENT: Head atraumatic, normocephalic. Sclerae anicteric. Buccal mucosa dry. NECK: Supple. CHEST: Rise symmetrical. Breath sounds diminished at the bases. HEART: S1, S2. ABDOMEN: Soft, bowel tones present. EXTREMITIES: Without cyanosis. Patient has right great toe and left great toe ingrown toenails. ASSESSMENT: 1. Status post sepsis. 2. S/p urinary tract infection with epididymitis. 3. Bacteriuria ==> secondary to chronic suprapubic catheter. 4. History of Peyronie's disease. 5. Diabetes. 6. Ingrown toenails. PLAN: The patient remains stable, no fevers, repeat urine cx with colonized bacteria, continue observing off antibiotics. DW staff Problems: Consultation Date/Type/Reason Admit Date/Time Nov 22, 2016 at 19:54 Type of Consultation: ID Exam/Review of Systems Vital Signs Vitals Vital Signs Date Time Temp Pulse Resp B/P Pulse Ox O2 Delivery O2 Flow Rate FiO2 12/28/16 08:36 98.0 61 18 150/73 98 12/27/16 08:30 Room Air Intake and Output 12/27/16 12/27/16 12/28/16 15:00 23:00 07:00 Intake Total 1360 ml 1000 ml Output Total 1350 ml 550 ml Balance 10 ml 450 ml Results Result Diagram: 12/25/16 1703 12/28/16 1035 Results 24 hrs Laboratory Tests Test 12/28/16 10:35 Sodium Level 145 H Potassium Level 3.1 L Chloride Level 108 Carbon Dioxide Level 26 Anion Gap 14 Blood Urea Nitrogen 15 Creatinine 0.74 Glucose Level 92 Calcium Level 8.5 Medications Medications Current Medications Atorvastatin Calcium (Lipitor) 20 mg QHS PO Last administered on 12/27/16t 21: 18; Admin Dose 20 MG; Start 11/22/16 at 21:00 Gabapentin (Neurontin) 300 mg TID PO Last administered on 12/28/16 08:54; Admin Dose 300 MG; Start 11/22/16 at 21:00 Hydroxyzine HCl (Atarax) 10 mg QHS PRN PO ITCHING; Start 11/22/16 at 20:30 Simethicone (Mylicon) 80 mg TID PO Last administered on 12/28/16 08:54; Admin Dose 80 MG; Start 11/22/16 at 21:00 Ondansetron HCl (Zofran Inj) 4 mg Q6H PRN IV NAUSEA AND/OR VOMITING; Start 11/22/16 at 20:30 Acetaminophen (Tylenol Tab) 650 mg Q6H PRN PO PAIN LEVEL 1-3 OR FEVER Last administered on 11/25/16 20:24; Admin Dose 650 MG; Start 11/22/16 at 20:30 Morphine Sulfate (morphine) 2 mg Q4H PRN IV SEVERE PAIN LEVEL 7-10; Start 11/22 at 20:30 Docusate Sodium (Colace) 100 mg Q12H PRN PO CONSTIPATION; Start 11/22/16 at 20: 30 Bisacodyl (Dulcolax) 5 mg DAILY PRN PO CONSTIPATION; Start 11/22/16 at 20:30 Famotidine (Pepcid) 20 mg Q12 PO Last administered on 12/28/16 08:54; Admin Dose 20 MG; Start 11/22/16 at 21:00 Levetiracetam (Keppra Liquid) 1,000 mg BID PO Last administered on 12/28/16 08 :54; Admin Dose 1,000 MG; Start 12/13/16 at 21:00 Hydralazine HCl (Apresoline) 50 mg TID PO Last administered on 12/28/16 08:54 ; Admin Dose 50 MG; Start 12/22/16 at 13:00 Amlodipine Besylate 5 mg 5 mg BID PO Last administered on 12/28/16 08:54; Admin Dose 5 MG; Start 12/22/16 at 21:00 Sodium Chloride (1/2 NS) 1,000 ml @ 70 mls/hr [id number] IV Last administered on 12/28/16 00:28; Admin Dose 70 MLS/HR; Start 12/22/16 at 21:00 Heparin Sodium (Porcine) (Heparin (5000 Units/0.5 ml)) 5,000 unit BID SC Last administered on 12/28/16t 08:55; Admin Dose 5,000 UNIT; Start 12/23/16 at 21:00 RAMA THAYER NP Dec 28, 2016 14:00
[2016-12-28] MEDS ORDERED: POTASSIUM CHLORIDE 250 ML IVPB ONE (17:00)
[2016-12-28 20:00] VITALS: BP 149/75; RESP 18
[2016-12-28] MEDS: ATORVASTATIN 20 MG TAB PO SCH (20:46)
[2016-12-29 02:00] VITALS: BP 161/78; RESP 19
[2016-12-29 02:45] VITALS: BP 142/77; PULSE 70; RESP 18
[2016-12-29 05:55] LABS: CALCIUM 8.4 mg/dl (8.4-10.2); CREATININE 0.81 mg/dl (0.61-1.24); POTASSIUM 3.2 mmol/L (3.5-5.1)
[2016-12-29 08:36] VITALS: BP 165/86; RESP 18
[2016-12-29] MEDS: GABAPENTIN 300 MG CAP PO SCH ×3 (09:00→20:18)
[2016-12-29] MEDS: LEVETIRACETAM (100 MG/ML) 5ML CUP PO SCH ×2 (09:00→20:18)
[2016-12-29] MEDS: AMLODIPINE 5 MG TAB PO SCH ×2 (09:00→20:20)
[2016-12-29] MEDS: FAMOTIDINE 20 MG TAB PO SCH ×2 (09:01→20:18)
[2016-12-29] MEDS: HEPARIN 5,000 UNIT/0.5 ML VIAL SC SCH ×2 (09:01→20:24)
[2016-12-29] MEDS: SOD CHLORIDE 0.45% 1,000 ML IV SCH (09:23)
--- NOTE | 2016-12-29 12:34 | CONS ---
Date/Time of Note Date/Time of Note DATE: 12/29/16 TIME: 12:33 Assessment/Plan Assessment/Plan Chief Complaint/Hosp Course SUBJECTIVE: No acute changes overnight, looks comfortable, no fevers INDWELLINGS: Suprapubic catheter. ANTIMICROBIALS: none MICROBIOLOGY: Repeat urine culture 12/23 grew Providencia stuartii/Proteus. PHYSICAL EXAMINATION: GENERAL: Chronically ill-appearing, elderly man in no distress. HEENT: Head atraumatic, normocephalic. Sclerae anicteric. Buccal mucosa dry. NECK: Supple. CHEST: Rise symmetrical. Breath sounds diminished at the bases. HEART: S1, S2. ABDOMEN: Soft, bowel tones present. EXTREMITIES: Without cyanosis. Patient has right great toe and left great toe ingrown toenails. ASSESSMENT: 1. Status post sepsis. 2. S/p urinary tract infection with epididymitis. 3. Bacteriuria ==> secondary to chronic suprapubic catheter. 4. History of Peyronie's disease. 5. Diabetes. 6. Ingrown toenails. PLAN: The patient remains stable, no fevers, repeat urine cx with colonized bacteria, continue observing off antibiotics. DW staff Problems: Consultation Date/Type/Reason Admit Date/Time Nov 22, 2016 at 19:54 Type of Consultation: ID Exam/Review of Systems Vital Signs Vitals Vital Signs Date Time Temp Pulse Resp B/P Pulse Ox O2 Delivery O2 Flow Rate FiO2 12/29/16 08:36 76.9 76 18 165/86 98 12/29/16 02:45 Room Air Intake and Output 12/28/16 12/28/16 12/29/16 15:00 23:00 07:00 Intake Total 700 ml 1390 ml 870 ml Output Total 1350 ml 600 ml Balance 700 ml 40 ml 270 ml Results Result Diagram: 12/25/16 1703 12/29/16 0502 Results 24 hrs Laboratory Tests Test 12/29/16 05:02 Sodium Level 143 Potassium Level 3.2 L Chloride Level 109 Carbon Dioxide Level 26 Anion Gap 11 Blood Urea Nitrogen 19 Creatinine 0.81 Glucose Level 96 Calcium Level 8.4 Medications Medications Current Medications Atorvastatin Calcium (Lipitor) 20 mg QHS PO Last administered on 12/28/16t 20: 46; Admin Dose 20 MG; Start 11/22/16 at 21:00 Gabapentin (Neurontin) 300 mg TID PO Last administered on 12/29/16 09:00; Admin Dose 300 MG; Start 11/22/16 at 21:00 Hydroxyzine HCl (Atarax) 10 mg QHS PRN PO ITCHING; Start 11/22/16 at 20:30 Simethicone (Mylicon) 80 mg TID PO Last administered on 12/29/16 09:00; Admin Dose 80 MG; Start 11/22/16 at 21:00 Ondansetron HCl (Zofran Inj) 4 mg Q6H PRN IV NAUSEA AND/OR VOMITING; Start 11/22/16 at 20:30 Acetaminophen (Tylenol Tab) 650 mg Q6H PRN PO PAIN LEVEL 1-3 OR FEVER Last administered on 11/25/16 20:24; Admin Dose 650 MG; Start 11/22/16 at 20:30 Morphine Sulfate (morphine) 2 mg Q4H PRN IV SEVERE PAIN LEVEL 7-10; Start 11/22 at 20:30 Docusate Sodium (Colace) 100 mg Q12H PRN PO CONSTIPATION; Start 11/22/16 at 20: 30 Bisacodyl (Dulcolax) 5 mg DAILY PRN PO CONSTIPATION; Start 11/22/16 at 20:30 Famotidine (Pepcid) 20 mg Q12 PO Last administered on 12/29/16 09:01; Admin Dose 20 MG; Start 11/22/16 at 21:00 Levetiracetam (Keppra Liquid) 1,000 mg BID PO Last administered on 12/29/16 09:00; Admin Dose 1,000 MG; Start 12/13/16 at 21:00 Hydralazine HCl (Apresoline) 50 mg TID PO Last administered on 12/29/16 09:00 ; Admin Dose 50 MG; Start 12/22/16 at 13:00 Amlodipine Besylate 5 mg 5 mg BID PO Last administered on 12/29/16 09:00; Admin Dose 5 MG; Start 12/22/16 at 21:00 Sodium Chloride (1/2 NS) 1,000 ml @ 70 mls/hr [id number] IV Last administered on 12/29/16 09:23; Admin Dose 70 MLS/HR; Start 12/22/16 at 21:00 Heparin Sodium (Porcine) (Heparin (5000 Units/0.5 ml)) 5,000 unit BID SC Last administered on 12/29/16t 09:01; Admin Dose 5,000 UNIT; Start 12/23/16 at 21:00 RAMA THAYER NP Dec 29, 2016 12:34
--- NOTE | 2016-12-29 14:27 | PN ---
Date/Time of Note Date/Time of Note DATE: 12/29/16 TIME: 14:24 Assessment/Plan VTE Prophylaxis VTE Prophylaxis Intervention: SCD's Lines/Catheters IV Catheter Type (from [facility]rs): Peripheral IV Urinary Cath still in place: Yes (suprapubic catheter) Reason Cath still needed: urinary retention, skin wounds contaminated by urine Assessment/Plan Chief Complaint/Hosp Course Subjective: Events noted. Tolerating therapy Objective: Vital signs stable no fever Physical exam No pallor adenopathy Regular Clear Bowel sounds diminished nontender nondistended no hard G Mild edema Assessment and plan 1. Scrotal cellulitis. Peyronie dz. Stable cont antibiotics. 2. Chronic suprapubic catheter status; Obstructed. s/p suprapubic exchange. 3. History of Jami's gangrene 4. History of hemorrhagic stroke with debility. Continue supportive care. He needs sniffs soon. 5. Chronic hypertension 6. Diabetes/metabolic syndrome 7 Probable cirrhosis/ [place] 8. Nephrolithiasis 9. Anemia Problems: Exam/Review of Systems Vital Signs Vitals Vital Signs Date Time Temp Pulse Resp B/P Pulse Ox O2 Delivery O2 Flow Rate FiO2 12/29/16 08:36 76.9 76 18 165/86 98 12/29/16 02:45 Room Air Intake and Output 12/28/16 12/28/16 12/29/16 15:00 23:00 07:00 Intake Total 700 ml 1390 ml 870 ml Output Total 1350 ml 600 ml Balance 700 ml 40 ml 270 ml Results Result Diagram: 12/25/16 1703 12/29/16 0502 Results 24 hrs Laboratory Tests Test 12/29/16 05:02 Sodium Level 143 Potassium Level 3.2 L Chloride Level 109 Carbon Dioxide Level 26 Anion Gap 11 Blood Urea Nitrogen 19 Creatinine 0.81 Glucose Level 96 Calcium Level 8.4 Medications Medications Current Medications Atorvastatin Calcium (Lipitor) 20 mg QHS PO Last administered on 12/28/16 20: 46; Admin Dose 20 MG; Start 11/22/16 at 21:00 Gabapentin (Neurontin) 300 mg TID PO Last administered on 12/29/16 12:35; Admin Dose 300 MG; Start 11/22/16 at 21:00 Hydroxyzine HCl (Atarax) 10 mg QHS PRN PO ITCHING; Start 11/22/16 at 20:30 Simethicone (Mylicon) 80 mg TID PO Last administered on 12/29/16 12:35; Admin Dose 80 MG; Start 11/22/16 at 21:00 Ondansetron HCl (Zofran Inj) 4 mg Q6H PRN IV NAUSEA AND/OR VOMITING; Start 11/22/16 at 20:30 Acetaminophen (Tylenol Tab) 650 mg Q6H PRN PO PAIN LEVEL 1-3 OR FEVER Last administered on 11/25/16 20:24; Admin Dose 650 MG; Start 11/22/16 at 20:30 Morphine Sulfate (morphine) 2 mg Q4H PRN IV SEVERE PAIN LEVEL 7-10; Start 11/22 at 20:30 Docusate Sodium (Colace) 100 mg Q12H PRN PO CONSTIPATION; Start 11/22/16 at 20: 30 Bisacodyl (Dulcolax) 5 mg DAILY PRN PO CONSTIPATION; Start 11/22/16 at 20:30 Famotidine (Pepcid) 20 mg Q12 PO Last administered on 12/29/16 09:01; Admin Dose 20 MG; Start 11/22/16 at 21:00 Levetiracetam (Keppra Liquid) 1,000 mg BID PO Last administered on 12/29/16 09:00; Admin Dose 1,000 MG; Start 12/13/16 at 21:00 Hydralazine HCl (Apresoline) 50 mg TID PO Last administered on 12/29/16 12:35 ; Admin Dose 50 MG; Start 12/22/16 at 13:00 Amlodipine Besylate 5 mg 5 mg BID PO Last administered on 12/29/16 09:00; Admin Dose 5 MG; Start 12/22/16 at 21:00 Sodium Chloride (1/2 NS) 1,000 ml @ 70 mls/hr [id number] IV Last administered on 12/29/16 09:23; Admin Dose 70 MLS/HR; Start 12/22/16 at 21:00 Heparin Sodium (Porcine) (Heparin (5000 Units/0.5 ml)) 5,000 unit BID SC Last administered on 12/29/16 09:01; Admin Dose 5,000 UNIT; Start 12/23/16 at 21:00 BIN MCCORD MD Dec 29, 2016 14:27
[2016-12-29 15:07] VITALS: BP 158/92; RESP 20
[2016-12-29] MEDS: LACTOBACILLUS RHAMNOSUS CAP PO SCH ×2 (15:38→20:18)
[2016-12-29] MEDS: POTASSIUM CHLORIDE 20 MEQ POWDER FOR ORAL SOLN PO SCH (15:39)
[2016-12-29 20:00] VITALS: BP 155/76; RESP 20
[2016-12-29] MEDS: ATORVASTATIN 20 MG TAB PO SCH (20:18)
[2016-12-29 22:30] VITALS: BP 124/66
[2016-12-30 02:00] VITALS: BP 139/79; RESP 20
[2016-12-30 05:45] LABS: ABNORMAL IP MESSAGE 1; BASOPHIL # 0.1 10^3/ul (0.0-0.1); BASOPHILS % 0.8 % (0.0-2.0); EOSINOPHILS # 0.1 10^3/ul (0.0-0.5); EOSINOPHILS % 1.4 % (0.0-7.0); HEMATOCRIT 36.5 % (42.0-52.0); HEMOGLOBIN 11.1 g/dl (14.0-18.0); LYMPHOCYTES # 2.4 10^3/ul (0.8-2.9); LYMPHOCYTES % 35.7 % (15.0-51.0); MEAN CORPUSCULAR HEMOGLOBIN 18.9 pg (29.0-33.0); MEAN CORPUSCULAR HGB CONC 30.4 g/dl (32.0-37.0); MEAN CORPUSCULAR VOLUME 62.2 fl (82.0-101.0); MONOCYTE # 0.6 10^3/ul (0.3-0.9); MONOCYTES % 8.6 % (0.0-11.0); NEUTROPHIL # 3.6 10^3/ul (1.6-7.5); NEUTROPHILS % 53.2 % (39.0-77.0); PLATELET COUNT 158 10^3/UL (140-415); POSITIVE DIFF @See below; RED BLOOD COUNT 5.87 10^6/ul (4.70-6.10); RED CELL DISTRIBUTION WIDTH 18.2 % (11.5-14.5); WHITE BLOOD COUNT 6.7 10^3/ul (4.8-10.8)
[2016-12-30 06:17] LABS: ALBUMIN/GLOBULIN RATIO 1.02; BILIRUBIN,INDIRECT 0.6 mg/dl (0-1.1); BILIRUBIN,TOTAL 0.6 mg/dl (0.2-1.3); CALCIUM 8.9 mg/dl (8.4-10.2); CREATININE 0.79 mg/dl (0.61-1.24); PHOSPHORUS 3.1 mg/dl (2.5-4.9); POTASSIUM 3.3 mmol/L (3.5-5.1); TOTAL PROTEIN 7.9 g/dl (6.1-8.1)
[2016-12-30 07:50] VITALS: BP 111/73; RESP 18
[2016-12-30] MEDS: LEVETIRACETAM (100 MG/ML) 5ML CUP PO SCH (09:44)
[2016-12-30] MEDS: FAMOTIDINE 20 MG TAB PO SCH (09:45)
[2016-12-30] MEDS: AMLODIPINE 5 MG TAB PO SCH (09:45)
[2016-12-30] MEDS: GABAPENTIN 300 MG CAP PO SCH ×2 (09:45→13:44)
[2016-12-30] MEDS: LACTOBACILLUS RHAMNOSUS CAP PO SCH (09:45)
[2016-12-30] MEDS: POTASSIUM CHLORIDE 20 MEQ POWDER FOR ORAL SOLN PO SCH (09:45)
[2016-12-30] MEDS: HEPARIN 5,000 UNIT/0.5 ML VIAL SC SCH (09:51)
--- NOTE | 2016-12-30 10:07 | PN ---
Date/Time of Note Date/Time of Note DATE: 12/30/16 TIME: 10:05 Assessment/Plan VTE Prophylaxis VTE Prophylaxis Intervention: heparin Lines/Catheters IV [facility] Type (from [facility] [place] Urinary Cath still in place: Yes (suprapubic catheter) Reason Cath still needed: other (indicate) Assessment/Plan Chief Complaint/Hosp Course 1. Complicated urinary tract infection. Urine culture positive for Morganella morganii and Pseudomonas aeruginosa. S/P antibiotics.Latest urine culture from 12/23/2016 showing Proteus mirabilis and Providencia stuartii. Most probably colonization because of the patient's underlying suprapubic catheter. 2. History of Peyronie's disease. Status post multiple surgeries on his scrotum and insertion of a suprapubic catheter. S/P removal of suprapubic catheter. The patient being followed by urology. 3. Essential hypertension. Continue antihypertensives. Adjust antihypertensives to obtain optimal blood pressure control. 4. 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 Continue supportive care. Continue prophylactic Keppra. 5. History of diabetes mellitus. Was previously on insulin at home. Currently off antidiabetic medications. Hemoglobin A1c within normal limits. 6. Microcytic, hypochromic anemia. S/P iron supplements. 7. Fluids, electrolytes, and nutrition. Mechanical soft diet. 8. DVT prophylaxis. Bilateral sequential compression devices. SQ heparin. 9. Plan. The patent remains stable. Needs placement. Case discussed with Dr. Costello. Problems: Subjective 24 Hr Interval Summary Free Text/Dictation The patient remains afebrile. Exam/Review of Systems Vital Signs Vitals Vital Signs Date Time Temp Pulse Resp B/P Pulse Ox O2 Delivery O2 Flow Rate FiO2 12/30/16 07:50 98.1 87 18 111/73 97 12/29/16 02:45 Room Air Intake and Output 12/29/16 12/29/16 12/30/16 15:00 23:00 07:00 Intake Total 200 ml 1460 ml 360 ml Output Total 2800 ml 1000 ml Balance 200 ml -1340 ml -640 ml Exam General: Adequately build 61 year-old male lying in bed in no apparent distress. HEENT: Normocephalic, atraumatic. Eyes: Anicteric sclerae, conjunctivae clear. ENT: Nasal septum midline, oral mucosa moist. Neck supple, no JVD noticed. Respiratory: Bilaterally diminished breath sounds. No use of accessory muscles of respiration. No adventitious breath sounds. Cardiovascular: S1, S2 heard. Regular rate and rhythm. Abdomen: Soft, nontender, and nondistended. Bowel sounds positive in all 4 quadrants. Genitourinary: Scrotal edema. Suprapubic catheter in place. Extremities: No cyanosis, no clubbing, no edema. Peripheral pulses palpable. Neurologic: The patient is awake and alert. Left sylvain-plegia. Results Result Diagram: 12/30/163 12/30/16442 Results 24 hrs Laboratory Tests Test 12/30/16 04:43 White Blood Count 6.7 Red Blood Count 5.87 Hemoglobin 11.1 L Hematocrit 36.5 L Mean Corpuscular Volume 62.2 L Mean Corpuscular Hemoglobin 18.9 L Mean Corpuscular Hemoglobin Concent 30.4 L Red Cell Distribution Width 18.2 H Platelet Count 158 Mean Platelet Volume Neutrophils % 53.2 Lymphocytes % 35.7 Monocytes % 8.6 Eosinophils % 1.4 Basophils % 0.8 Nucleated Red Blood Cells % 0.0 Neutrophils # 3.6 Lymphocytes # 2.4 Monocytes # 0.6 Eosinophils # 0.1 Basophils # 0.1 Nucleated Red Blood Cells # 0.0 Sodium Level 147 H Potassium Level 3.3 L Chloride Level 108 Carbon Dioxide Level 28 Anion Gap 14 Blood Urea Nitrogen 17 Creatinine 0.79 Glucose Level 98 Calcium Level 8.9 Phosphorus Level 3.1 Magnesium Level 2.0 Total Bilirubin 0.6 Direct Bilirubin 0.00 Indirect Bilirubin 0.6 Aspartate Amino Transf (AST/SGOT) 38 Alanine Aminotransferase (ALT/SGPT) 28 Alkaline Phosphatase 145 H Total Protein 7.9 Albumin 4.0 Globulin 3.90 H Albumin/Globulin Ratio 1.02 Medications Medications Current Medications Atorvastatin Calcium (Lipitor) 20 mg QHS PO Last administered on 12/29/16 20: 18; Admin Dose 20 MG; Start 11/22/16 at 21:00 Gabapentin (Neurontin) 300 mg TID PO Last administered on 12/30/16 09:45; Admin Dose 300 MG; Start 11/22/16 at 21:00 Hydroxyzine HCl (Atarax) 10 mg QHS PRN PO ITCHING; Start 11/22/16 at 20:30 Simethicone (Mylicon) 80 mg TID PO Last administered on 12/30/16 09:45; Admin Dose 80 MG; Start 11/22/16 at 21:00 Ondansetron HCl (Zofran Inj) 4 mg Q6H PRN IV NAUSEA AND/OR VOMITING; Start 11/22/16 at 20:30 Acetaminophen (Tylenol Tab) 650 mg Q6H PRN PO PAIN LEVEL 1-3 OR FEVER Last administered on 11/25/16 20:24; Admin Dose 650 MG; Start 11/22/16 at 20:30 Morphine Sulfate (morphine) 2 mg Q4H PRN IV SEVERE PAIN LEVEL 7-10; Start 11/22 at 20:30 Docusate Sodium (Colace) 100 mg Q12H PRN PO CONSTIPATION; Start 11/22/16 at 20: 30 Bisacodyl (Dulcolax) 5 mg DAILY PRN PO CONSTIPATION; Start 11/22/16 at 20:30 Famotidine (Pepcid) 20 mg Q12 PO Last administered on 12/30/16 09:45; Admin Dose 20 MG; Start 11/22/16 at 21:00 Levetiracetam (Keppra Liquid) 1,000 mg BID PO Last administered on 12/30/16 09:44; Admin Dose 1,000 MG; Start 12/13/16 at 21:00 Hydralazine HCl (Apresoline) 50 mg TID PO Last administered on 12/30/16 09:46 ; Admin Dose 50 MG; Start 12/22/16 at 13:00 Amlodipine Besylate (Norvasc) 5 mg BID PO Last administered on 12/30/16 09:45 ; Admin Dose 5 MG; Start 12/22/16 at 21:00 Heparin Sodium (Porcine) (Heparin (5000 Units/0.5 ml)) 5,000 unit BID SC Last administered on 12/30/16 09:51; Admin Dose 5,000 UNIT; Start 12/23/16 at 21:00 Lactobacillus Acidophilus/ Rhamnosus (Culturelle) 1 cap BID PO Last administered on 12/30/16 09:45; Admin Dose 1 CAP; Start 12/29/16 at 14:30 Potassium Chloride (Potassium Chloride Pwd/Soln) 40 meq DAILY PO Last administered on 12/30/16 09:45; Admin Dose 40 MEQ; Start 12/29/16 at 14:30 ADELAIDA GRIMALDO NP Dec 30, 2016 10:07
[2016-12-30 14:22] VITALS: BP 128/81; RESP 16
--- NOTE | 2016-12-30 16:36 | DS ---
Date/Time of Note Date/Time of Note DATE: 12/30/16 TIME: 16:34 Discharge Summary Admission/Discharge Info Admit Date/Time Nov 22, 2016 at 19:54 Discharge Date/Time Discharge Diagnosis 1. Polymicrobial UTI. 2. History of Peyronie's disease. 3. Essential hypertension. 4. 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 5. History of diabetes mellitus. 6. Anemia likely of chronic disease. Patient Condition: Stable Consults 1. Héctor Diaz MD, Urology. 2. Riley Vela MD, Infectious Diseases. Procedures CT Abdomen and Pelvis IMPRESSION: 1. Findings which may represent pyelitis and cystitis as described above. 2. Bilateral non-obstructing renal calculi which have increased in size and number. 3. Suprapubic catheter again seen. 4. Cirrhotic liver morphology with mild splenomegaly again noted. 5. Nonspecific increased soft tissue density with scrotal wall thickening which may represent cellulitis. Consider further evaluation with scrotal ultrasound as well. Testicular Ultrasound IMPRESSION: 1. Increased color flow in the bilateral testes which may represent orchitis. Consider a short interval follow-up as clinically warranted. 2. Diffuse scrotal wall thickening. Hx of Present Illness Chief complaint scrotal swelling 1 day This is a 61-year-old male with a past medical history of cerebrovascular accident, hemorrhagic with left hemiparesis, hypertension, diabetes mellitus, history of previous scrotal swelling and has been having intermittent chronic indwelling Brown catheter who presented with scrotal swelling 1. The patient was unable to provide a history and information was obtained from the previous medical records. His daughter was called however was not able to reach her. He also has a history of Jami gangrene of the scrotum. He has undergone surgery and insertion of a suprapubic catheter. Follows with Dr. Diaz. Allergies: NKDA Medications: See MAR Hospital Course The patient was admitted to inpatient setting. Urology consult was obtained. The patient's urine culture from 11/22/2016 showed Morganella morganii and Pseudomonas aeruginosa. The patient was maintained on antimicrobials as per infectious diseases. The patient's repeat urine culture from 12/03/2016 showed Providencia stuartii. The patient also had another urine culture done on 2016 that showed Proteus mirabilis and Providencia stuartii. The patient is status post antimicrobials as per infectious diseases. As per infectious diseases, the patient has bacteriuria most probably secondary to chronic suprapubic catheter. The patient's suprapubic catheter was replaced by urology since it was leaking. The patient has a suprapubic catheter because of prior history of Peyronie's disease. The patient has history of essential hypertension. The patient's antihypertensives were adjusted to obtain optimal blood pressure control. He has history of hemorrhagic CVA with left hemiparesis and he is chronically bedridden. The patient was provided with supportive care and the patient was maintained on prophylactic Keppra. He has history of diabetes mellitus. He was previously on insulin at home. The patient has been off antidiabetic medications during the hospital course. The patient's random blood glucose levels were within normal limits. The patient's hemoglobin A1c was also within normal limits. The patient had microcytic, hypochromic anemia. This could be most probably anemia of chronic disease. The patient's H&H remained stable throughout the hospital course and the patient did not require any blood transfusion during the hospital course. The patient is chronically bedridden and the patient's family was unable to take care of the patient. Therefore, long-term facility placement was requested by the patient's family. The patient had to wait for a while for obtaining long-term facility because of the need for [facility] care. The patient currently has a long-term facility available and the patient will be discharged over there. At this time I would like to thank all the consultants for seeing the patient, doing the necessary procedures, and providing clinical recommendations. Case discussed with . Home Meds Active Scripts Ferrous Sulfate (Ferrous Sulfate) 300 Mg/5 Ml Liquid, 300 MG PO BID, #60 Prov:GLORIA LESTER 12/14/16 Hydralazine Hcl* (Hydralazine Hcl*) 25 Mg Tab, 75 MG PO TID, #90 TAB Prov:GLORIA LESTER 11/30/16 Reported Medications Levetiracetam* (Levetiracetam*) 500 Mg Tablet, 1000 MG PO BID, TAB 11/22/16 Atorvastatin Calcium* (Atorvastatin Calcium*) 20 Mg Tablet, 20 MG PO QHS, #30 TAB 11/22/16 Hydroxyzine Hcl* (Hydroxyzine Hcl*) 10 Mg Tablet, 10 MG PO QHS Y for ITCHING, # 30 TAB 11/22/16 Simethicone (GAS RELIEF) 80 Mg Tab.chew, 80 MG PO TID, TAB.CHEW 11/22/16 Gabapentin* (Gabapentin*) 300 Mg Capsule, 300 MG PO TID, #90 CAP 11/22/16 Follow-up Plan 1. Follow up with Dr. Héctor Diaz in one week Primary Care Provider Maci Tolbert MD Time spent on discharge: 45 minutes. Pending Labs Laboratory Tests Test 12/30/16 04:43 White Blood Count 6.710^3/ul (4.8-10.8) Red Blood Count 5.8710^6/ul (4.70-6.10) Hemoglobin 11.1g/dl (14.0-18.0) Hematocrit 36.5% (42.0-52.0) Mean Corpuscular Volume 62.2fl (82.0-101.0) Mean Corpuscular Hemoglobin 18.9pg (29.0-33.0) Mean Corpuscular Hemoglobin Concent 30.4g/dl (32.0-37.0) Red Cell Distribution Width 18.2% (11.5-14.5) Platelet Count 69998^3/UL (140-415) Mean Platelet Volume fl (7.4-10.4) Neutrophils % 53.2% (39.0-77.0) Lymphocytes % 35.7% (15.0-51.0) Monocytes % 8.6% (0.0-11.0) Eosinophils % 1.4% (0.0-7.0) Basophils % 0.8% (0.0-2.0) Nucleated Red Blood Cells % 0.0/100WBC (0.0-0.0) Neutrophils # 3.610^3/ul (1.6-7.5) Lymphocytes # 2.410^3/ul (0.8-2.9) Monocytes # 0.610^3/ul (0.3-0.9) Eosinophils # 0.110^3/ul (0.0-0.5) Basophils # 0.110^3/ul (0.0-0.1) Nucleated Red Blood Cells # 0.010^3/ul (0.0-0.0) Sodium Level 147mmol/L (135-144) Potassium Level 3.3mmol/L (3.5-5.1) Chloride Level 108mmol/L (97-110) Carbon Dioxide Level 28mmol/L (21-31) Anion Gap 14 (8-16) Blood Urea Nitrogen 17mg/dl (7-20) Creatinine 0.79mg/dl (0.61-1.24) Glucose Level 98mg/dl (70-220) Calcium Level 8.9mg/dl (8.4-10.2) Phosphorus Level 3.1mg/dl (2.5-4.9) Magnesium Level 2.0mg/dl (1.7-2.5) Total Bilirubin 0.6mg/dl (0.2-1.3) Direct Bilirubin 0.00mg/dl (0.00-0.20) Indirect Bilirubin 0.6mg/dl (0-1.1) Aspartate Amino Transf (AST/SGOT) 38IU/L (15-46) Alanine Aminotransferase (ALT/SGPT) 28IU/L (13-69) Alkaline Phosphatase 145IU/L (42-121) Total Protein 7.9g/dl (6.1-8.1) Albumin 4.0g/dl (3.3-4.9) Globulin 3.90g/dl (1.3-3.2) Albumin/Globulin Ratio 1.02 ADELAIDA GRIMALDO NP Dec 30, 2016 16:36
== END 2016-12-30 16:25 | DRG 698 ==
LOC: E/R 14:22 → PP2 19:54
PROVIDERS: ADMIT Internal Medicine; ATTEND Internal Medicine
PROC: 0T2BX0Z Change Drainage Device in Bladder, External Approach (ICD-10-PCS; principal; 2016-11-29)
DX: T83.510A Infection and inflammatory reaction due to cystostomy catheter, initial encounter (principal); A41.9 Sepsis, unspecified organism; N39.0 Urinary tract infection, site not specified; I69.254 Hemiplegia and hemiparesis following other nontraumatic intracranial hemorrhage affecting left non-dominant side; E88.81 Metabolic syndrome and other insulin resistance; I10 Essential (primary) hypertension; E11.9 Type 2 diabetes mellitus without complications; B96.4 Proteus (mirabilis) (morganii) as the cause of diseases classified elsewhere; T83.030A Leakage of cystostomy catheter, initial encounter; N45.3 Epididymo-orchitis; N31.9 Neuromuscular dysfunction of bladder, unspecified; N20.0 Calculus of kidney; J44.9 Chronic obstructive pulmonary disease, unspecified; D63.8 Anemia in other chronic diseases classified elsewhere; B96.5 Pseudomonas (aeruginosa) (mallei) (pseudomallei) as the cause of diseases classified elsewhere; Z16.24 Resistance to multiple antibiotics; R33.8 Other retention of urine; K21.9 Gastro-esophageal reflux disease without esophagitis; L60.0 Ingrowing nail; G40.909 Epilepsy, unspecified, not intractable, without status epilepticus; Z93.51 Cutaneous-vesicostomy status; Z87.438 Personal history of other diseases of male genital organs; Z74.01 Bed confinement status; Z87.891 Personal history of nicotine dependence; Z79.4 Long term (current) use of insulin
CPT/HCPCS: 36415; 71010; 74177; 76870; 80048; 80053; 80061; 80200; 80202; 81001; 82728; 83036; 83540; 83605; 83735; 84100; 84443; 84484; 85025; 85610; 85730; 87040; 87081; 87086; 90686; 92526; 92610; 93005; 96365; 96366; 96375; J0360; J1644; J2270; J2405; J2543; J3260; J3370; J3480; J7030; J7070; Q9967

== ENCOUNTER 2017-06-24 02:25 | Inpatient (IN) | END 2017-06-30 16:24 | DRG 871 ==